=== PATIENT | female | born 1945 | race Two or more races ===

== ENCOUNTER 2025-01-15 19:00 | Inpatient (IN) | payer OTHER ==
[~2025-01-15] VITALS: Ht 170.2 cm; Wt 62.3 kg
--- NOTE | 2025-01-15 19:13 | ED.PDOC ---
HPI Comments 80-year-old female with a history of diabetes, CKD and cardiac valve replacement brought in by EMS from home for evaluation of chest pain that started about 45 minutes prior to arrival. Patient states she was celebrating her birthday with family when she suddenly developed severe sharp chest pain radiating to the left upper extremity, associated with shortness of breath and lightheadedness. Family called 911. Patient states she took her own aspirin 324 mg prior to coming to the ED. on arrival to the ED, the patient states her chest pain is 8/10, sharp, radiating to the left upper extremity and associated with shortness of breath. She denies any nausea, vomiting, diaphoresis or edema. Time Seen by MD: 19:10 Allergies: Coded Allergies: NO KNOWN ALLERGIES (Unverified , 01/15/25) Past Medical History PAST MEDICAL HISTORY: CKF, DM Past Medical History (Other): Cardiac valve disease Surgical History (Other): heart valve replacement in 2010 CONTINUITY CLERK History: No Pertinent CONTINUITY CLERK History Family History Family History: Reviewed,noncontributory to illness Social History Smoker: Non-Smoker Alcohol: Denies ETOH Use Drugs: Denies Drug Use Lives In: Home All Other Systems: Reviewed and Negative (Comprehensive systems review obtained and negative except for what is stated in the HPI.) Physical Exam General Appearance: Mild Distress, Obese HEENT: Other (Pupils and face symmetric. Moist mucous membranes.) Neck: Full Range of Motion, Normal Inspection Respiratory: Lungs Clear, No Accessory Muscle Use, No Respiratory Distress, Normal Breath Sounds Cardiovascular: No Edema, No JVD, Regular Rate/Rhythm Breast Exam: Deferred Gastrointestinal: Non Tender, Soft Genitalia: Deferred Pelvic: Deferred Rectal: Deferred Extremities: Normal inspection, Normal range of motion, Non-tender, No pedal edema Neurologic: Alert (Oriented x4), Normal Affect, Normal Mood, Other (No gross focal deficit) Cerebellar Function: NOT DONE Reflexes: NOT DONE Skin: Dry, Normal Color, Warm Lymphatic: NOT DONE EKG EKG : Comments Sinus rhythm, rate 73, normal intervals, normal axis, LVH, inferior and lateral ST depression Was a procedure done? Was a procedure done?: No CP Differential Dx Differential Diagnosis: Angina, Anxiety / Panic Attack, HI, Pulmonary Embolus Differential Diagnosis: CHF Differential Diagnosis: Chest Wall Pain, Esophageal reflux/spasm, Gastritis, Pericarditis, Pneumonia X-Ray, Labs, Meds, VS Vital Signs Date Time Temp Pulse Resp B/P (MAP) Pulse Ox O2 Delivery O2 Flow Rate FiO2 01/15/25 19:57 67 01/15/25 19:35 130/56 01/15/25 19:15 98.2 74 17 129/76 96 98.2 01/15/25 19:04 73 Lab Test 01/15/25 20:54 01/15/25 19:40 Range/Units Troponin I High Sensitivity 55 *H 31 </=34 ng/L White Blood Count 10.3 4.4-10.8 10^3/uL Red Blood Count 2.75 L 4.0-5.20 10^6/uL Hemoglobin 7.3 L 12.2-16.2 g/dL Hematocrit 21.8 L 36.0-46.0 % Mean Corpuscular Volume 79.1 L 80.0-100.0 fL Mean Corpuscular Hemoglobin 26.4 L 28.0-32.0 pg Mean Corpuscular Hemoglobin Concent 33.4 32.0-36.0 g/dL Red Cell Distribution Width 16.4 H 11.8-14.3 % Platelet Count 344 140-450 10^3/uL Mean Platelet Volume 7.8 6.9-10.8 fL Neutrophils (%) (Auto) 73.3 37.0-80.0 % Lymphocytes (%) (Auto) 9.6 L 10.0-50.0 % Monocytes (%) (Auto) 6.8 0.0-12.0 % Eosinophils (%) (Auto) 9.6 H 0.0-7.0 % Basophils (%) (Auto) 0.7 0.0-2.0 % Neutrophils # (Auto) 7.5 1.6-8.6 10 ^3/uL Lymphocytes # (Auto) 1.0 0.4-5.4 10 ^3/uL Monocytes # (Auto) 0.7 0-1.3 10 ^3/uL Eosinophils # (Auto) 1.0 H 0-0.8 10 ^3/uL Basophils # (Auto) 0.1 0-0.2 10 ^3/uL Nucleated Red Blood Cells 0.0 % Sodium Level 134 L 136-145 mmol/L Potassium Level 4.9 3.5-5.1 mmol/L Chloride Level 102 98-107 mmol/L Carbon Dioxide Level 23 20-31 mmol/L Anion Gap 9 5-15 Blood Urea Nitrogen 50 H 9-23 mg/dL Creatinine 3.75 H 0.550-1.02 mg/dL Glomerular Filtration Rate Calc 12 >90 mL/min BUN/Creatinine Ratio 13.3 10.0-20.0 Serum Glucose 103 74-106 mg/dL Calcium Level 8.7 8.7-10.4 mg/dL B-Type Natriuretic Peptide 1428.44 0-100 pg/mL Current Medications Medications (Trade) Dose Ordered Sig/Virgen Route Start Time Stop Time Status Last Admin Nitroglycerin (Nitro-Bid) 1 pkg ONCE ONCE TD 01/15/25 19:15 01/15/25 19:16 DC 01/15/25 19:35 X-Ray, Labs, Meds, VS Comment 80-year-old female with a history of diabetes, CKD and cardiac valve replacement brought in by EMS complaining of chest pain Vitals unremarkable Exam unremarkable Rhythm strip independently interpreted by me: Sinus rhythm, rate 73, no ectopy. Chest x-ray independently interpreted by me: Cardiomegaly with pulmonary vascular congestion CBC remarkable for hemoglobin 7.3, hematocrit 21.8, basic metabolic panel remarkable for sodium 134, BUN 50, creatinine 3.75, BNP 1428.44, serial troponins 31 and 55, UA pending Patient treated with the following in the ED: Nitro-Bid 1/2 inch to chest wall with minimal improvement of chest pain. Patient subsequently received Bumex 0.5 mg IV, morphine 2 mg IV and Zofran 4 mg IV On re-evaluation, pain has significantly improved. Vitals were stable. Plan is to admit the patient for diuresis and Cardiology evaluation. Time of 1ST Reevaluation: 19:40 Reevaluation 1ST: Unchanged Time of 2ND Reevaluation: 21:30 Reevaluation 2ND: Improved Patient Education/Counseling: Diagnosis, Treatment Family Education/Counseling: Diagnosis, Treatment SEPSIS Sepsis Screen Physician Orders Chest Portable (01/15/25 20:21) Urinalysis (01/15/25 19:06) Electrocardigram (01/15/25 19:06) Troponin-I Hs (01/15/25 22:06) Electrocardigram (01/15/25 20:06) Electrocardigram (01/15/25 22:06) Vital Signs Date Time Temp Pulse Resp B/P (MAP) Pulse Ox O2 Delivery O2 Flow Rate FiO2 01/15/25 19:57 67 01/15/25 19:35 130/56 01/15/25 19:15 98.2 74 17 129/76 96 98.2 01/15/25 19:04 73 Laboratory Tests Test 01/15/25 19:40 White Blood Count 10.3 10^3/uL (4.4-10.8) Medications Medications Dose Ordered Sig/Virgen Route Start Time Stop Time Status Last Admin Dose Admin Nitroglycerin 1 pkg ONCE ONCE TD 01/15/25 19:15 01/15/25 19:16 DC 01/15/25 19:35 Departure 1 Departure Time of Disposition: 21:14 Impression: Primary Impression: Chest pain with high risk for cardiac etiology Additional Impressions: Acute exacerbation of CHF (congestive heart failure) Anemia Elevated troponin Disposition: ADMITTED INPATIENT Admit to: Tele Condition: Guarded Critical Care Note Critical Care Time?: No Stability Stability form required: No Heart Score Heart Score: Heart Score Response (Comments) Value History Moderate Suspicious [address]-Deviation 2 Age >65 2 Risk Factors >3 or Hx ASHD 2 Troponin Normal limit 0 Total 7 I personally scribed for DELMY HERNANDEZ MD ([email or web address]) on 01/15/25 at 19:13. Electronically submitted by Moragn Shin ([email or web address]). DELMY HERNANDEZ MD Jan 15, 2025 19:13
[2025-01-15] MEDS: NITROGLYCERIN 2% OINT 1GM PKG TD ONE (19:35)
[2025-01-15 20:00] LABS: Hematocrit 21.8 % (36.0-46.0); Hemoglobin 7.3 g/dL (12.2-16.2); Mean Corpuscular Hemoglobin 26.4 pg (28.0-32.0); Mean Corpuscular Volume 79.1 fL (80.0-100.0); Nucleated Red Blood Cells % 0.0 %
[2025-01-15 20:16] LABS: Chloride 102 mmol/L (98-107); Potassium 4.9 mmol/L (3.5-5.1)
[2025-01-15 20:17] LABS: Anion Gap 9 (5-15); Carbon Dioxide 23 mmol/L (20-31)
[2025-01-15 20:22] LABS: BUN/Creatinine Ratio 13.3 (10.0-20.0); Glucose 103 mg/dL (74-106)
[2025-01-15 20:29] LABS: Blood Urea Nitrogen 50 mg/dL (9-23); Calcium 8.7 mg/dL (8.7-10.4); Sodium 134 mmol/L (136-145)
[2025-01-15] MEDS: ONDANSETRON HCL 4 MG/2 ML VIAL IV ONE (21:59)
[2025-01-15] MEDS: BUMETANIDE 1mg/4ml VIAL (0.25mg/ml) IV ONE (22:00)
[2025-01-15] MEDS: MORPHINE SULFATE INJ 2 MG/ml SYRG IV ONE (22:01)
[2025-01-15 23:51] LABS: Urine Protein, UAD TRACE (Negative); Urine WBC Clumps PRESENT /hpf (None Seen)
--- NOTE | 2025-01-16 00:20 | DVH ---
EXAM: XY CHEST PORTABLE CLINICAL HISTORY: cp TECHNIQUE: Single AP view of the chest WID: COMPARISON: None FINDINGS: Lines and tubes: Prior median sternotomy Chest: Cardiomegaly and mild prominence of the pulmonary vasculature. Calcified plaque projects over the ao rtic arch. Diffuse interstitial opacities in the lungs. amorphous high density/ calcification in the right uppe r lung. No pleural effusion or pneumothorax. The osseous structures are grossly intact. IMPRESSION: Diffuse interstitial prominence in the lungs which could reflect pulmonary edema, fibrotic change, or atypical infection. Mild cardiomegaly with mild prominence of the pulmonary vasculature. Amorphous high density / calcification in the right upper lung. Consider characterization with noneme rgent CT chest if clinically indicated.
--- NOTE | 2025-01-16 10:44 | ECG ---
[facility] Test Date: 2025-01-16 Test Time: 10:42:47 Pat Name: KEYLA ANDRADE Department: Room: 0294T Gender: F Licensed Professional Counselor: : 1945 Requested By: PRADIP RANKIN Order Number: [id number] Reading MD: Donnie Jordan Measurements Intervals [place] Rate: 73 P: -27 GA: 210 QRS: -28 QRSD: 116 T: 119 QT: 406 QTc: 448 Interpretive Statements Sinus rhythm LVH with secondary repolarization abnormality Electronically Signed On 01-17-2025 23:00:01 PDT by Donnie Jordan Please click the below link to view image of tracing.
[2025-01-16] MEDS ORDERED: NITROGLYCERIN 0.4 MG SL TAB SL PRN (11:00)
[2025-01-16] MEDS ORDERED: ONDANSETRON HCL 4 MG/2 ML VIAL IV PRN (11:00)
--- NOTE | 2025-01-16 11:11 | DVHHPRES ---
History of Present Illness Resident Creating Document: PRADIP RANKIN RESDIENT History of Present Illness This is an 80-year-old female with past medical history of diabetes (on insulin), CKD grade 5, heart valvular replacement, hypertension and dyslipidemia came to the hospital due to chest pain. Pain localized at substernal area, radiating to the left arm, 8/10, pressure-like, with no clear exacerbating or relieving factor. In route the patient taken aspirin and upon arrival to the hospital and giving morphine pain resolved. She also reports of palpitation, headache, and shortness of breaths. Denies fever, cough, nausea, vomiting or any recent sick contact. PMHx: diabetes (on insulin), CKD grade 5, heart valvular replacement, hypertension and dyslipidemia and hemorrhoids PSHx: Valve repair open heart surgery Family history: Nonsignificant Social history: Denies smoking or any other drug use Home medication: Amlodipine, Lantus, carvedilol, sucralfate, Lasix, benazepril, atorvastatin, metformin Allergic history: No known allergy Patient seen and examined at the bedside. Patient is still complaining of mild chest pain and shortness of breaths. Review of Systems Allergies: Coded Allergies: NO KNOWN ALLERGIES (Unverified , 01/15/25) Medications Current Medications Medications Dose Ordered Sig/Virgen Route Start Time Stop Time Status Last Admin Dose Admin Acetaminophen 650 mg Q6HR PO 01/16/25 12:00 Acetaminophen/ Hydrocodone Bitart 1 tab Q4HP PRN PO 01/16/25 11:00 Ondansetron HCl 4 mg Q4HP PRN IV 01/16/25 11:00 UNV Nitroglycerin 0.4 mg Q5MINP PRN SL 01/16/25 11:00 Insulin Glargine 8 units DAILY@1000 SC 01/17/25 10:00 UNV Atorvastatin Calcium 80 mg HS PO 01/16/25 22:00 UNV Carvedilol 12.5 mg Q12HR PO 01/16/25 22:00 UNV Furosemide 40 mg DAILY IV 01/17/25 10:00 UNV Exam Vital Signs Vital Signs Date Time Temp Pulse Resp B/P (MAP) Pulse Ox O2 Delivery O2 Flow Rate FiO2 01/16/25 10:42 73 01/16/25 08:00 97.5 22 145/61 (89) 99 97.5 01/16/25 07:46 Nasal Cannula* 2 28 Exam General Appearance: Alert, Oriented X3, Cooperative, No acute distress HEENT: Atraumatic, PERRLA, EOMI, Mucous membrane moist/pink Respiratory: Bilateral lower zone crackles Cardiovascular: Regular rate, Normal S1, Normal S2, No murmurs, no chest wall tenderness Abdominal: Normal bowel sounds, Soft, No tenderness, No hepatospenomegaly, No masses Extremities: Bilateral grade 1 pedal edema Skin: No rashes, No breakdown, No significant lesion Neuro: Normal gait, Normal speech, Strength at 5/5 X4 ext, Normal tone, Sensation intact, Cranial nerves 3-12 NL, Reflexes 2+ Psych/Mental Status: Mental status NL, Mood NL Labs/Xrays Labs Test 01/15/25 22:41 01/15/25 19:40 01/15/25 19:06 Range/Units Troponin I High Sensitivity 184 *H </=34 ng/L White Blood Count 10.3 4.4-10.8 10^3/uL Red Blood Count 2.75 L 4.0-5.20 10^6/uL Hemoglobin 7.3 L 12.2-16.2 g/dL Hematocrit 21.8 L 36.0-46.0 % Mean Corpuscular Volume 79.1 L 80.0-100.0 fL Mean Corpuscular Hemoglobin 26.4 L 28.0-32.0 pg Mean Corpuscular Hemoglobin Concent 33.4 32.0-36.0 g/dL Red Cell Distribution Width 16.4 H 11.8-14.3 % Platelet Count 344 140-450 10^3/uL Mean Platelet Volume 7.8 6.9-10.8 fL Neutrophils (%) (Auto) 73.3 37.0-80.0 % Lymphocytes (%) (Auto) 9.6 L 10.0-50.0 % Monocytes (%) (Auto) 6.8 0.0-12.0 % Eosinophils (%) (Auto) 9.6 H 0.0-7.0 % Basophils (%) (Auto) 0.7 0.0-2.0 % Neutrophils # (Auto) 7.5 1.6-8.6 10 ^3/uL Lymphocytes # (Auto) 1.0 0.4-5.4 10 ^3/uL Monocytes # (Auto) 0.7 0-1.3 10 ^3/uL Eosinophils # (Auto) 1.0 H 0-0.8 10 ^3/uL Basophils # (Auto) 0.1 0-0.2 10 ^3/uL Nucleated Red Blood Cells 0.0 % Sodium Level 134 L 136-145 mmol/L Potassium Level 4.9 3.5-5.1 mmol/L Chloride Level 102 98-107 mmol/L Carbon Dioxide Level 23 20-31 mmol/L Anion Gap 9 5-15 Blood Urea Nitrogen 50 H 9-23 mg/dL Creatinine 3.75 H 0.550-1.02 mg/dL Glomerular Filtration Rate Calc 12 >90 mL/min BUN/Creatinine Ratio 13.3 10.0-20.0 Serum Glucose 103 74-106 mg/dL Calcium Level 8.7 8.7-10.4 mg/dL B-Type Natriuretic Peptide 1428.44 0-100 pg/mL Urine Color Colorless Yellow Urine Clarity Turbid H Clear Urine pH 7.5 5.0-9.0 Urine Specific [place] 1.008 1.001-1.035 Urine Protein Trace H Negative Urine Ketones Negative Negative Urine Blood Trace H Negative /uL Urine Nitrite Negative Negative Urine Bilirubin Negative Negative Urine Urobilinogen Normal Negative mg/dL Urine Leukocyte Esterase 3+ Negative /uL Urine RBC 20 0 - 4 /hpf Urine WBC Clumps Present None Seen /hpf Urine Microscopic WBC 414 H 0-5 /HPF Urine Squamous Epithelial Cells Few <5 /hpf Urine Transitional Epithelial Cells Few <2 /hpf Urine Renal Epithelial Cells Few None Seen /hpf Urine Bacteria Few H None Seen /hpf Urine Glucose Normal Normal mg/dL SEPSIS Sepsis Screen Date sepsis recognized/suspect: Jan 16, 2025 Time Sepsis recognized/suspect: 07 Recent Procedure: No On Antibiotic Therapy: No Respiratory Rate >20: No Heart Rate >90: No Temp<36 C (96.8 F) or >38.3 C: No SBP <90 or MAP <65 mmHG: No New Acute Mental Status Change: No Is the patient on CPAP, BIPAP,: No Physician Orders Admit (01/16/25 10:56) Code Status (01/16/25 10:56) Vital Signs .PER UNIT PROTOCOL (01/16/25 10:56) Review Orders With Adm. (01/16/25 10:56) Consistent Carb(Ccho)Diabetes (01/16/25 Lunch) Acetaminophen Tablet (Tylenol Tablet) (01/16/25 12:00) Notify Md Of Changes From Base (01/16/25 10:56) Advance Directive (01/16/25 10:56) Echo 2d Mode Cardiac Dop (01/16/25 10:56) Lipid Panel (01/16/25 10:56) Patient Condition (01/16/25 10:56) Allergies (01/16/25 10:56) Hydrocodone-Acet 5/325mg Tab ([place] 5/32 (01/16/25 11:00) Ondansetron Hcl (Zofran) (01/16/25 11:00) Hemoglobin A1c (01/16/25 10:56) Oxygen By Nasal Cannula (01/16/25 10:56) Stat Ekg For Chest Pain (01/16/25 10:56) Notify Md Of Changes From Base (01/16/25 10:56) Bungy Jump Master For 24 Hours (01/16/25 10:56) Emergency Dysrhythmia Protocol (01/16/25 10:56) Nitroglycerin Sublingual (Ntrostat Subli (01/16/25 11:00) Complete Blood Count (01/16/25 10:56) Comprehensive Metabolic Panel (01/16/25 10:56) Prothrombin Time W/ Inr (01/16/25 10:56) Drug Screen (01/16/25 10:56) Stool Occult Blood (01/16/25 10:56) Covid19 Antigen Radha (01/16/25 ) Magnesium (01/16/25 10:56) Thyroid Stimulating Hormone (01/16/25 10:56) Ferritin (01/16/25 10:56) Iron Panel (01/16/25 10:56) Vitamin B12 (01/16/25 10:56) Vitamin D, 25-Hydroxy (01/16/25 10:56) Vitamin D 25-Hydroxy D2 + D3 (01/16/25 10:56) Insulin Lantus (Glargine) (Lantus) (01/17/25 10:00) Atorvastatin (Lipitor) (01/16/25 11:15) Atorvastatin (Lipitor) (01/16/25 22:00) Carvedilol Tablet (Coreg Tablet) (01/16/25 11:15) Carvedilol Tablet (Coreg Tablet) (01/16/25 22:00) Furosemide Injection (Lasix Injection) (01/17/25 10:00) * Cardiology Consult (01/16/25 11:10) Vital Signs Date Time Temp Pulse Resp B/P (MAP) Pulse Ox O2 Delivery O2 Flow Rate FiO2 01/16/25 10:42 73 01/16/25 08:00 97.5 62 22 145/61 (89) 99 97.5 01/16/25 08:00 59 01/16/25 07:46 Nasal Cannula* 2 28 01/16/25 06:25 59 15 142/64 (90) 98 01/16/25 04:45 61 13 149/61 (90) 100 Assessment/Plan Assessment/Plan NSTEMI, likely type 1 Acute systolic heart failure, likely due to above Diabetes type 2 Possible TARSHA on CKD, likely VMN, basilar record not available Severe anemia, likely due to GI bleeding, hypochromic microcytic History of hemorrhoids Status post open heart surgery due to valve replacement Asymptomatic bacteriuria * EKGs shows diffuse ST-depression * Trop I is up trending * BNP is raised at 1400s Plan/recommendation * Aspirin and atorvastatin * Cardiology consulted, recommended medical management at the moment * Blood transfusion * IV diuretic Lasix 40 mg daily * Consulted nephrology * Continue carvedilol DIET: Cardiac diet DVT PROPHYLAXIS: Not given due to severe anemia GI PROPHYLAXIS:: Protonix CODE STATUS: Goal of care discussed for more than 18 minutes, full code DISPOSITION: Telemetry Patient's status and plan discussed with the patient. Case discussed with Dr. Hernández. Plan discussed with: Patient, Other (RN) My Orders Orders - PRADIP RANKIN RESDILANI Procedure Category Date Status Time Admit ADMIT 01/16/25 Transmitted 10:56 Code Status CODE 01/16/25 Transmitted 10:56 Vital Signs BARBRA 01/16/25 In Process 10:56 Review Orders With BARBRA 01/16/25 In Process Adm. 10:56 Consistent DIET 01/16/25 Transmitted Carb(Ccho)Diabetes Lunch Acetaminophen Tablet PHA 01/16/25 In Process (Tylenol Tablet) 12:00 Notify Of Changes BARBRA 01/16/25 In Process From Base 10:56 Advance Directive BARBRA 01/16/25 In Process 10:56 Echo 2d Mode Cardiac US 01/16/25 Logged DOP 10:56 Lipid Panel LAB 01/16/25 Logged 10:56 Patient Condition ORDERS 01/16/25 Transmitted 10:56 Allergies BARBRA 01/16/25 In Process 10:56 Hydrocodone-Acet PHA 01/16/25 In Process 5/325mg Tab ([place] 11:00 Ondansetron Hcl PHA 01/16/25 Logged (Zofran) 11:00 Hemoglobin A1c LAB 01/16/25 Logged 10:56 Oxygen By Nasal RT 01/16/25 Transmitted Cannula 10:56 Stat Ekg For Chest BARBRA 01/16/25 In Process Pain 10:56 Notify Of Changes [facility] 01/16/25 In Process From Base 10:56 Bungy Jump Master For [facility] 01/16/25 In Process 24 Hours 10:56 Emergency Dysrhythmia [facility] 01/16/25 In Process Protocol 10:56 Nitroglycerin PHA 01/16/25 In Process Sublingual (Ntrostat 11:00 Complete Blood Count LAB 01/16/25 Logged 10:56 Comprehensive LAB 01/16/25 Logged Metabolic Panel 10:56 Prothrombin Time W/ LAB 01/16/25 Logged INR 10:56 Drug Screen LAB 01/16/25 Logged 10:56 Stool Occult Blood LAB 01/16/25 Logged 10:56 Covid19 Antigen Radha LAB 01/16/25 Logged Magnesium LAB 01/16/25 Logged 10:56 Thyroid Stimulating LAB 01/16/25 Logged Hormone 10:56 Ferritin LAB 01/16/25 Logged 10:56 Iron Panel LAB 01/16/25 Logged 10:56 Vitamin B12 LAB 01/16/25 Logged 10:56 Vitamin D, 25-Hydroxy LAB 01/16/25 Logged 10:56 Vitamin D 25-Hydroxy LAB 01/16/25 Logged D2 + D3 10:56 Insulin Lantus PHA 01/17/25 Logged (Glargine) (Lantus) 10:00 Atorvastatin (Lipitor) PHA 01/16/25 Logged 11:15 Atorvastatin (Lipitor) PHA 01/16/25 Logged 22:00 Carvedilol Tablet PHA 01/16/25 Logged (Coreg Tablet) 11:15 Carvedilol Tablet PHA 01/16/25 Logged (Coreg Tablet) 22:00 Furosemide Injection PHA 01/17/25 Logged (Lasix Injection) 10:00 * Cardiology Consult CONS 01/16/25 Verified 11:10 Date of Service: Jan 16, 2025 Billing Provider: AKANKSHA ANGULO MD Common Visit Codes: 25011-[id number] INP/OBS CARE (HIGH) Secondary Visit Codes: 28799-[id number] CARE PLAN 30 MINUTES PRADIP RANKIN RESDIENT Jan 16, 2025 11:11 AKANKSHA ANGULO MD Jan 17, 2025 00:54
[2025-01-16] MEDS ORDERED: ATORVASTATIN 20 MG TAB PO ONE (11:15)
[2025-01-16] MEDS: PANTOPRAZOLE 40 MG/10 ML VIAL INJ IV ONE (12:08)
[2025-01-16] MEDS: CARVEDILOL 12.5 MG TAB PO ONE (12:09)
[2025-01-16] MEDS: ACETAMINOPHEN 325 MG TAB PO SCH (12:13)
[2025-01-16 12:20] LABS: Hemoglobin 7.3 g/dL (12.2-16.2); Nucleated Red Blood Cells % 0.0 %
[2025-01-16 12:23] LABS: Hematocrit 21.9 % (36.0-46.0); Mean Corpuscular Hemoglobin 26.5 pg (28.0-32.0); Mean Corpuscular Volume 79.4 fL (80.0-100.0)
[2025-01-16 12:37] LABS: Iron 25.0 ug/dL (50-170)
[2025-01-16 12:38] LABS: INR 1.08 (0.9-1.15); Prothrombin Time 11.4 sec (9.3-11.8)
[2025-01-16 12:39] LABS: Albumin 3.8 g/dL (3.2-4.8); Anion Gap 9 (5-15); BUN/Creatinine Ratio 13.7 (10.0-20.0); Bilirubin, Total 0.5 mg/dL (0.2-1.0); Calcium 8.9 mg/dL (8.7-10.4); Carbon Dioxide 24 mmol/L (20-31); Chloride 103 mmol/L (98-107); Magnesium 1.7 mg/dL (1.6-2.6); Potassium 4.8 mmol/L (3.5-5.1); Total Protein 7.3 g/dL (5.7-8.2)
[2025-01-16 12:40] LABS: Sodium 136 mmol/L (136-145); Total Iron Binding Capacity 211.0 ug/dL (250-425)
[2025-01-16 12:41] LABS: Alanine Aminotransferase < 9 U/L (7-40); Alkaline Phosphatase 143 U/L (46-116); Blood Urea Nitrogen 50 mg/dL (9-23); Glucose 140 mg/dL (74-106)
[2025-01-16 12:56] LABS: Triglycerides 90 mg/dL (< 150)
[2025-01-16 12:59] LABS: Cholesterol 89 mg/dL (< 200); HDL Cholesterol 32 mg/dL (40-59)
--- NOTE | 2025-01-16 13:29 | DVHINCON2 ---
Date Seen: Jan 16, [address] Marmolejo Reason for Consultation NSTEMI History of Present Illness 80-year-old female with a history of hypertension, CHF, CKD (baseline unknown, currently Cr 3.65), dm two, bioprosthetic valve replacement (cow valve), obesity, and anemia, presents via EMS with intermittent chest pain ongoing for three weeks, worsened yesterday during emotional excitement at her birthday celebration. At that time, she developed sharp chest pain associated with shortness of breath, headache, left arm numbness, bilateral leg numbness, prompting her to call 911. She reports partial relief of chest pain after taking aspirin given by paramedics. Upon assessment, she denied current chest pain but continue to reports dyspnea on exertion and orthopnea. Cardiology was consulted due to rising troponin levels (), likely concerning for NSTEMI. EKG shows sinus rhythm with T-wave inversions, and chest x-ray reveals mild cardiomegaly and pulmonary congestion. BNP is elevated at 1420, consistent with decompensated heart failure. She follows with loop drier operator Dr. Sainz, last seen one month ago. She denies any recent left heart catheterization or stress testing. Past Medical History As stated in HPI Past Surgical History Valve replacement Family History Reviewed, non-contributory to the management of this case. Social History The patient lives at home, denies smoking, alcohol or illicit drugs abuse. Allergies: Coded Allergies: NO KNOWN ALLERGIES (Unverified , 01/15/25) Current Medications Current Medications Medications (Trade) Dose Ordered Sig/Virgen Route PRN Reason Start Time Stop Time Status Last Admin Acetaminophen (Tylenol Tablet) 650 mg Q6HR PO 01/16/25 12:00 01/16/25 12:13 Acetaminophen/ Hydrocodone Bitart (Sargent 5/325MG Tab) 1 tab Q4HP PRN PO MODERATE PAIN (4-6 PAIN SCALE) 01/16/25 11:00 Ondansetron HCl (Zofran) 4 mg Q4HP PRN IV NAUSEA / VOMITING 01/16/25 11:00 Nitroglycerin (Ntrostat Sublingual) 0.4 mg Q5MINP PRN SL FOR CHEST PAIN 01/16/25 11:00 Insulin Glargine (Lantus) 8 units DAILY@1000 SC 01/17/25 10:00 Atorvastatin Calcium (Lipitor) 80 mg HS PO 01/16/25 22:00 Carvedilol (Coreg Tablet) 12.5 mg Q12HR PO 01/16/25 22:00 Furosemide (Lasix Injection) 40 mg DAILY IV 01/17/25 10:00 Pantoprazole Sodium (Protonix) 40 mg DAILY IV 01/17/25 10:00 Review of Systems Constitutional: Fatigue. Ears, Nose, & Throat: No symptom reported Eyes: No symptom reported Neurological: Transient bilateral leg numbness. Pulmonary/Respiratory: Shortness of breath. Cardiovascular: Chest pain, orthopnea, dyspnea on exertion Gastrointestinal: No symptom reported Genitourinary: No symptom reported Musculoskeletal: No symptom reported Skin: No symptom reported Psychiatric: No symptom reported Endocrine: No symptom reported Hematologic/Lymphatic: No symptom reported Vital Signs Vital Signs Date Time Temp Pulse Resp B/P (MAP) Pulse Ox O2 Delivery O2 Flow Rate FiO2 01/16/25 12:13 97.5 01/16/25 12:09 68 138/51 01/16/25 12:00 18 96 01/16/25 07:46 Nasal Cannula* 2 28 Physical Exam INITIAL VITAL SIGNS: Reviewed by me GENERAL: Alert and interactive. No acute distress. HEAD: Head is normocephalic and atraumatic. EYES: EOMI, PERRL. No scleral icterus. No conjunctival injection. ENT: Moist mucous membranes. NECK: Supple, No masses, Full range of motion. RESPIRATORY: Mild bibasilar crackles CV: Regular rhythm and rate, orthopnea, dyspnea on exertion, no edema GI/: Active bowel sounds, soft, nondistended, nontender. No guarding. No rebound. No masses. No CVA tenderness. INTEGUMENTARY: Warm and dry. No obvious rashes. NEUROLOGIC: Alert and oriented. Face is symmetric. Speech is normal. Moves all extremities equally. Labs/Diagnostic Data Labs Test 01/16/25 11:56 01/16/25 10:56 01/15/25 22:41 01/15/25 19:40 Range/Units Prothrombin Time 11.4 9.3-11.8 sec Prothrombin Time INR 1.08 0.9-1.15 Sodium Level 136 136-145 mmol/L Potassium Level 4.8 3.5-5.1 mmol/L Chloride Level 103 98-107 mmol/L Carbon Dioxide Level 24 20-31 mmol/L Anion Gap 9 5-15 Blood Urea Nitrogen 50 H 9-23 mg/dL Creatinine 3.64 H 0.550-1.02 mg/dL Glomerular Filtration Rate Calc 12 >90 mL/min BUN/Creatinine Ratio 13.7 10.0-20.0 Serum Glucose 140 H 74-106 mg/dL Calcium Level 8.9 8.7-10.4 mg/dL Magnesium Level 1.7 1.6-2.6 mg/dL Iron Level 25 L 50-170 ug/dL Total Iron Binding Capacity 211 L 250-425 ug/dL Percent Iron Saturation 11.8 L 15-50 % Total Bilirubin 0.5 0.2-1.0 mg/dL Aspartate Amino Transferase (AST) 15 13-40 U/L Alanine Aminotransferase (ALT) < 9 7-40 U/L Alkaline Phosphatase 143 H 46-116 U/L Total Protein 7.3 5.7-8.2 g/dL Albumin 3.8 3.2-4.8 g/dL Triglycerides Level 90 < 150 mg/dL Cholesterol Level 89 < 200 mg/dL LDL Cholesterol 37 < 100 mg/dL HDL Cholesterol 32 L 40-59 mg/dL Thyroid Stimulating Hormone (TSH) 2.46 0.55-4.78 uIU/mL White Blood Count 8.4 4.4-10.8 10^3/uL Red Blood Count 2.76 L 4.0-5.20 10^6/uL Hemoglobin 7.3 L 12.2-16.2 g/dL Hematocrit 21.9 L 36.0-46.0 % Mean Corpuscular Volume 79.4 L 80.0-100.0 fL Mean Corpuscular Hemoglobin 26.5 L 28.0-32.0 pg Mean Corpuscular Hemoglobin Concent 33.3 32.0-36.0 g/dL Red Cell Distribution Width 16.4 H 11.8-14.3 % Platelet Count 315 140-450 10^3/uL Mean Platelet Volume 7.8 6.9-10.8 fL Neutrophils (%) (Auto) 76.1 37.0-80.0 % Lymphocytes (%) (Auto) 8.2 L 10.0-50.0 % Monocytes (%) (Auto) 5.5 0.0-12.0 % Eosinophils (%) (Auto) 9.2 H 0.0-7.0 % Basophils (%) (Auto) 1.0 0.0-2.0 % Neutrophils # (Auto) 6.4 1.6-8.6 10 ^3/uL Lymphocytes # (Auto) 0.7 0.4-5.4 10 ^3/uL Monocytes # (Auto) 0.5 0-1.3 10 ^3/uL Eosinophils # (Auto) 0.8 0-0.8 10 ^3/uL Basophils # (Auto) 0.1 0-0.2 10 ^3/uL Nucleated Red Blood Cells 0.0 % Hemoglobin A1c 6.0 H <5.7 % A1C Troponin I High Sensitivity 184 *H </=34 ng/L B-Type Natriuretic Peptide 1428.44 0-100 pg/mL Test 01/15/25 19:06 Range/Units Urine Color Colorless Yellow Urine Clarity Turbid H Clear Urine pH 7.5 5.0-9.0 Urine Specific [place] 1.008 1.001-1.035 Urine Protein Trace H Negative Urine Ketones Negative Negative Urine Blood Trace H Negative /uL Urine Nitrite Negative Negative Urine Bilirubin Negative Negative Urine Urobilinogen Normal Negative mg/dL Urine Leukocyte Esterase 3+ Negative /uL Urine RBC 20 0 - 4 /hpf Urine WBC Clumps Present None Seen /hpf Urine Microscopic WBC 414 H 0-5 /HPF Urine Squamous Epithelial Cells Few <5 /hpf Urine Transitional Epithelial Cells Few <2 /hpf Urine Renal Epithelial Cells Few None Seen /hpf Urine Bacteria Few H None Seen /hpf Urine Glucose Normal Normal mg/dL PROCEDURE(s): CXRP - CHEST PORTABLE REASON: ORDER NUMBER(s): [id number], ACCESSION NUMBER(s): [id number] EXAM: XY CHEST PORTABLE CLINICAL HISTORY: cp TECHNIQUE: Single AP view of the chest WID: COMPARISON: None FINDINGS: Lines and tubes: Prior median sternotomy Chest: Cardiomegaly and mild prominence of the pulmonary vasculature. Calcified plaque projects over the aortic arch. Diffuse interstitial opacities in the lungs. amorphous high density/ calcification in the right upper lung. No pleural effusion or pneumothorax. The osseous structures are grossly intact. IMPRESSION: Diffuse interstitial prominence in the lungs which could reflect pulmonary edema, fibrotic change, or atypical infection. Mild cardiomegaly with mild prominence of the pulmonary vasculature. Amorphous high density / calcification in the right upper lung. Consider characterization with nonemergent CT chest if clinically indicated. Assessment Acute chest pain to rule out ACS ( HEART score 7, TMI score 7) NSTEMI likely type 1, possible type 2 given heart failure and CKD Acute decompensated heart failure Symptomatic anemia Bioprosthetic aortic valve (Cow Valve) CKD stage 5/ TARSHA on CKD Right upper lobe pulmonary calcification on x-ray Pulmonary congestion Hypertension Diabetes type 2 Plan/Recommendation (Dr. Metzger ): High-risk NSTEMI (HEART 7/ LAYLA 7) * Troponin trending up (31-51-184) concerning for type 1 NSTEMI * ECG with T-waves inversions * High dose statins * Therapeutic anticoagulation held pending hemoglobin is stabilization and GI workup * Cardiology following; patient consented for left heart catheterization, to be deferred until patient is more stable and hemoglobin improves. Medical management for now. * Close cardiac monitoring Acute decompensated heart failure * Echocardiogram ordered to assess LV function and prosthetic valve status * Continue with beta mohamud * Daily weight * Strict intake and output * Low-sodium diet Bioprosthetic aortic valve * Echo pending Hypertension * Continue with antihypertensive medication TARSHA on CKD * Recommend consult Nephrology DM type 2/ Anemia/Right upper lobe pulmonary calcification * Per hospitalist management This medical document was created using an electronic medical record system with voice recognition software and computerized dictation system. Although this document has been carefully reviewed, there might still be some phonetic and typographical errors. Occasional wrong-word or ``sound-alike substitutions may have occurred due to the inherent limitations of voice recognition software. These areas are purely typographical due to imperfections of the software programs and do not reflect any compromise in the patient's medical care. Please read the chart carefully and recognize, using context, where these substitutions have occurred. Plan discussed with: Patient Plan discussed with: Patient NYHA Physical activity limitations: Class2(Slight)fatigue,sob Date of Service: Jan 16, 2025 Billing Provider: LYLE METZGER MD Cardiology Common Codes: CONSULT ONLY Cardiology Consultation Codes: [id number] CONSULT <60MIN EMBER BASSETT PARAPROFESSIONAL AIDE Jan 16, 2025 13:29
[2025-01-16 16:31] VITALS: BP 131/78; PULSE 65; RESP 18; TEMP 98.2; O2SAT 96
[2025-01-16 20:00] VITALS: PULSE 64
[2025-01-16 21:00] VITALS: BP 127/58; PULSE 50; RESP 20; TEMP 98.3; O2SAT 93
--- NOTE | 2025-01-16 21:39 | DVHSR ---
APPROVED REPORT EXAM: Two-dimensional and M-mode echocardiogram with Doppler and color Doppler. Blood Pressure: 145/61 mmHg INDICATION HF Surgery/Intervention Valve Replacement: Mechanical Type: Aortic RISK FACTORS Height: 67, Weight: 185 DIMENSIONS LVDd (3.8-5.7cm)LA (2D)4.3 (1.9-4.0cm)Aortic Root (2.0-3.7cm) EF (%) 59.0 (55-70%)Rt. Atrium5.3 (1.9-4.0cm)Asc. Aorta cm Mitral Valve MitralMitral Stenosis E wave1.77m/sMV Mean GR.5mmHg A wave1.05m/sMV Peak GR.128mmHg E/A ratio1.72D MVAcm2 DECEL [id number] 1/2 Cemd98ub IVRTmsDop MVA3.23cm2 Aortic Valve Aortic ValveAortic Stenosis V10.93m/Jama Mean GR.17mmHg V22.73m/Jama Peak GR.30mmHg Pulmonic Valve V21.40m/s Tricuspid Valve TR Velocity3.69m/s [id number] Other Information Technically limited study due to body habitus. Conclusion MILD LVH AND MILD LV DIASTOLIC DYSFUNCTION LV EF IS 60% AND IS NORMAL MODERATELY DILATED LA,RV,AND RA HEAVILY CALCIFIED POSTERIOR MITRAL LEAFLET , ANNULUS AND TIPS MODERATELY SEVERE MR SEVERE PULMONARY HYPERTENSION RVSP IS 65 MM OF HG AND IS VERY HIGH MODERATELY CALCIFIED AORTIC LEAFLETS PEAK GRADIENT ACROSS AORTIC VALVE IS 30 MM OF HG AND MEAN GRADIENT IS 19 MM OF HG
[2025-01-16] MEDS: CARVEDILOL 12.5 MG TAB PO SCH (22:09)
[2025-01-16] MEDS: ATORVASTATIN 20 MG TAB PO SCH (22:10)
--- NOTE | 2025-01-16 23:25 | DVHINCON2 ---
Date Seen: Jan 16, [address] Marmolejo Reason for Consultation NSTEMI History of Present Illness This is an 80-year-old female with a past medical history of hypertension, CHF, CKD (baseline unknown, currently Cr 3.65), dm two, bioprosthetic valve replacement (cow valve), obesity, and anemia brought in by EMS with complaints of intermittent chest pain ongoing for three weeks, worsened yesterday during emotional excitement at her birthday celebration. At that time, she developed sharp chest pain associated with shortness of breath, headache, left arm numbness, bilateral leg numbness, prompting her to call 911. Patient reports partial relief of chest pain after taking aspirin given by paramedics. Upon assessment, she denied current chest pain but continue to reports dyspnea on exertion and orthopnea. ardiology was consulted due to rising troponin levels (), likely concerning for NSTEMI. EKG shows sinus rhythm with T-wave inversions, and chest x-ray reveals mild cardiomegaly and pulmonary congestion. BNP is elevated at 1420, consistent with decompensated heart failure. She follows with drafting detailer Dr. Sainz, recent outpatient cardiac workup was one month ago. he denies any recent left heart catheterization or stress testing. Past Medical History As stated in HPI Past Surgical History Valve replacement Allergies: Coded Allergies: NO KNOWN ALLERGIES (Unverified , 01/15/25) Current Medications Current Medications Medications (Trade) Dose Ordered Sig/Virgen Route PRN Reason Start Time Stop Time Status Last Admin Acetaminophen (Tylenol Tablet) 650 mg Q6HR PO 01/16/25 12:00 01/16/25 12:13 Acetaminophen/ Hydrocodone Bitart (Friona 5/325MG Tab) 1 tab Q4HP PRN PO MODERATE PAIN (4-6 PAIN SCALE) 01/16/25 11:00 Ondansetron HCl (Zofran) 4 mg Q4HP PRN IV NAUSEA / VOMITING 01/16/25 11:00 Nitroglycerin (Ntrostat Sublingual) 0.4 mg Q5MINP PRN SL FOR CHEST PAIN 01/16/25 11:00 Insulin Glargine (Lantus) 8 units DAILY@1000 SC 01/17/25 10:00 Atorvastatin Calcium (Lipitor) 80 mg HS PO 01/16/25 22:00 Carvedilol (Coreg Tablet) 12.5 mg Q12HR PO 01/16/25 22:00 Furosemide (Lasix Injection) 40 mg DAILY IV 01/17/25 10:00 Pantoprazole Sodium (Protonix) 40 mg DAILY IV 01/17/25 10:00 Review of Systems Constitutional: Fatigue. Ears, Nose, & Throat: No symptom reported Eyes: No symptom reported Neurological: Transient bilateral leg numbness. Pulmonary/Respiratory: Shortness of breath. Cardiovascular: Chest pain, orthopnea, dyspnea on exertion Gastrointestinal: No symptom reported Genitourinary: No symptom reported Musculoskeletal: No symptom reported Skin: No symptom reported Psychiatric: No symptom reported Endocrine: No symptom reported Hematologic/Lymphatic: No symptom reported Vital Signs Vital Signs Date Time Temp Pulse Resp B/P (MAP) Pulse Ox O2 Delivery O2 Flow Rate FiO2 01/16/25 14:00 68 17 125/47 (73) 96 01/16/25 13:15 97.0 01/16/25 07:46 Nasal Cannula* 2 28 Physical Exam GENERAL: Alert and oriented x 3. No acute distress. EYES: PERRL, EOMI. Anicteric. HENT: Moist mucous membranes. LUNGS: Clear to auscultation bilaterally. CARDIOVASCULAR: Regular rate and rhythm. ABDOMEN: Soft, nontender and nondistended. EXTREMITIES: No edema. NEUROLOGIC: No focal neurological deficits. SKIN: Warm, dry. Labs/Diagnostic Data Labs Test 01/16/25 11:56 01/16/25 10:56 01/15/25 19:40 01/15/25 19:06 Range/Units Prothrombin Time 11.4 9.3-11.8 sec Prothrombin Time INR 1.08 0.9-1.15 Sodium Level 136 136-145 mmol/L Potassium Level 4.8 3.5-5.1 mmol/L Chloride Level 103 98-107 mmol/L Carbon Dioxide Level 24 20-31 mmol/L Anion Gap 9 5-15 Blood Urea Nitrogen 50 H 9-23 mg/dL Creatinine 3.64 H 0.550-1.02 mg/dL Glomerular Filtration Rate Calc 12 >90 mL/min BUN/Creatinine Ratio 13.7 10.0-20.0 Serum Glucose 140 H 74-106 mg/dL Calcium Level 8.9 8.7-10.4 mg/dL Magnesium Level 1.7 1.6-2.6 mg/dL Iron Level 25 L 50-170 ug/dL Total Iron Binding Capacity 211 L 250-425 ug/dL Percent Iron Saturation 11.8 L 15-50 % Total Bilirubin 0.5 0.2-1.0 mg/dL Aspartate Amino Transferase (AST) 15 13-40 U/L Alanine Aminotransferase (ALT) < 9 7-40 U/L Alkaline Phosphatase 143 H 46-116 U/L Total Protein 7.3 5.7-8.2 g/dL Albumin 3.8 3.2-4.8 g/dL Triglycerides Level 90 < 150 mg/dL Cholesterol Level 89 < 200 mg/dL LDL Cholesterol 37 < 100 mg/dL HDL Cholesterol 32 L 40-59 mg/dL Thyroid Stimulating Hormone (TSH) 2.46 0.55-4.78 uIU/mL White Blood Count 8.4 4.4-10.8 10^3/uL Red Blood Count 2.76 L 4.0-5.20 10^6/uL Hemoglobin 7.3 L 12.2-16.2 g/dL Hematocrit 21.9 L 36.0-46.0 % Mean Corpuscular Volume 79.4 L 80.0-100.0 fL Mean Corpuscular Hemoglobin 26.5 L 28.0-32.0 pg Mean Corpuscular Hemoglobin Concent 33.3 32.0-36.0 g/dL Red Cell Distribution Width 16.4 H 11.8-14.3 % Platelet Count 315 140-450 10^3/uL Mean Platelet Volume 7.8 6.9-10.8 fL Neutrophils (%) (Auto) 76.1 37.0-80.0 % Lymphocytes (%) (Auto) 8.2 L 10.0-50.0 % Monocytes (%) (Auto) 5.5 0.0-12.0 % Eosinophils (%) (Auto) 9.2 H 0.0-7.0 % Basophils (%) (Auto) 1.0 0.0-2.0 % Neutrophils # (Auto) 6.4 1.6-8.6 10 ^3/uL Lymphocytes # (Auto) 0.7 0.4-5.4 10 ^3/uL Monocytes # (Auto) 0.5 0-1.3 10 ^3/uL Eosinophils # (Auto) 0.8 0-0.8 10 ^3/uL Basophils # (Auto) 0.1 0-0.2 10 ^3/uL Nucleated Red Blood Cells 0.0 % Hemoglobin A1c 6.0 H <5.7 % A1C B-Type Natriuretic Peptide 1428.44 0-100 pg/mL Urine Color Colorless Yellow Urine Clarity Turbid H Clear Urine pH 7.5 5.0-9.0 Urine Specific [place] 1.008 1.001-1.035 Urine Protein Trace H Negative Urine Ketones Negative Negative Urine Blood Trace H Negative /uL Urine Nitrite Negative Negative Urine Bilirubin Negative Negative Urine Urobilinogen Normal Negative mg/dL Urine Leukocyte Esterase 3+ Negative /uL Urine RBC 20 0 - 4 /hpf Urine WBC Clumps Present None Seen /hpf Urine Microscopic WBC 414 H 0-5 /HPF Urine Squamous Epithelial Cells Few <5 /hpf Urine Transitional Epithelial Cells Few <2 /hpf Urine Renal Epithelial Cells Few None Seen /hpf Urine Bacteria Few H None Seen /hpf Urine Glucose Normal Normal mg/dL Assessment Acute chest pain to rule out ACS ( HEART score 7, TMI score 7). NSTEMI likely type 1, possible type 2 given heart failure and CKD. Acute decompensated heart failure. Symptomatic anemia. Bioprosthetic aortic valve (Cow Valve). CKD stage 5/ TARSHA on CKD. Right upper lobe pulmonary calcification on x-ray. Pulmonary congestion. Hypertension. Diabetes type 2. Plan/Recommendation I agree with your ongoing assessment and care of plan. Patient has been seen by Camila Gutierrez NP on my behalf, her and I discussed the plan with the patient. High-risk NSTEMI (HEART 7/ LAYLA 7). Troponin trending up (31-51-184) concerning for type 1 NSTEMI. ECG with T-waves inversions. High dose statins. Therapeutic anticoagulation held pending hemoglobin is stabilization and GI workup. Cardiology following; patient consented for left heart catheterization, to be deferred until patient is more stable and hemoglobin improves. Close cardiac monitoring. Acute decompensated heart failure. Echocardiogram ordered to assess LV function and prosthetic valve status. Continue with beta mohamud. Daily weight. Strict intake and output. Low-sodium diet. Bioprosthetic aortic valve. Echo pending. Hypertension. Continue with antihypertensive medication. TARSHA on CKD. Recommend consult Nephrology. DM type 2/ Anemia/Right upper lobe pulmonary calcification. Per hospitalist management. Additional plan as per the hospital course. Plan discussed with: Patient NYHA Physical activity limitations: Class2(Slight)fatigue,sob Date of Service: Jan 16, 2025 Billing Provider: LYLE ARROYO MD Cardiology Common Codes: 34610-[id number] INP/OBS CARE (High) Cardiology Consultation Codes: [id number] CONSULT <45MIN LYLE ARROYO MD Jan 16, 2025 14:56
[2025-01-17] VITALS (10 sets, daily range): BP systolic 102–140; BP diastolic 44–70; PULSE 56–80; RESP 17–20; TEMP 98–98.2; O2SAT 91–99
[2025-01-17] MEDS: FUROSEMIDE 40 MG/4 ML VIAL IV SCH (10:11)
[2025-01-17] MEDS: PANTOPRAZOLE 40 MG/10 ML VIAL INJ IV SCH (10:11)
--- NOTE | 2025-01-17 10:15 | ECG ---
[facility] Test Date: 2025-01-15 Test Time: 19:04:46 Pat Name: KEYLA ANDRADE Department: ED Room: [facility]4T B Gender: F Geology Faculty Member: EDMUNDO : 1945 Requested By: EMBER BASSETT Order Number: [id number] Reading MD: Donnie Jordan Measurements Intervals [place] Rate: 73 P: -5 NM: 137 QRS: -19 QRSD: 119 T: 197 QT: 423 QTc: 467 Interpretive Statements Sinus rhythm LVH with IVCD and secondary repol abnrm Electronically Signed On 01-17-2025 22:57:01 PDT by Donnie Jordan Please click the below link to view image of tracing.
[2025-01-17] MEDS: INSULIN LANTUS (GLARGINE) 1 /0.01ml (100units/ml) SC SCH (10:17)
[2025-01-17 10:27] LABS: Ferritin 341.3 ng/mL (10-291)
[2025-01-17 10:28] LABS: Hematocrit 23.0 % (36.0-46.0); Hemoglobin 7.6 g/dL (12.2-16.2); Mean Corpuscular Hemoglobin 26.6 pg (28.0-32.0); Mean Corpuscular Volume 80.8 fL (80.0-100.0); Nucleated Red Blood Cells % 0.0 %
[2025-01-17 10:45] LABS: Alanine Aminotransferase < 9 U/L (7-40); Albumin 3.4 g/dL (3.2-4.8); Alkaline Phosphatase 122 U/L (46-116); Anion Gap 9 (5-15); BUN/Creatinine Ratio 13.8 (10.0-20.0); Bilirubin, Total 0.5 mg/dL (0.2-1.0); Blood Urea Nitrogen 49 mg/dL (9-23); Calcium 8.4 mg/dL (8.7-10.4); Carbon Dioxide 23 mmol/L (20-31); Chloride 102 mmol/L (98-107); Glucose 161 mg/dL (74-106); Potassium 5.0 mmol/L (3.5-5.1); Sodium 134 mmol/L (136-145); Total Protein 6.4 g/dL (5.7-8.2)
--- NOTE | 2025-01-17 12:16 | DVHPN2 ---
Consult Progress Note Date Seen: Jan 17, 2025 Subjective Review of Systems: CVS:Normal, RESPIRATORY:Normal, NEURO:Normal Objective vital signs Vital Sign Date Time Temp Pulse Resp B/P (MAP) Pulse Ox O2 Delivery O2 Flow Rate FiO2 01/17/25 10:12 61 120/42 01/17/25 09:00 98.2 17 95 98.2 01/17/25 08:00 Nasal Cannula* 2 28 Total Intake and Output 01/16/25 01/16/25 01/17/25 15:00 23:00 07:00 Intake Total 500 ml Balance 500 ml medications Current Medications Medications Dose Ordered Sig/Virgen Route Start Time Stop Time Status Last Admin Dose Admin Acetaminophen 650 mg Q6HR PO 01/16/25 12:00 01/17/25 06:18 650 MG Acetaminophen/ Hydrocodone Bitart 1 tab Q4HP PRN PO 01/16/25 11:00 Ondansetron HCl 4 mg Q4HP PRN IV 01/16/25 11:00 Nitroglycerin 0.4 mg Q5MINP PRN SL 01/16/25 11:00 Insulin Glargine 8 units DAILY@1000 SC 01/17/25 10:00 01/17/25 10:17 8 UNITS Atorvastatin Calcium 80 mg HS PO 01/16/25 22:00 01/16/25 22:10 80 MG Carvedilol 12.5 mg Q12HR PO 01/16/25 22:00 01/17/25 10:12 12.5 MG Furosemide 40 mg DAILY IV 01/17/25 10:00 01/17/25 10:11 40 MG Pantoprazole Sodium 40 mg DAILY IV 01/17/25 10:00 01/17/25 10:11 40 MG Aspirin 81 mg DAILY PO 01/17/25 10:00 01/17/25 10:13 81 MG Heparin Sodium/ Dextrose 250 ml @ 8.724 mls/ hr Q24H IV 01/17/25 11:15 UNV Examination: GENERAL:Abnormal (Pale) laboratory and microbiology Laboratory Tests 01/17/25 09:45 Test 01/17/25 09:45 Range/Units Serum Glucose 161 H 74-106 mg/dL Problem List/Assessment/Plan Problem List/Assessment/Plan Acute chest pain to rule out ACS ( HEART score 7, TMI score 7) NSTEMI likely type 1, possible type 2 given heart failure and CKD Acute decompensated heart failure Symptomatic anemia Bioprosthetic aortic valve (Cow Valve) CKD stage 5/ TARSHA on CKD Right upper lobe pulmonary calcification on x-ray Pulmonary congestion Hypertension Diabetes type 2 Plan/Recommendation (Dr. Metzger) High-risk NSTEMI (HEART 7/ LAYLA 7) * Troponin trending up (31-51-184) concerning for type 1 NSTEMI * 12-lead ECG- with inferolateral T-waves depression * Agree with heparin drip, single-antiplatelet therapy and high dose statins * Obtain a FOBT given severe anemia * Close cardiac monitoring Acute decompensated HFpEF, NYHA Class III * Transthoracic echocardiogram revealed LVEF 60% * Moderately severe MR. Severe PAH * Preload and afterload reduction as tolerated * Daily weight. Strict intake and output. Fluid restrictions. Low-sodium diet Severe Mitral Valve Regurgitation * Refer for mitral valve replacement as outpatient Status post of bioprosthetic aortic valve replacement ([facility] 2010) * Continue follow-up with primary coroner forensic technician TARSHA on CKD * Recommendations per Nephrology team HTN/DM type 2/ Anemia/Right upper lobe pulmonary calcification * Per hospitalist management Highly suspected as a NSTEMI Type I. She is chest pain free at this time. Lengthy conversation held with patient and family at bedside. The patient has opted to hold off from a coronary angiogram and cardiac catheterization given high risk for worsening renal function secondary to contrast induced nephropathy. We will continue medical management at this time. Agree with heparin drip. Obtain FOBT. Continue medical management for now and notify cardiology of any chest pain, SOB, or decline on hemodynamic stability. We will continue to follow-up closely. Thank you for allowing us to participate in this patient's care. Please call if you have any questions or concerns. This medical document was created using an electronic medical record system with voice recognition software and computerized dictation system. Although this document has been carefully reviewed, there might still be some phonetic and typographical errors. Occasional wrong-word or ``sound-alike substitutions may have occurred due to the inherent limitations of voice recognition software. These areas are purely typographical due to imperfections of the software programs and do not reflect any compromise in the patient's medical care. Please read the chart carefully and recognize, using context, where these substitutions have occurred. Plan discussed with: Patient, Spouse, Daughter, Other Date of Service: Jan 17, 2025 Billing Provider: ALECIA NOVOA Cardiology Common Codes: [id number] HOSP CARE(High ALECIA NOVOA Jan 17, 2025 12:16
[2025-01-17 12:50] LABS: INR 1.12 (0.9-1.15); Partial Thromboplastin Time 36.8 SEC (24.5-34.5); Prothrombin Time 11.7 sec (9.3-11.8)
[2025-01-17] MEDS ORDERED: POLYETHYLENE GLYCOL 17 GM PWDR PO PRN (13:30)
[2025-01-17] MEDS: POLYETHYLENE GLYCOL 17 GM PWDR PO ONE (15:09)
[2025-01-17] MEDS: HEPARIN SODIUM (PORCINE) 5000 UNITS/ML 1ML VIAL IV ONE (15:49)
[2025-01-17] MEDS: HEPARIN DRIP/D5W 100UNITS/ML 250 ML IV SCH ×2 (15:51→23:33)
--- NOTE | 2025-01-17 16:30 | CONS ---
Pharmacy Clinical Information: HEPARIN DRIP PROTOCOL SPOKE TO [facility] REGARDING NEW HEPARIN DRIP ORDER CURRENT aPTT = 36.8 TODAY 01/17/2025 AT 0945 HEPARIN DRIP BOLUS: 4000 UNITS IVP X1 PER MD INITIAL HEPARIN DRIP RATE = 900 UNITS/HR ADMINISTERED ON 01/17/2025 AT 15:51 NEXT aPTT ON 01/17/2025 AT 2200 [facility] READ BACK INITIAL HEPARIN DRIP RATE: 900 UNITS / HR TIGRE Parker Jan 17, 2025 16:30
--- NOTE | 2025-01-17 16:50 | DVHPNRES ---
Progress Note Date Seen: Jan 17, 2025 Resident Creating Document: PRADIP RANKIN RESDIENT Medical Necessity Reason Pt with a Central, PICC or Fol: No Subjective Review of Systems Patient seen and examined at the bedside. Patient is feeling better since admission. But still complained of mild shortness of breaths. Patient reports: No new complaints Objective vital signs Vital Sign Date Time Temp Pulse Resp B/P (MAP) Pulse Ox O2 Delivery O2 Flow Rate FiO2 01/17/25 11:12 63 117/38 01/17/25 09:00 98.2 17 95 98.2 01/17/25 08:00 Nasal Cannula* 2 28 Total Intake and Output 01/16/25 01/16/25 01/17/25 15:00 23:00 07:00 Intake Total 500 ml Balance 500 ml medications Current Medications Medications Dose Ordered Sig/Virgen Route Start Time Stop Time Status Last Admin Dose Admin Acetaminophen 650 mg Q6HR PO 01/16/25 12:00 01/17/25 12:41 650 MG Acetaminophen/ Hydrocodone Bitart 1 tab Q4HP PRN PO 01/16/25 11:00 Ondansetron HCl 4 mg Q4HP PRN IV 01/16/25 11:00 Nitroglycerin 0.4 mg Q5MINP PRN SL 01/16/25 11:00 Insulin Glargine 8 units DAILY@1000 SC 01/17/25 10:00 01/17/25 10:17 8 UNITS Atorvastatin Calcium 80 mg HS PO 01/16/25 22:00 01/16/25 22:10 80 MG Carvedilol 12.5 mg Q12HR PO 01/16/25 22:00 01/17/25 10:12 12.5 MG Furosemide 40 mg DAILY IV 01/17/25 10:00 01/17/25 10:11 40 MG Pantoprazole Sodium 40 mg DAILY IV 01/17/25 10:00 01/17/25 10:11 40 MG Aspirin 81 mg DAILY PO 01/17/25 10:00 01/17/25 10:13 81 MG Heparin Sodium/ Dextrose 250 ml @ 9 mls/hr Q24H IV 01/17/25 11:15 01/17/25 15:51 9 MLS/HR Polyethylene Glycol 17 gm DAILYPRN PRN PO 01/17/25 13:30 Examination General Appearance: Alert, Oriented X3, Cooperative, No acute distress HEENT: Atraumatic, PERRLA, EOMI, Mucous membrane moist/pink Respiratory: Bilateral lower zone crackles Cardiovascular: Regular rate, Normal S1, Normal S2, No murmurs, no chest wall tenderness Abdominal: Normal bowel sounds, Soft, No tenderness, No hepatospenomegaly, No masses Extremities: Bilateral grade 1 pedal edema Skin: No rashes, No breakdown, No significant lesion Neuro: Normal gait, Normal speech, Strength at 5/5 X4 ext, Normal tone, Sensation intact, Cranial nerves 3-12 NL, Reflexes 2+ Psych/Mental Status: Mental status NL, Mood NL laboratory and microbiology Laboratory Tests 01/17/25 09:45 Test 01/17/25 09:45 Range/Units Serum Glucose 161 H 74-106 mg/dL Labs and/or images reviewed: Labs reviewed by me, Image(s) reviewed by me Problem List/Assessment/Plan Problem List/Assessment/Plan NSTEMI, likely type 1 Acute systolic heart failure, likely due to above Diabetes type 2 Possible TARSHA on CKD, likely VMN, basilar record not available Severe anemia, likely due to GI bleeding, hypochromic microcytic History of hemorrhoids Status post open heart surgery due to valve replacement Asymptomatic bacteriuria Status post blood transfusion, 1 units * EKGs shows diffuse ST-depression * Trop I is up trending * BNP is raised at 1400s Plan/recommendation * Aspirin and atorvastatin and Plavix and heparin drip * Cardiology consulted, recommended medical management at the moment * IV diuretic Lasix 40 mg daily * Consulted nephrology * Continue carvedilol DIET: Cardiac diet DVT PROPHYLAXIS: Not given due to severe anemia GI PROPHYLAXIS:: Protonix CODE STATUS: Goal of care discussed for more than 18 minutes, full code DISPOSITION: Telemetry Patient's status and plan discussed with the patient. Case discussed with Dr. Perez. Plan discussed with: Patient, Other (RN) My Orders My Orders Orders - PRADIP RANKIN Procedure Category Date Status Time Aspirin Tablet PHA 01/17/25 In Process 10:00 *Dr. [facility] -[facility] CONS 01/16/25 Transmitted Halie 17:55 Platelet Monitoring BARBRA 01/17/25 In Process 11:14 Heparin Per BARBRA 01/17/25 In Process Standardized Proce 11:14 Discontinue All Im BARBRA 01/17/25 In Process Injections 11:14 Heparin Drip/D5w PHA 01/17/25 In Process 100units/Ml 11:15 Polyethylene Glycol PHA 01/17/25 In Process 17g Powder (Miralax 13:30 PTPTT LAB 01/17/25 Logged 22:00 Heparin Protocol BARBRA 01/17/25 In Process 16:24 Date of Service: Jan 17, 2025 Billing Provider: STEF PEREZ MD Common Visit Codes: [id number] INP/OBS CARE(HIGH) PRADIP RANKIN RESDIENT Jan 17, 2025 16:50 STEF PEREZ MD Jan 19, 2025 22:56
--- NOTE | 2025-01-17 17:58 | DVHINCON2 ---
Date of service: Jan 17, [address] Della Perez Reason for Consultation advanced CKD, needs clearance for coronary angiogram History of Present Illness 80 Y/O F with history of advanced CKD, DM on insulin, HTN,HLD, heart valve replacement, and systolic CHF presentged with chief compliant of chest pain, substernal. Patient is admitted for NSTEMI. SBP is in 120s mmHg, labs show Na: 134, and K: 5.0 mmol/l, and Cr is 3.55 mg/dl, GFR 12 ml/min. Patient is started on IV loop diuretics and plan is for coronary angiogram. Past Medical History CKD DM HTN HLD Systolic CHF Past Surgical History heart valve replacement Allergies: Coded Allergies: NO KNOWN ALLERGIES (Unverified , 01/15/25) Current Medications Current Medications Medications (Trade) Dose Ordered Sig/Virgen Route PRN Reason Start Time Stop Time Status Last Admin Insulin Glargine (Lantus) 8 units DAILY@1000 SC 01/17/25 10:00 01/17/25 10:17 Atorvastatin Calcium (Lipitor) 80 mg HS PO 01/16/25 22:00 01/16/25 22:10 Carvedilol (Coreg Tablet) 12.5 mg Q12HR PO 01/16/25 22:00 01/17/25 10:12 Furosemide (Lasix Injection) 40 mg DAILY IV 01/17/25 10:00 01/17/25 10:11 Pantoprazole Sodium (Protonix) 40 mg DAILY IV 01/17/25 10:00 01/17/25 10:11 Aspirin 81 mg DAILY PO 01/17/25 10:00 01/17/25 10:13 Heparin Sodium/ Dextrose 250 ml @ 9 mls/hr Q24H IV 01/17/25 11:15 01/17/25 15:51 Polyethylene Glycol (Miralax 17GM Powder) 17 gm DAILYPRN PRN PO FOR CONSTIPATION 01/17/25 13:30 Clopidogrel Bisulfate (Plavix) 75 mg DAILY PO 01/18/25 10:00 Family History: Patient reports no known family medical history. Review of Systems As per HPI, all other systems were reviewed and are negative H&P Exam Vital Signs/I&O Vital Sign Date Time Temp Pulse Resp B/P (MAP) Pulse Ox O2 Delivery O2 Flow Rate FiO2 01/17/25 17:00 98.1 62 17 126/66 (86) 92 98.1 01/17/25 08:00 Nasal Cannula* 2 28 Intake and Output 01/16/25 01/17/25 19:00 07:00 Intake Total 500 ml Balance 500 ml Intake Oral 200 ml Blood Product 300 ml # Voids 1 Physical Exam Gen: NAD HEENT: NC, AT Lungs: Crackles lung bases Cardiac: RRR, no murmur Abd: soft, no tenderness Ext: no edema Labs/Diagnostic Data Labs/Diagnostic Data Laboratory Tests Test 01/17/25 10:15 01/17/25 09:45 01/16/25 11:56 01/16/25 10:56 Range/Units POC Glucose 173 H 70-106 mg/dl White Blood Count 7.8 8.4 4.4-10.8 10^3/uL Red Blood Count 2.85 L 2.76 L 4.0-5.20 10^6/uL Hemoglobin 7.6 L 7.3 L 12.2-16.2 g/dL Hematocrit 23.0 L 21.9 L 36.0-46.0 % Mean Corpuscular Volume 80.8 79.4 L 80.0-100.0 fL Mean Corpuscular Hemoglobin 26.6 L 26.5 L 28.0-32.0 pg Mean Corpuscular Hemoglobin Concent 32.9 33.3 32.0-36.0 g/dL Red Cell Distribution Width 16.2 H 16.4 H 11.8-14.3 % Platelet Count 273 315 140-450 10^3/uL Mean Platelet Volume 8.0 7.8 6.9-10.8 fL Neutrophils (%) (Auto) 75.0 76.1 37.0-80.0 % Lymphocytes (%) (Auto) 9.2 L 8.2 L 10.0-50.0 % Monocytes (%) (Auto) 6.9 5.5 0.0-12.0 % Eosinophils (%) (Auto) 8.0 H 9.2 H 0.0-7.0 % Basophils (%) (Auto) 0.9 1.0 0.0-2.0 % Neutrophils # (Auto) 5.9 6.4 1.6-8.6 10 ^3/uL Lymphocytes # (Auto) 0.7 0.7 0.4-5.4 10 ^3/uL Monocytes # (Auto) 0.5 0.5 0-1.3 10 ^3/uL Eosinophils # (Auto) 0.6 0.8 0-0.8 10 ^3/uL Basophils # (Auto) 0.1 0.1 0-0.2 10 ^3/uL Nucleated Red Blood Cells 0.0 0.0 % Prothrombin Time 11.7 11.4 9.3-11.8 sec Prothrombin Time INR 1.12 1.08 0.9-1.15 Activated Partial Thromboplast Time 36.8 H 24.5-34.5 SEC Sodium Level 134 L 136 136-145 mmol/L Potassium Level 5.0 4.8 3.5-5.1 mmol/L Chloride Level 102 103 98-107 mmol/L Carbon Dioxide Level 23 24 20-31 mmol/L Anion Gap 9 9 5-15 Blood Urea Nitrogen 49 H 50 H 9-23 mg/dL Creatinine 3.55 H 3.64 H 0.550-1.02 mg/dL Glomerular Filtration Rate Calc 12 12 >90 mL/min BUN/Creatinine Ratio 13.8 13.7 10.0-20.0 Serum Glucose 161 H 140 H 74-106 mg/dL Calcium Level 8.4 L 8.9 8.7-10.4 mg/dL Total Bilirubin 0.5 0.5 0.2-1.0 mg/dL Aspartate Amino Transferase (AST) 13 15 13-40 U/L Alanine Aminotransferase (ALT) < 9 < 9 7-40 U/L Alkaline Phosphatase 122 H 143 H 46-116 U/L B-Type Natriuretic Peptide 1722.64 0-100 pg/mL Total Protein 6.4 7.3 5.7-8.2 g/dL Albumin 3.4 3.8 3.2-4.8 g/dL Magnesium Level 1.7 1.6-2.6 mg/dL Iron Level 25 L 50-170 ug/dL Total Iron Binding Capacity 211 L 250-425 ug/dL Percent Iron Saturation 11.8 L 15-50 % Ferritin 341.3 H 10-291 ng/mL Troponin I High Sensitivity 1337 *H </=34 ng/L Triglycerides Level 90 < 150 mg/dL Cholesterol Level 89 < 200 mg/dL LDL Cholesterol 37 < 100 mg/dL HDL Cholesterol 32 L 40-59 mg/dL Vitamin B12 Level 844 211-911 pg/mL Vitamin D 25-Hydroxy 54.7 30.0-100 ng/mL Thyroid Stimulating Hormone (TSH) 2.46 0.55-4.78 uIU/mL Hemoglobin A1c 6.0 H <5.7 % A1C Test 01/15/25 22:41 01/15/25 20:54 01/15/25 19:40 01/15/25 19:06 Range/Units Troponin I High Sensitivity 184 *H 55 *H 31 </=34 ng/L White Blood Count 10.3 4.4-10.8 10^3/uL Red Blood Count 2.75 L 4.0-5.20 10^6/uL Hemoglobin 7.3 L 12.2-16.2 g/dL Hematocrit 21.8 L 36.0-46.0 % Mean Corpuscular Volume 79.1 L 80.0-100.0 fL Mean Corpuscular Hemoglobin 26.4 L 28.0-32.0 pg Mean Corpuscular Hemoglobin Concent 33.4 32.0-36.0 g/dL Red Cell Distribution Width 16.4 H 11.8-14.3 % Platelet Count 344 140-450 10^3/uL Mean Platelet Volume 7.8 6.9-10.8 fL Neutrophils (%) (Auto) 73.3 37.0-80.0 % Lymphocytes (%) (Auto) 9.6 L 10.0-50.0 % Monocytes (%) (Auto) 6.8 0.0-12.0 % Eosinophils (%) (Auto) 9.6 H 0.0-7.0 % Basophils (%) (Auto) 0.7 0.0-2.0 % Neutrophils # (Auto) 7.5 1.6-8.6 10 ^3/uL Lymphocytes # (Auto) 1.0 0.4-5.4 10 ^3/uL Monocytes # (Auto) 0.7 0-1.3 10 ^3/uL Eosinophils # (Auto) 1.0 H 0-0.8 10 ^3/uL Basophils # (Auto) 0.1 0-0.2 10 ^3/uL Nucleated Red Blood Cells 0.0 % Sodium Level 134 L 136-145 mmol/L Potassium Level 4.9 3.5-5.1 mmol/L Chloride Level 102 98-107 mmol/L Carbon Dioxide Level 23 20-31 mmol/L Anion Gap 9 5-15 Blood Urea Nitrogen 50 H 9-23 mg/dL Creatinine 3.75 H 0.550-1.02 mg/dL Glomerular Filtration Rate Calc 12 >90 mL/min BUN/Creatinine Ratio 13.3 10.0-20.0 Serum Glucose 103 74-106 mg/dL Calcium Level 8.7 8.7-10.4 mg/dL B-Type Natriuretic Peptide 1428.44 0-100 pg/mL Urine Color Colorless Yellow Urine Clarity Turbid H Clear Urine pH 7.5 5.0-9.0 Urine Specific [place] 1.008 1.001-1.035 Urine Protein Trace H Negative Urine Ketones Negative Negative Urine Blood Trace H Negative /uL Urine Nitrite Negative Negative Urine Bilirubin Negative Negative Urine Urobilinogen Normal Negative mg/dL Urine Leukocyte Esterase 3+ Negative /uL Urine RBC 20 0 - 4 /hpf Urine WBC Clumps Present None Seen /hpf Urine Microscopic WBC 414 H 0-5 /HPF Urine Squamous Epithelial Cells Few <5 /hpf Urine Transitional Epithelial Cells Few <2 /hpf Urine Renal Epithelial Cells Few None Seen /hpf Urine Bacteria Few H None Seen /hpf Urine Glucose Normal Normal mg/dL Assessment TARSHA , likley mild CKD stage V NSTEMI Acute systolic CHF h/o heart valve replacement DM on insulin HTN HLD Plan: I had an extensive conversation with patient and her family, including her , and daughters. They understand of the possibility that dialysis may need to be started if angiogram is done. Patient is cleared from nephrology perspective for coronary angiogram , but once planned, then lasix needs to be held and gentle hydration administered. Continue Lasix 40 mg IV daily Continue Coreg 12.5 mg BID Continue aspirin, plavix, and lipitor cardiology consult obtain 2D Echo Plan discussed with: Patient, Spouse, Daughter, Other MJ DAMIAN MD Jan 17, 2025 17:58
[2025-01-17] MEDS: CLOPIDOGREL BISULFATE 75 MG TAB PO ONE (18:28)
[2025-01-17] MEDS: HYDROcodone-ACET 5/325MG TAB PO PRN (22:30)
--- NOTE | 2025-01-17 22:47 | DVHPN2 ---
Consult Progress Note Date Seen: Jan 17, 2025 Subjective Other Systems: Patient was seen and evaluated in follow up. She is chest pain free at this time. Lengthy conversation held with patient and family at bedside. The patient has opted to hold off from a coronary angiogram and cardiac catheterization given high risk for worsening renal function secondary to contrast induced nephropathy. We will continue medical management at this time. Patient remains on heparin drip. Telemetry reviewed. Objective vital signs Vital Sign Date Time Temp Pulse Resp B/P (MAP) Pulse Ox O2 Delivery O2 Flow Rate FiO2 01/17/25 22:25 69 140/70 01/17/25 20:44 98.0 20 91 98.0 01/17/25 08:00 Nasal Cannula* 2 28 Total Intake and Output 01/16/25 01/16/25 01/17/25 15:00 23:00 07:00 Intake Total 500 ml Balance 500 ml medications Current Medications Medications Dose Ordered Sig/Virgen Route Start Time Stop Time Status Last Admin Dose Admin Acetaminophen 650 mg Q6HR PO 01/16/25 12:00 01/17/25 18:27 650 MG Acetaminophen/ Hydrocodone Bitart 1 tab Q4HP PRN PO 01/16/25 11:00 01/17/25 22:30 1 TAB Ondansetron HCl 4 mg Q4HP PRN IV 01/16/25 11:00 Nitroglycerin 0.4 mg Q5MINP PRN SL 01/16/25 11:00 Insulin Glargine 8 units DAILY@1000 SC 01/17/25 10:00 01/17/25 10:17 8 UNITS Atorvastatin Calcium 80 mg HS PO 01/16/25 22:00 01/17/25 22:25 80 MG Carvedilol 12.5 mg Q12HR PO 01/16/25 22:00 01/17/25 22:25 12.5 MG Furosemide 40 mg DAILY IV 01/17/25 10:00 01/17/25 10:11 40 MG Pantoprazole Sodium 40 mg DAILY IV 01/17/25 10:00 01/17/25 10:11 40 MG Aspirin 81 mg DAILY PO 01/17/25 10:00 01/17/25 10:13 81 MG Heparin Sodium/ Dextrose 250 ml @ 9 mls/hr Q24H IV 01/17/25 11:15 01/17/25 15:51 9 MLS/HR Polyethylene Glycol 17 gm DAILYPRN PRN PO 01/17/25 13:30 Clopidogrel Bisulfate 75 mg DAILY PO 01/18/25 10:00 Examination: GENERAL:Normal, HEENT:Normal, NECK:Normal, LUNGS:Normal, CVS:Normal, ABDOMEN:Normal, MSK:Normal, SKIN:Normal, NEURO:Normal laboratory and microbiology Laboratory Tests 01/17/25 09:45 Test 01/17/25 09:45 Range/Units Serum Glucose 161 H 74-106 mg/dL Problem List/Assessment/Plan Problem List/Assessment/Plan Acute chest pain to rule out ACS ( HEART score 7, TMI score 7). NSTEMI likely type 1, possible type 2 given heart failure and CKD. Acute decompensated heart failure. Symptomatic anemia. Bioprosthetic aortic valve (Cow Valve). CKD stage 5/ TARSHA on CKD. Right upper lobe pulmonary calcification on x-ray. Pulmonary congestion. Hypertension. Diabetes type 2. Plan/Recommendation Continued all current supportive medical care. Patient has been seen by Criselda Reyes NP on my behalf. We have discussed the plan with the patient. Troponin trending up (3151-184) concerning for type 1 NSTEMI 12-lead ECG- with inferolateral T-waves depression Agree with heparin drip, single-antiplatelet therapy and high dose statins Obtain a FOBT given severe anemia Close cardiac monitoring Transthoracic echocardiogram revealed LVEF 60% Moderately severe MR. Severe PAH Preload and afterload reduction as tolerated Daily weight. Strict intake and output. Fluid restrictions. Low-sodium diet Refer for mitral valve replacement as outpatient Continue follow-up with primary firer helper Recommendations per Nephrology team. Additional plan as per the hospital course. Plan discussed with: Patient Date of Service: Jan 17, 2025 Billing Provider: LYLE ARROYO MD Cardiology Common Codes: [id number] [facility] LYLE ARROYO MD Jan 17, 2025 22:47
[2025-01-17 23:08] LABS: INR 1.11 (0.9-1.15); Prothrombin Time 11.6 sec (9.3-11.8)
[2025-01-17 23:15] LABS: Partial Thromboplastin Time 79.0 SEC (24.5-34.5)
[2025-01-18] VITALS (8 sets, daily range): BP systolic 116–136; BP diastolic 45–64; PULSE 56–69; RESP 15–18; TEMP 97.8–98.3; O2SAT 90–97
[2025-01-18 07:07] LABS: Nucleated Red Blood Cells % 0.0 %
[2025-01-18 07:09] LABS: Hematocrit 21.7 % (36.0-46.0); Hemoglobin 7.4 g/dL (12.2-16.2); Mean Corpuscular Hemoglobin 27.3 pg (28.0-32.0); Mean Corpuscular Volume 79.6 fL (80.0-100.0)
[2025-01-18 07:25] LABS: Albumin 3.5 g/dL (3.2-4.8); Anion Gap 10 (5-15); BUN/Creatinine Ratio 13.7 (10.0-20.0); Carbon Dioxide 22 mmol/L (20-31); Chloride 101 mmol/L (98-107); Glucose 83 mg/dL (74-106); Total Protein 6.8 g/dL (5.7-8.2)
[2025-01-18 07:26] LABS: Bilirubin, Total 0.5 mg/dL (0.2-1.0)
[2025-01-18 07:28] LABS: Sodium 133 mmol/L (136-145)
[2025-01-18 07:29] LABS: Alanine Aminotransferase < 9 U/L (7-40); Alkaline Phosphatase 140 U/L (46-116); Blood Urea Nitrogen 51 mg/dL (9-23); Calcium 8.6 mg/dL (8.7-10.4); Potassium 5.1 mmol/L (3.5-5.1)
[2025-01-18 07:41] LABS: INR 1.12 (0.9-1.15); Partial Thromboplastin Time 48.0 SEC (24.5-34.5); Prothrombin Time 11.7 sec (9.3-11.8)
--- NOTE | 2025-01-18 09:18 | CONS ---
Pharmacy Clinical Information: HEPARIN DRIP, ACS PROTOCOL @0531 APTT 48.0 NO BOLUS, INCREASE HEPARIN DRIP RATE TO 900 UNITS/HR NEXT APTT DRAW SCHEDULED @1530 PER RX PROTOCOL CONFIRMED AND READ BACK WITH SAIRA HARDING PHARMACIST Jan 18, 2025 09:18
[2025-01-18] MEDS ORDERED: SPIR25TA8 PO (09:31)
[2025-01-18] MEDS ORDERED: FURO1TAB33 PO (09:31)
[2025-01-18] MEDS ORDERED: CLOP75TA28 PO (09:31)
[2025-01-18] MEDS ORDERED: ASPI81CH49 PO (09:31)
[2025-01-18] MEDS ORDERED: CARV12.544 PO ×2 (09:31→09:33)
[2025-01-18] MEDS ORDERED: ATOR40TA52 PO (09:31)
[2025-01-18] MEDS: CLOPIDOGREL BISULFATE 75 MG TAB PO SCH (10:24)
[2025-01-18] MEDS: HEPARIN DRIP/D5W 100UNITS/ML 250 ML IV SCH ×2 (10:40→17:14)
--- NOTE | 2025-01-18 14:50 | DVHPNRES ---
Progress Note Date Seen: Jan 18, 2025 Resident Creating Document: PRADIP RANKIN RESDIENT Medical Necessity Reason Pt with a Central, PICC or Fol: No Subjective Review of Systems Patient is seen and examined at the bedside. Patient is feeling better. But still complained of shortness of breaths and chest pain. Objective vital signs Vital Sign Date Time Temp Pulse Resp B/P (MAP) Pulse Ox O2 Delivery O2 Flow Rate FiO2 01/18/25 13:00 97.8 62 16 126/55 (78) 94 97.8 01/18/25 08:00 Nasal Cannula* 2 28 Total Intake and Output 01/17/25 01/17/25 01/18/25 15:00 23:00 07:00 Intake Total 360 ml 240 ml Output Total 4 ml Balance 356 ml 240 ml medications Current Medications Medications Dose Ordered Sig/Virgen Route Start Time Stop Time Status Last Admin Dose Admin Acetaminophen 650 mg Q6HR PO 01/16/25 12:00 01/17/25 18:27 650 MG Acetaminophen/ Hydrocodone Bitart 1 tab Q4HP PRN PO 01/16/25 11:00 01/17/25 22:30 1 TAB Ondansetron HCl 4 mg Q4HP PRN IV 01/16/25 11:00 Nitroglycerin 0.4 mg Q5MINP PRN SL 01/16/25 11:00 Insulin Glargine 8 units DAILY@1000 SC 01/17/25 10:00 01/18/25 10:44 8 UNITS Atorvastatin Calcium 80 mg HS PO 01/16/25 22:00 01/17/25 22:25 80 MG Carvedilol 12.5 mg Q12HR PO 01/16/25 22:00 01/18/25 10:27 12.5 MG Furosemide 40 mg DAILY IV 01/17/25 10:00 01/18/25 10:24 40 MG Pantoprazole Sodium 40 mg DAILY IV 01/17/25 10:00 01/18/25 10:24 40 MG Aspirin 81 mg DAILY PO 01/17/25 10:00 01/18/25 10:27 81 MG Polyethylene Glycol 17 gm DAILYPRN PRN PO 01/17/25 13:30 Clopidogrel Bisulfate 75 mg DAILY PO 01/18/25 10:00 01/18/25 10:24 75 MG Heparin Sodium/ Dextrose 250 ml @ 9 mls/hr Q24H IV 01/18/25 09:30 01/18/25 10:40 9 MLS/HR Examination General Appearance: Alert, Oriented X3, Cooperative, No acute distress HEENT: Atraumatic, PERRLA, EOMI, Mucous membrane moist/pink Respiratory: Clear to auscultation, Normal air movement Cardiovascular: Regular rate, Normal S1, Normal S2, No murmurs, no chest wall tenderness Abdominal: Normal bowel sounds, Soft, No tenderness, No hepatospenomegaly, No masses Extremities: No clubbing, No cyanosis, No edema, Normal pulses, No tenderness/swelling Skin: No rashes, No breakdown, No significant lesion Neuro: Normal gait, Normal speech, Strength at 5/5 X4 ext, Normal tone, Sensation intact, Cranial nerves 3-12 NL, Reflexes 2+ Psych/Mental Status: Mental status NL, Mood NL laboratory and microbiology Laboratory Tests 01/18/25 05:31 Test 01/18/25 05:31 Range/Units Serum Glucose 83 74-106 mg/dL Labs and/or images reviewed: Labs reviewed by me, Image(s) reviewed by me Problem List/Assessment/Plan Problem List/Assessment/Plan NSTEMI, likely type 1 Acute systolic heart failure, likely due to above Diabetes type 2 Possible TARSHA on CKD, likely VMN, basilar record not available Severe anemia, likely due to GI bleeding, hypochromic microcytic History of hemorrhoids Status post open heart surgery due to valve replacement Asymptomatic bacteriuria Status post blood transfusion, 1 units * EKGs shows diffuse ST-depression * Trop I is up trending * BNP is raised at 1400s Plan/recommendation * Aspirin and atorvastatin and Plavix and heparin drip * Cardiology consulted, recommended medical management at the moment * Continue IV diuretic Lasix 40 mg daily * Consulted nephrology, recommended medical management * Continue carvedilol DIET: Cardiac diet DVT PROPHYLAXIS: Not given due to severe anemia GI PROPHYLAXIS:: Protonix CODE STATUS: Goal of care discussed for more than 18 minutes, full code DISPOSITION: Telemetry Patient's status and plan discussed with the patient. Case discussed with Dr. Perez. Plan discussed with: Patient, Other (RN) My Orders My Orders Orders - PRADIP RANKIN RESDILANI Procedure Category Date Status Time Clopidogrel Bisulfate PHA 01/18/25 In Process (Plavix) 10:00 Heparin Protocol BARBRA 01/17/25 In Process 23:25 Heparin Drip/D5w PHA 01/18/25 In Process 100units/Ml 09:30 Heparin Per Pharmacy BARBRA 01/18/25 In Process Protocol 09:18 PTPTT LAB 01/18/25 Logged 15:30 Troponin-I Hs LAB 01/18/25 Logged 12:43 Troponin-I Hs LAB 01/18/25 Logged 09:55 Date of Service: Jan 18, 2025 Billing Provider: STEF PEREZ MD Common Visit Codes: [id number] INP/OBS CARE(HIGH) PRADIP RANKIN RESDIENT Jan 18, 2025 14:50 STEF PEREZ MD Jan 19, 2025 23:06
[2025-01-18 16:30] LABS: INR 1.07 (0.9-1.15); Partial Thromboplastin Time 44.2 SEC (24.5-34.5); Prothrombin Time 11.3 sec (9.3-11.8)
--- NOTE | 2025-01-18 16:53 | CONS ---
Pharmacy Clinical Information: HEPARIN DRIP, ACS PROTOCOL @1557 APTT 44.2 NO BOLUS, INCREASE HEPARIN DRIP RATE TO 1100 UNITS/HR NEXT APTT DRAW SCHEDULED @2200 PER RX PROTOCOL CONFIRMED AND READ BACK WITH RN KAMILA HINES [facility] RESIDENT Jan 18, 2025 16:53
--- NOTE | 2025-01-18 17:39 | DVHPN2 ---
Progress Note - Dictate Date Seen: Jan 18, 2025 Medical Necessity Reason Pt with a Central, PICC or Fol: No Subjective resting comfortably in bed. is at bedside. vital signs Vital Sign Date Time Temp Pulse Resp B/P (MAP) Pulse Ox O2 Delivery O2 Flow Rate FiO2 01/18/25 16:57 98.3 61 16 129/58 (81) 90 98.3 01/18/25 08:00 Nasal Cannula* 2 28 Total Intake and Output 01/17/25 01/17/25 01/18/25 15:00 23:00 07:00 Intake Total 360 ml 240 ml Output Total 4 ml Balance 356 ml 240 ml medications Current Medications Medications Dose Ordered Sig/Virgen Route Start Time Stop Time Status Last Admin Dose Admin Acetaminophen 650 mg Q6HR PO 01/16/25 12:00 01/17/25 18:27 650 MG Acetaminophen/ Hydrocodone Bitart 1 tab Q4HP PRN PO 01/16/25 11:00 01/17/25 22:30 1 TAB Ondansetron HCl 4 mg Q4HP PRN IV 01/16/25 11:00 Nitroglycerin 0.4 mg Q5MINP PRN SL 01/16/25 11:00 Insulin Glargine 8 units DAILY@1000 SC 01/17/25 10:00 01/18/25 10:44 8 UNITS Atorvastatin Calcium 80 mg HS PO 01/16/25 22:00 01/17/25 22:25 80 MG Carvedilol 12.5 mg Q12HR PO 01/16/25 22:00 01/18/25 10:27 12.5 MG Furosemide 40 mg DAILY IV 01/17/25 10:00 01/18/25 10:24 40 MG Pantoprazole Sodium 40 mg DAILY IV 01/17/25 10:00 01/18/25 10:24 40 MG Aspirin 81 mg DAILY PO 01/17/25 10:00 01/18/25 10:27 81 MG Polyethylene Glycol 17 gm DAILYPRN PRN PO 01/17/25 13:30 Clopidogrel Bisulfate 75 mg DAILY PO 01/18/25 10:00 01/18/25 10:24 75 MG Heparin Sodium/ Dextrose 250 ml @ 11 mls/hr [id number] IV 01/18/25 17:00 01/18/25 17:14 11 MLS/HR objective Gen: NAD, AAOx3 HEENT: NC,AT Lungs: CTA b/l Cardiac: RRR, no murmur Abd: soft , no tenderness Ext: no edema Neuro: no focal deficits laboratory and microbiology Laboratory Tests 01/18/25 05:31 Test 01/18/25 05:31 Range/Units Serum Glucose 83 74-106 mg/dL Assessment/Plan TARSHA , likley mild CKD stage V NSTEMI Acute systolic CHF h/o heart valve replacement DM on insulin HTN HLD Plan: GFR stable ~ 12 ml/min Cardiology consult appreciated, plan for medical management Continue Lasix 40 mg IV daily, change to Lasix 40 mg PO upon discharge Continue Coreg 12.5 mg BID Continue aspirin, plavix, and lipitor cardiology consult Follow up with Dr. Perales in 2 weeks after discharge Plan discussed with: Patient, Spouse MJ DAMIAN MD Jan 18, 2025 17:39
--- NOTE | 2025-01-18 23:20 | DVHPN2 ---
Progress Note - Dictate Date Seen: Jan 18, 2025 Medical Necessity Reason Pt with a Central, PICC or Fol: No Subjective Patient was seen and evaluated in follow up. Patient is on 1 LPM NC. Patient receiving hepar dip. Patient c/o chest pain with SOB. HGB 7.4, HCT 21.7, BUN 51, Rectification Printer 3.73. Troponin 230 > 155 > 173. Telemetry reviewed. vital signs Vital Sign Date Time Temp Pulse Resp B/P (MAP) Pulse Ox O2 Delivery O2 Flow Rate FiO2 01/18/25:25 65 135/56 01/18/25 21:00 98.0 15 93 98.0 01/18/25 20:00 Nasal Cannula* 1 24 Total Intake and Output 01/17/25 01/17/25 01/18/25 15:00 23:00 07:00 Intake Total 360 ml 240 ml Output Total 4 ml Balance 356 ml 240 ml medications Current Medications Medications Dose Ordered Sig/Virgen Route Start Time Stop Time Status Last Admin Dose Admin Acetaminophen 650 mg Q6HR PO 01/16/25 12:00 01/17/25 18:27 650 MG Acetaminophen/ Hydrocodone Bitart 1 tab Q4HP PRN PO 01/16/25 11:00 01/18/25 21:26 1 TAB Ondansetron HCl 4 mg Q4HP PRN IV 01/16/25 11:00 Nitroglycerin 0.4 mg Q5MINP PRN SL 01/16/25 11:00 Insulin Glargine 8 units DAILY@1000 SC 01/17/25 10:00 01/18/25 10:44 8 UNITS Atorvastatin Calcium 80 mg HS PO 01/16/25 22:00 01/18/25 21:24 80 MG Carvedilol 12.5 mg Q12HR PO 01/16/25 22:00 01/18/25 21:25 12.5 MG Furosemide 40 mg DAILY IV 01/17/25 10:00 01/18/25 10:24 40 MG Pantoprazole Sodium 40 mg DAILY IV 01/17/25 10:00 01/18/25 10:24 40 MG Aspirin 81 mg DAILY PO 01/17/25 10:00 01/18/25 10:27 81 MG Polyethylene Glycol 17 gm DAILYPRN PRN PO 01/17/25 13:30 Clopidogrel Bisulfate 75 mg DAILY PO 01/18/25 10:00 01/18/25 10:24 75 MG Heparin Sodium/ Dextrose 250 ml @ 11 mls/hr [id number] IV 01/18/25 17:00 01/18/25 17:14 11 MLS/HR objective GENERAL: Alert and oriented x 3. No acute distress. EYES: PERRL, EOMI. Anicteric. HENT: Moist mucous membranes. LUNGS: Clear to auscultation bilaterally. CARDIOVASCULAR: Regular rate and rhythm. ABDOMEN: Soft, nontender and nondistended. EXTREMITIES: No edema. NEUROLOGIC: No focal neurological deficits. SKIN: Warm, dry. laboratory and microbiology Laboratory Tests 01/18/25 05:31 Test 01/18/25 05:31 Range/Units Serum Glucose 83 74-106 mg/dL Problem List Acute chest pain.( HEART score 7, TMI score 7). NSTEMI likely type 1, possible type 2 given heart failure and CKD. Acute decompensated heart failure. Symptomatic anemia. Bioprosthetic aortic valve (Cow Valve). CKD stage 5/ TARSHA on CKD. Right upper lobe pulmonary calcification on x-ray. Pulmonary congestion. Hypertension. Diabetes type 2. Assessment/Plan Continued all current supportive medical care. [facility] for pain management. Aspirin, Lipitor, Plavix. Coreg. Diuretics with Lasix. Heparin drip per pharmacy. Nitro SL. GI prophylactics. Additional plan as per the hospital course. Plan discussed with: Patient LYLE ARROYO MD Jan 18, 2025 23:20
[2025-01-19 00:01] LABS: INR 1.07 (0.9-1.15); Prothrombin Time 11.3 sec (9.3-11.8)
[2025-01-19 00:12] LABS: Partial Thromboplastin Time 86.3 SEC (24.5-34.5)
[2025-01-19] MEDS: HEPARIN DRIP/D5W 100UNITS/ML 250 ML IV SCH (00:26)
[2025-01-19 01:00] VITALS: BP 112/36; PULSE 60; RESP 18; TEMP 99; O2SAT 94
[2025-01-19 05:00] VITALS: BP 122/68; PULSE 65; RESP 18; TEMP 97.5; O2SAT 95
[2025-01-19 08:00] VITALS: PULSE 61; PULSE 63; RESP 16; O2SAT 98
[2025-01-19 08:09] LABS: Hemoglobin 7.4 g/dL (12.2-16.2); Mean Corpuscular Hemoglobin 27.2 pg (28.0-32.0)
[2025-01-19 08:13] LABS: Calcium 9.0 mg/dL (8.7-10.4); Chloride 100 mmol/L (98-107); Hematocrit 21.5 % (36.0-46.0); Mean Corpuscular Volume 79.1 fL (80.0-100.0); Nucleated Red Blood Cells % 0.1 %; Potassium 4.9 mmol/L (3.5-5.1)
[2025-01-19 08:14] LABS: Anion Gap 11 (5-15); Carbon Dioxide 23 mmol/L (20-31)
[2025-01-19 08:19] LABS: BUN/Creatinine Ratio 14.4 (10.0-20.0); Glucose 83 mg/dL (74-106)
[2025-01-19 08:21] LABS: Blood Urea Nitrogen 55 mg/dL (9-23); Sodium 134 mmol/L (136-145)
[2025-01-19 09:00] VITALS: BP 135/59; PULSE 63; RESP 16; TEMP 98; O2SAT 98
[2025-01-19 10:47] VITALS: BP 127/54; PULSE 63; RESP 16; TEMP 97.9; O2SAT 93
[2025-01-19 10:48] LABS: INR 1.06 (0.9-1.15); Prothrombin Time 11.2 sec (9.3-11.8)
[2025-01-19 10:50] LABS: Partial Thromboplastin Time 83.7 SEC (24.5-34.5)
--- NOTE | 2025-01-19 16:29 | DVHDSRES ---
Discharge Summary Date of Admission Resident Creating Document: PRADIP RANKIN RESDIENT Jan 16, 2025 at 10:56 Date of Discharge: Jan 18, 2025 Labs/Diagnostic Data: Laboratory Results Test 01/19/25 10:06 01/19/25 09:44 01/19/25 07:24 01/18/25 15:57 Prothrombin Time 11.2 sec (9.3-11.8) Prothrombin Time INR 1.06 (0.9-1.15) Activated Partial Thromboplast Time 83.7 SEC (24.5-34.5) POC Glucose 156 mg/dl (70-106) White Blood Count 5.9 10^3/uL (4.4-10.8) Red Blood Count 2.71 10^6/uL (4.0-5.20) Hemoglobin 7.4 g/dL (12.2-16.2) Hematocrit 21.5 % (36.0-46.0) Mean Corpuscular Volume 79.1 fL (80.0-100.0) Mean Corpuscular Hemoglobin 27.2 pg (28.0-32.0) Mean Corpuscular Hemoglobin Concent 34.4 g/dL (32.0-36.0) Red Cell Distribution Width 16.9 % (11.8-14.3) Platelet Count 279 10^3/uL (140-450) Mean Platelet Volume 8.1 fL (6.9-10.8) Neutrophils (%) (Auto) 58.0 % (37.0-80.0) Lymphocytes (%) (Auto) 19.4 % (10.0-50.0) Monocytes (%) (Auto) 9.8 % (0.0-12.0) Eosinophils (%) (Auto) 11.5 % (0.0-7.0) Basophils (%) (Auto) 1.3 % (0.0-2.0) Neutrophils # (Auto) 3.4 10 ^3/uL (1.6-8.6) Lymphocytes # (Auto) 1.1 10 ^3/uL (0.4-5.4) Monocytes # (Auto) 0.6 10 ^3/uL (0-1.3) Eosinophils # (Auto) 0.7 10 ^3/uL (0-0.8) Basophils # (Auto) 0.1 10 ^3/uL (0-0.2) Nucleated Red Blood Cells 0.1 % Sodium Level 134 mmol/L (136-145) Potassium Level 4.9 mmol/L (3.5-5.1) Chloride Level 100 mmol/L (98-107) Carbon Dioxide Level 23 mmol/L (20-31) Anion Gap 11 (5-15) Blood Urea Nitrogen 55 mg/dL (9-23) Creatinine 3.83 mg/dL (0.550-1.02) Glomerular Filtration Rate Calc 11 mL/min (>90) BUN/Creatinine Ratio 14.4 (10.0-20.0) Serum Glucose 83 mg/dL (74-106) Calcium Level 9.0 mg/dL (8.7-10.4) Troponin I High Sensitivity 173 ng/L (</=34) Test 01/18/25 14:10 01/18/25 05:31 01/17/25 09:45 01/16/25 11:56 Stool Occult Blood Negative (Negative) Stool Occult Blood Sample #3 (Negative) Total Bilirubin 0.5 mg/dL (0.2-1.0) Aspartate Amino Transferase (AST) 11 U/L (13-40) Alanine Aminotransferase (ALT) < 9 U/L (7-40) Alkaline Phosphatase 140 U/L (46-116) Total Protein 6.8 g/dL (5.7-8.2) Albumin 3.5 g/dL (3.2-4.8) B-Type Natriuretic Peptide 1722.64 pg/mL (0-100) Magnesium Level 1.7 mg/dL (1.6-2.6) Iron Level 25 ug/dL (50-170) Total Iron Binding Capacity 211 ug/dL (250-425) Percent Iron Saturation 11.8 % (15-50) Ferritin 341.3 ng/mL (10-291) Triglycerides Level 90 mg/dL (< 150) Cholesterol Level 89 mg/dL (< 200) LDL Cholesterol 37 mg/dL (< 100) HDL Cholesterol 32 mg/dL (40-59) Vitamin B12 Level 844 pg/mL (211-911) Thyroid Stimulating Hormone (TSH) 2.46 uIU/mL (0.55-4.78) Test 01/16/25 10:56 01/15/25 19:06 Hemoglobin A1c 6.0 % A1C (<5.7) Urine Color Colorless (Yellow) Urine Clarity Turbid (Clear) Urine pH 7.5 (5.0-9.0) Urine Specific [place] 1.008 (1.001-1.035) Urine Protein Trace (Negative) Urine Ketones Negative (Negative) Urine Blood Trace /uL (Negative) Urine Nitrite Negative (Negative) Urine Bilirubin Negative (Negative) Urine Urobilinogen Normal mg/dL (Negative) Urine Leukocyte Esterase 3+ /uL (Negative) Urine RBC 20 /hpf (0 - 4) Urine WBC Clumps Present /hpf (None Seen) Urine Microscopic WBC 414 /HPF (0-5) Urine Squamous Epithelial Cells Few /hpf (<5) Urine Transitional Epithelial Cells Few /hpf (<2) Urine Renal Epithelial Cells Few /hpf (None Seen) Urine Bacteria Few /hpf (None Seen) Urine Glucose Normal mg/dL (Normal) Other Laboratory Tests 01/19/25 07:24 Brief Hx & Hospital Course: HISTORY OF PRESENT ILLNESS: This is an 80-year-old female with past medical history of diabetes (on insulin), CKD grade 5, heart valvular replacement, hypertension and dyslipidemia came to the hospital due to chest pain. Pain localized at substernal area, radiating to the left arm, 8/10, pressure-like, with no clear exacerbating or relieving factor. In route the patient taken aspirin and upon arrival to the hospital and giving morphine pain resolved. She also reports of palpitation, headache, and shortness of breaths. Denies fever, cough, nausea, vomiting or any recent sick contact. PMHx: diabetes (on insulin), CKD grade 5, heart valvular replacement, hypertension and dyslipidemia and hemorrhoids PSHx: Valve repair open heart surgery Family history: Nonsignificant Social history: Denies smoking or any other drug use Home medication: Amlodipine, Lantus, carvedilol, sucralfate, Lasix, benazepril, atorvastatin, metformin Allergic history: No known allergy HOSPITAL COURSE: Patient was admitted at the line of NSTEMI type 1 leading to acute systolic heart failure. The patient was started on IV diuretic, and aspirin. EKG performed, showed diffuse ST-depression changes. Cardiology consulted, due to CKD grade 5, recommended medical management. Nephrology was consulted, recommended medical management. Patient was also given Plavix, heparin drip, and due to severe anemia 1 pt of blood was transfused. Per patient, she has history of hemorrhoids and has fresh blood upon wiping at restroom. Rectal exam was performed, showed no significant mass or lesion and stool occult blood was negative. On 01/20/2024, the patient was feeling better since admission. Shortness of breath and chest pain and improved, discharge plan discussed with the patient the patient discharged home. Next DISCHARGE PLAN: Follow up with the PCP within 1 week of the discharge. Follow up with Cardiology on outpatient basis. Follow up with Nephrology on outpatient basis. Aspirin 81 mg daily Clopidogrel 75 mg daily Atorvastatin 80 mg daily Carvedilol 25 mg b.i.d. Lasix 20 mg daily Spironolactone 25 mg daily Continue home meds FINAL DIAGNOSIS: NSTEMI, likely type 1 Acute systolic heart failure, likely due to above Diabetes type 2 Possible TARSHA on CKD, likely VMN, basilar record not available Severe anemia, likely due to GI bleeding, hypochromic microcytic History of hemorrhoids Status post open heart surgery due to valve replacement Asymptomatic bacteriuria Status post blood transfusion, 1 units Bioprosthetic aortic valve (Cow Valve). Condition at Discharge: Good Final Diagnosis/Problems List NSTEMI Discharge Disposition: Home Discharge Instruct/Medications Diet: Cardiac 2g Na,low cholest Activity: No Restrictions, As Tolerated Follow Up/Referral: Follow up with the PCP within 1 week of the discharge. Follow up with Cardiology on outpatient basis. Follow up with Nephrology on outpatient basis. Medications: Aspirin 81 mg daily Clopidogrel 75 mg daily Atorvastatin 80 mg daily Carvedilol 25 mg b.i.d. Lasix 20 mg daily Spironolactone 25 mg daily Continue home meds Scheduled Aspirin (Aspirin), 81 MG PO DAILY Atorvastatin Calcium (Atorvastatin Calcium), 40 MG PO HS Carvedilol (Carvedilol), 6.25 MG PO BID Clopidogrel Bisulfate (Plavix), 75 MG PO DAILY Furosemide (Lasix), 1 TAB PO DAILY Spironolactone (Spironolactone), 25 MG PO DAILY Discharge Statement: "Patient was advised to return to the ER or call 911 if any headaches, dizziness, shortness of breath, chest pain, abdominal pain, bleeding, fevers, or worsening of medical condition. Patient was counseled about treatment plan, medications, possible side effects, patientverbalized understanding. All questions were answered to the best of my ability. This discharge took greater then 30 minutes in planning, reviewing documentation, counseling the patient, and discussing with other team members." ASSESSMENT ASSESSMENT Assessment NSTEMI Date of Service: Jan 18, 2025 Billing Provider: STEF PEREZ MD Common Visit Codes: 86091-QPE/OBS DISCH DAY >30min PRADIP RANKIN RESDIENT Jan 19, 2025 16:29 STEF PEREZ MD Jan 19, 2025 22:34
--- NOTE | 2025-01-19 23:08 | DVHPN2 ---
Progress Note - Dictate Date Seen: Jan 19, 2025 Medical Necessity Reason Pt with a Central, PICC or Fol: No Subjective Patient was seen and evaluated in follow up. Patient has no new complaints at this time. Patient denies any cardiac symptoms. Patient is cardiac stable for discharge. Telemetry reviewed. vital signs Vital Sign Date Time Temp Pulse Resp B/P (MAP) Pulse Ox O2 Delivery O2 Flow Rate FiO2 01/19/25 10:52 63 127/54 01/19/25 10:47 97.9 16 93 01/19/25 08:00 Nasal Cannula* 2 28 Total Intake and Output 01/18/25 01/18/25 01/19/25 15:00 23:00 07:00 Intake Total 830 ml 0 ml Balance 830 ml 0 ml objective GENERAL: Alert and oriented x 3. No acute distress. EYES: PERRL, EOMI. Anicteric. HENT: Moist mucous membranes. LUNGS: Clear to auscultation bilaterally. CARDIOVASCULAR: Regular rate and rhythm. ABDOMEN: Soft, nontender and nondistended. EXTREMITIES: No edema. NEUROLOGIC: No focal neurological deficits. SKIN: Warm, dry. laboratory and microbiology Laboratory Tests 01/19/25 07:24 Test 01/19/25 07:24 Range/Units Serum Glucose 83 74-106 mg/dL Problem List Acute chest pain.( HEART score 7, TMI score 7). NSTEMI likely type 1, possible type 2 given heart failure and CKD. Acute decompensated heart failure. Symptomatic anemia. Bioprosthetic aortic valve (Cow Valve). CKD stage 5/ TARSHA on CKD. Right upper lobe pulmonary calcification on x-ray. Pulmonary congestion. Hypertension. Diabetes type 2. Assessment/Plan Continued all current supportive medical care. [facility] for pain management. Aspirin, Lipitor, Plavix. Coreg. Diuretics with Lasix. Heparin drip per pharmacy. Nitro SL. GI prophylactics. Additional plan as per the hospital course. Plan discussed with: Patient LYLE ARROYO MD Jan 19, 2025 15:03
--- NOTE | 2025-01-20 14:04 | ECG ---
[facility] Test Date: 2025-01-15 Test Time: 19:57:28 Pat Name: KEYLA ANDRADE Department: Room: 0294T B Gender: F Thickener Operator: RAZIA : [id number] Requested By: DELMY CERVANTES Order Number: [id number] Reading MD: Measurements Intervals [place] Rate: 67 P: 23 SC: 192 QRS: -28 QRSD: 122 T: 103 QT: 426 QTc: 450 Interpretive Statements Sinus rhythm LVH with secondary repolarization abnormality Please click the below link to view image of tracing.
[2025-01-21 08:08] LABS: Vitamin D-2 25-Hydroxy <1.0 ng/mL (.); Vitamin D-3 25-Hydroxy 41 ng/mL (.)
== END 2025-01-19 11:25 | disposition home or self-care (01) | DRG 280 ==
LOC: ER 19:00 → EDBD 19:00 → OVERFLOW 01-16 10:56 → TELE-WESTW 01-16 16:21
PROVIDERS: ADMIT Student in an Organized Health Care Education/Training Program; ATTEND Student in an Organized Health Care Education/Training Program
PROC: 30233N1 Transfusion of Nonautologous Red Blood Cells into Peripheral Vein, Percutaneous Approach (ICD-10-PCS; principal; 2025-01-17)
DX: I21.4 Non-ST elevation (NSTEMI) myocardial infarction (principal); I50.21 Acute systolic (congestive) heart failure; N17.0 Acute kidney failure with tubular necrosis; K92.2 Gastrointestinal hemorrhage, unspecified; N18.5 Chronic kidney disease, stage 5; I13.2 Hypertensive heart and chronic kidney disease with heart failure and with stage 5 chronic kidney disease, or end stage renal disease; E11.22 Type 2 diabetes mellitus with diabetic chronic kidney disease; E78.5 Hyperlipidemia, unspecified; D50.0 Iron deficiency anemia secondary to blood loss (chronic); D50.9 Iron deficiency anemia, unspecified; E66.9 Obesity, unspecified; Z95.3 Presence of xenogenic heart valve; Z79.4 Long term (current) use of insulin; Z68.29 Body mass index [BMI] 29.0-29.9, adult; Z79.899 Other long term (current) drug therapy
CPT/HCPCS: 36415; 71045; 80048; 80053; 80061; 80307; 81001; 82270; 82306; 82607; 82728; 82962; 83036; 83540; 83550; 83735; 83880; 84443; 84484; 85025; 85610; 85730; 86850; 86870; 86900; 86901; 86902; 86922; 93005; 93306; 96374; 96375; G0378; J1815; J2405; J2470

== ENCOUNTER 2025-02-26 15:48 | Inpatient (IN) | payer OTHER ==
[~2025-02-26] VITALS: Ht 152.4 cm; Wt 66.5 kg
[~2025-02-26 15:48] MED LIST: ASPI81CH49 PO; ATOR40TA52 PO; CARV12.544 PO; CLOP75TA28 PO; FURO1TAB33 PO; SPIR25TA8 PO
[2025-02-26 16:29] VITALS: O2SAT 98
--- NOTE | 2025-02-26 17:18 | ED.PDOC ---
History of Present Illness HPI Comments This patient is a morbidly obese 80 year-old female, accompanied by , presents to the ED via EMS with a chief complaint of general weakness, headache, inability to move the L arm, L arm numbness, and uncontrollable diarrhea as of yesterday. Per , patient had a fall on 02/23/25 where she was taken to [facility] and diagnosed with a C2 fracture, no head abnormalities identified. Per , patient also had an angiogram done during visit at [facility] and reports 90% of her coronary hard arteries are clogged. Patient otherwise has no further complaints or modifying factors at this time. Patient denies chest pain, dizziness, slurred speech, fever, or chills. Patient was in a C-collar time of evaluation. Patient's medical history is significant for end-stage renal disease on dialysis. Chief Complaint: Diarrhea Time Seen by MD: 16:42 Reviewed Notes: Nurses Notes, Coach Notes, Medications, Allergies Allergies: Coded Allergies: NO KNOWN ALLERGIES (Unverified , 01/15/25) Home Meds Active Scripts Carvedilol (Carvedilol) 12.5 Mg Tab, 6.25 MG PO BID for 30 Days, #30 TAB 3 Refills Prov:PRADIP RANKIN RESDIENT 01/18/25 Furosemide (Lasix) 20 Mg Tb, 1 TAB PO DAILY for 30 Days, #30 TAB 3 Refills Prov:PRADIP RANKIN RESDIENT 01/18/25 Spironolactone (Spironolactone) 25 Mg Tab, 25 MG PO DAILY for 30 Days, #30 TAB 3 Refills Prov:PRADIP RANKIN RESDIENT 01/18/25 Atorvastatin Calcium (ATORVASTATIN CALCIUM) 40 Mg Tab, 40 MG PO HS for 30 Days, #30 TAB 3 Refills Prov:PRADIP RANKIN RESDIENT 01/18/25 Clopidogrel Bisulfate (Plavix) 75 Mg Tab, 75 MG PO DAILY for 30 Days, #30 TAB 3 Refills Prov:PRADIP RANKIN RESDIENT 01/18/25 Aspirin (Aspirin) 81 Mg Chw, 81 MG PO DAILY for 30 Days, #90 TAB.CHEW 3 Refills Prov:PRADIP RANKIN RESDIENT 01/18/25 Information Source: Patient, Emergency Med Personnel Mode of Arrival: EMS Severity: Moderate Timing: Days Duration: Since onset Prehospital treatment: None Associated signs and symptoms general weakness, headache, inability to move the L arm, L arm numbness, and uncontrollable diarrhea Past Medical History PAST MEDICAL HISTORY: CKF, DM, ESRD (On dialysis) Surgical History: Denies all surgeries BACK HAND History: No Pertinent BACK HAND History Family History Family History: Reviewed,noncontributory to illness Social History Smoker: Non-Smoker Alcohol: Denies ETOH Use Drugs: Denies Drug Use Lives In: Home Constitutional: reports: fatigue, malaise, weakness; denies: chills, diaphoresis, fever, sweats, others EENTM: denies: blurred vision, double vision, ear bleeding, ear discharge, ear drainage, ear pain, ear ringing, eye pain, eye redness, hearing loss, mouth pain, mouth swelling, nasal discharge, nose bleeding, nose congestion, nose pain, photophobia, tearing, throat pain, throat swelling, voice changes, others Respiratory: denies: cough, hemoptysis, orthopnea, SOB at rest, shortness of breath, SOB with excertion, stridor, wheezing, others Cardiovascular: denies: chest pain, dizzy spells, diaphoresis, Dyspnea on exertion, edema, irregular heart beat, left arm pain, lightheadedness, palpitations, PND, syncope, others Gastrointestinal: reports: diarrhea; denies: abdomen distended, abdominal pain, blood streaked bowels, constipated, dysphagia, difficulty swallowing, hematemesis, melena, nausea, poor appetite, poor fluid intake, rectal bleeding, rectal pain, vomiting, others Genitourinary: denies: abnormal vagina bleeding, burning, dyspareunia, dysuria, flank pain, frequency, hematuria, incontinence, pain, , vagina discharge, urgency, others Neurological: reports: headache, left sided numbness; denies: dizziness, fainting, left sided weakness, numbness, paresthesia, pre-existing deficit, right sided numbness, right sided weakness, seizure, speech problems, tingling, tremors, weakness, others Musculoskeletal: denies: back pain, gout, joint pain, joint swelling, muscle pain, muscle stiffness, neck pain, others Integumetry: denies: bruises, change in color, change in hair/nails, dryness, laceration, lesions, lumps, rash, wounds, others Allergic/Immunocompromised: denies: Difficulty Healing, Frequent Infections, Hives, Itching, others Hematologic/Lymphatic: denies: anemia, blood clots, easy bleeding, easy bruising, swollen glands, others Endocrine: denies: excessive hunger, excessive sweating, excessive thirst, excessive urination, flushing, intolerance to cold, intolerance to heat, unexplained weight gain, unexplained weight loss, others Psychiatric: denies: anxiety, bipolar disorder, depression, hopeless, panic disorder, schizophrenia, sleepless, suicidal, others All Other Systems: Reviewed and Negative Physical Exam General Appearance: Moderate Distress (Patient appears to be in moderate distress at time of evaluation. Patient is histrionic during evaluation.), Obese HEENT: Normal ENT Inspection, Pharynx Normal, TMs Normal Neck: Other (Patient was a C-collar time of evaluation.) Respiratory: Chest Non-Tender, Lungs Clear, No Accessory Muscle Use, No Respiratory Distress, Normal Breath Sounds Cardiovascular: No Edema, No JVD, No Murmur, No Gallop, Normal Peripheral Pulses, Regular Rate/Rhythm Breast Exam: Deferred Gastrointestinal: No Pulsatile Mass, Normal Bowel Sounds, Soft Genitalia: Deferred Pelvic: Deferred Rectal: Deferred Extremities: No calf tenderness Neurologic: Alert Cerebellar Function: NOT DONE Reflexes: NOT DONE Skin: Dry, Normal Color, Warm Lymphatic: No Adenopathy Was a procedure done? Was a procedure done?: No Differential Dx Considerations may include: Closed Head Injury, constipation, diarrhea , electrolyte abnormality, sepsis, urinary tract infection X-Ray, Labs, Meds, VS Vital Signs Date Time Temp Pulse Resp B/P (MAP) Pulse Ox O2 Delivery O2 Flow Rate FiO2 02/26/25 19:28 98.4 59 16 98/22 (47) 94 98.4 02/26/25 18:37 60 80 95/55 02/26/25 18:07 68 18 122/66 02/26/25 18:00 68 18 122/66 (84) 97 02/26/25 16:40 98.1 69 18 115/56 (75) 97 98.1 02/26/25 16:29 98 Room Air* 0 21 02/26/25 16:23 62 02/26/25 15:57 98.0 60 16 102/62 98 98.0 Lab Test 02/26/25 19:53 02/26/25 18:26 02/26/25 17:04 02/26/25 16:53 Range/Units Troponin I High Sensitivity Pending 213 *H 214 *H </=34 ng/L White Blood Count 11.6 H 4.4-10.8 10^3/uL Red Blood Count 2.77 L 4.0-5.20 10^6/uL Hemoglobin 7.9 L 12.2-16.2 g/dL Hematocrit 23.0 L 36.0-46.0 % Mean Corpuscular Volume 82.7 80.0-100.0 fL Mean Corpuscular Hemoglobin 28.5 28.0-32.0 pg Mean Corpuscular Hemoglobin Concent 34.5 32.0-36.0 g/dL Red Cell Distribution Width 16.0 H 11.8-14.3 % Platelet Count 346 140-450 10^3/uL Mean Platelet Volume 8.1 6.9-10.8 fL Neutrophils (%) (Auto) 85.3 H 37.0-80.0 % Lymphocytes (%) (Auto) 4.3 L 10.0-50.0 % Monocytes (%) (Auto) 7.8 0.0-12.0 % Eosinophils (%) (Auto) 2.2 0.0-7.0 % Basophils (%) (Auto) 0.4 0.0-2.0 % Neutrophils # (Auto) 9.9 H 1.6-8.6 10 ^3/uL Lymphocytes # (Auto) 0.5 0.4-5.4 10 ^3/uL Monocytes # (Auto) 0.9 0-1.3 10 ^3/uL Eosinophils # (Auto) 0.3 0-0.8 10 ^3/uL Basophils # (Auto) 0 0-0.2 10 ^3/uL Nucleated Red Blood Cells 0.0 % Sodium Level 131 L 136-145 mmol/L Potassium Level 3.0 L 3.5-5.1 mmol/L Chloride Level 90 L 98-107 mmol/L Carbon Dioxide Level 32 H 20-31 mmol/L Anion Gap 9 5-15 Blood Urea Nitrogen 29 H 9-23 mg/dL Creatinine 2.35 H 0.550-1.02 mg/dL Glomerular Filtration Rate Calc 20 >90 mL/min BUN/Creatinine Ratio 12.3 10.0-20.0 Serum Glucose 147 H 74-106 mg/dL Lactic Acid Level 1.1 0.4-2.0 mmol/L Calcium Level 8.5 L 8.7-10.4 mg/dL Total Bilirubin 0.7 0.2-1.0 mg/dL Aspartate Amino Transferase (AST) 32 13-40 U/L Alanine Aminotransferase (ALT) 36 7-40 U/L Alkaline Phosphatase 131 H 46-116 U/L B-Type Natriuretic Peptide Pending Total Protein 6.8 5.7-8.2 g/dL Albumin 3.5 3.2-4.8 g/dL Lipase 28 12-53 U/L Urine Color [place] H Yellow Urine Clarity Ex.turbid Clear Urine pH 6.0 5.0-9.0 Urine Specific [place] 1.015 1.001-1.035 Urine Protein 1+ H Negative Urine Ketones Negative Negative Urine Blood 2+ H Negative /uL Urine Nitrite Negative Negative Urine Bilirubin Negative Negative Urine Urobilinogen Normal Negative mg/dL Urine Leukocyte Esterase 3+ Negative /uL Urine RBC 15 0 - 4 /hpf Urine Microscopic WBC 803 H 0-5 /HPF Urine Squamous Epithelial Cells Few <5 /hpf Urine Amorphous Crystals Few None Seen /hpf Urine Bacteria Many H None Seen /hpf Urine Hyaline Casts Few 0 - 2 /lpf Urine Glucose Normal Normal mg/dL Current Medications Medications (Trade) Dose Ordered Sig/Virgen Route Start Time Stop Time Status Last Admin Hydromorphone HCl (Dilaudid Injection) 0.5 mg ONCE ONCE IV 02/26/25 17:15 02/26/25 17:16 DC 02/26/25 18:07 Ondansetron HCl (Zofran) 4 mg ONCE ONCE IV 02/26/25 17:15 02/26/25 17:16 DC 02/26/25 18:04 Potassium Chloride 100 ml @ 50 mls/hr Q2H ONCE IV 02/26/25 20:00 02/26/25 21:59 02/26/25 20:07 [facility] [id number] [place] [id number] Ph: [phone] DIAGNOSTIC IMAGING Diagnostic Imaging Report : [id number] Signed PATIENT: KEYLA ANDRADE ACCT: [id number] UNIT: [id number] : 1945 LOC: ER ROOM / BED: / AGE / SEX: 80 / F ADM STATUS: REG ER SERVICE 1702 ORDERING PHYSICIAN: CHAGO BUTTERFIELD PROCEDURE(s): HWOCT - HEAD WITHOUT CONTRAST REASON: Altered mental status ORDER NUMBER(s): [id number], ACCESSION NUMBER(s): [id number] CLINICAL HISTORY: Altered mental status TECHNIQUE: Helical imaging carried out from skull base to vertex without intravenous contrast. This exam was performed according to our departmental dose optimization program. Up-to-date CT equipment and radiation dose reduction techniques are utilized as appropriate. CTDIVol: 55.37 mGy DLP: 965.65 mGy-cm WID: COMPARISON: None FINDINGS: Mild cerebral volume loss with concordant prominence of the subarachnoid spaces and ventricles. Mild patchy low-attenuation consistent with nonspecific white matter disease. There is no midline shift or mass effect. The dolan white matter interfaces are maintained. The basal cisterns are patent. There is no evidence of acute intracranial hemorrhage or extra-axial fluid collection. Small left mastoid air cell effusion. The right mastoid air cells are well-aerated. There are frothy secretions and opacification within the left sphenoid sinus. There is paranasal sinus mucosal thickening. Prior ocular lens replacement. IMPRESSION: 1. No acute intracranial abnormality. 2. Mild cerebral volume loss and mild chronic microvascular ischemic change. 3. Left sphenoid frothy secretions and mucosal opacification. Correlate clinically for acute sinusitis. [place] [address] Ph: [phone] DIAGNOSTIC IMAGING Diagnostic Imaging Report : [id number] Signed PATIENT: KEYLA ANDRADE ACCT: [id number] UNIT: [id number] : 1945 LOC: ER ROOM / BED: / AGE / SEX: 80 / F ADM STATUS: REG ER SERVICE 1653 ORDERING PHYSICIAN: TREVON MORA DO PROCEDURE(s): ABPL - CT AB PEL WO CON-NO ORAL OR IV REASON: abd pain ORDER NUMBER(s): [id number], ACCESSION NUMBER(s): [id number] EXAM: CT CT AB PEL WO CON-NO ORAL OR IV INDICATION: abd pain TECHNIQUE: Volumetric multidetector CT images of the abdomen and pelvis were obtained without contrast. All CT scans at this facility use dose modulation, iterative reconstruction, and/or weight based dosing when appropriate to reduce radiation dose to as low as reasonably achievable. COMPARISON: None FINDINGS: [LOWER CHEST]: Trace bilateral pleural effusions. Inconspicuous peribronchial thickening. Moderate cardiomegaly with underlying anemia. coronary artery calcifications. [LIVER]: Normal hepatic size without suspicious focal lesion. [GALLBLADDER AND BILIARY TREE]: Layering cholelithiasis [SPLEEN]: Unremarkable. [PANCREAS]: Unremarkable. [ADRENAL GLANDS]: Unremarkable [KIDNEYS]: Gas along bilateral renal calices. No nephroureterolithiasis. [BLADDER]: Emphysematous cystitis with air-fluid level and nondependent gas extending along the wall. [REPRODUCTIVE ORGANS]: Pessary device in place. [BOWEL/MESENTERY]: Stomach is normal. No CT evidence of bowel obstruction. [ASCITES]: Absent [LYMPHADENOPATHY]: No pathologically enlarged lymph nodes by CT size criteria [VASCULATURE]: Vascular calcifications. [ABDOMINAL WALL]: Mild body wall edema. Small fat containing umbilical hernia [MUSCULOSKELETAL]: No acute fracture or aggressive focal osseous lesion. Multifocal degenerative change of the visualized spine. grade 1 anterolisthesis L4 over L5. IMPRESSION: 1. 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 No hydronephrosis. 2. Trace bilateral pleural effusions. 3. Cardiomegaly with underlying anemia. 4. Subsequent third-spacing correlate for congestive heart failure. X-Ray, Labs, Meds, VS Comment CT of the head was unremarkable for any acute intracranial concerns or neoplas ms. CT of the abdomen and pelvis was unremarkable for any acute concerns. Serum laboratories revealed a leukocytosis, anemia, end-stage renal disease on dialysis, elevated troponin, hyponatremia, hypokalemia and a significant urinary tract infection. Patient will be admitted for IV antibiotic management as well as management of her kidney concerns. All studies performed the ED were evaluated by me personally. Images Reviewed?: Images reviewed and evaluated by me Time of 1ST Reevaluation: 20:20 Reevaluation 1ST: Improved Consultation: PCP Patient Education/Counseling: Diagnosis, Treatment Family Education/Counseling: Diagnosis, Treatment SEPSIS Sepsis Screen Date sepsis recognized/suspect: Feb 26, 2025 Time Sepsis recognized/suspect: 1608 Recent Procedure: No On Antibiotic Therapy: No Respiratory Rate >20: No Heart Rate >90: No Temp<36 C (96.8 F) or >38.3 C: No SBP <90 or MAP <65 mmHG: No New Acute Mental Status Change: No Is the patient on CPAP, BIPAP,: No Physician Orders Business Transformation Manager (02/26/25 ) Electrocardigram (02/26/25 16:53) Ct Ab Pel Wo Con-No Oral Or Iv (02/26/25 16:53) Troponin-I Hs (02/26/25 19:53) Head Without Contrast (02/26/25 17:02) Heplock Iv (02/26/25 ) Cristobal Catheters (02/26/25 ) B-Type Natriuretic Peptide (02/26/25 19:41) Sodium Chloride 0.9% (02/26/25 19:45) Potassium Chl 20meq/100ml (02/26/25 20:00) Vital Signs Date Time Temp Pulse Resp B/P (MAP) Pulse Ox O2 Delivery O2 Flow Rate FiO2 02/26/25 19:28 98.4 59 16 98/22 (47) 94 98.4 02/26/25 18:37 60 80 95/55 02/26/25 18:07 68 18 122/66 02/26/25 18:00 68 18 122/66 (84) 97 02/26/25 16:40 98.1 69 18 115/56 (75) 97 98.1 02/26/25 16:29 98 Room Air* 0 21 02/26/25 16:23 62 02/26/25 15:57 98.0 60 16 102/62 98 98.0 Laboratory Tests Test 02/26/25 17:04 Lactic Acid Level 1.1 mmol/L (0.4-2.0) White Blood Count 11.6 10^3/uL (4.4-10.8) H Medications Medications Dose Ordered Sig/Virgen Route Start Time Stop Time Status Last Admin Dose Admin Hydromorphone HCl 0.5 mg ONCE ONCE IV 02/26/25 17:15 02/26/25 17:16 DC 02/26/25 18:07 Ondansetron HCl 4 mg ONCE ONCE IV 02/26/25 17:15 02/26/25 17:16 DC 02/26/25 18:04 Potassium Chloride 100 ml @ 50 mls/hr Q2H ONCE IV 02/26/25 20:00 02/26/25 21:59 02/26/25 20:07 Departure 1 Departure Time of Disposition: 20:20 Impression: Primary Impression: End stage renal disease on dialysis Additional Impressions: Urinary tract infection Hyponatremia Hypokalemia Anemia Elevated troponin Disposition: ADMITTED INPATIENT Condition: Fair Discharged With: Self, Spouse Critical Care Note Critical Care Time?: No Stability Stability form required: No Heart Score Heart Score: Heart Score Response (Comments) Value History N/A 0 EKG N/A 0 Age N/A 0 Risk Factors N/A 0 Troponin N/A 0 Total 0 I personally scribed for CHAGO BUTTERFIELD PAC ([email or web address]) on 02/26/25 at 17:18. Electronically submitted by Lou Aponte ([employer]). I personally scribed for CHAGO BUTTERFIELD PAC ([email or web address]) on 02/26/25 at 19:28. Electronically submitted by Lou Aponte ([place]). CHAGO BUTTERFIELD PAC Feb 26, 2025 17:18
[2025-02-26 17:25] LABS: Hemoglobin 7.9 g/dL (12.2-16.2); Nucleated Red Blood Cells % 0.0 %
[2025-02-26 17:27] LABS: Hematocrit 23.0 % (36.0-46.0); Mean Corpuscular Hemoglobin 28.5 pg (28.0-32.0); Mean Corpuscular Volume 82.7 fL (80.0-100.0)
[2025-02-26 17:43] LABS: Alanine Aminotransferase 36 U/L (7-40); Anion Gap 9 (5-15); BUN/Creatinine Ratio 12.3 (10.0-20.0); Lipase 28 U/L (12-53); Total Protein 6.8 g/dL (5.7-8.2)
[2025-02-26 17:44] LABS: Albumin 3.5 g/dL (3.2-4.8); Alkaline Phosphatase 131 U/L (46-116); Bilirubin, Total 0.7 mg/dL (0.2-1.0); Blood Urea Nitrogen 29 mg/dL (9-23); Calcium 8.5 mg/dL (8.7-10.4); Carbon Dioxide 32 mmol/L (20-31); Chloride 90 mmol/L (98-107); Glucose 147 mg/dL (74-106); Potassium 3.0 mmol/L (3.5-5.1); Sodium 131 mmol/L (136-145)
[2025-02-26] MEDS: ONDANSETRON HCL 4 MG/2 ML VIAL IV ONE (18:04)
[2025-02-26] MEDS: HYDROmorphone HCL 2 MG/ML VL/or syr IV ONE (18:07)
--- NOTE | 2025-02-26 18:45 | DVH ---
CLINICAL HISTORY: Altered mental status TECHNIQUE: Helical imaging carried out from skull base to vertex without intravenous contrast. This e xam was performed according to our departmental dose optimization program. Up-to-date CT equipment an d radiation dose reduction techniques are utilized as appropriate. CTDIVol: 55.37 mGy DLP: 965.65 mGy-cm WID: COMPARISON: None FINDINGS: Mild cerebral volume loss with concordant prominence of the subarachnoid spaces and ventricles. Mild patchy low-attenuation consistent with nonspecific white matter disease. There is no midline shift or mass effect. The dolan white matter interfaces are maintained. The basal cisterns are patent. There is no evidence of acute intracranial hemorrhage or extra-axial fluid kimberlee ection. Small left mastoid air cell effusion. The right mastoid air cells are well-aerated. There are frothy secretions and opacification within the left sphenoid sinus. There is paranasal sinus mucosa l thickening. Prior ocular lens replacement. IMPRESSION: 1. No acute intracranial abnormality. 2. Mild cerebral volume loss and mild chronic microvascular ischemic change. 3. Left sphenoid frothy secretions and mucosal opacification. Correlate clinically for acute sinusit is.
--- NOTE | 2025-02-26 18:48 | DVH ---
EXAM: CT CT AB PEL WO CON-NO ORAL OR IV INDICATION: abd pain TECHNIQUE: Volumetric multidetector CT images of the abdomen and pelvis were obtained without contras t. All CT scans at this facility use dose modulation, iterative reconstruction, and/or weight based d osing when appropriate to reduce radiation dose to as low as reasonably achievable. COMPARISON: None FINDINGS: [LOWER CHEST]: Trace bilateral pleural effusions. Inconspicuous peribronchial thickening. Moderate c ardiomegaly with underlying anemia. coronary artery calcifications. [LIVER]: Normal hepatic size without suspicious focal lesion. [GALLBLADDER AND BILIARY TREE]: Layering cholelithiasis [SPLEEN]: Unremarkable. [PANCREAS]: Unremarkable. [ADRENAL GLANDS]: Unremarkable [KIDNEYS]: Gas along bilateral renal calices. No nephroureterolithiasis. [BLADDER]: Emphysematous cystitis with air-fluid level and nondependent gas extending along the wall. [REPRODUCTIVE ORGANS]: Pessary device in place. [BOWEL/MESENTERY]: Stomach is normal. No CT evidence of bowel obstruction. [ASCITES]: Absent [LYMPHADENOPATHY]: No pathologically enlarged lymph nodes by CT size criteria [VASCULATURE]: Vascular calcifications. [ABDOMINAL WALL]: Mild body wall edema. Small fat containing umbilical hernia [MUSCULOSKELETAL]: No acute fracture or aggressive focal osseous lesion. Multifocal degenerative terry ge of the visualized spine. grade 1 anterolisthesis L4 over L5. IMPRESSION: 1. 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 No hydronephrosis. 2. Trace bilateral pleural effusions. 3. Cardiomegaly with underlying anemia. 4. Subsequent third-spacing correlate for congestive heart failure.
[2025-02-26 19:10] LABS: Urine Amorphous Crystal FEW /hpf (None Seen); Urine Protein, UAD 1+ (Negative)
[2025-02-26] MEDS: SODIUM CHLORIDE 0.9% 1,000 ML IV ONE (19:57)
[2025-02-26] MEDS: POTASSIUM CHL 20MEQ/100ML 100 ML IV ONE (20:07)
[2025-02-26] MEDS: POTASSIUM CHL 20MEQ/100ML 100 ML IV SCH (20:28)
[2025-02-26] MEDS: HYDROcodone-ACET 5/325MG TAB PO ONE (20:32)
--- NOTE | 2025-02-26 21:51 | ECG ---
[facility] Test Date: 2025-02-26 Test Time: 16:10:01 Pat Name: KEYLA ANDRADE Department: [facility] ED Patient ID: [facility]-[id number] Room: 0219T Gender: F Wet Pan Operator: : 1945 Requested By: TREVON MORA Order Number: [id number] Reading MD: Donnie Jordan Measurements Intervals Stacy Rate: 63 P: -10 NV: 196 QRS: -29 QRSD: 137 T: 127 QT: 467 QTc: 479 Interpretive Statements Sinus rhythm IVCD, consider atypical LBBB Electronically Signed On 03-03-2025 21:59:36 PDT by Donnie Jordan Please click the below link to view image of tracing.
[2025-02-26] MEDS ORDERED: MORPHINE SULFATE INJ 2 MG/ml SYRG IV PRN (22:00)
[2025-02-26] MEDS: PIPERACILLIN-TAZOB 3.375GM 100 ML IV SCH (23:27)
[2025-02-26] MEDS: ATORVASTATIN 20 MG TAB PO SCH (23:28)
[2025-02-26] MEDS: CARVEDILOL 12.5 MG TAB PO SCH (23:35)
[2025-02-26] MEDS: PANTOPRAZOLE 40 MG TAB PO ONE (23:36)
[2025-02-26] MEDS: ENOXAPARIN SOD 30 MG/0.3 ML SYRINGE SC ONE (23:38)
[2025-02-27] VITALS (11 sets, daily range): BP systolic 108–139; BP diastolic 47–90; PULSE 57–66; RESP 16–18; TEMP 97.4–97.8; O2SAT 93–99
[2025-02-27] MEDS: HYDROcodone-ACET 5/325MG TAB PO PRN ×2 (02:06→17:16)
--- NOTE | 2025-02-27 02:32 | DVHHP2 ---
DIVINE BAKER RESIDENT 02/27/25 0232: History of Present Illness History of Present Illness Patient is 80 y/o who brought to the hospital for c/o generalized weakness and left-sided numbness in arm and leg. And concern for heart attack. As per patient she started having left left arm and leg numbness after she had recent fall where she ended up C2 fracture. For that purpose she went to [facility] and was discharged with cervical collar. Patient continued to have generalized weakness and left-sided numbness. Over the past few days her mental status also continued to worsen that prompted visit to the hospital. During recent hospitalization at [place] patient also underwent coronary angiogram, was informed to patient that there are multiple coronary artery stenosis ranging around 75-80 person, advised on only medical therapy and not going through intervention given her underlying medical condition. Patient is in acute distress due to severe head and neck pain, mainly morning and able to open her eyes, all of the information obtained from her /daughter. PMHx: Coronary artery disease, diabetes (on insulin), CKD grade 5, heart valvular replacement, hypertension and dyslipidemia and hemorrhoids PSHx: Valve repair open heart surgery Family history: Nonsignificant Social history: Denies smoking or any other drug use Home medication: Aspirin, atorvastatin, carvedilol, clopidogrel, furosemide, spironolactone Allergic history: No known allergy Review of Systems Constitutional: No: Fever, Chills, Sweats, Weakness, Malaise, Other Eyes: No: Pain, Vision change, Conjunctivae inflammation, Eyelid inflammation, Other, Redness ENT: No: Ear pain, Ear discharge, Nose pain, Nose discharge, Nose congestion, Mouth pain, Mouth swelling, Throat pain, Throat swelling, Other Respiratory: No: Cough, Dry, Shortness of breath, SOB with excertion, Wheezing, Hemoptysis, Pleuritic Pain, Sputum, Wheezing, Other Cardiovascular: No: Chest Pain, Palpitations, Orthopnea, Paroxysmal Noc. Dyspnea, Edema, Lt Headedness, Other Gastrointestinal: No: Nausea, Vomiting, Abdominal Pain, Diarrhea, Constipation, Melena, Hematochezia, Other Genitourinary: No Dysuria, No Frequency, No Incontinence, No Hematuria, No Retention, No Other Musculoskeletal: neck pain Skin: No: Rash, Lesions, Jaundice, Bruising, Other Neurological: Confusion, Other Allergies: Coded Allergies: NO KNOWN ALLERGIES (Unverified , 8/16/25) Medications Current Medications Medications Dose Ordered Sig/Virgen Route Start Time Stop Time Status Last Admin Dose Admin Nitroglycerin 0.4 mg Q5MINP PRN SL 02/26/25 22:00 Morphine Sulfate 2 mg Q30M PRN IV 02/26/25 22:00 Carvedilol 6.25 mg BID PO 02/26/25 22:00 02/26/25 23:35 6.25 MG Aspirin 81 mg DAILY PO 02/27/25 10:00 Atorvastatin Calcium 40 mg HS PO 02/26/25 22:00 02/26/25 23:28 40 MG Piperacillin Sod/ Tazobactam Sod 100 ml @ 25 mls/hr Q8HR IV 02/26/25 22:00 02/26/25 23:27 25 MLS/HR Enoxaparin Sodium 30 mg HS SC 02/27/25 22:00 Pantoprazole Sodium 40 mg DAILY@0600 PO 02/27/25 06:00 Acetaminophen/ Hydrocodone Bitart 1 tab Q4HPRN PRN PO 02/27/25 01:45 02/27/25 02:06 1 TAB Exam Vital Signs Vital Signs Date Time Temp Pulse Resp B/P (MAP) Pulse Ox O2 Delivery O2 Flow Rate FiO2 02/27/25 01:53 61 122/53 02/27/25 01:00 97.5 17 94 97.5 02/26/25 19:30 Nasal Cannula* 3 32 Exam General Appearance: Patient is alert, oriented to place only. Able to open her eye, has grimaces on her face. Follows, and sluggishly Head Exam: Normal inspection, Neck Exam: Normal inspection. trach collar. Neck examination limited Pulmonary/Respiratory: Chest non-tender. Clear bilateral breath sounds Cardiovascular/Chest: Regular rate and rhythm. No murmurs. No JVD. Peripheral Pulses: 2+ Radial (R). 2+ Radial (L). 2+ Pedal (R). 2+ Pedal (L) Abdominal Exam: Normal bowel sounds. Soft. Nontender. No hepatospenomegaly. No masses Ankle Exam: Negative ankle edema Lower extremities: Negative lower extremity edema Neuro/Mental Status: A&O x1. Labs/Xrays Labs Test 02/26/25 19:53 02/26/25 17:04 02/26/25 16:53 Range/Units Troponin I High Sensitivity 199 *H </=34 ng/L White Blood Count 11.6 H 4.4-10.8 10^3/uL Red Blood Count 2.77 L 4.0-5.20 10^6/uL Hemoglobin 7.9 L 12.2-16.2 g/dL Hematocrit 23.0 L 36.0-46.0 % Mean Corpuscular Volume 82.7 80.0-100.0 fL Mean Corpuscular Hemoglobin 28.5 28.0-32.0 pg Mean Corpuscular Hemoglobin Concent 34.5 32.0-36.0 g/dL Red Cell Distribution Width 16.0 H 11.8-14.3 % Platelet Count 346 140-450 10^3/uL Mean Platelet Volume 8.1 6.9-10.8 fL Neutrophils (%) (Auto) 85.3 H 37.0-80.0 % Lymphocytes (%) (Auto) 4.3 L 10.0-50.0 % Monocytes (%) (Auto) 7.8 0.0-12.0 % Eosinophils (%) (Auto) 2.2 0.0-7.0 % Basophils (%) (Auto) 0.4 0.0-2.0 % Neutrophils # (Auto) 9.9 H 1.6-8.6 10 ^3/uL Lymphocytes # (Auto) 0.5 0.4-5.4 10 ^3/uL Monocytes # (Auto) 0.9 0-1.3 10 ^3/uL Eosinophils # (Auto) 0.3 0-0.8 10 ^3/uL Basophils # (Auto) 0 0-0.2 10 ^3/uL Nucleated Red Blood Cells 0.0 % Sodium Level 131 L 136-145 mmol/L Potassium Level 3.0 L 3.5-5.1 mmol/L Chloride Level 90 L 98-107 mmol/L Carbon Dioxide Level 32 H 20-31 mmol/L Anion Gap 9 5-15 Blood Urea Nitrogen 29 H 9-23 mg/dL Creatinine 2.35 H 0.550-1.02 mg/dL Glomerular Filtration Rate Calc 20 >90 mL/min BUN/Creatinine Ratio 12.3 10.0-20.0 Serum Glucose 147 H 74-106 mg/dL Lactic Acid Level 1.1 0.4-2.0 mmol/L Calcium Level 8.5 L 8.7-10.4 mg/dL Total Bilirubin 0.7 0.2-1.0 mg/dL Aspartate Amino Transferase (AST) 32 13-40 U/L Alanine Aminotransferase (ALT) 36 7-40 U/L Alkaline Phosphatase 131 H 46-116 U/L B-Type Natriuretic Peptide 4364.11 0-100 pg/mL Total Protein 6.8 5.7-8.2 g/dL Albumin 3.5 3.2-4.8 g/dL Lipase 28 12-53 U/L Urine Color [place] H Yellow Urine Clarity Ex.turbid Clear Urine pH 6.0 5.0-9.0 Urine Specific [place] 1.015 1.001-1.035 Urine Protein 1+ H Negative Urine Ketones Negative Negative Urine Blood 2+ H Negative /uL Urine Nitrite Negative Negative Urine Bilirubin Negative Negative Urine Urobilinogen Normal Negative mg/dL Urine Leukocyte Esterase 3+ Negative /uL Urine RBC 15 0 - 4 /hpf Urine Microscopic WBC 803 H 0-5 /HPF Urine Squamous Epithelial Cells Few <5 /hpf Urine Amorphous Crystals Few None Seen /hpf Urine Bacteria Many H None Seen /hpf Urine Hyaline Casts Few 0 - 2 /lpf Urine Glucose Normal Normal mg/dL SEPSIS Sepsis Screen Date sepsis recognized/suspect: Feb 26, 2025 Time Sepsis recognized/suspect: 1929 Recent Procedure: No On Antibiotic Therapy: Yes Respiratory Rate >20: No Heart Rate >90: No Temp<36 C (96.8 F) or >38.3 C: No SBP <90 or MAP <65 mmHG: No New Acute Mental Status Change: No Is the patient on CPAP, BIPAP,: No Physician Orders Cristobal Catheters (02/26/25 ) Admit (02/26/25 21:51) Nitroglycerin Sublingual (Ntrostat Subli (02/26/25 22:00) Morphine Sulfate Injection (02/26/25 22:00) Oxygen By Nasal Cannula (02/26/25 21:51) Stat Ekg For Chest Pain (02/26/25 21:51) Notify Of Changes From Base (02/26/25 21:51) Vat Skimmer For 24 Hours (02/26/25 21:51) Emergency Dysrhythmia Protocol (02/26/25 21:51) Rhythm Strips Once Every Shift (02/26/25 21:51) Electrocardigram (02/26/25 21:51) Electrocardigram (02/26/25 22:51) Urine Bacterial Culture (02/26/25 21:51) Blood Culture (02/26/25 21:51) Carvedilol Tablet (Coreg Tablet) (02/26/25 22:00) Aspirin Enteric Coated Tablet (Ecotrin E (02/27/25 10:00) Atorvastatin (Lipitor) (02/26/25 22:00) Piperacillin-Tazob 3.375gm (Zosyn 3.375g (02/26/25 22:00) Enoxaparin Sodium (Lovenox) (02/27/25 22:00) Pantoprazole Tablet (Protonix Tablet) (02/27/25 06:00) Stool Bacterial Culture (02/26/25 21:58) DNR (02/26/25 21:59) Code Status (02/26/25 22:01) Regular Diet (02/27/25 Breakfast) Hydrocodone-Acet 5/325mg Tab ([place] 5/32 (02/27/25 01:45) Chest Xray 1 View (02/27/25 02:03) Vital Signs Date Time Temp Pulse Resp B/P (MAP) Pulse Ox O2 Delivery O2 Flow Rate FiO2 02/27/25 01:53 61 122/53 02/27/25 01:00 97.5 61 17 122/53 (76) 94 97.5 02/27/25 00:59 97.5 61 17 122/53 (76) 93 97.5 02/27/25 00:20 97.5 61 18 122/53 (76) 93 97.5 02/26/25 23:35 61 118/54 02/26/25 22:00 61 18 108/49 (68) 96 02/26/25 19:30 Nasal Cannula* 3 32 02/26/25 19:28 98.4 59 16 98/22 (47) 94 98.4 02/26/25 18:37 60 80 95/55 Laboratory Tests Test 02/26/25 17:04 Lactic Acid Level 1.1 mmol/L (0.4-2.0) White Blood Count 11.6 10^3/uL (4.4-10.8) H Medications Medications Dose Ordered Sig/Virgen Route Start Time Stop Time Status Last Admin Dose Admin Acetaminophen/ Hydrocodone Bitart 1 tab ONCE ONCE PO 02/26/25 20:30 02/26/25 20:31 DC 02/26/25 20:32 1 TAB Acetaminophen/ Hydrocodone Bitart 1 tab Q4HPRN PRN PO 02/27/25 01:45 02/27/25 02:06 1 TAB Atorvastatin Calcium 40 mg HS PO 02/26/25 22:00 02/26/25 23:28 40 MG Carvedilol 6.25 mg BID PO 02/26/25 22:00 02/26/25 23:35 6.25 MG Ceftriaxone Sodium 50 ml @ 100 mls/hr ONCE ONCE IV 02/26/25 20:15 02/26/25 20:44 DC 02/26/25 22:12 100 MLS/HR Enoxaparin Sodium 30 mg ONCE ONCE SC 02/26/25 22:00 02/26/25 22:03 DC 02/26/25 23:38 30 MG Hydromorphone HCl 0.5 mg ONCE ONCE IV 02/26/25 17:15 02/26/25 17:16 DC 02/26/25 18:07 0.5 MG Ondansetron HCl 4 mg ONCE ONCE IV 02/26/25 17:15 02/26/25 17:16 DC 02/26/25 18:04 4 MG Pantoprazole Sodium 40 mg ONCE ONCE PO 02/26/25 22:00 02/26/25 22:03 DC 02/26/25 23:36 40 MG Piperacillin Sod/ Tazobactam Sod 100 ml @ 25 mls/hr Q8HR IV 02/26/25 22:00 02/26/25 23:27 25 MLS/HR Potassium Chloride 100 ml @ 50 mls/hr Q2H IV 02/26/25 20:20 02/27/25 00:19 DC 02/26/25 23:27 50 MLS/HR Potassium Chloride 100 ml @ 50 mls/hr Q2H ONCE IV 02/26/25 20:00 02/26/25 20:20 DC 02/26/25 20:07 50 MLS/HR Assessment/Plan Assessment/Plan 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 Urinalysis showed leukocyte esterase positive, microscopic WBC high, many bacteria. Stool culture pending -coronary artery disease: Medical management with aspirin 81 mg p.o. daily, atorvastatin 40 mg p.o. daily, Coreg 6.25 mg p.o. b.i.d. -ESRD: Nephrology consultation with Rita -given chest x-ray showed pulmonary vascular congestion, trace pleural effusion, cardiomegaly with pulmonary vascular prominence: Lasix 20 mg IV daily -diabetes mellitus type 2: Insulin sliding scale -hypertension: Continue with Coreg 6.25 mg p.o. b.i.d., dyslipidemia with the atorvastatin -hypokalemia: IV 40 mEq potassium given, repeat in a.m.. Plan discussed with , daughter. Extensive goals of care discussion was done, DNI/DNR. Discussed greater than 26 minutes. Plan discussed with Plan discussed with: Spouse, Daughter My Orders Orders - DIVINE BAKER RESIDENT Procedure Category Date Status Time Admit ADMIT 02/26/25 Transmitted 21:51 Nitroglycerin [facility] 02/26/25 In Process Sublingual (Ntrostat 22:00 Morphine Sulfate PHA 02/26/25 In Process Injection 22:00 Oxygen By Nasal RT 02/26/25 Transmitted Cannula 21:51 Stat Ekg For Chest [facility] 02/26/25 In Process Pain 21:51 Notify Md Of Changes [facility] 02/26/25 In Process From Base 21:51 Vat Skimmer For [facility] 02/26/25 In Process 24 Hours 21:51 Emergency Dysrhythmia [facility] 02/26/25 In Process Protocol 21:51 Rhythm Strips Once [facility] 02/26/25 In Process Every Shift 21:51 Electrocardigram EKG 02/26/25 Logged 21:51 Electrocardigram EKG 02/26/25 Logged 22:51 Urine Bacterial [facility] 02/26/25 Logged Culture 21:51 Blood Culture [facility] 02/26/25 In Process 21:51 Carvedilol Tablet PHA 02/26/25 In Process (Coreg Tablet) 22:00 Aspirin Enteric PHA 02/27/25 In Process Coated Tablet 10:00 Atorvastatin (Lipitor) PHA 02/26/25 In Process 22:00 Piperacillin-Tazob PHA 02/26/25 In Process 3.375gm (Zosyn 3.375g 22:00 Enoxaparin Sodium PHA 02/27/25 In Process (Lovenox) 22:00 Pantoprazole Tablet PHA 02/27/25 In Process (Protonix Tablet) 06:00 Stool Bacterial [facility] 02/26/25 Logged Culture 21:58 DNR [facility] 02/26/25 In Process 21:59 Code Status CODE 02/26/25 Transmitted 22:01 Regular Diet DIET 02/27/25 Transmitted Breakfast Hydrocodone-Acet PHA 02/27/25 In Process 5/325mg Tab ([place] 01:45 Chest Xray 1 View XY 02/27/25 Logged 02:03 Date of Service: Feb 26, 2025 Billing Provider: VICENTA MCCLELLAND MD Common Visit Codes: [id number] INP/OBS CARE (HIGH) Secondary Visit Codes: [id number] CARE PLAN 30 MINUTES VICENTA MCCLELLAND MD 02/27/25 1259: Review of Systems Allergies: Coded Allergies: NO KNOWN ALLERGIES (Unverified , 01/15/25) Date of Service: Feb 26, 2025 ([place] Patient) Billing Provider: VICENTA MCCLELLAND MD Common Visit Codes: [id number] INP/OBS CARE (HIGH) Secondary Visit Codes: [id number] CARE PLAN 30 MINUTES DIVINE BAKER Feb 27, 2025 02:32 VICENTA MCCLELLAND MD Feb 27, 2025 12:59
[2025-02-27] MEDS: AZITHROMYCIN 500MG/ 250ML 250 ML IV ONE (03:33)
[2025-02-27] MEDS: FUROSEMIDE 20 MG/2 ML VIAL IV ONE (03:40)
--- NOTE | 2025-02-27 05:45 | DVH ---
CHEST RADIOGRAPH Indication: pneumonia Technique: Single frontal view of the chest was obtained COMPARISON: XY CHEST PORTABLE on DOS: 01/15/25 FINDINGS: Lines and Tubes: New right PermCath tip projects over the expected location of the cavoatrial junctio n. Lungs: Grossly Stable appearing diffuse Increased prominence of the pulmonary vasculature and Chronic appearing pleural calcification within the lateral right upper lobe. No evidence of focal consolida tion. Pleura: No effusion. No pneumothorax. Cardiomediastinal contours: Cardiomegaly. Bones: Unremarkable IMPRESSION: 1. New right PermCath. 2. Cardiomegaly and diffuse increased prominence of the pulmonary vasculature.
[2025-02-27] MEDS: PANTOPRAZOLE 40 MG TAB PO SCH (06:34)
[2025-02-27] MEDS ORDERED: HYDROcodone-ACET 5/325MG TAB PO PRN (09:00)
[2025-02-27] MEDS: ASPirin-EC 81 mg tab PO SCH (09:20)
[2025-02-27] MEDS: MORPHINE SULFATE INJ 2 MG/ml SYRG IV PRN (09:22)
[2025-02-27] MEDS ORDERED: FUROSEMIDE 20 MG/2 ML VIAL IV SCH (10:00)
[2025-02-27 11:53] LABS: Mean Corpuscular Volume 84.4 fL (80.0-100.0)
[2025-02-27 11:55] LABS: Hematocrit 22.0 % (36.0-46.0); Hemoglobin 7.5 g/dL (12.2-16.2); Mean Corpuscular Hemoglobin 28.6 pg (28.0-32.0); Nucleated Red Blood Cells % 0.0 %
[2025-02-27 12:18] LABS: Alanine Aminotransferase 23 U/L (7-40); Albumin 3.4 g/dL (3.2-4.8); Alkaline Phosphatase 113 U/L (46-116); Anion Gap 9 (5-15); BUN/Creatinine Ratio 10.7 (10.0-20.0); Potassium 3.7 mmol/L (3.5-5.1); Total Protein 6.8 g/dL (5.7-8.2)
[2025-02-27 12:19] LABS: Bilirubin, Total 0.6 mg/dL (0.2-1.0)
[2025-02-27 12:20] LABS: Blood Urea Nitrogen 32 mg/dL (9-23); Calcium 8.7 mg/dL (8.7-10.4); Carbon Dioxide 31 mmol/L (20-31); Chloride 89 mmol/L (98-107); Glucose 128 mg/dL (74-106); Sodium 129 mmol/L (136-145)
[2025-02-27] MEDS ORDERED: DEXTROSE (50%) 50ML SYRG IV PRN (15:15)
--- NOTE | 2025-02-27 15:22 | DVH ---
EXAM: CT CHEST WITHOUT CONTRAST INDICATION: Right upper lobe scarring TECHNIQUE: Noncontrast axial images of the chest have been obtained along with coronal and sagittal r eformatted images. All CT scans at this facility use dose modulation, iterative reconstruction, and/o r weight based dosing when appropriate to reduce radiation dose to as low as reasonably achievable. COMPARISON: XY CHEST XRAY 1 VIEW on DOS: 02/27/25 FINDINGS: LOWER NECK: Unremarkable LYMPH NODES/MEDIASTINUM: Right lower paratracheal lymph node measuring 1.7 cm. CARDIOVASCULAR: Mild cardiomegaly. No pericardial effusion. No aneurysmal dilatation of the great ves sels. Coronary artery calcifications. anemia UPPER ABDOMEN: Cholelithiasis. Trace possible gas within the left renal collecting system. Consider further evaluation with dedicated CT abdomen pelvis with contrast. MUSCULOSKELETAL: No acute fracture or aggressive focal osseous lesion. Multilevel degenerative change of the visualized spine. CHEST WALL: Unremarkable. LUNG PARENCHYMA/PLEURAL SPACE: Small bilateral pleural effusions. Diffusely decreased lung volumes p ulmonary alveolar and interstitial edema compatible with volume overload calcified pleural plaque adonis ng the right anterior upper hemithorax. IMPRESSION: 1. No CT evidence of an acute intrathoracic process.
--- NOTE | 2025-02-27 15:24 | DVH ---
EXAM: CT CERVICAL WITHOUT CONTRAST INDICATION: R/O FX TECHNIQUE: Non contrast axial images of the cervical spine have been obtained with coronal and sagitt al reformatted images. CT scans at this facility use dose modulation, iterative reconstruction, and/o r weight based dosing when appropriate to reduce radiation dose to as low as reasonably achievable. COMPARISON: CT HEAD WITHOUT CONTRAST on DOS: 02/26/25 FINDINGS: ANATOMY: Cervical lordosis is maintained. VERTEBRAL BODIES: Evidence of a transversely oriented fracture through the C2 vertebral body below th e level of the odontoid process (coronal image 41). No significant displacement. Significant left lat eral fracture extension into the left C2 pedicle. Atlanto dens interval within normal limits. SPINAL CANAL: No significant spinal canal stenosis. INTERVERTEBRAL DISCS: No CT findings to suggest traumatic disc herniation or acute hematoma. SOFT TISSUES: There is no prevertebral soft tissue swelling. OTHER: The partially visualized lung apices are clear. IMPRESSION: 1. Transversely oriented fracture through the C2 vertebral body below the level of the odontoid proce ss with significant left lateral fracture extension into the left C2 pedicle.
[2025-02-27] MEDS: InsuLIN REG 1unit/0.01ml Soln (100units/ml) SC SCH (17:15)
[2025-02-27] MEDS: ACCU-CHEK COMFORT CURVE STRIP VI SCH (17:22)
--- NOTE | 2025-02-27 17:39 | DVHINCON2 ---
Consultation - Surgical Date Seen: Feb 27, 2025 Referring Physician Referring Physician Attending Doctor: Herminio Osullivan Resident Reason for Consultation c/o generalized weakness and left-sided numbness in arm and leg. And concern for heart attack. History of Present Illness History of Present Illness History of Present Illness Patient is 80 y/o who brought to the hospital for c/o generalized weakness and left-sided numbness in arm and leg. And concern for heart attack. As per patient she started having left left arm and leg numbness after she had recent fall where she ended up C2 fracture. For that purpose she went to [facility] and was discharged with cervical collar. Patient continued to have generalized weakness and left-sided numbness. Over the past few days her mental status also continued to worsen that prompted visit to the hospital. During recent hospitalization at [facility] patient also underwent coronary angiogram, was informed to patient that there are multiple coronary artery stenosis ranging around 75-80 person, advised on only medical therapy and not going through intervention given her underlying medical condition. Patient is in acute distress due to severe head and neck pain, mainly morning and able to open her eyes, all of the information obtained from her /daughter. Past Medical/Surgical History Past Medical/Surgical History PMHx: Coronary artery disease, diabetes (on insulin), CKD grade 5, heart valvular replacement, hypertension and dyslipidemia and hemorrhoids PSHx: Valve repair open heart surgery Family and Social History Family and Social History Family history: Nonsignificant Social history: Denies smoking or any other drug use Home medication: Aspirin, atorvastatin, carvedilol, clopidogrel, furosemide, spironolactone Allergic history: No known allergy Allergies and medications Allergies: Coded Allergies: NO KNOWN ALLERGIES (Unverified , 01/15/25) Home Meds Active Scripts Carvedilol (Carvedilol) 12.5 Mg Tab, 6.25 MG PO BID for 30 Days, #30 TAB 3 Refills Prov:HEWADMAL,HEWAD RESDIENT 01/18/25 Furosemide (Lasix) 20 Mg Tb, 1 TAB PO DAILY for 30 Days, #30 TAB 3 Refills Prov:HEWADMAL,HEWAD RESDIENT 01/18/25 Spironolactone (Spironolactone) 25 Mg Tab, 25 MG PO DAILY for 30 Days, #30 TAB 3 Refills Prov:HEWADMAL,HEWAD RESDIENT 01/18/25 Atorvastatin Calcium (ATORVASTATIN CALCIUM) 40 Mg Tab, 40 MG PO HS for 30 Days, #30 TAB 3 Refills Prov:PRADIP RANKIN RESDIENT 01/18/25 Clopidogrel Bisulfate (Plavix) 75 Mg Tab, 75 MG PO DAILY for 30 Days, #30 TAB 3 Refills Prov:PRADIP RANKIN RESDIENT 01/18/25 Aspirin (Aspirin) 81 Mg Chw, 81 MG PO DAILY for 30 Days, #90 TAB.CHEW 3 Refills Prov:PRADIP RANKIN RESDIENT 01/18/25 Review of systems Review of Systems: CVS:Abnormal (elevated TNi, anemia,enlarged heart), RESPIRATORY:Abnormal (slight plural effusion), :Abnormal (UTI, CKD on dialysis), MSK:Abnormal (neck pain), NEURO:Abnormal (left arm 3/5 strength, BLE 3/5 strength, neck pain) Examination Vital signs Imaging: ORDERING PHYSICIAN: VICENTA MCCLELLAND MD PROCEDURE(s): CS2 - CERVICAL WITHOUT CONTRAST REASON: R/O FX ORDER NUMBER(s): [id number], ACCESSION NUMBER(s): [id number] EXAM: CT CERVICAL WITHOUT CONTRAST INDICATION: R/O FX TECHNIQUE: Non contrast axial images of the cervical spine have been obtained with coronal and sagittal reformatted images. CT scans at this facility use dose modulation, iterative reconstruction, and/or weight based dosing when appropriate to reduce radiation dose to as low as reasonably achievable. COMPARISON: CT HEAD WITHOUT CONTRAST on DOS: 02/26/25 FINDINGS: ANATOMY: Cervical lordosis is maintained. VERTEBRAL BODIES: Evidence of a transversely oriented fracture through the C2 vertebral body below the level of the odontoid process (coronal image 41). No significant displacement. Significant left lateral fracture extension into the left C2 pedicle. [place] dens interval within normal limits. SPINAL CANAL: No significant spinal canal stenosis. INTERVERTEBRAL DISCS: No CT findings to suggest traumatic disc herniation or acute hematoma. SOFT TISSUES: There is no prevertebral soft tissue swelling. OTHER: The partially visualized lung apices are clear. IMPRESSION: 1. Transversely oriented fracture through the C2 vertebral body below the level of the odontoid process with significant left lateral fracture extension into the left C2 pedicle. Vital Signs Date Time Temp Pulse Resp B/P (MAP) Pulse Ox O2 Delivery O2 Flow Rate FiO2 02/27/25 17:00 97.8 64 18 132/59 (83) 96 97.8 02/27/25 08:00 Nasal Cannula* 3 32 Medications Current Medications Medications (Trade) Dose Ordered Sig/Virgen Route PRN Reason Start Time Stop Time Status Last Admin Potassium Chloride 100 ml @ 50 mls/hr Q2H IV 02/26/25 20:20 02/27/25 00:19 DC 02/26/25 23:27 Nitroglycerin (Ntrostat Sublingual) 0.4 mg Q5MINP PRN SL FOR CHEST PAIN 02/26/25 22:00 Morphine Sulfate 2 mg Q30M PRN IV FOR CHEST PAIN 02/26/25 22:00 Carvedilol (Coreg Tablet) 6.25 mg BID PO 02/26/25 22:00 02/27/25 09:29 Aspirin (Ecotrin Enteric Coated Tablet) 81 mg DAILY PO 02/27/25 10:00 02/27/25 09:20 Atorvastatin Calcium (Lipitor) 40 mg HS PO 02/26/25 22:00 02/26/25 23:28 Piperacillin Sod/ Tazobactam Sod 100 ml @ 25 mls/hr Q8HR IV 02/26/25 22:00 02/27/25 14:10 Enoxaparin Sodium (Lovenox) 30 mg HS SC 02/27/25 22:00 Pantoprazole Sodium (Protonix Tablet) 40 mg DAILY@0600 PO 02/27/25 06:00 02/27/25 06:34 Acetaminophen/ Hydrocodone Bitart ([place] 5/325MG Tab) 1 tab Q4HPRN PRN PO SEVERE PAIN (7-10 PAIN SCALE) 02/27/25 01:45 02/27/25 08:59 DC 02/27/25 06:35 Furosemide (Lasix Injection) 20 mg DAILY IV 02/27/25 10:00 02/27/25 06:32 DC Azithromycin 250 ml @ 125 mls/hr DAILY IV 02/28/25 10:00 Morphine Sulfate 1 mg Q4HP PRN IV SEVERE PAIN (7-10 PAIN SCALE) 02/27/25 09:00 02/27/25 14:00 Acetaminophen/ Hydrocodone Bitart ([place] 5/325MG Tab) 1 tab Q4HPRN PRN PO MODERATE PAIN (4-6 PAIN SCALE) 02/27/25 09:00 02/27/25 09:00 DC Acetaminophen/ Hydrocodone Bitart ([place] 5/325MG Tab) 1 tab Q4HPRN PRN PO MODERATE PAIN (4-6 PAIN SCALE) 02/27/25 09:15 02/27/25 17:16 Diagnostic Test (Pha) (Accu-Chek Comfort Curve T) 1 strip ACHS 02/27/25 17:00 Insulin Human Regular (InsuLIN R) ACHS SC 02/27/25 17:00 02/27/25 17:15 Dextrose 50 ml UD PRN IV Blood Sugar LESS THAN 60 02/27/25 15:15 Nystatin (Mycostatin (Mouth-Throat)) 5 ml QID MT 02/27/25 18:00 Laboratory Labs Test 02/27/25 17:01 02/27/25 11:11 02/26/25 19:53 02/26/25 17:04 Range/Units POC Glucose 137 H 70-106 mg/dl White Blood Count 9.3 4.4-10.8 10^3/uL Red Blood Count 2.61 L 4.0-5.20 10^6/uL Hemoglobin 7.5 L 12.2-16.2 g/dL Hematocrit 22.0 L 36.0-46.0 % Mean Corpuscular Volume 84.4 80.0-100.0 fL Mean Corpuscular Hemoglobin 28.6 28.0-32.0 pg Mean Corpuscular Hemoglobin Concent 33.9 32.0-36.0 g/dL Red Cell Distribution Width 16.0 H 11.8-14.3 % Platelet Count 305 140-450 10^3/uL Mean Platelet Volume 8.4 6.9-10.8 fL Neutrophils (%) (Auto) 77.0 37.0-80.0 % Lymphocytes (%) (Auto) 6.4 L 10.0-50.0 % Monocytes (%) (Auto) 9.5 0.0-12.0 % Eosinophils (%) (Auto) 6.4 0.0-7.0 % Basophils (%) (Auto) 0.7 0.0-2.0 % Neutrophils # (Auto) 7.2 1.6-8.6 10 ^3/uL Lymphocytes # (Auto) 0.6 0.4-5.4 10 ^3/uL Monocytes # (Auto) 0.9 0-1.3 10 ^3/uL Eosinophils # (Auto) 0.6 0-0.8 10 ^3/uL Basophils # (Auto) 0.1 0-0.2 10 ^3/uL Nucleated Red Blood Cells 0.0 % Sodium Level 129 L 136-145 mmol/L Potassium Level 3.7 3.5-5.1 mmol/L Chloride Level 89 L 98-107 mmol/L Carbon Dioxide Level 31 20-31 mmol/L Anion Gap 9 5-15 Blood Urea Nitrogen 32 H 9-23 mg/dL Creatinine 2.98 H 0.550-1.02 mg/dL Glomerular Filtration Rate Calc 15 >90 mL/min BUN/Creatinine Ratio 10.7 10.0-20.0 Serum Glucose 128 H 74-106 mg/dL Calcium Level 8.7 8.7-10.4 mg/dL Total Bilirubin 0.6 0.2-1.0 mg/dL Aspartate Amino Transferase (AST) 21 13-40 U/L Alanine Aminotransferase (ALT) 23 7-40 U/L Alkaline Phosphatase 113 46-116 U/L Total Protein 6.8 5.7-8.2 g/dL Albumin 3.4 3.2-4.8 g/dL Troponin I High Sensitivity 199 *H </=34 ng/L Lactic Acid Level 1.1 0.4-2.0 mmol/L B-Type Natriuretic Peptide 4364.11 0-100 pg/mL Lipase 28 12-53 U/L Test 02/26/25 16:53 Range/Units Urine Color [place] H Yellow Urine Clarity Ex.turbid Clear Urine pH 6.0 5.0-9.0 Urine Specific [place] 1.015 1.001-1.035 Urine Protein 1+ H Negative Urine Ketones Negative Negative Urine Blood 2+ H Negative /uL Urine Nitrite Negative Negative Urine Bilirubin Negative Negative Urine Urobilinogen Normal Negative mg/dL Urine Leukocyte Esterase 3+ Negative /uL Urine RBC 15 0 - 4 /hpf Urine Microscopic WBC 803 H 0-5 /HPF Urine Squamous Epithelial Cells Few <5 /hpf Urine Amorphous Crystals Few None Seen /hpf Urine Bacteria Many H None Seen /hpf Urine Hyaline Casts Few 0 - 2 /lpf Urine Glucose Normal Normal mg/dL Examination: GENERAL:Abnormal (patient appers ill), NECK:Abnormal (field collar in place, too big. [place]-j collar applied correctly. pt has neck pain) Problem List/Assessment/Plan Problems: (1) Type III fracture of odontoid process with delayed healing Assessment and Plan Transversely oriented fracture through the C2 vertebral body below the level of the odontoid process with significant left lateral fracture extension into the left C2 pedicle This patient was seen and consulted for spine surgery while she was at [facility], at that time it was determined that she should stay in her [place] J collar Continue care and support per admitting team's discretion Physical therapy evaluation, treatment recommendations and safe discharge planning recommendations Effective pain management including muscle relaxers if the patient is complaining of muscle spasms Discussed treatment options with the patient and family at this time the patient is far too ill to safely have surgery. Once the patient has been metabolically optimized and her UTI 100% resolved the patient should be evaluated by neurosurgery for possible surgical consideration. For the time being the patient needs to stay in her [place]-j collar 8-12 weeks. She will need a follow up CT scan to assess healing at the 12 week ben. If the patient is metabolically optimized sooner, she should be seen by a neurosurgical provider for consult and treatment recommendations. Or if able, sp ine surgery is agreeable that the patient would benefit from transfer to [facility] during this admission. Even if the patient was able to have surgery today we do not have the proper surgical immobilization equipment needed to preform a successful surgery. Call with questions Bull Lund [facility] Orthopaedic Spine Surgery nurse practitioner For Dr Ha Foster Patient was examined, chart reviewed, labs evaluated, and diagnostic studies and findings analyzed. Case was discussed with Dr. Anshul Foster who formulated the plan of care. This medical document was created using an electronic medical record system with [employer] system. Although this document has been carefully reviewed, there might still be some phonetic and typographical errors. These areas are purely typographical due to imperfections of the software programs, and do not reflect any compromise in the patient's medical care. Plan discussed with Plan discussed with: Patient, Spouse, Daughter, Other (nurse was at bedside during PE) Visit Coding Surgery Date of Service if different f: Feb 27, 2025 Billing Provider: HOUSTON LUND NP Surgery Visit Codes: 13488 - INP CONSULT <55 MIN HOUSTON LUND NP Feb 27, 2025 17:39
[2025-02-27] MEDS: NYSTATIN (MOUTH-THROAT) 500,000 UNITS/5 ML SUSP MT SCH (18:33)
[2025-02-27] MEDS: ENOXAPARIN SOD 30 MG/0.3 ML SYRINGE SC SCH (22:19)
[2025-02-28] VITALS (8 sets, daily range): BP systolic 119–133; BP diastolic 49–70; PULSE 60–71; RESP 16–18; TEMP 97.5–98.4; O2SAT 96–100
[2025-02-28] MEDS: AZITHROMYCIN 500MG/ 250ML 250 ML IV SCH (11:15)
--- NOTE | 2025-02-28 11:29 | DVHPN2 ---
Subjective The patient seen and examined at bedside. Complains of back pain Reviewed: Care Plan, H&P, Labs, Medications, Previous Orders, Radiology Changes from previous H/P or p: No Changes Eyes: No Pain, No Vision change, No Conjunctivae inflammation, No Eyelid inflammation, No Other, No Redness ENT: No Ear pain, No Ear discharge, No Nose pain, No Nose discharge, No Nose congestion, No Mouth pain, No Mouth swelling, No Throat pain, No Throat swelling, No Other Cardiovascular: No Chest Pain, No Palpitations, No Orthopnea, No Paroxysmal Noc. Dyspnea, No Edema, No Lt Headedness, No Other Respiratory: No Cough, No Dry, No Shortness of breath, No SOB with excertion, No Wheezing, No Hemoptysis, No Pleuritic Pain, No Sputum, No Other Gastrointestinal: No Nausea, No Vomiting, No Abdominal Pain, No Diarrhea, No Constipation, No Melena, No Hematochezia, No Other Genitourinary: No Dysuria, No Frequency, No Incontinence, No Hematuria, No Retention, No Other Musculoskeletal: neck pain Skin: No Rash, No Lesions, No Jaundice, No Bruising, No Other Objective Vitals Vital Signs Date Time Temp Pulse Resp B/P (MAP) Pulse Ox O2 Delivery O2 Flow Rate FiO2 02/28/25 11:19 63 18 133/55 02/28/25 09:00 97.5 100 97.5 02/27/25 20:00 Nasal Cannula* 3 32 Intake/Output Intake and Output 02/28/25 07:00 Intake Total 250 ml Output Total 100 ml Balance 150 ml Intake Oral 250 ml Output Urine Total 100 ml # Bowel Movements 2 General Appearance: Alert, Cooperative, No acute distress HEENT: Atraumatic, PERRLA, EOMI, Mucous membr. moist/pink Neck: Supple Lungs: Clear to auscultation, Normal air movement Cardiovascular: Regular rate, Normal S1, Normal S2, No murmurs, Gallops, Rubs Abdomen: Normal bowel sounds, Soft, No tenderness Neuro: Cranial nerves 3-12 NL Psych/Mental Status: Mental status NL Medications Current Medications Medications Dose Ordered Sig/Virgen Route Start Time Stop Time Status Last Admin Dose Admin Nitroglycerin 0.4 mg Q5MINP PRN SL 02/26/25 22:00 Morphine Sulfate 2 mg Q30M PRN IV 02/26/25 22:00 Carvedilol 6.25 mg BID PO 02/26/25 22:00 02/27/25 22:21 6.25 MG Aspirin 81 mg DAILY PO 02/27/25 10:00 02/27/25 09:20 81 MG Atorvastatin Calcium 40 mg HS PO 02/26/25 22:00 02/27/25 22:20 40 MG Enoxaparin Sodium 30 mg HS SC 02/27/25 22:00 02/27/25 22:19 30 MG Pantoprazole Sodium 40 mg DAILY@0600 PO 02/27/25 06:00 02/28/25 06:18 40 MG Azithromycin 250 ml @ 125 mls/hr DAILY IV 02/28/25 10:00 02/28/25 11:15 125 MLS/HR Morphine Sulfate 1 mg Q4HP PRN IV 02/27/25 09:00 02/28/25 11:19 1 MG Acetaminophen/ Hydrocodone Bitart 1 tab Q4HPRN PRN PO 02/27/25 09:15 02/27/25 17:16 1 TAB Diagnostic Test (Pha) 1 strip ACHS 02/27/25 17:00 02/28/25 11:15 1 STRIP Insulin Human Regular ACHS SC 02/27/25 17:00 02/27/25 22:29 3 UNITS Dextrose 50 ml UD PRN IV 02/27/25 15:15 Nystatin 5 ml QID MT 02/27/25 18:00 02/28/25 11:28 5 ML Piperacillin Sod/ Tazobactam Sod 100 ml @ 25 mls/hr Q12H IV 02/28/25 18:00 Laboratory Results Laboratory Tests 02/27/25 11:11 Urinalysis Test 02/26/25 16:53 Urine Color [place] (Yellow) H Urine Clarity Ex.turbid (Clear) Urine pH 6.0 (5.0-9.0) Urine Specific [place] 1.015 (1.001-1.035) Urine Protein 1+ (Negative) H Urine Ketones Negative (Negative) Urine Blood 2+ /uL (Negative) H Urine Nitrite Negative (Negative) Urine Bilirubin Negative (Negative) Urine Urobilinogen Normal mg/dL (Negative) Urine Leukocyte Esterase 3+ /uL (Negative) Urine RBC 15 /hpf (0 - 4) Urine Microscopic WBC 803 /HPF (0-5) H Urine Squamous Epithelial Cells Few /hpf (<5) Urine Amorphous Crystals Few /hpf (None Seen) Urine Bacteria Many /hpf (None Seen) H Urine Hyaline Casts Few /lpf (0 - 2) Urine Glucose Normal mg/dL (Normal) Microbiology Microbiology Date/Time Source Procedure Growth Status 02/26/25 22:29 Blood Blood Culture - Preliminary Resulted 02/26/25 18:40 Urine - [place] Urine Culture - Preliminary Resulted 02/26/25 05:20 Stool Stool Culture - Preliminary Resulted 02/26/25 05:20 Stool Shiga Toxin I & II Pending Resulted Labs and/or images reviewed: Labs reviewed by me Assessment/Plan Assessment/Plan 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 Urinalysis showed leukocyte esterase positive, microscopic WBC high, many bacteria. Stool culture pending -coronary artery disease: Medical management with aspirin 81 mg p.o. daily, atorvastatin 40 mg p.o. daily, Coreg 6.25 mg p.o. b.i.d. -ESRD: [facility] -given chest x-ray showed pulmonary vascular congestion, trace pleural effusion, cardiomegaly with pulmonary vascular prominence: Lasix 20 mg IV daily -diabetes mellitus type 2: Insulin sliding scale -hypertension: Continue with Coreg 6.25 mg p.o. b.i.d., dyslipidemia with the atorvastatin -hypokalemia: IV 40 mEq potassium given, repeat in a.m.. -The patient complains of mouth pain, will give nystatin swish and swallow. -Puree food. Patient cannot chew. -SSI, moderate scale with regular insulin -Accue check qac and qhs. This medical document was created using an electronic medical record system with [employer] computerized dictation system. Although this document has been carefully reviewed, there may still be some phonetic and typographical errors. These areas are purely typographical due to imperfections of the software programs, and do not reflect any compromise in the patient's medical care. Plan discussed with: Patient My Orders Orders - MAULIK PERALES MD Procedure Category Date Status Time Glucose Blood PHA 02/27/25 In Process (Accu-Chek Comfort 17:00 Insulin R (Human) PHA 02/27/25 In Process (Insulin R) 17:00 Dextrose 50% Syringe PHA 02/27/25 In Process 15:15 Nystatin PHA 02/27/25 In Process (Mouth-Throat) 18:[address] Anshul CONS 02/27/25 Transmitted [place](Spine) 15:50 Cleanse Wound With BARBRA 02/27/25 In Process Wound Clean 13:03 Pureed DIET 02/27/25 Transmitted Dinner Insert Midline ORDERS 02/28/25 Transmitted 11:11 Change Midline BARBRA 02/28/25 In Process Dressing Q7 Day 11:11 Date of Service: Feb 28, 2025 Billing Provider: MAULIK PERALES MD Common Visit Codes: [id number] INP/OBS CARE(HIGH) MAULIK PERALES MD Feb 28, 2025 11:29
[2025-02-28] MEDS: PIPERACILLIN-TAZOB 3.375GM 100 ML IV SCH (17:53)
--- NOTE | 2025-02-28 19:24 | DVHINCON2 ---
CONSULTING PHYSICIAN: Dr. Tam. REASON FOR CONSULTATION: Management of dialysis. HISTORY OF PRESENT ILLNESS: The patient is an 80-year-old lady who is one of her chronic dialysis patients who was recently discharged from another hospital where she presented after having a fall where she sustained a cervical fracture. She is in quite a great deal of pain, wearing a collar. She missed her dialysis treatment, was started having chest pain and also left arm pain, so came to this hospital for further care. She was admitted yesterday and today we arranged for her to have dialysis treatment. She tolerated the procedure well. At this point, she has no other complaints. She is being admitted to have Cardiology workup at [facility]. During her last hospitalization a couple of weeks ago, she also had coronary angiogram that showed no need for any specific interventions. She has diffuse coronary artery disease, but no target vessels. PAST MEDICAL HISTORY: Significant for coronary artery disease. She has diabetes, hypertension, end-stage renal disease, on dialysis. She had a valve replaced in the heart. She also has hyperlipidemia, obesity and anemia. SOCIAL HISTORY: The patient denied smoking cigarettes, drinking alcohol or using illicit drugs. MEDICATIONS AT HOME: Include aspirin, atorvastatin, carvedilol, Plavix, furosemide and spironolactone. PHYSICAL EXAMINATION: VITAL SIGNS: Blood pressure is 119/55, heart rate is 96, respirations 16, temperature 98.3. GENERAL: The patient is an elderly female who appears to be chronically ill in no acute distress. Alert and oriented x2. HEENT: Exam is unremarkable except for the cervical collar. Oral mucosa is pale and dry. LUNGS: Clear to auscultation. CARDIOVASCULAR: Shows regular rate. No gallops. No atrial fibrillation. ABDOMEN: Soft, nontender. No organomegaly. No ascites. EXTREMITIES: Showed no clubbing, cyanosis or edema. LABORATORY FINDINGS: Her white blood cell count is 9.3, hemoglobin 7.9, platelet count 346,000. Sodium 129, potassium 3.7 and creatinine 2.9. ASSESSMENT AND PLAN: * End-stage renal disease. The creatinine seems to be abnormally low, but this is due to malnutrition and low muscle mass. * Hyponatremia, which is chronic. The patient has been asked to restrict intake of hypotonic fluids and plain water. * Anemia of kidney disease superimposed with iron deficiency anemia and multiple blood draws from recent hospitalization. The patient will get intravenous Epogen and iron during hospitalization and also during dialysis at the clinic. * Cervical pain. Continue with collar and request advice from Orthopedics or Neurosurgery. * Controlled hypertension. The patient received dialysis today and eventually we were able to remove 2 liters of fluid. We will continue dialysis 3 times a week while she is in the hospital. Thank you for the consultation. MD STEPHEN Ott/CHERI TID: [id number] RECEIPT: [id number]
[2025-02-28] MEDS: EPOETIN ALFA-EPBX 4,000 UNIT/ML VIAL SC ONE (22:11)
[2025-03-01] VITALS (8 sets, daily range): BP systolic 118–136; BP diastolic 56–73; PULSE 61–77; RESP 16–19; TEMP 97.2–98.3; O2SAT 100
--- NOTE | 2025-03-01 10:51 | DVHPN2 ---
Subjective The patient seen and examined at bedside. Complains of back pain and hand numbness. Reviewed: Care Plan, H&P, Labs, Medications, Previous Orders, Radiology Changes from previous H/P or p: No Changes Eyes: No Pain, No Vision change, No Conjunctivae inflammation, No Eyelid inflammation, No Other, No Redness ENT: No Ear pain, No Ear discharge, No Nose pain, No Nose discharge, No Nose congestion, No Mouth pain, No Mouth swelling, No Throat pain, No Throat swelling, No Other Cardiovascular: No Chest Pain, No Palpitations, No Orthopnea, No Paroxysmal Noc. Dyspnea, No Edema, No Lt Headedness, No Other Respiratory: No Cough, No Dry, No Shortness of breath, No SOB with excertion, No Wheezing, No Hemoptysis, No Pleuritic Pain, No Sputum, No Other Gastrointestinal: No Nausea, No Vomiting, No Abdominal Pain, No Diarrhea, No Constipation, No Melena, No Hematochezia, No Other Genitourinary: No Dysuria, No Frequency, No Incontinence, No Hematuria, No Retention, No Other Musculoskeletal: neck pain Skin: No Rash, No Lesions, No Jaundice, No Bruising, No Other Objective Vitals Vital Signs Date Time Temp Pulse Resp B/P (MAP) Pulse Ox O2 Delivery O2 Flow Rate FiO2 03/01/25 10:30 66 136/62 03/01/25 08:36 97.9 18 100 97.9 03/01/25 08:00 Nasal Cannula* 3 32 Intake/Output Intake and Output 03/01/25 07:00 Intake Total 1180 ml Output Total 50 ml Balance 1130 ml Intake Oral 580 ml IV Total 600 ml Output Urine Total 50 ml # Bowel Movements 1 General Appearance: Alert, Cooperative, No acute distress HEENT: Atraumatic, PERRLA, EOMI, Mucous membr. moist/pink Neck: Supple Lungs: Clear to auscultation, Normal air movement Cardiovascular: Regular rate, Normal S1, Normal S2, No murmurs, Gallops, Rubs Abdomen: Normal bowel sounds, Soft, No tenderness Neuro: Cranial nerves 3-12 NL Psych/Mental Status: Mental status NL Medications Current Medications Medications Dose Ordered Sig/Virgen Route Start Time Stop Time Status Last Admin Dose Admin Nitroglycerin 0.4 mg Q5MINP PRN SL 02/26/25 22:00 Morphine Sulfate 2 mg Q30M PRN IV 02/26/25 22:00 Carvedilol 6.25 mg BID PO 02/26/25 22:00 03/01/25 10:30 6.25 MG Aspirin 81 mg DAILY PO 02/27/25 10:00 03/01/25 10:29 81 MG Atorvastatin Calcium 40 mg HS PO 02/26/25 22:00 02/28/25 22:10 40 MG Enoxaparin Sodium 30 mg HS SC 02/27/25 22:00 02/28/25 22:09 30 MG Pantoprazole Sodium 40 mg DAILY@0600 PO 02/27/25 06:00 03/01/25 05:15 40 MG Azithromycin 250 ml @ 125 mls/hr DAILY IV 02/28/25 10:00 03/01/25 10:32 125 MLS/HR Morphine Sulfate 1 mg Q4HP PRN IV 02/27/25 09:00 02/28/25 11:19 1 MG Acetaminophen/ Hydrocodone Bitart 1 tab Q4HPRN PRN PO 02/27/25 09:15 03/01/25 10:32 1 TAB Diagnostic Test (Pha) 1 strip ACHS 02/27/25 17:00 03/01/25 06:22 1 STRIP Insulin Human Regular ACHS SC 02/27/25 17:00 02/28/25 17:53 2 UNITS Dextrose 50 ml UD PRN IV 02/27/25 15:15 Nystatin 5 ml QID MT 02/27/25 18:00 03/01/25 05:06 5 ML Piperacillin Sod/ Tazobactam Sod 100 ml @ 25 mls/hr Q12H IV 02/28/25 18:00 03/01/25 10:46 25 MLS/HR Laboratory Results Laboratory Tests 02/27/25 11:11 Urinalysis Test 02/26/25 16:53 Urine Color [place] (Yellow) H Urine Clarity Ex.turbid (Clear) Urine pH 6.0 (5.0-9.0) Urine Specific [place] 1.015 (1.001-1.035) Urine Protein 1+ (Negative) H Urine Ketones Negative (Negative) Urine Blood 2+ /uL (Negative) H Urine Nitrite Negative (Negative) Urine Bilirubin Negative (Negative) Urine Urobilinogen Normal mg/dL (Negative) Urine Leukocyte Esterase 3+ /uL (Negative) Urine RBC 15 /hpf (0 - 4) Urine Microscopic WBC 803 /HPF (0-5) H Urine Squamous Epithelial Cells Few /hpf (<5) Urine Amorphous Crystals Few /hpf (None Seen) Urine Bacteria Many /hpf (None Seen) H Urine Hyaline Casts Few /lpf (0 - 2) Urine Glucose Normal mg/dL (Normal) Microbiology Microbiology Date/Time Source Procedure Growth Status 02/27/25 05:20 Stool Clostridium difficile Toxin Assay - Final Complete 02/26/25 22:29 Blood Blood Culture - Preliminary Resulted 02/26/25 18:40 Urine - [place] Urine Culture - Preliminary Resulted Labs and/or images reviewed: Labs reviewed by me Assessment/Plan Assessment/Plan 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 Plan -Continue IV antibiotic with Zosyn 3.375 mg IV Q eight and IV azithromycin 500 mg daily -Will follow up with blood culture, urine culture. Urinalysis showed leukocyte esterase positive, microscopic WBC high, many bacteria. Stool culture pending -coronary artery disease: Medical management with aspirin 81 mg p.o. daily, atorvastatin 40 mg p.o. daily, Coreg 6.25 mg p.o. b.i.d. -ESRD: Nephrology consultation with Rita -given chest x-ray showed pulmonary vascular congestion, trace pleural effusion, cardiomegaly with pulmonary vascular prominence: Lasix 20 mg IV daily -diabetes mellitus type 2: Insulin sliding scale -hypertension: Continue with Coreg 6.25 mg p.o. b.i.d., dyslipidemia with the atorvastatin -hypokalemia: IV 40 mEq potassium given, repeat in a.m.. -The patient complains of mouth pain, will give nystatin swish and swallow. -Puree food. Patient cannot chew. -SSI, moderate scale with regular insulin -Accue check qac and qhs. -Appreciate Spine surgeon input. Patient may need to be transfer to [facility] for Cervical surgeon with neurosurgeon. However, patient still need treatment for her infection first. -DW patient , daughter, son at bedside in length. This medical document was created using an electronic medical record system with [employer] direct computerized dictation system. Although this document has been carefully reviewed, there may still be some phonetic and typographical errors. These areas are purely typographical due to imperfections of the software programs, and do not reflect any compromise in the patient's medical care. Plan discussed with: Patient My Orders Orders - MAULIK PERALES MD Procedure Category Date Status Time Insert Midline ORDERS 02/28/25 Transmitted 11:11 Change Midline BARBRA 02/28/25 In Process Dressing Q7 Day 11:11 Complete Blood Count LAB 03/01/25 Logged 05:00 Complete Blood Count LAB 03/02/25 Verified 05:00 Complete Blood Count LAB 03/03/25 Verified 05:00 Complete Blood Count LAB 03/04/25 Verified 05:00 Complete Blood Count LAB 03/05/25 Verified 05:00 Basic Metabolic Panel LAB 03/01/25 Logged 05:00 Basic Metabolic Panel LAB 03/02/25 Verified 05:00 Basic Metabolic Panel LAB 03/03/25 Verified 05:00 Basic Metabolic Panel LAB 03/04/25 Verified 05:00 Basic Metabolic Panel LAB 03/05/25 Verified 05:00 Date of Service: Mar 01, 2025 Billing Provider: MAULIK PERALES MD Common Visit Codes: [id number] INP/OBS CARE(HIGH) MAULIK PERALES MD Mar 01, 2025 10:50
[2025-03-01 11:36] LABS: Nucleated Red Blood Cells % 0.1 %
[2025-03-01 11:39] LABS: Hematocrit 22.3 % (36.0-46.0); Hemoglobin 7.7 g/dL (12.2-16.2); Mean Corpuscular Hemoglobin 29.3 pg (28.0-32.0); Mean Corpuscular Volume 84.9 fL (80.0-100.0)
[2025-03-01 11:43] LABS: Potassium 4.2 mmol/L (3.5-5.1)
[2025-03-01 11:45] LABS: Anion Gap 9 (5-15); Calcium 8.6 mg/dL (8.7-10.4); Carbon Dioxide 32 mmol/L (20-31); Chloride 94 mmol/L (98-107); Sodium 135 mmol/L (136-145)
[2025-03-01 11:50] LABS: BUN/Creatinine Ratio 10.5 (10.0-20.0)
[2025-03-01 11:57] LABS: Blood Urea Nitrogen 30 mg/dL (9-23); Glucose 110 mg/dL (74-106)
--- NOTE | 2025-03-01 13:53 | DVHPN2 ---
Progress Note - Dictate Date Seen: Mar 01, 2025 Has the PT tested + for MRSA If YES, has PT been informed?: Yes Medical Necessity Reason Pt with a Central, PICC or Fol: Yes Subjective No new complaints vital signs Vital Sign Date Time Temp Pulse Resp B/P (MAP) Pulse Ox O2 Delivery O2 Flow Rate FiO2 03/01/25 12:39 97.9 61 19 124/69 (87) 100 97.9 03/01/25 08:00 Nasal Cannula* 3 32 Total Intake and Output 02/28/25 02/28/25 03/01/25 15:00 23:00 07:00 Intake Total 300 ml 630 ml 250 ml Output Total 50 ml Balance 300 ml 630 ml 200 ml medications Current Medications Medications Dose Ordered Sig/Virgen Route Start Time Stop Time Status Last Admin Dose Admin Nitroglycerin 0.4 mg Q5MINP PRN SL 02/26/25 22:00 Morphine Sulfate 2 mg Q30M PRN IV 02/26/25 22:00 Carvedilol 6.25 mg BID PO 02/26/25 22:00 03/01/25 10:30 6.25 MG Aspirin 81 mg DAILY PO 02/27/25 10:00 03/01/25 10:29 81 MG Atorvastatin Calcium 40 mg HS PO 02/26/25 22:00 02/28/25 22:10 40 MG Enoxaparin Sodium 30 mg HS SC 02/27/25 22:00 02/28/25 22:09 30 MG Pantoprazole Sodium 40 mg DAILY@0600 PO 02/27/25 06:00 03/01/25 05:15 40 MG Azithromycin 250 ml @ 125 mls/hr DAILY IV 02/28/25 10:00 03/01/25 10:32 125 MLS/HR Morphine Sulfate 1 mg Q4HP PRN IV 02/27/25 09:00 02/28/25 11:19 1 MG Acetaminophen/ Hydrocodone Bitart 1 tab Q4HPRN PRN PO 02/27/25 09:15 03/01/25 10:32 1 TAB Diagnostic Test (Pha) 1 strip ACHS 02/27/25 17:00 03/01/25 06:22 1 STRIP Insulin Human Regular ACHS SC 02/27/25 17:00 02/28/25 17:53 2 UNITS Dextrose 50 ml UD PRN IV 02/27/25 15:15 Nystatin 5 ml QID MT 02/27/25 18:00 03/01/25 05:06 5 ML Piperacillin Sod/ Tazobactam Sod 100 ml @ 25 mls/hr Q12H IV 02/28/25 18:00 03/01/25 10:46 25 MLS/HR objective GENERAL: The patient is an elderly female who appears to be chronically ill in no acute distress. Alert and oriented x2. HEENT: Exam is unremarkable except for the cervical collar. Oral mucosa is pale and dry. LUNGS: Clear to auscultation. CARDIOVASCULAR: Shows regular rate. No gallops. No atrial fibrillation. ABDOMEN: Soft, nontender. No organomegaly. No ascites. EXTREMITIES: Showed no clubbing, cyanosis or edema. laboratory and microbiology Laboratory Tests 03/01/25 10:42 Test 03/01/25 10:42 Range/Units Serum Glucose 110 H 74-106 mg/dL Assessment/Plan ASSESSMENT AND PLAN: * End-stage renal disease. The creatinine seems to be abnormally low, but this is due to malnutrition and low muscle mass. * Hyponatremia, which is chronic. The patient has been asked to restrict intake of hypotonic fluids and plain water. * Anemia of kidney disease superimposed with iron deficiency anemia and multiple blood draws from recent hospitalization. The patient will get intravenous Epogen and iron during hospitalization and also during dialysis at the clinic. * Cervical pain. Continue with collar and request advice from Orthopedics or Neurosurgery. * Controlled hypertension. * Pneumonia * CAD, medical management We will continue dialysis 3 times a week while she is in the hospital. HD tomorrow Dietary Evaluation Review Recommendations by RD: Dietary education by RD, Protein Supplementation Comments: 1) Initiate 60g CCHO renal cardiac diet 2) Initiate Nephro-Hilario @ 1 tb qd 3) Initiate Gage @ 1 pk qd 4) Initiate Nepro CarbStead qd 5) Refer to outpatient RD/CDCES for weight management 6) Follow-up with cardiology, pulmonology, and nephrology 7) Continue to monitor I&O, labs, and skin integrity Expected Outcomes/Goals: 1) appetite and labs to improve 2) wound to improve 3) gradual wt loss 4) f/u in 3-5 days Plan discussed with: TYRONE Mi MD Mar 01, 2025 13:53
[2025-03-02] VITALS (8 sets, daily range): BP systolic 117–147; BP diastolic 55–79; PULSE 61–76; RESP 16–19; TEMP 97–97.8; O2SAT 96–100
[2025-03-02 07:08] LABS: Hematocrit 22.7 % (36.0-46.0); Hemoglobin 7.8 g/dL (12.2-16.2); Mean Corpuscular Hemoglobin 29.2 pg (28.0-32.0); Mean Corpuscular Volume 84.8 fL (80.0-100.0); Nucleated Red Blood Cells % 0.0 %
[2025-03-02 07:19] LABS: Anion Gap 8 (5-15); Potassium 4.3 mmol/L (3.5-5.1)
[2025-03-02 07:20] LABS: Calcium 8.9 mg/dL (8.7-10.4); Carbon Dioxide 31 mmol/L (20-31); Chloride 95 mmol/L (98-107); Sodium 134 mmol/L (136-145)
[2025-03-02 07:25] LABS: BUN/Creatinine Ratio 12.2 (10.0-20.0)
[2025-03-02 07:29] LABS: Blood Urea Nitrogen 39 mg/dL (9-23); Glucose 72 mg/dL (74-106)
[2025-03-02] MEDS: MORPHINE SULFATE 4 MG/ML SYR/VIAL IV PRN (10:09)
--- NOTE | 2025-03-02 12:47 | DVHPN2 ---
Reviewed: Care Plan, H&P, Labs, Medications, Previous Orders, Radiology Changes from previous H/P or p: No Changes General: Per HPI Eyes: No Pain, No Vision change, No Conjunctivae inflammation, No Eyelid inflammation, No Other, No Redness ENT: No Ear pain, No Ear discharge, No Nose pain, No Nose discharge, No Nose congestion, No Mouth pain, No Mouth swelling, No Throat pain, No Throat swelling, No Other Cardiovascular: No Chest Pain, No Palpitations, No Orthopnea, No Paroxysmal Noc. Dyspnea, No Edema, No Lt Headedness, No Other Respiratory: No Cough, No Dry, No Shortness of breath, No SOB with excertion, No Wheezing, No Hemoptysis, No Pleuritic Pain, No Sputum, No Other Gastrointestinal: No Nausea, No Vomiting, No Abdominal Pain, No Diarrhea, No Constipation, No Melena, No Hematochezia, No Other Genitourinary: No Dysuria, No Frequency, No Incontinence, No Hematuria, No Retention, No Other Musculoskeletal: neck pain Skin: No Rash, No Lesions, No Jaundice, No Bruising, No Other Objective Vitals Vital Signs Date Time Temp Pulse Resp B/P (MAP) Pulse Ox O2 Delivery O2 Flow Rate FiO2 03/02/25 10:40 64 15 128/62 03/02/25 09:00 97.4 100 97.4 03/02/25 08:00 Nasal Cannula* 3 32 Intake/Output Intake and Output 03/02/25 07:00 Intake Total 1100 ml Output Total 300 ml Balance 800 ml Intake Oral 750 ml IV Total 350 ml Output Urine Total 300 ml General Appearance: Alert, Cooperative, No acute distress HEENT: Atraumatic, PERRLA, EOMI, Mucous membr. moist/pink Neck: Supple Lungs: Clear to auscultation, Normal air movement Cardiovascular: Regular rate, Normal S1, Normal S2, No murmurs, Gallops, Rubs Abdomen: Normal bowel sounds, Soft, No tenderness Neuro: Cranial nerves 3-12 NL Psych/Mental Status: Mental status NL Medications Current Medications Medications Dose Ordered Sig/Virgen Route Start Time Stop Time Status Last Admin Dose Admin Nitroglycerin 0.4 mg Q5MINP PRN SL 02/26/25 22:00 Carvedilol 6.25 mg BID PO 02/26/25 22:00 03/01/25 21:25 6.25 MG Aspirin 81 mg DAILY PO 02/27/25 10:00 03/01/25 10:29 81 MG Atorvastatin Calcium 40 mg HS PO 02/26/25 22:00 03/01/25 21:25 40 MG Enoxaparin Sodium 30 mg HS SC 02/27/25 22:00 03/01/25 21:26 30 MG Pantoprazole Sodium 40 mg DAILY@0600 PO 02/27/25 06:00 03/02/25 05:34 40 MG Azithromycin 250 ml @ 125 mls/hr DAILY IV 02/28/25 10:00 03/01/25 10:32 125 MLS/HR Acetaminophen/ Hydrocodone Bitart 1 tab Q4HPRN PRN PO 02/27/25 09:15 03/02/25 09:13 1 TAB Diagnostic Test (Pha) 1 strip ACHS 02/27/25 17:00 03/02/25 11:44 1 STRIP Insulin Human Regular ACHS SC 02/27/25 17:00 03/01/25 21:53 3 UNITS Dextrose 50 ml UD PRN IV 02/27/25 15:15 Nystatin 5 ml QID MT 02/27/25 18:00 03/02/25 05:34 5 ML Piperacillin Sod/ Tazobactam Sod 100 ml @ 25 mls/hr Q12H IV 02/28/25 18:00 03/02/25 05:34 25 MLS/HR Morphine Sulfate 2 mg Q30M PRN IV 03/02/25 10:15 Morphine Sulfate 1 mg Q4HP PRN IV 03/02/25 10:15 03/02/25 10:09 1 MG Laboratory Results Laboratory Tests 03/02/25 05:24 Chemistry Test 03/02/25 05:24 Calcium Level 8.9 mg/dL (8.7-10.4) Urinalysis Test 02/26/25 16:53 Urine Color [place] (Yellow) H Urine Clarity Ex.turbid (Clear) Urine pH 6.0 (5.0-9.0) Urine Specific [place] 1.015 (1.001-1.035) Urine Protein 1+ (Negative) H Urine Ketones Negative (Negative) Urine Blood 2+ /uL (Negative) H Urine Nitrite Negative (Negative) Urine Bilirubin Negative (Negative) Urine Urobilinogen Normal mg/dL (Negative) Urine Leukocyte Esterase 3+ /uL (Negative) Urine RBC 15 /hpf (0 - 4) Urine Microscopic WBC 803 /HPF (0-5) H Urine Squamous Epithelial Cells Few /hpf (<5) Urine Amorphous Crystals Few /hpf (None Seen) Urine Bacteria Many /hpf (None Seen) H Urine Hyaline Casts Few /lpf (0 - 2) Urine Glucose Normal mg/dL (Normal) Microbiology Microbiology Date/Time Source Procedure Growth Status 03/01/25 13:09 Blood Blood Culture - Preliminary Resulted 02/27/25 05:20 Stool Clostridium difficile Toxin Assay - Final Complete 02/26/25 18:40 Urine - [place] Urine Culture - Final Escherichia coli Complete Assessment/Plan Assessment/Plan 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 Plan -Continue IV antibiotic with Zosyn 3.375 mg IV Q eight and IV azithromycin 500 mg daily -Will follow up with blood culture, urine culture. Urinalysis showed leukocyte esterase positive, microscopic WBC high, many bacteria. Stool culture pending -coronary artery disease: Medical management with aspirin 81 mg p.o. daily, atorvastatin 40 mg p.o. daily, Coreg 6.25 mg p.o. b.i.d. -ESRD: Nephrology consultation with Rita -given chest x-ray showed pulmonary vascular congestion, trace pleural effusion, cardiomegaly with pulmonary vascular prominence: Lasix 20 mg IV daily -diabetes mellitus type 2: Insulin sliding scale -hypertension: Continue with Coreg 6.25 mg p.o. b.i.d., dyslipidemia with the atorvastatin -hypokalemia: IV 40 mEq potassium given, repeat in a.m.. -The patient complains of mouth pain, will give nystatin swish and swallow. -Puree food. Patient cannot chew. -SSI, moderate scale with regular insulin -Accue check qac and qhs. -Appreciate Spine surgeon input. Patient may need to be transfer to [facility] for Cervical surgeon with neurosurgeon. However, patient still need treatment for her infection first. -DW patient , daughter, son at bedside in length. 03/02/2025: continue with current care with iv abx. Plan discussed with: Patient Date of Service: Mar 02, 2025 Billing Provider: VALDEZ BATRES DO Common Visit Codes: [id number] INP/OBS CARE(HIGH) VALDEZ BATRES DO Mar 02, 2025 12:46
--- NOTE | 2025-03-02 14:28 | DVHPN2 ---
Progress Note - Dictate Date Seen: Mar 02, 2025 Has the PT tested + for MRSA If YES, has PT been informed?: Yes Medical Necessity Reason Pt with a Central, PICC or Fol: Yes Subjective No new complaints vital signs Vital Sign Date Time Temp Pulse Resp B/P (MAP) Pulse Ox O2 Delivery O2 Flow Rate FiO2 03/02/25 13:00 97.7 67 19 143/61 (88) 100 97.7 03/02/25 08:00 Nasal Cannula* 3 32 Total Intake and Output 03/01/25 03/01/25 03/02/25 15:00 23:00 07:00 Intake Total 350 ml 320 ml 430 ml Output Total 175 ml 125 ml Balance 350 ml 145 ml 305 ml medications Current Medications Medications Dose Ordered Sig/Virgen Route Start Time Stop Time Status Last Admin Dose Admin Nitroglycerin 0.4 mg Q5MINP PRN SL 02/26/25 22:00 Carvedilol 6.25 mg BID PO 02/26/25 22:00 03/01/25 21:25 6.25 MG Aspirin 81 mg DAILY PO 02/27/25 10:00 03/01/25 10:29 81 MG Atorvastatin Calcium 40 mg HS PO 02/26/25 22:00 03/01/25 21:25 40 MG Enoxaparin Sodium 30 mg HS SC 02/27/25 22:00 03/01/25 21:26 30 MG Pantoprazole Sodium 40 mg DAILY@0600 PO 02/27/25 06:00 03/02/25 05:34 40 MG Azithromycin 250 ml @ 125 mls/hr DAILY IV 02/28/25 10:00 03/01/25 10:32 125 MLS/HR Acetaminophen/ Hydrocodone Bitart 1 tab Q4HPRN PRN PO 02/27/25 09:15 03/02/25 09:13 1 TAB Diagnostic Test (Pha) 1 strip ACHS 02/27/25 17:00 03/02/25 11:44 1 STRIP Insulin Human Regular ACHS SC 02/27/25 17:00 03/01/25 21:53 3 UNITS Dextrose 50 ml UD PRN IV 02/27/25 15:15 Nystatin 5 ml QID MT 02/27/25 18:00 03/02/25 05:34 5 ML Piperacillin Sod/ Tazobactam Sod 100 ml @ 25 mls/hr Q12H IV 02/28/25 18:00 03/02/25 05:34 25 MLS/HR Morphine Sulfate 2 mg Q30M PRN IV 03/02/25 10:15 Morphine Sulfate 1 mg Q4HP PRN IV 03/02/25 10:15 03/02/25 10:09 1 MG objective GENERAL: The patient is an elderly female who appears to be chronically ill in no acute distress. Alert and oriented x2. HEENT: Exam is unremarkable except for the cervical collar. Oral mucosa is pale and dry. LUNGS: Clear to auscultation. CARDIOVASCULAR: Shows regular rate. No gallops. No atrial fibrillation. ABDOMEN: Soft, nontender. No organomegaly. No ascites. EXTREMITIES: Showed no clubbing, cyanosis or edema. laboratory and microbiology Laboratory Tests 03/02/25 05:24 Test 03/02/25 05:24 Range/Units Serum Glucose 72 L 74-106 mg/dL Assessment/Plan ASSESSMENT AND PLAN: * End-stage renal disease. The creatinine seems to be abnormally low, but this is due to malnutrition and low muscle mass. * Hyponatremia, which is chronic. The patient has been asked to restrict intake of hypotonic fluids and plain water. * Anemia of kidney disease superimposed with iron deficiency anemia and multiple blood draws from recent hospitalization. The patient will get intravenous Epogen and iron during hospitalization and also during dialysis at the clinic. * Cervical pain. Continue with collar and request advice from Orthopedics or Neurosurgery. * Controlled hypertension. * Pneumonia * CAD, medical management We will continue dialysis 3 times a week while she is in the hospital. HD was scheduled for today DC planning Dietary Evaluation Review Recommendations by RD: Dietary education by RD, Protein Supplementation Comments: 1) Initiate 60g CCHO renal cardiac diet 2) Initiate Nephro-Hilario @ 1 tb qd 3) Initiate Gage @ 1 pk qd 4) Initiate Nepro CarbStead qd 5) Refer to outpatient RD/[facility] for weight management 6) Follow-up with cardiology, pulmonology, and nephrology 7) Continue to monitor I&O, labs, and skin integrity Expected Outcomes/Goals: 1) appetite and labs to improve 2) wound to improve 3) gradual wt loss 4) f/u in 3-5 days Plan discussed with: TYRONE Mi MD Mar 02, 2025 14:28
[2025-03-02] MEDS: EPOETIN ALFA-EPBX 10,000 UNIT/1ML VIAL SC ONE (22:07)
[2025-03-03] VITALS (8 sets, daily range): BP systolic 128–141; BP diastolic 50–73; PULSE 65–76; RESP 13–20; TEMP 97.3–98.5; O2SAT 99–100
[2025-03-03 07:30] LABS: Anion Gap 11 (5-15); Carbon Dioxide 31 mmol/L (20-31); Hemoglobin 8.3 g/dL (12.2-16.2); Nucleated Red Blood Cells % 0.1 %; Sodium 137 mmol/L (136-145)
[2025-03-03 07:31] LABS: Calcium 8.8 mg/dL (8.7-10.4)
[2025-03-03 07:33] LABS: Hematocrit 24.0 % (36.0-46.0); Mean Corpuscular Hemoglobin 29.4 pg (28.0-32.0); Mean Corpuscular Volume 85.3 fL (80.0-100.0)
[2025-03-03 07:35] LABS: Chloride 95 mmol/L (98-107); Potassium 3.4 mmol/L (3.5-5.1)
[2025-03-03 07:36] LABS: BUN/Creatinine Ratio 9.0 (10.0-20.0); Blood Urea Nitrogen 19 mg/dL (9-23); Glucose 75 mg/dL (74-106)
--- NOTE | 2025-03-03 14:50 | DVHPN2 ---
Reviewed: Care Plan, H&P, Labs, Medications, Previous Orders, Radiology Changes from previous H/P or p: No Changes General: Per HPI Eyes: No Pain, No Vision change, No Conjunctivae inflammation, No Eyelid inflammation, No Other, No Redness ENT: No Ear pain, No Ear discharge, No Nose pain, No Nose discharge, No Nose congestion, No Mouth pain, No Mouth swelling, No Throat pain, No Throat swelling, No Other Cardiovascular: No Chest Pain, No Palpitations, No Orthopnea, No Paroxysmal Noc. Dyspnea, No Edema, No Lt Headedness, No Other Respiratory: No Cough, No Dry, No Shortness of breath, No SOB with excertion, No Wheezing, No Hemoptysis, No Pleuritic Pain, No Sputum, No Other Gastrointestinal: No Nausea, No Vomiting, No Abdominal Pain, No Diarrhea, No Constipation, No Melena, No Hematochezia, No Other Genitourinary: No Dysuria, No Frequency, No Incontinence, No Hematuria, No Retention, No Other Musculoskeletal: neck pain Skin: No Rash, No Lesions, No Jaundice, No Bruising, No Other Objective Vitals Vital Signs Date Time Temp Pulse Resp B/P (MAP) Pulse Ox O2 Delivery O2 Flow Rate FiO2 03/03/25 13:09 72 18 137/73 03/03/25 09:00 97.5 100 97.5 03/03/25 08:00 Nasal Cannula* 3 32 Intake/Output Intake and Output 03/03/25 07:00 Intake Total 950 ml Output Total 250 ml Balance 700 ml Intake Oral 750 ml IV Total 200 ml Output Urine Total 250 ml # Voids 1 General Appearance: Alert, Cooperative, No acute distress HEENT: Atraumatic, PERRLA, EOMI, Mucous membr. moist/pink Neck: Supple Lungs: Clear to auscultation, Normal air movement Cardiovascular: Regular rate, Normal S1, Normal S2, No murmurs, Gallops, Rubs Abdomen: Normal bowel sounds, Soft, No tenderness Neuro: Cranial nerves 3-12 NL Psych/Mental Status: Mental status NL Medications Current Medications Medications Dose Ordered Sig/Virgen Route Start Time Stop Time Status Last Admin Dose Admin Nitroglycerin 0.4 mg Q5MINP PRN SL 02/26/25 22:00 Carvedilol 6.25 mg BID PO 02/26/25 22:00 03/03/25 09:58 6.25 MG Aspirin 81 mg DAILY PO 02/27/25 10:00 03/03/25 09:59 81 MG Atorvastatin Calcium 40 mg HS PO 02/26/25 22:00 03/02/25 22:07 40 MG Enoxaparin Sodium 30 mg HS SC 02/27/25 22:00 03/02/25 22:07 30 MG Pantoprazole Sodium 40 mg DAILY@0600 PO 02/27/25 06:00 03/03/25 06:12 40 MG Azithromycin 250 ml @ 125 mls/hr DAILY IV 02/28/25 10:00 03/03/25 10:01 125 MLS/HR Acetaminophen/ Hydrocodone Bitart 1 tab Q4HPRN PRN PO 02/27/25 09:15 03/03/25 02:43 1 TAB Diagnostic Test (Pha) 1 strip ACHS 02/27/25 17:00 03/03/25 11:40 1 STRIP Insulin Human Regular ACHS SC 02/27/25 17:00 03/03/25 11:45 3 UNITS Dextrose 50 ml UD PRN IV 02/27/25 15:15 Nystatin 5 ml QID MT 02/27/25 18:00 03/03/25 11:37 5 ML Piperacillin Sod/ Tazobactam Sod 100 ml @ 25 mls/hr Q12H IV 02/28/25 18:00 03/03/25 06:12 25 MLS/HR Morphine Sulfate 2 mg Q30M PRN IV 03/02/25 10:15 Morphine Sulfate 1 mg Q4HP PRN IV 03/02/25 10:15 03/03/25 13:09 1 MG Laboratory Results Laboratory Tests 03/03/25 05:54 Chemistry Test 03/03/25 05:54 Calcium Level 8.8 mg/dL (8.7-10.4) Urinalysis Test 02/26/25 16:53 Urine Color [place] (Yellow) H Urine Clarity Ex.turbid (Clear) Urine pH 6.0 (5.0-9.0) Urine Specific [place] 1.015 (1.001-1.035) Urine Protein 1+ (Negative) H Urine Ketones Negative (Negative) Urine Blood 2+ /uL (Negative) H Urine Nitrite Negative (Negative) Urine Bilirubin Negative (Negative) Urine Urobilinogen Normal mg/dL (Negative) Urine Leukocyte Esterase 3+ /uL (Negative) Urine RBC 15 /hpf (0 - 4) Urine Microscopic WBC 803 /HPF (0-5) H Urine Squamous Epithelial Cells Few /hpf (<5) Urine Amorphous Crystals Few /hpf (None Seen) Urine Bacteria Many /hpf (None Seen) H Urine Hyaline Casts Few /lpf (0 - 2) Urine Glucose Normal mg/dL (Normal) Microbiology Microbiology Date/Time Source Procedure Growth Status 03/01/25 13:09 Blood Blood Culture - Preliminary Resulted 02/27/25 05:20 Stool Clostridium difficile Toxin Assay - Final Complete 02/26/25 18:40 Urine - [place] Urine Culture - Final Escherichia coli Complete Assessment/Plan Assessment/Plan 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 Plan -Continue IV antibiotic with Zosyn 3.375 mg IV Q eight and IV azithromycin 500 mg daily -Will follow up with blood culture, urine culture. Urinalysis showed leukocyte esterase positive, microscopic WBC high, many bacteria. Stool culture pending -coronary artery disease: Medical management with aspirin 81 mg p.o. daily, atorvastatin 40 mg p.o. daily, Coreg 6.25 mg p.o. b.i.d. -ESRD: Nephrology consultation with Rita -given chest x-ray showed pulmonary vascular congestion, trace pleural effusion, cardiomegaly with pulmonary vascular prominence: Lasix 20 mg IV daily -diabetes mellitus type 2: Insulin sliding scale -hypertension: Continue with Coreg 6.25 mg p.o. b.i.d., dyslipidemia with the atorvastatin -hypokalemia: IV 40 mEq potassium given, repeat in a.m.. -The patient complains of mouth pain, will give nystatin swish and swallow. -Puree food. Patient cannot chew. -SSI, moderate scale with regular insulin -Accue check qac and qhs. -Appreciate Spine surgeon input. Patient may need to be transfer to [facility] for Cervical surgeon with neurosurgeon. However, patient still need treatment for her infection first. -DW patient , daughter, son at bedside in length. 03/02/2025: continue with current care with iv abx. 03/03/2025: request for [facility] for "Transversely oriented fracture through the C2 vertebral body below the level of the odontoid process with significant left lateral fracture extension into the left C2 pedicle". Neurosurgeon is not equipped to do surgery. Plan discussed with: Patient My Orders Orders - VALDEZ BATRES DO Procedure Category Date Status Time * Claims Service Adjustor CONS 03/03/25 Transmitted Consult Date of Service: Mar 03, 2025 Billing Provider: VALDEZ BATRES DO Common Visit Codes: [id number] INP/OBS CARE(HIGH) VALDEZ BATRES DO Mar 03, 2025 14:50
--- NOTE | 2025-03-03 17:46 | DVHPN2 ---
Progress Note - Dictate Date Seen: Mar 03, 2025 Has the PT tested + for MRSA If YES, has PT been informed?: Yes Medical Necessity Reason Pt with a Central, PICC or Fol: Yes Subjective No new complaints vital signs Vital Sign Date Time Temp Pulse Resp B/P (MAP) Pulse Ox O2 Delivery O2 Flow Rate FiO2 03/03/25 17:00 97.8 74 16 134/50 (78) 100 97.8 03/03/25 08:00 Nasal Cannula* 3 32 Total Intake and Output 03/02/25 03/02/25 03/03/25 15:00 23:00 07:00 Intake Total 100 ml 750 ml 100 ml Output Total 150 ml 100 ml Balance 100 ml 600 ml 0 ml medications Current Medications Medications Dose Ordered Sig/Virgen Route Start Time Stop Time Status Last Admin Dose Admin Nitroglycerin 0.4 mg Q5MINP PRN SL 02/26/25 22:00 Carvedilol 6.25 mg BID PO 02/26/25 22:00 03/03/25 09:58 6.25 MG Aspirin 81 mg DAILY PO 02/27/25 10:00 03/03/25 09:59 81 MG Atorvastatin Calcium 40 mg HS PO 02/26/25 22:00 03/02/25 22:07 40 MG Enoxaparin Sodium 30 mg HS SC 02/27/25 22:00 03/02/25 22:07 30 MG Pantoprazole Sodium 40 mg DAILY@0600 PO 02/27/25 06:00 03/03/25 06:12 40 MG Azithromycin 250 ml @ 125 mls/hr DAILY IV 02/28/25 10:00 03/03/25 10:01 125 MLS/HR Acetaminophen/ Hydrocodone Bitart 1 tab Q4HPRN PRN PO 02/27/25 09:15 03/03/25 02:43 1 TAB Diagnostic Test (Pha) 1 strip ACHS 02/27/25 17:00 03/03/25 16:56 1 STRIP Insulin Human Regular ACHS SC 02/27/25 17:00 03/03/25 11:45 3 UNITS Dextrose 50 ml UD PRN IV 02/27/25 15:15 Nystatin 5 ml QID MT 02/27/25 18:00 03/03/25 11:37 5 ML Piperacillin Sod/ Tazobactam Sod 100 ml @ 25 mls/hr Q12H IV 02/28/25 18:00 03/03/25 06:12 25 MLS/HR Morphine Sulfate 2 mg Q30M PRN IV 03/02/25 10:15 Morphine Sulfate 1 mg Q4HP PRN IV 03/02/25 10:15 03/03/25 13:09 1 MG objective GENERAL: The patient is an elderly female who appears to be chronically ill in no acute distress. Alert and oriented x2. HEENT: Exam is unremarkable except for the cervical collar. Oral mucosa is pale and dry. LUNGS: Clear to auscultation. CARDIOVASCULAR: Shows regular rate. No gallops. No atrial fibrillation. ABDOMEN: Soft, nontender. No organomegaly. No ascites. EXTREMITIES: Showed no clubbing, cyanosis or edema. laboratory and microbiology Laboratory Tests 03/03/25 05:54 Test 03/03/25 05:54 Range/Units Serum Glucose 75 74-106 mg/dL Assessment/Plan ASSESSMENT AND PLAN: * End-stage renal disease. The creatinine seems to be abnormally low, but this is due to malnutrition and low muscle mass. * Hyponatremia, which is chronic. The patient has been asked to restrict intake of hypotonic fluids and plain water. * Anemia of kidney disease superimposed with iron deficiency anemia and multiple blood draws from recent hospitalization. The patient will get intravenous Epogen and iron during hospitalization and also during dialysis at the clinic. * Cervical pain. Continue with collar and request advice from Orthopedics or Neurosurgery. * Controlled hypertension. * Pneumonia * CAD, medical management * UTI, cultures showing E. coli We will continue dialysis 3 times a week while she is in the hospital. HD tomorrow Follow up cultures IV antibiotics Will need spine surgery DC planning Dietary Evaluation Review Recommendations by RD: Dietary education by RD, Protein Supplementation Comments: 1) Initiate 60g CCHO renal cardiac diet 2) Initiate Nephro-Hilario @ 1 tb qd 3) Initiate Gage @ 1 pk qd 4) Initiate Nepro CarbStead qd 5) Refer to outpatient RD/CDCES for weight management 6) Follow-up with cardiology, pulmonology, and nephrology 7) Continue to monitor I&O, labs, and skin integrity Expected Outcomes/Goals: 1) appetite and labs to improve 2) wound to improve 3) gradual wt loss 4) f/u in 3-5 days Plan discussed with: TYRONE Mi MD Mar 03, 2025 17:46
[2025-03-04] VITALS (8 sets, daily range): BP systolic 127–160; BP diastolic 61–87; PULSE 63–82; RESP 17–20; TEMP 97.2–97.8; O2SAT 98–100
[2025-03-04 06:58] LABS: Anion Gap 11 (5-15); Calcium 8.7 mg/dL (8.7-10.4); Carbon Dioxide 30 mmol/L (20-31)
[2025-03-04 06:59] LABS: Chloride 93 mmol/L (98-107); Potassium 3.4 mmol/L (3.5-5.1); Sodium 134 mmol/L (136-145)
[2025-03-04 07:01] LABS: Hemoglobin 8.3 g/dL (12.2-16.2)
[2025-03-04 07:04] LABS: BUN/Creatinine Ratio 10.1 (10.0-20.0); Blood Urea Nitrogen 26 mg/dL (9-23); Glucose 100 mg/dL (74-106)
[2025-03-04 07:08] LABS: Hematocrit 24.6 % (36.0-46.0); Mean Corpuscular Hemoglobin 28.9 pg (28.0-32.0); Mean Corpuscular Volume 85.5 fL (80.0-100.0); Nucleated Red Blood Cells % 0.0 %
--- NOTE | 2025-03-04 10:55 | DVHPN2 ---
Progress Note - Dictate Date Seen: Mar 04, 2025 Has the PT tested + for MRSA If YES, has PT been informed?: Yes Medical Necessity Reason Pt with a Central, PICC or Fol: Yes Subjective No new complaints vital signs Vital Sign Date Time Temp Pulse Resp B/P (MAP) Pulse Ox O2 Delivery O2 Flow Rate FiO2 03/04/25 09:13 67 131/69 03/04/25 09:00 97.8 17 100 97.8 03/04/25 08:00 Nasal Cannula* 3 32 Total Intake and Output 03/03/25 03/03/25 03/04/25 15:00 23:00 07:00 Intake Total 350 ml 220 ml 180 ml Output Total 210 ml 200 ml Balance 350 ml 10 ml -20 ml medications Current Medications Medications Dose Ordered Sig/Virgen Route Start Time Stop Time Status Last Admin Dose Admin Nitroglycerin 0.4 mg Q5MINP PRN SL 02/26/25 22:00 Carvedilol 6.25 mg BID PO 02/26/25 22:00 03/04/25 09:13 6.25 MG Aspirin 81 mg DAILY PO 02/27/25 10:00 03/04/25 09:12 81 MG Atorvastatin Calcium 40 mg HS PO 02/26/25 22:00 03/03/25 21:55 40 MG Enoxaparin Sodium 30 mg HS SC 02/27/25 22:00 03/03/25 21:56 30 MG Pantoprazole Sodium 40 mg DAILY@0600 PO 02/27/25 06:00 03/04/25 05:08 40 MG Azithromycin 250 ml @ 125 mls/hr DAILY IV 02/28/25 10:00 03/04/25 09:12 125 MLS/HR Acetaminophen/ Hydrocodone Bitart 1 tab Q4HPRN PRN PO 02/27/25 09:15 03/04/25 03:37 1 TAB Diagnostic Test (Pha) 1 strip ACHS 02/27/25 17:00 03/04/25 06:20 1 STRIP Insulin Human Regular ACHS SC 02/27/25 17:00 03/03/25 21:59 2 UNITS Dextrose 50 ml UD PRN IV 02/27/25 15:15 Nystatin 5 ml QID MT 02/27/25 18:00 03/04/25 05:08 5 ML Piperacillin Sod/ Tazobactam Sod 100 ml @ 25 mls/hr Q12H IV 02/28/25 18:00 03/04/25 05:08 25 MLS/HR Morphine Sulfate 2 mg Q30M PRN IV 03/02/25 10:15 Morphine Sulfate 1 mg Q4HP PRN IV 03/02/25 10:15 03/03/25 13:09 1 MG objective GENERAL: The patient is an elderly female who appears to be chronically ill in no acute distress. Alert and oriented x2. HEENT: Exam is unremarkable except for the cervical collar. Oral mucosa is pale and dry. LUNGS: Clear to auscultation. CARDIOVASCULAR: Shows regular rate. No gallops. No atrial fibrillation. ABDOMEN: Soft, nontender. No organomegaly. No ascites. EXTREMITIES: Showed no clubbing, cyanosis or edema. laboratory and microbiology Laboratory Tests 03/04/25 05:56 Test 03/04/25 05:56 Range/Units Serum Glucose 100 74-106 mg/dL Assessment/Plan ASSESSMENT AND PLAN: * End-stage renal disease. The creatinine seems to be abnormally low, but this is due to malnutrition and low muscle mass. * Hyponatremia, which is chronic. The patient has been asked to restrict intake of hypotonic fluids and plain water. * Anemia of kidney disease superimposed with iron deficiency anemia and multiple blood draws from recent hospitalization. The patient will get intravenous Epogen and iron during hospitalization and also during dialysis at the clinic. * Cervical pain. Continue with collar and request advice from Orthopedics or Neurosurgery. * Controlled hypertension. * Pneumonia * CAD, medical management * UTI, cultures showing E. coli We will continue dialysis 3 times a week while she is in the hospital. HD today IV antibiotics Will need spine surgery DC planning Dietary Evaluation Review Recommendations by RD: Dietary education by RD, Protein Supplementation Comments: 1) Initiate 60g CCHO renal cardiac diet 2) Initiate Nephro-Hilario @ 1 tb qd 3) Initiate Gage @ 1 pk qd 4) Initiate Nepro CarbStead qd 5) Refer to outpatient RD/[facility] for weight management 6) Follow-up with cardiology, pulmonology, and nephrology 7) Continue to monitor I&O, labs, and skin integrity Expected Outcomes/Goals: 1) appetite and labs to improve 2) wound to improve 3) gradual wt loss 4) f/u in 3-5 days Plan discussed with: Patient TYRONE HERNANDEZ MD Mar 04, 2025 10:55
--- NOTE | 2025-03-04 14:16 | DVHPN2 ---
Reviewed: Care Plan, H&P, Labs, Medications, Previous Orders, Radiology Changes from previous H/P or p: No Changes General: Per HPI Eyes: No Pain, No Vision change, No Conjunctivae inflammation, No Eyelid inflammation, No Other, No Redness ENT: No Ear pain, No Ear discharge, No Nose pain, No Nose discharge, No Nose congestion, No Mouth pain, No Mouth swelling, No Throat pain, No Throat swelling, No Other Cardiovascular: No Chest Pain, No Palpitations, No Orthopnea, No Paroxysmal Noc. Dyspnea, No Edema, No Lt Headedness, No Other Respiratory: No Cough, No Dry, No Shortness of breath, No SOB with excertion, No Wheezing, No Hemoptysis, No Pleuritic Pain, No Sputum, No Other Gastrointestinal: No Nausea, No Vomiting, No Abdominal Pain, No Diarrhea, No Constipation, No Melena, No Hematochezia, No Other Genitourinary: No Dysuria, No Frequency, No Incontinence, No Hematuria, No Retention, No Other Musculoskeletal: neck pain Skin: No Rash, No Lesions, No Jaundice, No Bruising, No Other Objective Vitals Vital Signs Date Time Temp Pulse Resp B/P (MAP) Pulse Ox O2 Delivery O2 Flow Rate FiO2 03/04/25 09:13 67 131/69 03/04/25 09:00 97.8 17 100 97.8 03/04/25 08:00 Nasal Cannula* 3 32 Intake/Output Intake and Output 03/04/25 07:00 Intake Total 750 ml Output Total 410 ml Balance 340 ml Intake Oral 300 ml IV Total 450 ml Output Urine Total 410 ml # Bowel Movements 1 General Appearance: Alert, Cooperative, No acute distress HEENT: Atraumatic, PERRLA, EOMI, Mucous membr. moist/pink Neck: Supple Lungs: Clear to auscultation, Normal air movement Cardiovascular: Regular rate, Normal S1, Normal S2, No murmurs, Gallops, Rubs Abdomen: Normal bowel sounds, Soft, No tenderness Neuro: Cranial nerves 3-12 NL Psych/Mental Status: Mental status NL Medications Current Medications Medications Dose Ordered Sig/Virgen Route Start Time Stop Time Status Last Admin Dose Admin Nitroglycerin 0.4 mg Q5MINP PRN SL 02/26/25 22:00 Carvedilol 6.25 mg BID PO 02/26/25 22:00 03/04/25 09:13 6.25 MG Aspirin 81 mg DAILY PO 02/27/25 10:00 03/04/25 09:12 81 MG Atorvastatin Calcium 40 mg HS PO 02/26/25 22:00 03/03/25 21:55 40 MG Enoxaparin Sodium 30 mg HS SC 02/27/25 22:00 03/03/25 21:56 30 MG Pantoprazole Sodium 40 mg DAILY@0600 PO 02/27/25 06:00 03/04/25 05:08 40 MG Azithromycin 250 ml @ 125 mls/hr DAILY IV 02/28/25 10:00 03/04/25 09:12 125 MLS/HR Acetaminophen/ Hydrocodone Bitart 1 tab Q4HPRN PRN PO 02/27/25 09:15 03/04/25 03:37 1 TAB Diagnostic Test (Pha) 1 strip ACHS 02/27/25 17:00 03/04/25 10:43 1 STRIP Insulin Human Regular ACHS SC 02/27/25 17:00 03/04/25 11:03 3 UNITS Dextrose 50 ml UD PRN IV 02/27/25 15:15 Nystatin 5 ml QID MT 02/27/25 18:00 03/04/25 13:42 5 ML Piperacillin Sod/ Tazobactam Sod 100 ml @ 25 mls/hr Q12H IV 02/28/25 18:00 03/04/25 05:08 25 MLS/HR Morphine Sulfate 2 mg Q30M PRN IV 03/02/25 10:15 Morphine Sulfate 1 mg Q4HP PRN IV 03/02/25 10:15 03/03/25 13:09 1 MG Laboratory Results Laboratory Tests 03/04/25 05:56 Chemistry Test 03/04/25 05:56 Calcium Level 8.7 mg/dL (8.7-10.4) Urinalysis Test 02/26/25 16:53 Urine Color [place] (Yellow) H Urine Clarity Ex.turbid (Clear) Urine pH 6.0 (5.0-9.0) Urine Specific [place] 1.015 (1.001-1.035) Urine Protein 1+ (Negative) H Urine Ketones Negative (Negative) Urine Blood 2+ /uL (Negative) H Urine Nitrite Negative (Negative) Urine Bilirubin Negative (Negative) Urine Urobilinogen Normal mg/dL (Negative) Urine Leukocyte Esterase 3+ /uL (Negative) Urine RBC 15 /hpf (0 - 4) Urine Microscopic WBC 803 /HPF (0-5) H Urine Squamous Epithelial Cells Few /hpf (<5) Urine Amorphous Crystals Few /hpf (None Seen) Urine Bacteria Many /hpf (None Seen) H Urine Hyaline Casts Few /lpf (0 - 2) Urine Glucose Normal mg/dL (Normal) Microbiology Microbiology Date/Time Source Procedure Growth Status 03/01/25 13:09 Blood Blood Culture - Final Staphylococcus epidermidis Complete 02/27/25 05:20 Stool Clostridium difficile Toxin Assay - Final Complete 02/26/25 18:40 Urine - [place] Urine Culture - Final Escherichia coli Complete Assessment/Plan Assessment/Plan 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 Plan -Continue IV antibiotic with Zosyn 3.375 mg IV Q eight and IV azithromycin 500 mg daily -Will follow up with blood culture, urine culture. Urinalysis showed leukocyte esterase positive, microscopic WBC high, many bacteria. Stool culture pending -coronary artery disease: Medical management with aspirin 81 mg p.o. daily, atorvastatin 40 mg p.o. daily, Coreg 6.25 mg p.o. b.i.d. -ESRD: Nephrology consultation with Rita -given chest x-ray showed pulmonary vascular congestion, trace pleural effusion, cardiomegaly with pulmonary vascular prominence: Lasix 20 mg IV daily -diabetes mellitus type 2: Insulin sliding scale -hypertension: Continue with Coreg 6.25 mg p.o. b.i.d., dyslipidemia with the atorvastatin -hypokalemia: IV 40 mEq potassium given, repeat in a.m.. -The patient complains of mouth pain, will give nystatin swish and swallow. -Puree food. Patient cannot chew. -SSI, moderate scale with regular insulin -Accue check qac and qhs. -Appreciate Spine surgeon input. Patient may need to be transfer to [facility] for Cervical surgeon with neurosurgeon. However, patient still need treatment for her infection first. -DW patient , daughter, son at bedside in length. 03/02/2025: continue with current care with iv abx. 03/03/2025: request for [facility] for "Transversely oriented fracture through the C2 vertebral body below the level of the odontoid process with significant left lateral fracture extension into the left C2 pedicle". Neurosurgeon is not equipped to do surgery. * 03/04/2025: when pt was prepped to be transferred to [facility] last night, I was informed that the DR Foster recommended pt to not have surgery and to be placed in SNF. agreed. consulted case mangement for SNF placement. Plan discussed with: Spouse My Orders Orders - VALDEZ BATRES DO Procedure Category Date Status Time * Control Director CONS 03/03/25 Transmitted Consult 14:48 Communication Order ORDERS 03/03/25 Transmitted 20:50 Imaging Transfer ORDERS 03/03/25 Transmitted Request 20:55 * Control Director CONS 03/04/25 Transmitted Consult Discharge DISCHARGE 03/04/25 Transmitted 13:56 Date of Service: Mar 04, 2025 Billing Provider: VALDEZ BATRES DO Common Visit Codes: [id number] INP/OBS CARE(HIGH) VALDEZ BATRES DO Mar 04, 2025 14:16
--- NOTE | 2025-03-04 14:18 | DVHDS2 ---
Discharge Summary Date of Admission Feb 26, 2025 at 21:51 Date of Discharge: Mar 04, 2025 Labs/Diagnostic Data: Laboratory Results Test 03/04/25 10:41 03/04/25 05:56 02/28/25 08:20 02/27/25 11:11 POC Glucose 174 mg/dl (70-106) White Blood Count 8.7 10^3/uL (4.4-10.8) Red Blood Count 2.88 10^6/uL (4.0-5.20) Hemoglobin 8.3 g/dL (12.2-16.2) Hematocrit 24.6 % (36.0-46.0) Mean Corpuscular Volume 85.5 fL (80.0-100.0) Mean Corpuscular Hemoglobin 28.9 pg (28.0-32.0) Mean Corpuscular Hemoglobin Concent 33.8 g/dL (32.0-36.0) Red Cell Distribution Width 17.0 % (11.8-14.3) Platelet Count 325 10^3/uL (140-450) Mean Platelet Volume 8.0 fL (6.9-10.8) Neutrophils (%) (Auto) 70.1 % (37.0-80.0) Lymphocytes (%) (Auto) 8.9 % (10.0-50.0) Monocytes (%) (Auto) 10.9 % (0.0-12.0) Eosinophils (%) (Auto) 9.0 % (0.0-7.0) Basophils (%) (Auto) 1.1 % (0.0-2.0) Neutrophils # (Auto) 6.1 10 ^3/uL (1.6-8.6) Lymphocytes # (Auto) 0.8 10 ^3/uL (0.4-5.4) Monocytes # (Auto) 0.9 10 ^3/uL (0-1.3) Eosinophils # (Auto) 0.8 10 ^3/uL (0-0.8) Basophils # (Auto) 0.1 10 ^3/uL (0-0.2) Nucleated Red Blood Cells 0.0 % Sodium Level 134 mmol/L (136-145) Potassium Level 3.4 mmol/L (3.5-5.1) Chloride Level 93 mmol/L (98-107) Carbon Dioxide Level 30 mmol/L (20-31) Anion Gap 11 (5-15) Blood Urea Nitrogen 26 mg/dL (9-23) Creatinine 2.58 mg/dL (0.550-1.02) Glomerular Filtration Rate Calc 18 mL/min (>90) BUN/Creatinine Ratio 10.1 (10.0-20.0) Serum Glucose 100 mg/dL (74-106) Calcium Level 8.7 mg/dL (8.7-10.4) Hepatitis B Surface Antigen Negative (Negative) Total Bilirubin 0.6 mg/dL (0.2-1.0) Aspartate Amino Transferase (AST) 21 U/L (13-40) Alanine Aminotransferase (ALT) 23 U/L (7-40) Alkaline Phosphatase 113 U/L (46-116) Total Protein 6.8 g/dL (5.7-8.2) Albumin 3.4 g/dL (3.2-4.8) Test 02/26/25 19:53 02/26/25 17:04 02/26/25 16:53 Troponin I High Sensitivity 199 ng/L (</=34) Lactic Acid Level 1.1 mmol/L (0.4-2.0) B-Type Natriuretic Peptide 4364.11 pg/mL (0-100) Lipase 28 U/L (12-53) Urine Color [place] (Yellow) Urine Clarity Ex.turbid (Clear) Urine pH 6.0 (5.0-9.0) Urine Specific [place] 1.015 (1.001-1.035) Urine Protein 1+ (Negative) Urine Ketones Negative (Negative) Urine Blood 2+ /uL (Negative) Urine Nitrite Negative (Negative) Urine Bilirubin Negative (Negative) Urine Urobilinogen Normal mg/dL (Negative) Urine Leukocyte Esterase 3+ /uL (Negative) Urine RBC 15 /hpf (0 - 4) Urine Microscopic WBC 803 /HPF (0-5) Urine Squamous Epithelial Cells Few /hpf (<5) Urine Amorphous Crystals Few /hpf (None Seen) Urine Bacteria Many /hpf (None Seen) Urine Hyaline Casts Few /lpf (0 - 2) Urine Glucose Normal mg/dL (Normal) Other Laboratory Tests 03/04/25 05:56 Brief Hx & Hospital Course: 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 Plan -Continue IV antibiotic with Zosyn 3.375 mg IV Q eight and IV azithromycin 500 mg daily -Will follow up with blood culture, urine culture. Urinalysis showed leukocyte esterase positive, microscopic WBC high, many bacteria. Stool culture pending -coronary artery disease: Medical management with aspirin 81 mg p.o. daily, atorvastatin 40 mg p.o. daily, Coreg 6.25 mg p.o. b.i.d. -ESRD: Nephrology consultation with Rita -given chest x-ray showed pulmonary vascular congestion, trace pleural effusion, cardiomegaly with pulmonary vascular prominence: Lasix 20 mg IV daily -diabetes mellitus type 2: Insulin sliding scale -hypertension: Continue with Coreg 6.25 mg p.o. b.i.d., dyslipidemia with the atorvastatin -hypokalemia: IV 40 mEq potassium given, repeat in a.m.. -The patient complains of mouth pain, will give nystatin swish and swallow. -Puree food. Patient cannot chew. -SSI, moderate scale with regular insulin -Accue check qac and qhs. -Appreciate Spine surgeon input. Patient may need to be transfer to [facility] for Cervical surgeon with neurosurgeon. However, patient still need treatment for her infection first. -DW patient , daughter, son at bedside in length. 03/02/2025: continue with current care with iv abx. 03/03/2025: request for [facility] for "Transversely oriented fracture through the C2 vertebral body below the level of the odontoid process with significant left lateral fracture extension into the left C2 pedicle". Neurosurgeon is not equipped to do surgery. discharged to SNF when bed is available Condition at Discharge: Fair Final Diagnosis/Problems List see above Discharge Disposition: [facility] Facility Discharge Instruct/Medications Diet: Cardiac 2g Na,low cholest Activity: See Comment Scheduled Aspirin (Aspirin), 81 MG PO DAILY Atorvastatin Calcium (Atorvastatin Calcium), 40 MG PO HS Carvedilol (Carvedilol), 6.25 MG PO BID Clopidogrel Bisulfate (Plavix), 75 MG PO DAILY Furosemide (Lasix), 1 TAB PO DAILY Spironolactone (Spironolactone), 25 MG PO DAILY Discharge Statement: "Patient was advised to return to the ER or call 911 if any headaches, dizziness, shortness of breath, chest pain, abdominal pain, bleeding, fevers, or worsening of medical condition. Patient was counseled about treatment plan, medications, possible side effects, patientverbalized understanding. All questions were answered to the best of my ability. This discharge took greater then 30 minutes in planning, reviewing documentation, counseling the patient, and discussing with other team members." ASSESSMENT ASSESSMENT Assessment Date of Service: Mar 04, 2025 Billing Provider: VALDEZ BATRES DO Common Visit Codes: [id number] DISCH DAY >30min VALDEZ BATRES DO Mar 04, 2025 14:18
[2025-03-04] MEDS: EPOETIN ALFA-EPBX 10,000 UNIT/1ML VIAL SC ONE (21:53)
[2025-03-05] VITALS (7 sets, daily range): BP systolic 129–153; BP diastolic 63–80; PULSE 70–75; RESP 16–20; TEMP 97.2–97.9; O2SAT 100
[2025-03-05 06:58] LABS: Hematocrit 25.1 % (36.0-46.0); Hemoglobin 8.6 g/dL (12.2-16.2); Mean Corpuscular Hemoglobin 29.8 pg (28.0-32.0); Mean Corpuscular Volume 87.0 fL (80.0-100.0); Nucleated Red Blood Cells % 0.1 %
[2025-03-05 07:06] LABS: Chloride 99 mmol/L (98-107); Sodium 139 mmol/L (136-145)
[2025-03-05 07:07] LABS: Anion Gap 11 (5-15); Calcium 8.7 mg/dL (8.7-10.4); Carbon Dioxide 29 mmol/L (20-31)
[2025-03-05 07:11] LABS: Potassium 3.4 mmol/L (3.5-5.1)
[2025-03-05 07:12] LABS: BUN/Creatinine Ratio 8.4 (10.0-20.0); Blood Urea Nitrogen 15 mg/dL (9-23)
[2025-03-05 07:13] LABS: Glucose 112 mg/dL (74-106)
--- NOTE | 2025-03-05 12:18 | DVHPN2 ---
Progress Note - Dictate Date Seen: Mar 05, 2025 Has the PT tested + for MRSA If YES, has PT been informed?: Yes Medical Necessity Reason Pt with a Central, PICC or Fol: Yes Subjective No new complaints vital signs Vital Sign Date Time Temp Pulse Resp B/P (MAP) Pulse Ox O2 Delivery O2 Flow Rate FiO2 03/05/25 09:38 72 150/63 03/05/25 09:00 97.9 18 100 97.9 03/05/25 07:33 Nasal Cannula* 3 32 Total Intake and Output 03/04/25 03/04/25 03/05/25 15:00 23:00 07:00 Intake Total 350 ml 215 ml 295 ml Output Total 150 ml 125 ml Balance 350 ml 65 ml 170 ml medications Current Medications Medications Dose Ordered Sig/Virgen Route Start Time Stop Time Status Last Admin Dose Admin Nitroglycerin 0.4 mg Q5MINP PRN SL 02/26/25 22:00 Carvedilol 6.25 mg BID PO 02/26/25 22:00 03/05/25 09:38 6.25 MG Aspirin 81 mg DAILY PO 02/27/25 10:00 03/05/25 09:37 81 MG Atorvastatin Calcium 40 mg HS PO 02/26/25 22:00 03/04/25 21:53 40 MG Enoxaparin Sodium 30 mg HS SC 02/27/25 22:00 03/04/25 22:02 30 MG Pantoprazole Sodium 40 mg DAILY@0600 PO 02/27/25 06:00 03/05/25 05:15 40 MG Azithromycin 250 ml @ 125 mls/hr DAILY IV 02/28/25 10:00 03/05/25 09:35 125 MLS/HR Acetaminophen/ Hydrocodone Bitart 1 tab Q4HPRN PRN PO 02/27/25 09:15 03/05/25 05:25 1 TAB Diagnostic Test (Pha) 1 strip ACHS 02/27/25 17:00 03/05/25 10:45 1 STRIP Insulin Human Regular ACHS SC 02/27/25 17:00 03/05/25 11:05 3 UNITS Dextrose 50 ml UD PRN IV 02/27/25 15:15 Nystatin 5 ml QID MT 02/27/25 18:00 03/05/25 10:44 5 ML Piperacillin Sod/ Tazobactam Sod 100 ml @ 25 mls/hr Q12H IV 02/28/25 18:00 03/05/25 05:15 25 MLS/HR Morphine Sulfate 2 mg Q30M PRN IV 03/02/25 10:15 Morphine Sulfate 1 mg Q4HP PRN IV 03/02/25 10:15 03/03/25 13:09 1 MG objective GENERAL: The patient is an elderly female who appears to be chronically ill in no acute distress. Alert and oriented x2. HEENT: Exam is unremarkable except for the cervical collar. Oral mucosa is pale and dry. LUNGS: Clear to auscultation. CARDIOVASCULAR: Shows regular rate. No gallops. No atrial fibrillation. ABDOMEN: Soft, nontender. No organomegaly. No ascites. EXTREMITIES: Showed no clubbing, cyanosis or edema. laboratory and microbiology Laboratory Tests 03/05/25 06:10 Test 03/05/25 06:10 Range/Units Serum Glucose 112 H 74-106 mg/dL Assessment/Plan ASSESSMENT AND PLAN: * End-stage renal disease. The creatinine seems to be abnormally low, but this is due to malnutrition and low muscle mass. Had HD [id number], 2 L removed. * Hyponatremia, which is chronic. The patient has been asked to restrict intake of hypotonic fluids and plain water. * Anemia of kidney disease superimposed with iron deficiency anemia and multiple blood draws from recent hospitalization. The patient will get intravenous Epogen and iron during hospitalization and also during dialysis at the clinic. * Cervical fracture. Continue with collar and request advice from Orthopedics or Neurosurgery. * Controlled hypertension. * Pneumonia * CAD, medical management * UTI, cultures showing E. coli We will continue dialysis 3 times a week while she is in the hospital. Next HD on Friday IV antibiotics Will need spine surgery Discussed plan with patient's family who were at bedside DC planning Dietary Evaluation Review Recommendations by RD: Dietary education by RD, Protein Supplementation Comments: 1) Initiate 60g CCHO renal cardiac diet 2) Initiate Nephro-Hilario @ 1 tb qd 3) Initiate Gage @ 1 pk qd 4) Initiate Nepro CarbStead qd 5) Refer to outpatient RD/CDCES for weight management 6) Follow-up with cardiology, pulmonology, and nephrology 7) Continue to monitor I&O, labs, and skin integrity Expected Outcomes/Goals: 1) appetite and labs to improve 2) wound to improve 3) gradual wt loss 4) f/u in 3-5 days Plan discussed with: Patient TYRONE HERNANDEZ MD Mar 05, 2025 12:18
--- NOTE | 2025-03-05 13:46 | DVHPN2 ---
Reviewed: Care Plan, H&P, Labs, Medications, Previous Orders, Radiology Changes from previous H/P or p: No Changes General: Per HPI Eyes: No Pain, No Vision change, No Conjunctivae inflammation, No Eyelid inflammation, No Other, No Redness ENT: No Ear pain, No Ear discharge, No Nose pain, No Nose discharge, No Nose congestion, No Mouth pain, No Mouth swelling, No Throat pain, No Throat swelling, No Other Cardiovascular: No Chest Pain, No Palpitations, No Orthopnea, No Paroxysmal Noc. Dyspnea, No Edema, No Lt Headedness, No Other Respiratory: No Cough, No Dry, No Shortness of breath, No SOB with excertion, No Wheezing, No Hemoptysis, No Pleuritic Pain, No Sputum, No Other Gastrointestinal: No Nausea, No Vomiting, No Abdominal Pain, No Diarrhea, No Constipation, No Melena, No Hematochezia, No Other Genitourinary: No Dysuria, No Frequency, No Incontinence, No Hematuria, No Retention, No Other Musculoskeletal: neck pain Skin: No Rash, No Lesions, No Jaundice, No Bruising, No Other Objective Vitals Vital Signs Date Time Temp Pulse Resp B/P (MAP) Pulse Ox O2 Delivery O2 Flow Rate FiO2 03/05/25 09:38 72 150/63 03/05/25 09:00 97.9 18 100 97.9 03/05/25 07:33 Nasal Cannula* 3 32 Intake/Output Intake and Output 03/05/25 07:00 Intake Total 860 ml Output Total 275 ml Balance 585 ml Intake Oral 510 ml IV Total 350 ml Output Urine Total 275 ml # Bowel Movements 5 General Appearance: Alert, Cooperative, No acute distress HEENT: Atraumatic, PERRLA, EOMI, Mucous membr. moist/pink Neck: Supple Lungs: Clear to auscultation, Normal air movement Cardiovascular: Regular rate, Normal S1, Normal S2, No murmurs, Gallops, Rubs Abdomen: Normal bowel sounds, Soft, No tenderness Neuro: Cranial nerves 3-12 NL Psych/Mental Status: Mental status NL Medications Current Medications Medications Dose Ordered Sig/Virgen Route Start Time Stop Time Status Last Admin Dose Admin Nitroglycerin 0.4 mg Q5MINP PRN SL 02/26/25 22:00 Carvedilol 6.25 mg BID PO 02/26/25 22:00 03/05/25 09:38 6.25 MG Aspirin 81 mg DAILY PO 02/27/25 10:00 03/05/25 09:37 81 MG Atorvastatin Calcium 40 mg HS PO 02/26/25 22:00 03/04/25 21:53 40 MG Enoxaparin Sodium 30 mg HS SC 02/27/25 22:00 03/04/25 22:02 30 MG Pantoprazole Sodium 40 mg DAILY@0600 PO 02/27/25 06:00 03/05/25 05:15 40 MG Azithromycin 250 ml @ 125 mls/hr DAILY IV 02/28/25 10:00 03/05/25 09:35 125 MLS/HR Acetaminophen/ Hydrocodone Bitart 1 tab Q4HPRN PRN PO 02/27/25 09:15 03/05/25 12:33 1 TAB Diagnostic Test (Pha) 1 strip ACHS 02/27/25 17:00 03/05/25 10:45 1 STRIP Insulin Human Regular ACHS SC 02/27/25 17:00 03/05/25 11:05 3 UNITS Dextrose 50 ml UD PRN IV 02/27/25 15:15 Nystatin 5 ml QID MT 02/27/25 18:00 03/05/25 10:44 5 ML Piperacillin Sod/ Tazobactam Sod 100 ml @ 25 mls/hr Q12H IV 02/28/25 18:00 03/05/25 05:15 25 MLS/HR Morphine Sulfate 2 mg Q30M PRN IV 03/02/25 10:15 Morphine Sulfate 1 mg Q4HP PRN IV 03/02/25 10:15 03/03/25 13:09 1 MG Laboratory Results Laboratory Tests 03/05/25 06:10 Chemistry Test 03/05/25 06:10 Calcium Level 8.7 mg/dL (8.7-10.4) Urinalysis Test 02/26/25 16:53 Urine Color [place] (Yellow) H Urine Clarity Ex.turbid (Clear) Urine pH 6.0 (5.0-9.0) Urine Specific [place] 1.015 (1.001-1.035) Urine Protein 1+ (Negative) H Urine Ketones Negative (Negative) Urine Blood 2+ /uL (Negative) H Urine Nitrite Negative (Negative) Urine Bilirubin Negative (Negative) Urine Urobilinogen Normal mg/dL (Negative) Urine Leukocyte Esterase 3+ /uL (Negative) Urine RBC 15 /hpf (0 - 4) Urine Microscopic WBC 803 /HPF (0-5) H Urine Squamous Epithelial Cells Few /hpf (<5) Urine Amorphous Crystals Few /hpf (None Seen) Urine Bacteria Many /hpf (None Seen) H Urine Hyaline Casts Few /lpf (0 - 2) Urine Glucose Normal mg/dL (Normal) Microbiology Microbiology Date/Time Source Procedure Growth Status 03/01/25 13:09 Blood Blood Culture - Final Staphylococcus epidermidis Complete 02/27/25 05:20 Stool Clostridium difficile Toxin Assay - Final Complete 02/26/25 18:40 Urine - [place] Urine Culture - Final Escherichia coli Complete Assessment/Plan Assessment/Plan 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 Plan -Continue IV antibiotic with Zosyn 3.375 mg IV Q eight and IV azithromycin 500 mg daily -Will follow up with blood culture, urine culture. Urinalysis showed leukocyte esterase positive, microscopic WBC high, many bacteria. Stool culture pending -coronary artery disease: Medical management with aspirin 81 mg p.o. daily, atorvastatin 40 mg p.o. daily, Coreg 6.25 mg p.o. b.i.d. -ESRD: Nephrology consultation with Rita -given chest x-ray showed pulmonary vascular congestion, trace pleural effusion, cardiomegaly with pulmonary vascular prominence: Lasix 20 mg IV daily -diabetes mellitus type 2: Insulin sliding scale -hypertension: Continue with Coreg 6.25 mg p.o. b.i.d., dyslipidemia with the atorvastatin -hypokalemia: IV 40 mEq potassium given, repeat in a.m.. -The patient complains of mouth pain, will give nystatin swish and swallow. -Puree food. Patient cannot chew. -SSI, moderate scale with regular insulin -Accue check qac and qhs. -Appreciate Spine surgeon input. Patient may need to be transfer to [facility] for Cervical surgeon with neurosurgeon. However, patient still need treatment for her infection first. -DW patient , daughter, son at bedside in length. 03/02/2025: continue with current care with iv abx. 03/03/2025: request for [facility] for "Transversely oriented fracture through the C2 vertebral body below the level of the odontoid process with significant left lateral fracture extension into the left C2 pedicle". Neurosurgeon is not equipped to do surgery. 03/05/2025: pending SNF placement * 03/04/2025: when pt was prepped to be transferred to [facility] last night, I was informed that the DR Foster recommended pt to not have surgery and to be placed in SNF. agreed. consulted case mangement for SNF placement. Plan discussed with: Patient My Orders Orders - VALDEZ BATRES DO Procedure Category Date Status Time * Etcher Hand CONS 03/04/25 Transmitted Consult Discharge DISCHARGE 03/04/25 Transmitted 13:56 Pt Request For Service PT 03/04/25 Logged 15:47 Date of Service: Mar 05, 2025 Billing Provider: VALDEZ BATRES DO Common Visit Codes: [id number] INP/OBS CARE(HIGH) VALDEZ BATRES DO Mar 05, 2025 13:46
[2025-03-05] MEDS: LOPERAMIDE HCL 2 MG CAP/TAB PO ONE (14:17)
[2025-03-06] VITALS (9 sets, daily range): BP systolic 127–144; BP diastolic 60–75; PULSE 71–82; RESP 16–18; TEMP 97.4–97.9; O2SAT 96–100
--- NOTE | 2025-03-06 11:11 | DVHPN2 ---
Progress Note - Dictate Date Seen: Mar 06, 2025 Has the PT tested + for MRSA If YES, has PT been informed?: Yes Medical Necessity Reason Pt with a Central, PICC or Fol: Yes Subjective No new complaints vital signs Vital Sign Date Time Temp Pulse Resp B/P (MAP) Pulse Ox O2 Delivery O2 Flow Rate FiO2 03/06/25 09:00 97.7 74 16 133/60 (84) 100 97.7 03/05/25 20:00 Nasal Cannula* 3 32 Total Intake and Output 03/05/25 03/05/25 03/06/25 15:00 23:00 07:00 Intake Total 350 ml 665 ml 60 ml Output Total 350 ml 110 ml Balance 350 ml 315 ml -50 ml medications Current Medications Medications Dose Ordered Sig/Virgen Route Start Time Stop Time Status Last Admin Dose Admin Nitroglycerin 0.4 mg Q5MINP PRN SL 02/26/25 22:00 Carvedilol 6.25 mg BID PO 02/26/25 22:00 03/05/25 21:37 6.25 MG Aspirin 81 mg DAILY PO 02/27/25 10:00 03/05/25 09:37 81 MG Atorvastatin Calcium 40 mg HS PO 02/26/25 22:00 03/05/25 21:36 40 MG Enoxaparin Sodium 30 mg HS SC 02/27/25 22:00 03/05/25 21:36 30 MG Pantoprazole Sodium 40 mg DAILY@0600 PO 02/27/25 06:00 03/06/25 05:28 40 MG Azithromycin 250 ml @ 125 mls/hr DAILY IV 02/28/25 10:00 03/05/25 09:35 125 MLS/HR Acetaminophen/ Hydrocodone Bitart 1 tab Q4HPRN PRN PO 02/27/25 09:15 03/06/25 05:28 1 TAB Diagnostic Test (Pha) 1 strip ACHS 02/27/25 17:00 03/06/25 06:07 1 STRIP Insulin Human Regular ACHS SC 02/27/25 17:00 03/05/25 21:36 2 UNITS Dextrose 50 ml UD PRN IV 02/27/25 15:15 Nystatin 5 ml QID MT 02/27/25 18:00 03/06/25 05:28 5 ML Piperacillin Sod/ Tazobactam Sod 100 ml @ 25 mls/hr Q12H IV 02/28/25 18:00 03/06/25 05:29 25 MLS/HR Morphine Sulfate 2 mg Q30M PRN IV 03/02/25 10:15 Morphine Sulfate 1 mg Q4HP PRN IV 03/02/25 10:15 03/03/25 13:09 1 MG Loperamide HCl 4 mg Q4HPRN PRN PO 03/05/25 14:00 objective GENERAL: The patient is an elderly female who appears to be chronically ill in no acute distress. Alert and oriented x2. HEENT: Exam is unremarkable except for the cervical collar. Oral mucosa is pale and dry. LUNGS: Clear to auscultation. CARDIOVASCULAR: Shows regular rate. No gallops. No atrial fibrillation. ABDOMEN: Soft, nontender. No organomegaly. No ascites. EXTREMITIES: Showed no clubbing, cyanosis or edema. laboratory and microbiology Laboratory Tests 03/05/25 06:10 Test 03/05/25 06:10 Range/Units Serum Glucose 112 H 74-106 mg/dL Assessment/Plan ASSESSMENT AND PLAN: * End-stage renal disease. The creatinine seems to be abnormally low, but this is due to malnutrition and low muscle mass. Had HD [id number], 2 L removed. * Hyponatremia, which is chronic. The patient has been asked to restrict intake of hypotonic fluids and plain water. * Anemia of kidney disease superimposed with iron deficiency anemia and multiple blood draws from recent hospitalization. The patient will get intravenous Epogen and iron during hospitalization and also during dialysis at the clinic. * Cervical fracture. Continue with collar and request advice from Orthopedics or Neurosurgery. She is very high risk surgical patient, they are recommending conservative management, she will need to weak the cervical collar for 10 weeks * Controlled hypertension. * Pneumonia * CAD, medical management * UTI, cultures showing E. coli We will continue dialysis 3 times a week while she is in the hospital. Next HD on Friday IV antibiotics Needs dc planning to SNF Discussed plan with patient's family who were at bedside Dietary Evaluation Review Recommendations by RD: Dietary education by RD, Protein Supplementation Comments: 1) Initiate 60g CCHO renal cardiac diet 2) Initiate Nephro-Hilario @ 1 tb qd 3) Initiate Gage @ 1 pk qd 4) Initiate Nepro CarbStead qd 5) Refer to outpatient RD/CD[facility] for weight management 6) Follow-up with cardiology, pulmonology, and nephrology 7) Continue to monitor I&O, labs, and skin integrity Expected Outcomes/Goals: 1) appetite and labs to improve 2) wound to improve 3) gradual wt loss 4) f/u in 3-5 days Plan discussed with: Patient TYRONE HERNANDEZ MD Mar 06, 2025 11:11
[2025-03-06] MEDS: LOPERAMIDE HCL 2 MG CAP/TAB PO PRN (12:12)
[2025-03-06] MEDS: SODIUM CHL 0.9% 1000 ML BAG XX ONE ×2 (13:33→13:34)
[2025-03-07] VITALS (8 sets, daily range): BP systolic 117–149; BP diastolic 56–86; PULSE 73–89; RESP 16–18; TEMP 97.3–98.3; O2SAT 95–100
--- NOTE | 2025-03-07 11:20 | DVHPN2 ---
Reviewed: Care Plan, H&P, Labs, Medications, Previous Orders, Radiology Changes from previous H/P or p: No Changes General: Per HPI Eyes: No Pain, No Vision change, No Conjunctivae inflammation, No Eyelid inflammation, No Other, No Redness ENT: No Ear pain, No Ear discharge, No Nose pain, No Nose discharge, No Nose congestion, No Mouth pain, No Mouth swelling, No Throat pain, No Throat swelling, No Other Cardiovascular: No Chest Pain, No Palpitations, No Orthopnea, No Paroxysmal Noc. Dyspnea, No Edema, No Lt Headedness, No Other Respiratory: No Cough, No Dry, No Shortness of breath, No SOB with excertion, No Wheezing, No Hemoptysis, No Pleuritic Pain, No Sputum, No Other Gastrointestinal: No Nausea, No Vomiting, No Abdominal Pain, No Diarrhea, No Constipation, No Melena, No Hematochezia, No Other Genitourinary: No Dysuria, No Frequency, No Incontinence, No Hematuria, No Retention, No Other Musculoskeletal: neck pain Skin: No Rash, No Lesions, No Jaundice, No Bruising, No Other Objective Vitals Vital Signs Date Time Temp Pulse Resp B/P (MAP) Pulse Ox O2 Delivery O2 Flow Rate FiO2 03/07/25 05:00 98.1 78 18 149/63 (91) 100 98.1 03/06/25 20:05 Nasal Cannula* 3 32 Intake/Output Intake and Output 03/07/25 07:00 Intake Total 1068 ml Output Total 650 ml Balance 418 ml Intake Oral 968 ml IV Total 100 ml Output Urine Total 650 ml # Bowel Movements 6 General Appearance: Alert, Cooperative, No acute distress HEENT: Atraumatic, PERRLA, EOMI, Mucous membr. moist/pink Neck: Supple Lungs: Clear to auscultation, Normal air movement Cardiovascular: Regular rate, Normal S1, Normal S2, No murmurs, Gallops, Rubs Abdomen: Normal bowel sounds, Soft, No tenderness Neuro: Cranial nerves 3-12 NL Psych/Mental Status: Mental status NL Medications Current Medications Medications Dose Ordered Sig/Virgen Route Start Time Stop Time Status Last Admin Dose Admin Nitroglycerin 0.4 mg Q5MINP PRN SL 02/26/25 22:00 Carvedilol 6.25 mg BID PO 02/26/25 22:00 03/06/25 22:13 6.25 MG Aspirin 81 mg DAILY PO 02/27/25 10:00 03/06/25 10:00 81 MG Atorvastatin Calcium 40 mg HS PO 02/26/25 22:00 03/06/25 22:11 40 MG Enoxaparin Sodium 30 mg HS SC 02/27/25 22:00 03/06/25 22:11 30 MG Pantoprazole Sodium 40 mg DAILY@0600 PO 02/27/25 06:00 03/06/25 05:28 40 MG Azithromycin 250 ml @ 125 mls/hr DAILY IV 02/28/25 10:00 03/07/25 09:20 125 MLS/HR Acetaminophen/ Hydrocodone Bitart 1 tab Q4HPRN PRN PO 02/27/25 09:15 03/06/25 18:18 1 TAB Diagnostic Test (Pha) 1 strip ACHS 02/27/25 17:00 03/07/25 06:04 1 STRIP Insulin Human Regular ACHS SC 02/27/25 17:00 03/06/25 13:42 3 UNITS Dextrose 50 ml UD PRN IV 02/27/25 15:15 Nystatin 5 ml QID MT 02/27/25 18:00 03/07/25 05:28 5 ML Piperacillin Sod/ Tazobactam Sod 100 ml @ 25 mls/hr Q12H IV 02/28/25 18:00 03/07/25 05:28 25 MLS/HR Morphine Sulfate 2 mg Q30M PRN IV 03/02/25 10:15 Morphine Sulfate 1 mg Q4HP PRN IV 03/02/25 10:15 03/07/25 04:18 1 MG Loperamide HCl 4 mg Q4HPRN PRN PO 03/05/25 14:00 03/06/25 18:35 4 MG Laboratory Results Laboratory Tests 03/05/25 06:10 Urinalysis Test 02/26/25 16:53 Urine Color [place] (Yellow) H Urine Clarity Ex.turbid (Clear) Urine pH 6.0 (5.0-9.0) Urine Specific [place] 1.015 (1.001-1.035) Urine Protein 1+ (Negative) H Urine Ketones Negative (Negative) Urine Blood 2+ /uL (Negative) H Urine Nitrite Negative (Negative) Urine Bilirubin Negative (Negative) Urine Urobilinogen Normal mg/dL (Negative) Urine Leukocyte Esterase 3+ /uL (Negative) Urine RBC 15 /hpf (0 - 4) Urine Microscopic WBC 803 /HPF (0-5) H Urine Squamous Epithelial Cells Few /hpf (<5) Urine Amorphous Crystals Few /hpf (None Seen) Urine Bacteria Many /hpf (None Seen) H Urine Hyaline Casts Few /lpf (0 - 2) Urine Glucose Normal mg/dL (Normal) Microbiology Microbiology Date/Time Source Procedure Growth Status 03/01/25 13:09 Blood Blood Culture - Final Staphylococcus epidermidis Complete 02/27/25 05:20 Stool Clostridium difficile Toxin Assay - Final Complete 02/26/25 18:40 Urine - [place] Urine Culture - Final Escherichia coli Complete Assessment/Plan Assessment/Plan 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 Plan -Continue IV antibiotic with Zosyn 3.375 mg IV Q eight and IV azithromycin 500 mg daily -Will follow up with blood culture, urine culture. Urinalysis showed leukocyte esterase positive, microscopic WBC high, many bacteria. Stool culture pending -coronary artery disease: Medical management with aspirin 81 mg p.o. daily, atorvastatin 40 mg p.o. daily, Coreg 6.25 mg p.o. b.i.d. -ESRD: Nephrology consultation with Rita -given chest x-ray showed pulmonary vascular congestion, trace pleural effusion, cardiomegaly with pulmonary vascular prominence: Lasix 20 mg IV daily -diabetes mellitus type 2: Insulin sliding scale -hypertension: Continue with Coreg 6.25 mg p.o. b.i.d., dyslipidemia with the atorvastatin -hypokalemia: IV 40 mEq potassium given, repeat in a.m.. -The patient complains of mouth pain, will give nystatin swish and swallow. -Puree food. Patient cannot chew. -SSI, moderate scale with regular insulin -Accue check qac and qhs. -Appreciate Spine surgeon input. Patient may need to be transfer to [facility] for Cervical surgeon with neurosurgeon. However, patient still need treatment for her infection first. -DW patient , daughter, son at bedside in length. 03/02/2025: continue with current care with iv abx. 03/03/2025: request for [facility] for "Transversely oriented fracture through the C2 vertebral body below the level of the odontoid process with significant left lateral fracture extension into the left C2 pedicle". Neurosurgeon is not equipped to do surgery. 03/05/2025: pending SNF placement 03/06/25: discussed with pt and pt's spouse at bedside. Pt's spouse is awaiting for HD and transportation to [facility]. Pt's spouse request to continue care at [facility] * 03/04/2025: when pt was prepped to be transferred to [facility] last night, I was informed that the DR Foster recommended pt to not have surgery and to be placed in SNF. agreed. consulted case mangement for SNF placement. Plan discussed with: Patient, Spouse Date of Service: Mar 06, 2025 Billing Provider: VALDEZ BATRES DO Common Visit Codes: [id number] INP/OBS CARE(HIGH) VALDEZ BATRES DO Mar 07, 2025 11:20
--- NOTE | 2025-03-07 11:22 | DVHPN2 ---
Reviewed: Care Plan, H&P, Labs, Medications, Previous Orders, Radiology Changes from previous H/P or p: No Changes General: Per HPI Eyes: No Pain, No Vision change, No Conjunctivae inflammation, No Eyelid inflammation, No Other, No Redness ENT: No Ear pain, No Ear discharge, No Nose pain, No Nose discharge, No Nose congestion, No Mouth pain, No Mouth swelling, No Throat pain, No Throat swelling, No Other Cardiovascular: No Chest Pain, No Palpitations, No Orthopnea, No Paroxysmal Noc. Dyspnea, No Edema, No Lt Headedness, No Other Respiratory: No Cough, No Dry, No Shortness of breath, No SOB with excertion, No Wheezing, No Hemoptysis, No Pleuritic Pain, No Sputum, No Other Gastrointestinal: No Nausea, No Vomiting, No Abdominal Pain, No Diarrhea, No Constipation, No Melena, No Hematochezia, No Other Genitourinary: No Dysuria, No Frequency, No Incontinence, No Hematuria, No Retention, No Other Musculoskeletal: neck pain Skin: No Rash, No Lesions, No Jaundice, No Bruising, No Other Objective Vitals Vital Signs Date Time Temp Pulse Resp B/P (MAP) Pulse Ox O2 Delivery O2 Flow Rate FiO2 03/07/25 05:00 98.1 78 18 149/63 (91) 100 98.1 03/06/25 20:05 Nasal Cannula* 3 32 Intake/Output Intake and Output 03/07/25 07:00 Intake Total 1068 ml Output Total 650 ml Balance 418 ml Intake Oral 968 ml IV Total 100 ml Output Urine Total 650 ml # Bowel Movements 6 General Appearance: Alert, Cooperative, No acute distress HEENT: Atraumatic, PERRLA, EOMI, Mucous membr. moist/pink Neck: Supple Lungs: Clear to auscultation, Normal air movement Cardiovascular: Regular rate, Normal S1, Normal S2, No murmurs, Gallops, Rubs Abdomen: Normal bowel sounds, Soft, No tenderness Neuro: Cranial nerves 3-12 NL Psych/Mental Status: Mental status NL Medications Current Medications Medications Dose Ordered Sig/Virgen Route Start Time Stop Time Status Last Admin Dose Admin Nitroglycerin 0.4 mg Q5MINP PRN SL 02/26/25 22:00 Carvedilol 6.25 mg BID PO 02/26/25 22:00 03/06/25 22:13 6.25 MG Aspirin 81 mg DAILY PO 02/27/25 10:00 03/06/25 10:00 81 MG Atorvastatin Calcium 40 mg HS PO 02/26/25 22:00 03/06/25 22:11 40 MG Enoxaparin Sodium 30 mg HS SC 02/27/25 22:00 03/06/25 22:11 30 MG Pantoprazole Sodium 40 mg DAILY@0600 PO 02/27/25 06:00 03/06/25 05:28 40 MG Azithromycin 250 ml @ 125 mls/hr DAILY IV 02/28/25 10:00 03/07/25 09:20 125 MLS/HR Acetaminophen/ Hydrocodone Bitart 1 tab Q4HPRN PRN PO 02/27/25 09:15 03/06/25 18:18 1 TAB Diagnostic Test (Pha) 1 strip ACHS 02/27/25 17:00 03/07/25 06:04 1 STRIP Insulin Human Regular ACHS SC 02/27/25 17:00 03/06/25 13:42 3 UNITS Dextrose 50 ml UD PRN IV 02/27/25 15:15 Nystatin 5 ml QID MT 02/27/25 18:00 03/07/25 05:28 5 ML Piperacillin Sod/ Tazobactam Sod 100 ml @ 25 mls/hr Q12H IV 02/28/25 18:00 03/07/25 05:28 25 MLS/HR Morphine Sulfate 2 mg Q30M PRN IV 03/02/25 10:15 Morphine Sulfate 1 mg Q4HP PRN IV 03/02/25 10:15 03/07/25 04:18 1 MG Loperamide HCl 4 mg Q4HPRN PRN PO 03/05/25 14:00 03/06/25 18:35 4 MG Laboratory Results Laboratory Tests 03/05/25 06:10 Urinalysis Test 02/26/25 16:53 Urine Color [place] (Yellow) H Urine Clarity Ex.turbid (Clear) Urine pH 6.0 (5.0-9.0) Urine Specific [place] 1.015 (1.001-1.035) Urine Protein 1+ (Negative) H Urine Ketones Negative (Negative) Urine Blood 2+ /uL (Negative) H Urine Nitrite Negative (Negative) Urine Bilirubin Negative (Negative) Urine Urobilinogen Normal mg/dL (Negative) Urine Leukocyte Esterase 3+ /uL (Negative) Urine RBC 15 /hpf (0 - 4) Urine Microscopic WBC 803 /HPF (0-5) H Urine Squamous Epithelial Cells Few /hpf (<5) Urine Amorphous Crystals Few /hpf (None Seen) Urine Bacteria Many /hpf (None Seen) H Urine Hyaline Casts Few /lpf (0 - 2) Urine Glucose Normal mg/dL (Normal) Microbiology Microbiology Date/Time Source Procedure Growth Status 03/01/25 13:09 Blood Blood Culture - Final Staphylococcus epidermidis Complete 02/27/25 05:20 Stool Clostridium difficile Toxin Assay - Final Complete 02/26/25 18:40 Urine - [place] Urine Culture - Final Escherichia coli Complete Labs and/or images reviewed: Labs reviewed by me, Image(s) reviewed by me Assessment/Plan Assessment/Plan 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 Plan -Continue IV antibiotic with Zosyn 3.375 mg IV Q eight and IV azithromycin 500 mg daily -Will follow up with blood culture, urine culture. Urinalysis showed leukocyte esterase positive, microscopic WBC high, many bacteria. Stool culture pending -coronary artery disease: Medical management with aspirin 81 mg p.o. daily, atorvastatin 40 mg p.o. daily, Coreg 6.25 mg p.o. b.i.d. -ESRD: [facility] -given chest x-ray showed pulmonary vascular congestion, trace pleural effusion, cardiomegaly with pulmonary vascular prominence: Lasix 20 mg IV daily -diabetes mellitus type 2: Insulin sliding scale -hypertension: Continue with Coreg 6.25 mg p.o. b.i.d., dyslipidemia with the atorvastatin -hypokalemia: IV 40 mEq potassium given, repeat in a.m.. -The patient complains of mouth pain, will give nystatin swish and swallow. -Puree food. Patient cannot chew. -SSI, moderate scale with regular insulin -Accue check qac and qhs. -Appreciate Spine surgeon input. Patient may need to be transfer to [facility] for Cervical surgeon with neurosurgeon. However, patient still need treatment for her infection first. -DW patient , daughter, son at bedside in length. 03/02/2025: continue with current care with iv abx. 03/03/2025: request for [facility] for "Transversely oriented fracture through the C2 vertebral body below the level of the odontoid process with significant left lateral fracture extension into the left C2 pedicle". Neurosurgeon is not equipped to do surgery. 03/05/2025: pending SNF placement 03/06/25: discussed with pt and pt's spouse at bedside. Pt's spouse is awaiting for HD and transportation to [facility]. Pt's spouse request to continue care at [facility] 03/07/2025: ok to discharge to SNF * 03/04/2025: when pt was prepped to be transferred to [facility] last night, I was informed that the DR Foster recommended pt to not have surgery and to be placed in SNF. agreed. consulted case mangement for SNF placement. Plan discussed with: Patient Date of Service: Mar 07, 2025 Billing Provider: VALDEZ BATRES DO Common Visit Codes: [id number] INP/OBS CARE(HIGH) VALDEZ BATRES DO Mar 07, 2025 11:22
--- NOTE | 2025-03-07 17:50 | DVHPN2 ---
Progress Note - Dictate Date Seen: Mar 07, 2025 Has the PT tested + for MRSA If YES, has PT been informed?: Yes Medical Necessity Reason Pt with a Central, PICC or Fol: Yes Subjective GENERAL: The patient is an elderly female who appears to be chronically ill in no acute distress. Alert and oriented x2. HEENT: Exam is unremarkable except for the cervical collar. Oral mucosa is pale and dry. LUNGS: Clear to auscultation. CARDIOVASCULAR: Shows regular rate. No gallops. No atrial fibrillation. ABDOMEN: Soft, nontender. No organomegaly. No ascites. EXTREMITIES: Showed no clubbing, cyanosis or edema. vital signs Vital Sign Date Time Temp Pulse Resp B/P (MAP) Pulse Ox O2 Delivery O2 Flow Rate FiO2 03/07/25 14:00 81 20 131/86 03/07/25 09:00 98.0 95 98.0 03/07/25 08:00 Nasal Cannula* 3 32 Total Intake and Output 03/06/25 03/06/25 03/07/25 15:00 23:00 07:00 Intake Total 950 ml 118 ml Output Total 450 ml 200 ml Balance 500 ml -82 ml medications Current Medications Medications Dose Ordered Sig/Virgen Route Start Time Stop Time Status Last Admin Dose Admin Nitroglycerin 0.4 mg Q5MINP PRN SL 02/26/25 22:00 Carvedilol 6.25 mg BID PO 02/26/25 22:00 03/06/25 22:13 6.25 MG Aspirin 81 mg DAILY PO 02/27/25 10:00 03/06/25 10:00 81 MG Atorvastatin Calcium 40 mg HS PO 02/26/25 22:00 03/06/25 22:11 40 MG Enoxaparin Sodium 30 mg HS SC 02/27/25 22:00 03/06/25 22:11 30 MG Pantoprazole Sodium 40 mg DAILY@0600 PO 02/27/25 06:00 03/06/25 05:28 40 MG Azithromycin 250 ml @ 125 mls/hr DAILY IV 02/28/25 10:00 03/07/25 10:00 125 MLS/HR Acetaminophen/ Hydrocodone Bitart 1 tab Q4HPRN PRN PO 02/27/25 09:15 03/06/25 18:18 1 TAB Diagnostic Test (Pha) 1 strip ACHS 02/27/25 17:00 03/07/25 17:23 1 STRIP Insulin Human Regular ACHS SC 02/27/25 17:00 03/06/25 13:42 3 UNITS Dextrose 50 ml UD PRN IV 02/27/25 15:15 Nystatin 5 ml QID MT 02/27/25 18:00 03/07/25 05:28 5 ML Piperacillin Sod/ Tazobactam Sod 100 ml @ 25 mls/hr Q12H IV 02/28/25 18:00 03/07/25 05:28 25 MLS/HR Morphine Sulfate 2 mg Q30M PRN IV 03/02/25 10:15 Morphine Sulfate 1 mg Q4HP PRN IV 03/02/25 10:15 03/07/25 14:00 1 MG Loperamide HCl 4 mg Q4HPRN PRN PO 03/05/25 14:00 03/06/25 18:35 4 MG laboratory and microbiology Laboratory Tests 03/05/25 06:10 Test 03/05/25 06:10 Range/Units Serum Glucose 112 H 74-106 mg/dL Assessment/Plan Assessment/Plan End-stage renal disease on HD Hyponatremia, which is chronic. The patient has been asked to restrict intake of hypotonic fluids and plain water. Anemia of CKD Cervical fracture. Continue with collar and request advice from Orthopedics or Neurosurgery. She is very high risk surgical patient, they are recommending conservative management, she will need to weak the cervical collar for 10 weeks Controlled hypertension. Pneumonia CAD, medical management UTI, cultures showing E. coli Severe Mitral regurgitation DM HTN Pulmonary hypertension Plan: S/p HD today (Friday) Next HD on Friday Will continue HD on MWF schedule IV antibiotics KIRIT post HD prn . goal Hb: 10-11 g/dl Discussed plan with patient's family who were at bedside Dietary Evaluation Review Recommendations by RD: Dietary education by RD, Protein Supplementation Comments: 1) Initiate 60g CCHO renal cardiac diet 2) Initiate Nephro-Hilario @ 1 tb qd 3) Initiate Gage @ 1 pk qd 4) Initiate Nepro CarbStead qd 5) Refer to outpatient RD/CDCES for weight management 6) Follow-up with cardiology, pulmonology, and nephrology 7) Continue to monitor I&O, labs, and skin integrity Expected Outcomes/Goals: 1) appetite and labs to improve 2) wound to improve 3) gradual wt loss 4) f/u in 3-5 days Plan discussed with: Patient, Spouse, Daughter MJ DAMIAN MD Mar 07, 2025 17:50
[2025-03-07] MEDS: EPOETIN ALFA-EPBX 10,000 UNIT/1ML VIAL SC ONE (21:18)
[2025-03-08] VITALS (12 sets, daily range): BP systolic 121–153; BP diastolic 65–82; PULSE 85–100; RESP 16–19; TEMP 97.2–98.6; O2SAT 91–100
[2025-03-08] MEDS ORDERED: CLINIMIX PER PHARMACY 0 ML IV SCH (13:45)
[2025-03-08] MEDS: ALBUTEROL SULF 2.5 MG/0.5ML(0.5%) NEB SOLN NEB PRN (14:43)
[2025-03-08 15:29] LABS: Alanine Aminotransferase 13 U/L (7-40); Albumin 3.6 g/dL (3.2-4.8); Alkaline Phosphatase 106 U/L (46-116); Anion Gap 15 (5-15); BUN/Creatinine Ratio 8.4 (10.0-20.0); Bilirubin, Total 1.2 mg/dL (0.2-1.0); Blood Urea Nitrogen 17 mg/dL (9-23); Calcium 9.0 mg/dL (8.7-10.4); Carbon Dioxide 28 mmol/L (20-31); Chloride 99 mmol/L (98-107); Magnesium 2.0 mg/dL (1.6-2.6); Potassium 4.0 mmol/L (3.5-5.1); Sodium 142 mmol/L (136-145); Total Protein 7.3 g/dL (5.7-8.2)
[2025-03-08 15:32] LABS: Glucose 108 mg/dL (74-106)
--- NOTE | 2025-03-08 18:36 | DVHPN2 ---
Progress Note - Dictate Date Seen: Mar 08, 2025 Has the PT tested + for MRSA If YES, has PT been informed?: Yes Medical Necessity Reason Pt with a Central, PICC or Fol: Yes Subjective not able to swallow vital signs Vital Sign Date Time Temp Pulse Resp B/P (MAP) Pulse Ox O2 Delivery O2 Flow Rate FiO2 03/08/25 17:00 98.0 100 17 153/80 (104) 91 98.0 03/08/25 14:43 Nasal Cannula 3.0 03/08/25 14:43 32 Total Intake and Output 03/07/25 03/07/25 03/08/25 15:00 23:00 07:00 Intake Total 250 ml 422 ml 350 ml Output Total 300 ml 300 ml Balance 250 ml 122 ml 50 ml medications Current Medications Medications Dose Ordered Sig/Virgen Route Start Time Stop Time Status Last Admin Dose Admin Nitroglycerin 0.4 mg Q5MINP PRN SL 02/26/25 22:00 Carvedilol 6.25 mg BID PO 02/26/25 22:00 03/06/25 22:13 6.25 MG Aspirin 81 mg DAILY PO 02/27/25 10:00 03/06/25 10:00 81 MG Atorvastatin Calcium 40 mg HS PO 02/26/25 22:00 03/06/25 22:11 40 MG Enoxaparin Sodium 30 mg HS SC 02/27/25 22:00 03/07/25 21:17 30 MG Pantoprazole Sodium 40 mg DAILY@0600 PO 02/27/25 06:00 03/06/25 05:28 40 MG Azithromycin 250 ml @ 125 mls/hr DAILY IV 02/28/25 10:00 03/08/25 11:02 125 MLS/HR Diagnostic Test (Pha) 1 strip ACHS 02/27/25 17:00 03/08/25 16:53 1 STRIP Insulin Human Regular ACHS SC 02/27/25 17:00 03/06/25 13:42 3 UNITS Dextrose 50 ml UD PRN IV 02/27/25 15:15 Nystatin 5 ml QID MT 02/27/25 18:00 03/07/25 05:28 5 ML Piperacillin Sod/ Tazobactam Sod 100 ml @ 25 mls/hr Q12H IV 02/28/25 18:00 03/08/25 18:20 25 MLS/HR Morphine Sulfate 2 mg Q30M PRN IV 03/02/25 10:15 Morphine Sulfate 1 mg Q4HP PRN IV 03/02/25 10:15 03/08/25 16:07 1 MG Loperamide HCl 4 mg Q4HPRN PRN PO 03/05/25 14:00 03/06/25 18:35 4 MG Amino Acids 0 ml @ 0 mls/hr PER PHARMACY IV 03/08/25 13:45 Albuterol 2.5 mg Q4HPRN PRN NEB 03/08/25 14:15 03/08/25 14:43 2.5 MG Amino Acids/ Electrolytes/ Dextrose 1,000 ml @ 41 mls/hr DAILY@2200 IV 03/08/25 22:00 objective GENERAL: The patient is an elderly female who appears to be chronically ill in no acute distress. Alert and oriented x2. HEENT: Exam is unremarkable except for the cervical collar. Oral mucosa is pale and dry. LUNGS: Clear to auscultation. CARDIOVASCULAR: Shows regular rate. No gallops. No atrial fibrillation. ABDOMEN: Soft, nontender. No organomegaly. No ascites. EXTREMITIES: Showed no clubbing, cyanosis or edema. laboratory and microbiology Laboratory Tests 03/08/25 14:47 03/05/25 06:10 Test 03/08/25 14:47 Range/Units Serum Glucose 108 H 74-106 mg/dL Assessment/Plan Assessment/Plan End-stage renal disease on HD Hyponatremia, which is chronic. The patient has been asked to restrict intake of hypotonic fluids and plain water. Anemia of CKD Cervical fracture. Continue with collar and request advice from Orthopedics or Neurosurgery. She is very high risk surgical patient, they are recommending conservative management, she will need to weak the cervical collar for 10 weeks Controlled hypertension. Pneumonia CAD, medical management UTI, cultures showing E. coli Severe Mitral regurgitation DM HTN Pulmonary hypertension Plan: S/p HD Friday Next HD on Friday Will continue HD on MWF schedule Clinimix has been started IV antibiotics KIRIT post HD prn . goal Hb: 10-11 g/dl Discussed plan with patient's family who were at bedside Dietary Evaluation Review Recommendations by RD: Dietary education by RD, Protein Supplementation Comments: 1) Initiate 60g CCHO renal cardiac diet 2) Initiate Nephro-Hilario @ 1 tb qd 3) Initiate Gage @ 1 pk qd 4) Initiate Nepro CarbStead qd 5) Refer to outpatient RD/CD[facility] for weight management 6) Follow-up with cardiology, pulmonology, and nephrology 7) Continue to monitor I&O, labs, and skin integrity Expected Outcomes/Goals: 1) appetite and labs to improve 2) wound to improve 3) gradual wt loss 4) f/u in 3-5 days Plan discussed with: Patient, Spouse MJ DAMIAN MD Mar 08, 2025 18:36
[2025-03-08] MEDS: NITROGLYCERIN 0.4 MG SL TAB SL PRN (20:22)
[2025-03-08] MEDS: AMINO ACID INFUSION IN D10W 1,000 ML IV SCH (22:43)
[2025-03-09] VITALS (10 sets, daily range): BP systolic 130–156; BP diastolic 56–74; PULSE 79–97; RESP 17–20; TEMP 97.5–98.8; O2SAT 92–100
[2025-03-09] MEDS: ENOXAPARIN SOD 100 MG/1 ML SYRINGE SC ONE (00:24)
[2025-03-09] MEDS: MORPHINE SULFATE 4 MG/ML SYR/VIAL IV PRN (00:29)
[2025-03-09 02:49] LABS: Hematocrit 23.4 % (36.0-46.0); Hemoglobin 7.5 g/dL (12.2-16.2)
[2025-03-09 02:59] LABS: Chloride 98.0 mmol/L (98-107); Potassium 3.8 mmol/L (3.5-5.1); Sodium 141.0 mmol/L (136-145)
[2025-03-09 03:00] LABS: Anion Gap 15.0 (5-15); Calcium 9.0 mg/dL (8.7-10.4); Carbon Dioxide 28.0 mmol/L (20-31)
[2025-03-09 03:05] LABS: BUN/Creatinine Ratio 10.9 (10.0-20.0)
[2025-03-09 03:06] LABS: Magnesium 2.0 mg/dL (1.6-2.6)
[2025-03-09 03:07] LABS: Albumin 3.6 g/dL (3.2-4.8)
[2025-03-09 03:08] LABS: Blood Urea Nitrogen 27.0 mg/dL (9-23); Glucose 169.0 mg/dL (74-106)
[2025-03-09 06:25] LABS: Hematocrit 23.5 % (36.0-46.0)
[2025-03-09 06:27] LABS: Hemoglobin 7.8 g/dL (12.2-16.2); Mean Corpuscular Hemoglobin 29.6 pg (28.0-32.0); Mean Corpuscular Volume 89.1 fL (80.0-100.0); Nucleated Red Blood Cells % 0.1 %
[2025-03-09 06:37] LABS: Alanine Aminotransferase 13 U/L (7-40); Alkaline Phosphatase 101 U/L (46-116); Anion Gap 16 (5-15); BUN/Creatinine Ratio 12.3 (10.0-20.0); Calcium 9.0 mg/dL (8.7-10.4); Carbon Dioxide 28 mmol/L (20-31); Potassium 3.8 mmol/L (3.5-5.1); Sodium 141 mmol/L (136-145); Total Protein 7.2 g/dL (5.7-8.2)
[2025-03-09 06:38] LABS: Albumin 3.6 g/dL (3.2-4.8)
[2025-03-09 06:39] LABS: Bilirubin, Total 1.0 mg/dL (0.2-1.0)
[2025-03-09 06:40] LABS: Blood Urea Nitrogen 30 mg/dL (9-23); Chloride 97 mmol/L (98-107); Glucose 184 mg/dL (74-106)
[2025-03-09 06:51] LABS: INR 1.14 (0.9-1.15); Partial Thromboplastin Time 40.5 SEC (24.5-34.5); Prothrombin Time 11.9 sec (9.3-11.8)
[2025-03-09] MEDS: SODIUM CHL 0.9% 1000 ML BAG XX ONE (07:00)
[2025-03-09 10:27] LABS: Base Excess 4.1 mmol/L (-2.0-3.0)
--- NOTE | 2025-03-09 10:55 | DVH ---
EXAM: XY CHEST PORTABLE Indication: SOB Technique: Single frontal view of the chest was obtained Comparison: CT CHEST WITHOUT CONTRAST on DOS: 02/27/25, XY CHEST XRAY 1 VIEW on DOS: 02/27/25, XY CHEST PORTABLE on DOS: 01/15/25 FINDINGS: Lines and Tubes: Stable right central venous catheter. Lungs: Stable multifocal consolidative opacities. Pleura: Small bilateral pleural effusions. No pneumothorax. Cardiomediastinal contours: Cardiomegaly. Bones: No acute osseous abnormality. IMPRESSION: No significant change compared to prior exam.
--- NOTE | 2025-03-09 11:03 | ECG ---
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
--- NOTE | 2025-03-09 11:03 | ECG ---
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
--- NOTE | 2025-03-09 13:58 | DVHPN2 ---
Reviewed: Care Plan, H&P, Labs, Medications, Previous Orders, Radiology Changes from previous H/P or p: No Changes General: Per HPI Eyes: No Pain, No Vision change, No Conjunctivae inflammation, No Eyelid inflammation, No Other, No Redness ENT: No Ear pain, No Ear discharge, No Nose pain, No Nose discharge, No Nose congestion, No Mouth pain, No Mouth swelling, No Throat pain, No Throat swelling, No Other Cardiovascular: No Chest Pain, No Palpitations, No Orthopnea, No Paroxysmal Noc. Dyspnea, No Edema, No Lt Headedness, No Other Respiratory: No Cough, No Dry, No Shortness of breath, No SOB with excertion, No Wheezing, No Hemoptysis, No Pleuritic Pain, No Sputum, No Other Gastrointestinal: No Nausea, No Vomiting, No Abdominal Pain, No Diarrhea, No Constipation, No Melena, No Hematochezia, No Other Genitourinary: No Dysuria, No Frequency, No Incontinence, No Hematuria, No Retention, No Other Musculoskeletal: neck pain Skin: No Rash, No Lesions, No Jaundice, No Bruising, No Other Objective Vitals Vital Signs Date Time Temp Pulse Resp B/P (MAP) Pulse Ox O2 Delivery O2 Flow Rate FiO2 03/09/25 09:00 98.0 96 19 144/74 (97) 99 98.0 03/09/25 08:00 Nasal Cannula* 3 32 Intake/Output Intake and Output 03/09/25 07:00 Intake Total 120 ml Output Total 520 ml Balance -400 ml Intake Oral 120 ml Output Urine Total 520 ml # Bowel Movements 4 General Appearance: Alert, Cooperative, No acute distress HEENT: Atraumatic, PERRLA, EOMI, Mucous membr. moist/pink Neck: Supple Lungs: Clear to auscultation, Normal air movement Cardiovascular: Regular rate, Normal S1, Normal S2, No murmurs, Gallops, Rubs Abdomen: Normal bowel sounds, Soft, No tenderness Neuro: Cranial nerves 3-12 NL Psych/Mental Status: Mental status NL Medications Current Medications Medications Dose Ordered Sig/Virgen Route Start Time Stop Time Status Last Admin Dose Admin Nitroglycerin 0.4 mg Q5MINP PRN SL 02/26/25 22:00 03/08/25 20:22 0.4 MG Carvedilol 6.25 mg BID PO 02/26/25 22:00 03/06/25 22:13 6.25 MG Aspirin 81 mg DAILY PO 02/27/25 10:00 03/06/25 10:00 81 MG Atorvastatin Calcium 40 mg HS PO 02/26/25 22:00 03/06/25 22:11 40 MG Enoxaparin Sodium 30 mg HS SC 02/27/25 22:00 03/08/25 21:19 30 MG Pantoprazole Sodium 40 mg DAILY@0600 PO 02/27/25 06:00 03/06/25 05:28 40 MG Azithromycin 250 ml @ 125 mls/hr DAILY IV 02/28/25 10:00 03/09/25 09:41 125 MLS/HR Diagnostic Test (Pha) 1 strip ACHS 02/27/25 17:00 03/09/25 11:30 1 STRIP Insulin Human Regular ACHS SC 02/27/25 17:00 03/09/25 11:30 3 UNITS Dextrose 50 ml UD PRN IV 02/27/25 15:15 Nystatin 5 ml QID MT 02/27/25 18:00 03/07/25 05:28 5 ML Piperacillin Sod/ Tazobactam Sod 100 ml @ 25 mls/hr Q12H IV 02/28/25 18:00 03/09/25 06:16 25 MLS/HR Morphine Sulfate 2 mg Q30M PRN IV 03/02/25 10:15 03/09/25 00:29 2 MG Morphine Sulfate 1 mg Q4HP PRN IV 03/02/25 10:15 03/09/25 04:57 1 MG Loperamide HCl 4 mg Q4HPRN PRN PO 03/05/25 14:00 03/06/25 18:35 4 MG Amino Acids 0 ml @ 0 mls/hr PER PHARMACY IV 03/08/25 13:45 Albuterol 2.5 mg Q4HPRN PRN NEB 03/08/25 14:15 03/08/25 14:43 2.5 MG Amino Acids/ Electrolytes/ Dextrose 1,000 ml @ 41 mls/hr DAILY@2200 IV 03/08/25 22:00 03/08/25 22:43 41 MLS/HR Laboratory Results Laboratory Tests 03/09/25 05:34 Chemistry Test 03/08/25 14:47 03/09/25 02:30 03/09/25 05:34 Albumin 3.6 g/dL (3.2-4.8) 3.6 g/dL (3.2-4.8) 3.6 g/dL (3.2-4.8) Calcium Level 9.0 mg/dL (8.7-10.4) 9.0 mg/dL (8.7-10.4) 9.0 mg/dL (8.7-10.4) Magnesium Level 2.0 mg/dL (1.6-2.6) 2.0 mg/dL (1.6-2.6) Phosphorus Level 4.7 mg/dL (2.4-5.1) 5.4 mg/dL (2.4-5.1) H Total Protein 7.3 g/dL (5.7-8.2) 7.2 g/dL (5.7-8.2) Coagulation Test 03/09/25 05:34 Prothrombin Time 11.9 sec (9.3-11.8) H Prothrombin Time INR 1.14 (0.9-1.15) Activated Partial Thromboplast Time 40.5 SEC (24.5-34.5) H LFT Test 03/08/25 14:47 03/09/25 05:34 Alanine Aminotransferase (ALT) 13 U/L (7-40) 13 U/L (7-40) Alkaline Phosphatase 106 U/L (46-116) 101 U/L (46-116) Aspartate Amino Transferase (AST) 24 U/L (13-40) 37 U/L (13-40) Total Bilirubin 1.2 mg/dL (0.2-1.0) H 1.0 mg/dL (0.2-1.0) Urinalysis Test 02/26/25 16:53 Urine Color [place] (Yellow) H Urine Clarity Ex.turbid (Clear) Urine pH 6.0 (5.0-9.0) Urine Specific [place] 1.015 (1.001-1.035) Urine Protein 1+ (Negative) H Urine Ketones Negative (Negative) Urine Blood 2+ /uL (Negative) H Urine Nitrite Negative (Negative) Urine Bilirubin Negative (Negative) Urine Urobilinogen Normal mg/dL (Negative) Urine Leukocyte Esterase 3+ /uL (Negative) Urine RBC 15 /hpf (0 - 4) Urine Microscopic WBC 803 /HPF (0-5) H Urine Squamous Epithelial Cells Few /hpf (<5) Urine Amorphous Crystals Few /hpf (None Seen) Urine Bacteria Many /hpf (None Seen) H Urine Hyaline Casts Few /lpf (0 - 2) Urine Glucose Normal mg/dL (Normal) Blood Gas Results Test 03/09/25 10:20 Arterial Blood pH 7.434 (7.350-7.450) FiO2 % 32.0 Microbiology Microbiology Date/Time Source Procedure Growth Status 03/01/25 13:09 Blood Blood Culture - Final Staphylococcus epidermidis Complete 02/27/25 05:20 Stool Clostridium difficile Toxin Assay - Final Complete 02/26/25 18:40 Urine - [place] Urine Culture - Final Escherichia coli Complete Assessment/Plan Assessment/Plan 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 protein-calorie malnutrition dysphagia Plan -Continue IV antibiotic with Zosyn 3.375 mg IV Q eight and IV azithromycin 500 mg daily -Will follow up with blood culture, urine culture. Urinalysis showed leukocyte esterase positive, microscopic WBC high, many bacteria. Stool culture pending -coronary artery disease: Medical management with aspirin 81 mg p.o. daily, atorvastatin 40 mg p.o. daily, Coreg 6.25 mg p.o. b.i.d. -ESRD: Nephrology consultation with Rita -given chest x-ray showed pulmonary vascular congestion, trace pleural effusion, cardiomegaly with pulmonary vascular prominence: Lasix 20 mg IV daily -diabetes mellitus type 2: Insulin sliding scale -hypertension: Continue with Coreg 6.25 mg p.o. b.i.d., dyslipidemia with the atorvastatin -hypokalemia: IV 40 mEq potassium given, repeat in a.m.. -The patient complains of mouth pain, will give nystatin swish and swallow. -Puree food. Patient cannot chew. -SSI, moderate scale with regular insulin -Accue check qac and qhs. -Appreciate Spine surgeon input. Patient may need to be transfer to [facility] for Cervical surgeon with neurosurgeon. However, patient still need treatment for her infection first. -DW patient , daughter, son at bedside in length. 03/02/2025: continue with current care with iv abx. 03/03/2025: request for [facility] for "Transversely oriented fracture through the C2 vertebral body below the level of the odontoid process with significant left lateral fracture extension into the left C2 pedicle". Neurosurgeon is not equipped to do surgery. 03/04/2025: when pt was prepped to be transferred to [facility] last night, I was informed that the DR Foster recommended pt to not have surgery and to be placed in SNF. agreed. consulted case mangement for SNF placement. 03/05/2025: pending SNF placement 03/06/25: discussed with pt and pt's spouse at bedside. Pt's spouse is awaiting for HD and transportation to [facility]. Pt's spouse request to continue care at [facility] 03/07/2025: ok to discharge to SNF 03/09/2025: pt is not eating and awaiting swallow evaluation. Pt's WBC is increasing, consult to ID if needed. pt may need PICC line and TNP while in- patient Plan discussed with: Spouse, Daughter My Orders Orders - VALDEZ BATRES DO Procedure Category Date Status Time Albuterol Medneb PHA 03/08/25 In Process (Ventolin Medneb) 14:15 Amino Acid Infusion PHA 03/08/25 In Process In D10w (Clinimix 4. 22:00 Clinimix Per Pharmacy [facility] 03/08/25 In Process 22:00 Abg W/ Co-Ox RT 03/09/25 Logged 10:05 Chest Portable XY 03/09/25 Resulted 10:05 Comprehensive LAB 03/10/25 Verified Metabolic Panel 04:00 Magnesium LAB 03/10/25 Verified 04:00 Phosphorus LAB 03/10/25 Verified 04:00 Clinimix Per Pharmacy [facility] 03/09/25 In Process 22:00 Date of Service: Mar 08, 2025 Billing Provider: VALDEZ BATRES DO Common Visit Codes: [id number] INP/OBS CARE(HIGH) VALDEZ BATRES DO Mar 09, 2025 13:58
--- NOTE | 2025-03-09 15:26 | DVHPN2 ---
Progress Note - Dictate Date Seen: Mar 09, 2025 Has the PT tested + for MRSA If YES, has PT been informed?: Yes Medical Necessity Reason Pt with a Central, PICC or Fol: Yes Subjective not able to swallow vital signs Vital Sign Date Time Temp Pulse Resp B/P (MAP) Pulse Ox O2 Delivery O2 Flow Rate FiO2 03/09/25 13:00 98.8 95 19 130/74 (92) 92 98.8 03/09/25 08:00 Nasal Cannula* 3 32 Total Intake and Output 03/08/25 03/08/25 03/09/25 15:00 23:00 07:00 Intake Total 100 ml 20 ml Output Total 400 ml 120 ml Balance -300 ml -100 ml medications Current Medications Medications Dose Ordered Sig/Virgen Route Start Time Stop Time Status Last Admin Dose Admin Nitroglycerin 0.4 mg Q5MINP PRN SL 02/26/25 22:00 03/08/25 20:22 0.4 MG Carvedilol 6.25 mg BID PO 02/26/25 22:00 03/06/25 22:13 6.25 MG Aspirin 81 mg DAILY PO 02/27/25 10:00 03/06/25 10:00 81 MG Atorvastatin Calcium 40 mg HS PO 02/26/25 22:00 03/06/25 22:11 40 MG Enoxaparin Sodium 30 mg HS SC 02/27/25 22:00 03/08/25 21:19 30 MG Pantoprazole Sodium 40 mg DAILY@0600 PO 02/27/25 06:00 03/06/25 05:28 40 MG Diagnostic Test (Pha) 1 strip ACHS 02/27/25 17:00 03/09/25 11:30 1 STRIP Insulin Human Regular ACHS SC 02/27/25 17:00 03/09/25 11:30 3 UNITS Dextrose 50 ml UD PRN IV 02/27/25 15:15 Nystatin 5 ml QID MT 02/27/25 18:00 03/07/25 05:28 5 ML Piperacillin Sod/ Tazobactam Sod 100 ml @ 25 mls/hr Q12H IV 02/28/25 18:00 03/09/25 06:16 25 MLS/HR Morphine Sulfate 2 mg Q30M PRN IV 03/02/25 10:15 03/09/25 00:29 2 MG Morphine Sulfate 1 mg Q4HP PRN IV 03/02/25 10:15 03/09/25 04:57 1 MG Loperamide HCl 4 mg Q4HPRN PRN PO 03/05/25 14:00 03/06/25 18:35 4 MG Amino Acids 0 ml @ 0 mls/hr PER PHARMACY IV 03/08/25 13:45 Albuterol 2.5 mg Q4HPRN PRN NEB 03/08/25 14:15 03/08/25 14:43 2.5 MG Amino Acids/ Electrolytes/ Dextrose 1,000 ml @ 41 mls/hr DAILY@2200 IV 03/08/25 22:00 03/08/25 22:43 41 MLS/HR Vancomycin HCl 250 ml @ 250 mls/hr DAILY IV 03/10/25 10:00 UNV objective GENERAL: The patient is an elderly female who appears to be chronically ill in no acute distress. Alert and oriented x2. HEENT: Exam is unremarkable except for the cervical collar. Oral mucosa is pale and dry. LUNGS: Clear to auscultation. CARDIOVASCULAR: Shows regular rate. No gallops. No atrial fibrillation. ABDOMEN: Soft, nontender. No organomegaly. No ascites. EXTREMITIES: Showed no clubbing, cyanosis or edema. laboratory and microbiology Laboratory Tests 03/09/25 05:34 Test 03/09/25 05:34 Range/Units Serum Glucose 184 H 74-106 mg/dL Assessment/Plan Assessment/Plan End-stage renal disease on HD Hyponatremia, which is chronic. The patient has been asked to restrict intake of hypotonic fluids and plain water. Anemia of CKD Cervical fracture. Continue with collar and request advice from Orthopedics or Neurosurgery. She is very high risk surgical patient, they are recommending conservative management, she will need to weak the cervical collar for 10 weeks Controlled hypertension. Pneumonia CAD, medical management UTI, cultures showing E. coli Severe Mitral regurgitation DM HTN Pulmonary hypertension Plan: Scheduled for HD for today (Friday) S/p HD Friday Will continue HD on MWF schedule Pending GI eval Clinimix has been started IV antibiotics KIRIT post HD prn . goal Hb: 10-11 g/dl Discussed plan with patient's family who were at bedside Dietary Evaluation Review Recommendations by RD: Dietary education by RD, Protein Supplementation Comments: 1) Initiate 60g CCHO renal cardiac diet 2) Initiate Nephro-Hilario @ 1 tb qd 3) Initiate Gage @ 1 pk qd 4) Initiate Nepro CarbStead qd 5) Refer to outpatient RD/CDCES for weight management 6) Follow-up with cardiology, pulmonology, and nephrology 7) Continue to monitor I&O, labs, and skin integrity Expected Outcomes/Goals: 1) appetite and labs to improve 2) wound to improve 3) gradual wt loss 4) f/u in 3-5 days Plan discussed with: Patient, Spouse, Daughter MJ DAMIAN MD Mar 09, 2025 15:26
[2025-03-09] MEDS ORDERED: VANCOMYCIN PER PHARMACY 0 MG IV SCH (15:30)
[2025-03-09 17:21] LABS: Urine Budding Yeast LOADED /hpf (None Seen); Urine Protein, UAD 2+ (Negative); Urine WBC Clumps PRESENT /hpf (None Seen)
[2025-03-10] VITALS (12 sets, daily range): BP systolic 97–143; BP diastolic 48–74; PULSE 76–92; RESP 16–24; TEMP 97–97.9; O2SAT 98–100
[2025-03-10] MEDS: SODIUM CHL 0.9% 1000 ML BAG XX ONE (00:02)
[2025-03-10] MEDS: VANCOMYCIN 1GM/250ML KIT 250 ML IV ONE (01:20)
[2025-03-10] MEDS: EPOETIN ALFA-EPBX 4,000 UNIT/ML VIAL SC ONE (01:45)
[2025-03-10] MEDS: PIPERACILLIN-TAZOB 3.375GM 100 ML IV SCH (03:08)
--- NOTE | 2025-03-10 06:52 | DVHPN2 ---
Progress Note - Dictate Date Seen: Mar 10, 2025 Has the PT tested + for MRSA If YES, has PT been informed?: Yes Medical Necessity Reason Pt with a Central, PICC or Fol: Yes Subjective not able to swallow vital signs Vital Sign Date Time Temp Pulse Resp B/P (MAP) Pulse Ox O2 Delivery O2 Flow Rate FiO2 03/10/25 05:17 80 28 134/65 03/10/25 05:00 97.0 98 97.0 03/09/25 20:17 Nasal Cannula* 3 32 Total Intake and Output 03/09/25 03/09/25 03/10/25 15:00 23:00 07:00 Intake Total 0 ml 0 ml Output Total 10 ml Balance 0 ml -10 ml medications Current Medications Medications Dose Ordered Sig/Virgen Route Start Time Stop Time Status Last Admin Dose Admin Nitroglycerin 0.4 mg Q5MINP PRN SL 02/26/25 22:00 03/08/25 20:22 0.4 MG Carvedilol 6.25 mg BID PO 02/26/25 22:00 03/06/25 22:13 6.25 MG Aspirin 81 mg DAILY PO 02/27/25 10:00 03/06/25 10:00 81 MG Atorvastatin Calcium 40 mg HS PO 02/26/25 22:00 03/06/25 22:11 40 MG Enoxaparin Sodium 30 mg HS SC 02/27/25 22:00 03/09/25 22:52 30 MG Pantoprazole Sodium 40 mg DAILY@0600 PO 02/27/25 06:00 03/06/25 05:28 40 MG Diagnostic Test (Pha) 1 strip ACHS 02/27/25 17:00 03/10/25 06:42 1 STRIP Insulin Human Regular ACHS SC 02/27/25 17:00 03/10/25 06:36 4 UNITS Dextrose 50 ml UD PRN IV 02/27/25 15:15 Nystatin 5 ml QID MT 02/27/25 18:00 03/07/25 05:28 5 ML Morphine Sulfate 2 mg Q30M PRN IV 03/02/25 10:15 03/09/25 00:29 2 MG Morphine Sulfate 1 mg Q4HP PRN IV 03/02/25 10:15 03/10/25 04:47 1 MG Loperamide HCl 4 mg Q4HPRN PRN PO 03/05/25 14:00 03/06/25 18:35 4 MG Amino Acids 0 ml @ 0 mls/hr PER PHARMACY IV 03/08/25 13:45 Albuterol 2.5 mg Q4HPRN PRN NEB 03/08/25 14:15 03/08/25 14:43 2.5 MG Amino Acids/ Electrolytes/ Dextrose 1,000 ml @ 41 mls/hr DAILY@2200 IV 03/08/25 22:00 03/09/25 22:53 41 MLS/HR Vancomycin HCl 0 ml @ 0 mls/hr UD IV 03/09/25 15:30 Piperacillin Sod/ Tazobactam Sod 100 ml @ 25 mls/hr Q12H IV 03/10/25 00:00 03/10/25 03:08 25 MLS/HR objective GENERAL: The patient is an elderly female who appears to be chronically ill in no acute distress. Alert and oriented x2. HEENT: Exam is unremarkable except for the cervical collar. Oral mucosa is pale and dry. LUNGS: Clear to auscultation. CARDIOVASCULAR: Shows regular rate. No gallops. No atrial fibrillation. ABDOMEN: Soft, nontender. No organomegaly. No ascites. EXTREMITIES: Showed no clubbing, cyanosis or edema. laboratory and microbiology Laboratory Tests 03/09/25 05:34 Test 03/10/25 05:25 Range/Units Serum Glucose Pending Assessment/Plan Assessment/Plan End-stage renal disease on HD Hyponatremia, which is chronic. The patient has been asked to restrict intake of hypotonic fluids and plain water. Anemia of CKD Cervical fracture. Continue with collar and request advice from Orthopedics or Neurosurgery. She is very high risk surgical patient, they are recommending conservative management, she will need to weak the cervical collar for 10 weeks Controlled hypertension. Pneumonia CAD, medical management UTI, cultures showing E. coli Severe Mitral regurgitation DM HTN Pulmonary hypertension Plan: Scheduled for HD for today (Friday) S/p HD Friday Will continue HD on MWF schedule Pending GI eval Clinimix has been started IV antibiotics KIRIT post HD prn . goal Hb: 10-11 g/dl Discussed plan with patient's family who were at bedside Dietary Evaluation Review Recommendations by RD: Dietary education by RD, Protein Supplementation Comments: 1) Initiate 60g CCHO renal cardiac diet 2) Initiate Nephro-Hilario @ 1 tb qd 3) Initiate Gage @ 1 pk qd 4) Initiate Nepro CarbStead qd 5) Refer to outpatient RD/CDCES for weight management 6) Follow-up with cardiology, pulmonology, and nephrology 7) Continue to monitor I&O, labs, and skin integrity Expected Outcomes/Goals: 1) appetite and labs to improve 2) wound to improve 3) gradual wt loss 4) f/u in 3-5 days Plan discussed with: Patient, Spouse MJ DAMIAN MD Mar 10, 2025 06:52
[2025-03-10 07:00] LABS: Alanine Aminotransferase 10 U/L (7-40); Albumin 3.5 g/dL (3.2-4.8); Alkaline Phosphatase 92 U/L (46-116); Anion Gap 11 (5-15); BUN/Creatinine Ratio 9.4 (10.0-20.0); Blood Urea Nitrogen 16 mg/dL (9-23); Calcium 8.8 mg/dL (8.7-10.4); Carbon Dioxide 30 mmol/L (20-31); Chloride 99 mmol/L (98-107); Sodium 140 mmol/L (136-145); Total Protein 7.0 g/dL (5.7-8.2)
[2025-03-10 07:01] LABS: Bilirubin, Total 1.0 mg/dL (0.2-1.0); Glucose 196 mg/dL (74-106); Potassium 3.4 mmol/L (3.5-5.1)
[2025-03-10 07:23] LABS: Magnesium 2.0 mg/dL (1.6-2.6)
[2025-03-10] MEDS ORDERED: VANCOMYCIN 1GM/250ML KIT 250 ML IV SCH (10:00)
--- NOTE | 2025-03-10 14:17 | DVHPN2 ---
Reviewed: Care Plan, H&P, Labs, Medications, Previous Orders, Radiology Changes from previous H/P or p: No Changes General: Per HPI Eyes: No Pain, No Vision change, No Conjunctivae inflammation, No Eyelid inflammation, No Other, No Redness ENT: No Ear pain, No Ear discharge, No Nose pain, No Nose discharge, No Nose congestion, No Mouth pain, No Mouth swelling, No Throat pain, No Throat swelling, No Other Cardiovascular: No Chest Pain, No Palpitations, No Orthopnea, No Paroxysmal Noc. Dyspnea, No Edema, No Lt Headedness, No Other Respiratory: No Cough, No Dry, No Shortness of breath, No SOB with excertion, No Wheezing, No Hemoptysis, No Pleuritic Pain, No Sputum, No Other Gastrointestinal: No Nausea, No Vomiting, No Abdominal Pain, No Diarrhea, No Constipation, No Melena, No Hematochezia, No Other Genitourinary: No Dysuria, No Frequency, No Incontinence, No Hematuria, No Retention, No Other Musculoskeletal: neck pain Skin: No Rash, No Lesions, No Jaundice, No Bruising, No Other Objective Vitals Vital Signs Date Time Temp Pulse Resp B/P (MAP) Pulse Ox O2 Delivery O2 Flow Rate FiO2 03/10/25 13:28 68 18 130/74 03/10/25 09:15 100 Nasal Cannula* 3 32 03/10/25 09:00 97.9 97.9 Intake/Output Intake and Output 03/10/25 07:00 Intake Total 1000 ml Output Total 10 ml Balance 990 ml Intake Oral 0 ml IV Total 1000 ml Output Urine Total 10 ml # Voids 100 # Bowel Movements 3 General Appearance: Alert, Cooperative, No acute distress HEENT: Atraumatic, PERRLA, EOMI, Mucous membr. moist/pink Neck: Supple Lungs: Clear to auscultation, Normal air movement Cardiovascular: Regular rate, Normal S1, Normal S2, No murmurs, Gallops, Rubs Abdomen: Normal bowel sounds, Soft, No tenderness Neuro: Cranial nerves 3-12 NL Psych/Mental Status: Mental status NL Medications Current Medications Medications Dose Ordered Sig/Virgen Route Start Time Stop Time Status Last Admin Dose Admin Nitroglycerin 0.4 mg Q5MINP PRN SL 02/26/25 22:00 03/08/25 20:22 0.4 MG Carvedilol 6.25 mg BID PO 02/26/25 22:00 03/06/25 22:13 6.25 MG Aspirin 81 mg DAILY PO 02/27/25 10:00 03/06/25 10:00 81 MG Atorvastatin Calcium 40 mg HS PO 02/26/25 22:00 03/06/25 22:11 40 MG Enoxaparin Sodium 30 mg HS SC 02/27/25 22:00 03/09/25 22:52 30 MG Pantoprazole Sodium 40 mg DAILY@0600 PO 02/27/25 06:00 03/06/25 05:28 40 MG Diagnostic Test (Pha) 1 strip ACHS 02/27/25 17:00 03/10/25 11:25 1 STRIP Insulin Human Regular ACHS SC 02/27/25 17:00 03/10/25 11:35 3 UNITS Dextrose 50 ml UD PRN IV 02/27/25 15:15 Nystatin 5 ml QID MT 02/27/25 18:00 03/07/25 05:28 5 ML Morphine Sulfate 2 mg Q30M PRN IV 03/02/25 10:15 03/09/25 00:29 2 MG Morphine Sulfate 1 mg Q4HP PRN IV 03/02/25 10:15 03/10/25 13:28 1 MG Loperamide HCl 4 mg Q4HPRN PRN PO 03/05/25 14:00 03/06/25 18:35 4 MG Amino Acids 0 ml @ 0 mls/hr PER PHARMACY IV 03/08/25 13:45 Albuterol 2.5 mg Q4HPRN PRN NEB 03/08/25 14:15 03/08/25 14:43 2.5 MG Amino Acids/ Electrolytes/ Dextrose 1,000 ml @ 41 mls/hr DAILY@2200 IV 03/08/25 22:00 03/09/25 22:53 41 MLS/HR Vancomycin HCl 0 ml @ 0 mls/hr UD IV 03/09/25 15:30 Piperacillin Sod/ Tazobactam Sod 100 ml @ 25 mls/hr Q12H IV 03/10/25 00:00 03/10/25 11:32 25 MLS/HR Laboratory Results Laboratory Tests 03/09/25 05:34 03/10/25 05:25 Chemistry Test 03/10/25 05:25 Albumin 3.5 g/dL (3.2-4.8) Calcium Level 8.8 mg/dL (8.7-10.4) Magnesium Level 2.0 mg/dL (1.6-2.6) Phosphorus Level 2.2 mg/dL (2.4-5.1) L Total Protein 7.0 g/dL (5.7-8.2) LFT Test 03/10/25 05:25 Alanine Aminotransferase (ALT) 10 U/L (7-40) Alkaline Phosphatase 92 U/L (46-116) Aspartate Amino Transferase (AST) 24 U/L (13-40) Total Bilirubin 1.0 mg/dL (0.2-1.0) Urinalysis Test 02/26/25 16:53 03/09/25 16:55 Urine Amorphous Crystals Few /hpf (None Seen) Urine Hyaline Casts Few /lpf (0 - 2) Urine Color Light-orange (Yellow) Urine Clarity Ex.turbid (Clear) Urine pH 5.5 (5.0-9.0) Urine Specific [place] 1.019 (1.001-1.035) Urine Protein 2+ (Negative) H Urine Ketones Trace (Negative) Urine Blood 2+ /uL (Negative) H Urine Nitrite Negative (Negative) Urine Bilirubin 1+ (Negative) H Urine Urobilinogen 2 mg/dL (Negative) H Urine Leukocyte Esterase 3+ /uL (Negative) Urine RBC 150 /hpf (0 - 4) Urine WBC Clumps Present /hpf (None Seen) Urine Microscopic WBC 2903 /HPF (0-5) H Urine Squamous Epithelial Cells Mod /hpf (<5) Urine Bacteria None seen /hpf (None Seen) Urine Yeast (Budding) Loaded /hpf (None Seen) Urine Glucose Normal mg/dL (Normal) Microbiology Microbiology Date/Time Source Procedure Growth Status 03/09/25 16:55 Urine - [place] Urine Culture - Preliminary Resulted 03/01/25 13:09 Blood Blood Culture - Final Staphylococcus epidermidis Complete 02/27/25 05:20 Stool Clostridium difficile Toxin Assay - Final Complete Labs and/or images reviewed: Labs reviewed by me, Image(s) reviewed by me Assessment/Plan Assessment/Plan 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 protein-calorie malnutrition dysphagia Plan -Continue IV antibiotic with Zosyn 3.375 mg IV Q eight and IV azithromycin 500 mg daily -Will follow up with blood culture, urine culture. Urinalysis showed leukocyte esterase positive, microscopic WBC high, many bacteria. Stool culture pending -coronary artery disease: Medical management with aspirin 81 mg p.o. daily, atorvastatin 40 mg p.o. daily, Coreg 6.25 mg p.o. b.i.d. -ESRD: Nephrology consultation with Rita -given chest x-ray showed pulmonary vascular congestion, trace pleural effusion, cardiomegaly with pulmonary vascular prominence: Lasix 20 mg IV daily -diabetes mellitus type 2: Insulin sliding scale -hypertension: Continue with Coreg 6.25 mg p.o. b.i.d., dyslipidemia with the atorvastatin -hypokalemia: IV 40 mEq potassium given, repeat in a.m.. -The patient complains of mouth pain, will give nystatin swish and swallow. -Puree food. Patient cannot chew. -SSI, moderate scale with regular insulin -Accue check qac and qhs. -Appreciate Spine surgeon input. [facility] need [facility] for Cervical surgeon with neurosurgeon. However, patient still need treatment for her infection first. -DW patient , daughter, son at bedside in length. 03/02/2025: continue with current care with iv abx. 03/03/2025: request for [facility] for "Transversely oriented fracture through the C2 vertebral body below the level of the odontoid process with significant left lateral fracture extension into the left C2 pedicle". Neurosurgeon is not equipped to do surgery. 03/04/2025: when pt was prepped to be transferred to [facility] last night, I was informed that the DR Foster recommended pt to not have surgery and to be placed in SNF. agreed. consulted case mangement for SNF placement. 03/05/2025: pending SNF placement 03/06/25: discussed with pt and pt's spouse at bedside. Pt's spouse is awaiting for HD and transportation to [facility]. Pt's spouse request to continue care at [facility] 03/07/2025: ok to discharge to SNF 03/09/2025: pt is not eating and awaiting swallow evaluation. Pt's WBC is increasing, consult to ID if needed. pt may need PICC line and TNP while in- patient 03/10/2025: continue with current care in [place]. pt needs a swallow evaluation Plan discussed with: Patient My Orders Orders - VALDEZ BATRES DO Procedure Category Date Status Time Vancomycin Per BARBRA 03/09/25 In Process Pharmacy Protoc 14:53 Transfer Orders XFER 03/09/25 Transmitted 14:55 Vancomycin Per PHA 03/09/25 In Process Pharmacy 15:30 Vancomycin Per BARBRA 03/09/25 In Process Pharmacy Protoc 15:26 Urine Bacterial GOMEZ 03/09/25 In Process Culture 17:27 Npo (Nothing By DIET 03/10/25 Transmitted Mouth) Diet Breakfast * Picc Line Consult CONS 03/10/25 Transmitted 14:02 Picc Line Assessment BARBRA 03/10/25 Transmitted 14:02 Picc Order RENEW 03/10/25 Transmitted 14:02 Consult For Nutrition NOURISH 03/10/25 Transmitted 14:02 Date of Service: Mar 10, 2025 Billing Provider: VALDEZ BATRES DO Common Visit Codes: [id number] CARE 30-74 MIN VALDEZ BATRES DO Mar 10, 2025 14:17
--- NOTE | 2025-03-10 16:29 | DVH ---
Date: 03/10/2025 03:57 PM Examination: XY KUB ABDOMEN SINGLE VIEW History: ACUTE URINARY RETENTION Comparison: None TECHNIQUE: Frontal views of the abdomen was obtained. FINDINGS: Mildly gaseous distention of jejunum. Findings May represents developing small-bowel obstruction. The lung bases are unremarkable. No acute osseous abnormality identified. IMPRESSION: 1. Findings may represent developing small bowel obstruction. Recommend follow-up study. 2. Urinary retention is of clinical concern recommend bladder ultrasound.
[2025-03-10] MEDS: LIDOCAINE 1% (LOCAL ANESTH.) PF 5ml SDV ID ONE (17:15)
[2025-03-10] MEDS: POTASSIUM PHOSPHATE 22 MEQ in SODIUM CHL 0.9% 100 ML IV ONE (21:28)
[2025-03-10] MEDS: SODIUM CHLOR 0.9% PF (SALINE LOCK) 10ML VIAL/SYR IV SCH (22:15)
[2025-03-11] VITALS (31 sets, daily range): BP systolic 91–146; BP diastolic 38–63; PULSE 71–92; RESP 10–23; TEMP 97.2–98.9; O2SAT 95–100
[2025-03-11] MEDS ORDERED: HYDROmorphone HCL 2 MG/ML VL/or syr IM ONE (02:30)
[2025-03-11] MEDS: HYDROmorphone HCL 2 MG/ML VL/or syr IV ONE (02:49)
[2025-03-11 05:13] LABS: Triglycerides 78 mg/dL (< 150)
[2025-03-11 05:14] LABS: Alanine Aminotransferase < 9 U/L (7-40); Albumin 3.4 g/dL (3.2-4.8); Alkaline Phosphatase 91 U/L (46-116); Anion Gap 12 (5-15); BUN/Creatinine Ratio 12.5 (10.0-20.0); Bilirubin, Total 0.8 mg/dL (0.2-1.0); Blood Urea Nitrogen 34 mg/dL (9-23); Calcium 8.4 mg/dL (8.7-10.4); Carbon Dioxide 27 mmol/L (20-31); Chloride 99 mmol/L (98-107); Glucose 162 mg/dL (74-106); Magnesium 1.9 mg/dL (1.6-2.6); Potassium 3.9 mmol/L (3.5-5.1); Sodium 138 mmol/L (136-145); Total Protein 6.8 g/dL (5.7-8.2)
[2025-03-11 05:38] LABS: Nucleated Red Blood Cells % 0.0 %
[2025-03-11 05:41] LABS: Hematocrit 19.3 % (36.0-46.0); Mean Corpuscular Hemoglobin 30.2 pg (28.0-32.0); Mean Corpuscular Volume 90.9 fL (80.0-100.0)
[2025-03-11 05:51] LABS: Hemoglobin 6.4 g/dL (12.2-16.2)
--- NOTE | 2025-03-11 09:11 | DVH ---
Exam: US BLADDER History: concern of urinary retention on KUB Comparison: None Date: 03/11/2025 08:47 AM Technique: Grayscale and color Doppler ultrasound of the pelvis was obtained. Pre-and postvoid images of the bladder were obtained. Findings/Impression: The urinary bladder is decompressed with Cristobal catheter which limits evaluation.
[2025-03-11] MEDS: HYDROmorphone HCL 2 MG/ML VL/or syr IV PRN (09:56)
[2025-03-11] MEDS ORDERED: VANCOMYCIN 500mg/100mL 100 ML IV ONE (14:00)
[2025-03-11 15:41] LABS: Hematocrit 21.2 % (36.0-46.0)
[2025-03-11 15:42] LABS: Hemoglobin 6.7 g/dL (12.2-16.2)
[2025-03-11] MEDS: IRON SUCROSE COMPLEX 110 ML IV SCH (16:47)
--- NOTE | 2025-03-11 19:15 | DVHPN2 ---
Progress Note - Dictate Date Seen: Mar 11, 2025 Has the PT tested + for MRSA If YES, has PT been informed?: Yes Medical Necessity Reason Pt with a Central, PICC or Fol: Yes Subjective no new symptoms vital signs Vital Sign Date Time Temp Pulse Resp B/P (MAP) Pulse Ox O2 Delivery O2 Flow Rate FiO2 03/11/25 18:00 80 14 105/43 (63) 100 03/11/25 17:30 Nasal Cannula* 2 28 03/11/25 16:00 98.9 98.9 Total Intake and Output 03/10/25 03/10/25 03/11/25 15:00 23:00 07:00 Intake Total 678 ml 205 ml 428 ml Output Total 25 ml 50 ml Balance 678 ml 180 ml 378 ml medications Current Medications Medications Dose Ordered Sig/Virgen Route Start Time Stop Time Status Last Admin Dose Admin Nitroglycerin 0.4 mg Q5MINP PRN SL 02/26/25 22:00 03/08/25 20:22 0.4 MG Carvedilol 6.25 mg BID PO 02/26/25 22:00 03/06/25 22:13 6.25 MG Aspirin 81 mg DAILY PO 02/27/25 10:00 03/06/25 10:00 81 MG Atorvastatin Calcium 40 mg HS PO 02/26/25 22:00 03/06/25 22:11 40 MG Pantoprazole Sodium 40 mg DAILY@0600 PO 02/27/25 06:00 03/06/25 05:28 40 MG Diagnostic Test (Pha) 1 strip ACHS 02/27/25 17:00 03/11/25 16:52 1 STRIP Insulin Human Regular ACHS SC 02/27/25 17:00 03/11/25 17:00 3 UNITS Dextrose 50 ml UD PRN IV 02/27/25 15:15 Nystatin 5 ml QID MT 02/27/25 18:00 03/07/25 05:28 5 ML Loperamide HCl 4 mg Q4HPRN PRN PO 03/05/25 14:00 03/06/25 18:35 4 MG Amino Acids 0 ml @ 0 mls/hr PER PHARMACY IV 03/08/25 13:45 Albuterol 2.5 mg Q4HPRN PRN NEB 03/08/25 14:15 03/08/25 14:43 2.5 MG Amino Acids/ Electrolytes/ Dextrose 1,000 ml @ 41 mls/hr DAILY@2200 IV 03/08/25 22:00 03/10/25 22:09 41 MLS/HR Vancomycin HCl 0 ml @ 0 mls/hr UD IV 03/09/25 15:30 Piperacillin Sod/ Tazobactam Sod 100 ml @ 25 mls/hr Q12H IV 03/10/25 00:00 03/11/25 11:44 25 MLS/HR Sodium Chloride 10 ml QSHIFT@10,22 IV 03/10/25 22:00 03/11/25 07:21 10 ML Hydromorphone HCl 0.5 mg Q4HPRN PRN IV 03/11/25 08:30 03/11/25 16:53 0.5 MG Iron Sucrose 110 ml @ 110 mls/hr DAILY@1200 IV 03/11/25 17:00 03/15/25 12:59 03/11/25 16:47 110 MLS/HR objective GENERAL: The patient is an elderly female who appears to be chronically ill in no acute distress. Alert and oriented x2. HEENT: Exam is unremarkable except for the cervical collar. Oral mucosa is pale and dry. LUNGS: Clear to auscultation. CARDIOVASCULAR: Shows regular rate. No gallops. No atrial fibrillation. ABDOMEN: Soft, nontender. No organomegaly. No ascites. EXTREMITIES: Showed no clubbing, cyanosis or edema. laboratory and microbiology Laboratory Tests 03/11/25 15:26 03/11/25 05:30 03/11/25 03:26 Test 03/11/25 03:26 Range/Units Serum Glucose 162 H 74-106 mg/dL Assessment/Plan Assessment/Plan End-stage renal disease on HD Hyponatremia, which is chronic. The patient has been asked to restrict intake of hypotonic fluids and plain water. Anemia of CKD Cervical fracture. Continue with collar and request advice from Orthopedics or Neurosurgery. She is very high risk surgical patient, they are recommending conservative management, she will need to weak the cervical collar for 10 weeks Controlled hypertension. Pneumonia CAD, medical management UTI, cultures showing E. coli Severe Mitral regurgitation DM HTN Pulmonary hypertension Plan: Scheduled for HD for - Friday Last HD was onfriday Will continue HD on MWF schedule Pending GI eval Clinimix has been started IV antibiotics PRBC has been ordered , but unable to transfuse due to needing to test for specific antibody Will give Venofer 300 mg IV x1, and Epogen 10,000 U post HD for now Discussed plan with patient's family who were at bedside Dietary Evaluation Review Recommendations by RD: Dietary education by RD, Protein Supplementation Comments: 1) Initiate 60g CCHO renal cardiac diet 2) Initiate Nephro-Hilario @ 1 tb qd 3) Initiate Gage @ 1 pk qd 4) Initiate Nepro CarbStead qd 5) Refer to outpatient RD/CDCES for weight management 6) Follow-up with cardiology, pulmonology, and nephrology 7) Continue to monitor I&O, labs, and skin integrity Expected Outcomes/Goals: 1) appetite and labs to improve 2) wound to improve 3) gradual wt loss 4) f/u in 3-5 days Plan discussed with: Patient, Spouse, Other MJ DAMIAN MD Mar 11, 2025 19:15
[2025-03-11] MEDS: SODIUM CHL 0.9% 1000 ML BAG XX ONE (20:00)
[2025-03-12] VITALS (34 sets, daily range): BP systolic 84–135; BP diastolic 37–69; PULSE 74–86; RESP 10–22; TEMP 97.7–99; O2SAT 96–100
[2025-03-12] MEDS: EPOETIN ALFA-EPBX 10,000 UNIT/1ML VIAL SC ONE (01:01)
[2025-03-12] MEDS: VANCOMYCIN 500mg/100mL 100 ML IV ONE (01:01)
--- NOTE | 2025-03-12 03:28 | DVHINCON2 ---
Date of service: Mar 09, 2025 Referring Physician Roshan Reason for Consultation Elevated troponin History of Present Illness This is an 80 year-old female with a PMH of CKF, DM, ESRD on dialysis who presented to the ED on 02/26, accompanied by with a complaint of general weakness, headache, inability to move the left arm, let arm numbness, and uncontrollable diarrhea onset 02/25. Per , the patient had a fall on 02/23/25 where she was taken to [facility], [place] and diagnosed with a C2 fracture, no head abnormalities identified. Patient's notes patient also had an angiogram done during visit at [facility], [place] and reports 90% of her coronary hard arteries are clogged. WBC 12.6, HGB 7.8, HCT 23.5, BUN 30, [employer] 2.43, TROP 2359. Chest x-ray showed cardiomegaly and diffuse increased prominence of the pulmonary vasculature. Patient was admitted to the hospital. I am asked to consult on this patient. Family History: Patient reports no known family medical history. Allergies: Coded Allergies: NO KNOWN ALLERGIES (Unverified , 01/15/25) Home Meds Active Scripts Carvedilol (Carvedilol) 12.5 Mg Tab, 6.25 MG PO BID for 30 Days, #30 TAB 3 Refills Prov:PRADIP RANKIN RESDIENT 01/18/25 Furosemide (Lasix) 20 Mg Tb, 1 TAB PO DAILY for 30 Days, #30 TAB 3 Refills Prov:PRADIP RANKIN RESDIENT 01/18/25 Spironolactone (Spironolactone) 25 Mg Tab, 25 MG PO DAILY for 30 Days, #30 TAB 3 Refills Prov:PRADIP RANKIN RESDIENT 01/18/25 Atorvastatin Calcium (ATORVASTATIN CALCIUM) 40 Mg Tab, 40 MG PO HS for 30 Days, #30 TAB 3 Refills Prov:PRADIP RANKIN RESDIENT 01/18/25 Clopidogrel Bisulfate (Plavix) 75 Mg Tab, 75 MG PO DAILY for 30 Days, #30 TAB 3 Refills Prov:PRADIP RANKIN RESDIENT 01/18/25 Aspirin (Aspirin) 81 Mg Chw, 81 MG PO DAILY for 30 Days, #90 TAB.CHEW 3 Refills Prov:PRADIP RANKIN RESDIENT 01/18/25 Current Medications Current Medications Medications (Trade) Dose Ordered Sig/Virgen Route PRN Reason Start Time Stop Time Status Last Admin Amino Acids/ Electrolytes/ Dextrose 1,000 ml @ 41 mls/hr DAILY@2200 IV 03/08/25 22:00 03/08/25 22:43 Review of Systems Constitutional: reports: fatigue, malaise, weakness; denies: chills, diaphoresis, fever, sweats, others EENTM: denies: blurred vision, double vision, ear bleeding, ear discharge, ear drainage, ear pain, ear ringing, eye pain, eye redness, hearing loss, mouth pain, mouth swelling, nasal discharge, nose bleeding, nose congestion, nose pain, photophobia, tearing, throat pain, throat swelling, voice changes, others Respiratory: denies: cough, hemoptysis, orthopnea, SOB at rest, shortness of breath, SOB with excertion, stridor, wheezing, others Cardiovascular: denies: chest pain, dizzy spells, diaphoresis, Dyspnea on exertion, edema, irregular heart beat, left arm pain, lightheadedness, palpitations, PND, syncope, others Gastrointestinal: reports: diarrhea; denies: abdomen distended, abdominal pain, blood streaked bowels, constipated, dysphagia, difficulty swallowing, hematemesis, melena, nausea, poor appetite, poor fluid intake, rectal bleeding, rectal pain, vomiting, others Genitourinary: denies: abnormal vagina bleeding, burning, dyspareunia, dysuria, flank pain, frequency, hematuria, incontinence, pain, , vagina discharge, urgency, others Neurological: reports: headache, left sided numbness; denies: dizziness, fainting, left sided weakness, numbness, paresthesia, pre-existing deficit, right sided numbness, right sided weakness, seizure, speech problems, tingling, tremors, weakness, others Musculoskeletal: denies: back pain, gout, joint pain, joint swelling, muscle pain, muscle stiffness, neck pain, others Integumetry: denies: bruises, change in color, change in hair/nails, dryness, laceration, lesions, lumps, rash, wounds, others Allergic/Immunocompromised: denies: Difficulty Healing, Frequent Infections, Hives, Itching, others Hematologic/Lymphatic: denies: anemia, blood clots, easy bleeding, easy bruising, swollen glands, others Endocrine: denies: excessive hunger, excessive sweating, excessive thirst, excessive urination, flushing, intolerance to cold, intolerance to heat, unexplained weight gain, unexplained weight loss, others Psychiatric: denies: anxiety, bipolar disorder, depression, hopeless, panic disorder, schizophrenia, sleepless, suicidal, others All Other Systems: Reviewed and Negative Vital Signs Vital Signs Date Time Temp Pulse Resp B/P (MAP) Pulse Ox O2 Delivery O2 Flow Rate FiO2 03/09/25 13:00 98.8 95 19 130/74 (92) 92 98.8 03/09/25 08:00 Nasal Cannula* 3 32 Physical Exam GENERAL: Alert and oriented x 3. No acute distress. EYES: PERRL, EOMI. Anicteric. HENT: Moist mucous membranes. LUNGS: Clear to auscultation bilaterally. CARDIOVASCULAR: Regular rate and rhythm. ABDOMEN: Soft, nontender and nondistended. EXTREMITIES: No edema. NEUROLOGIC: No focal neurological deficits. SKIN: Warm, dry. Labs/Diagnostic Data Labs Test 03/09/25 11:58 03/09/25 10:20 03/09/25 05:34 03/09/25 02:30 Range/Units POC Glucose 196 H 70-106 mg/dl Blood Gas Specimen Type Arterial Blood Gas Sample Site Right radial Blood Gas Patient Temperature 37.0 Arterial Blood Date Drawn [id number] Arterial Blood pH 7.434 7.350-7.450 Arterial Blood Partial Pressure CO2 43.9 32.0-45.0 mmHg Arterial Blood Partial Pressure O2 79.9 L 83.0-108.0 mmHg Arterial Blood HCO3 28.7 H 21.0-28.0 mmol/L Arterial Blood Oxygen Saturation 95.1 94.0-98.0 % Arterial Blood Base Excess 4.1 H -2.0-3.0 mmol/L Arterial Blood Oxyhemoglobin 93.6 L 94.0-98.0 % Arterial Blood Carboxyhemoglobin 1.4 0.5-1.5 % Arterial Blood Methemoglobin 0.2 0.0-1.5 % Davey Test Yes Blood Gas Total Hemoglobin 7.80 L 12.0-16.0 g/dL Blood Gas Liter Flow 3.00 Blood Gas Modality Nasal cannula FiO2 % 32.0 White Blood Count 12.6 #H 4.4-10.8 10^3/uL Red Blood Count 2.63 L 4.0-5.20 10^6/uL Hemoglobin 7.8 L 12.2-16.2 g/dL Hematocrit 23.5 L 36.0-46.0 % Mean Corpuscular Volume 89.1 80.0-100.0 fL Mean Corpuscular Hemoglobin 29.6 28.0-32.0 pg Mean Corpuscular Hemoglobin Concent 33.2 32.0-36.0 g/dL Red Cell Distribution Width 20.4 H 11.8-14.3 % Platelet Count 281 140-450 10^3/uL Mean Platelet Volume 8.0 6.9-10.8 fL Neutrophils (%) (Auto) 87.0 H 37.0-80.0 % Lymphocytes (%) (Auto) 4.1 L 10.0-50.0 % Monocytes (%) (Auto) 7.3 0.0-12.0 % Eosinophils (%) (Auto) 0.6 0.0-7.0 % Basophils (%) (Auto) 1.0 0.0-2.0 % Neutrophils # (Auto) 10.9 H 1.6-8.6 10 ^3/uL Lymphocytes # (Auto) 0.5 0.4-5.4 10 ^3/uL Monocytes # (Auto) 0.9 0-1.3 10 ^3/uL Eosinophils # (Auto) 0.1 0-0.8 10 ^3/uL Basophils # (Auto) 0.1 0-0.2 10 ^3/uL Nucleated Red Blood Cells 0.1 % Prothrombin Time 11.9 H 9.3-11.8 sec Prothrombin Time INR 1.14 0.9-1.15 Activated Partial Thromboplast Time 40.5 H 24.5-34.5 SEC Sodium Level 141 136-145 mmol/L Potassium Level 3.8 3.5-5.1 mmol/L Chloride Level 97 L 98-107 mmol/L Carbon Dioxide Level 28 20-31 mmol/L Anion Gap 16 H 5-15 Blood Urea Nitrogen 30 H 9-23 mg/dL Creatinine 2.43 H 0.550-1.02 mg/dL Glomerular Filtration Rate Calc 20 >90 mL/min BUN/Creatinine Ratio 12.3 10.0-20.0 Serum Glucose 184 H 74-106 mg/dL Calcium Level 9.0 8.7-10.4 mg/dL Total Bilirubin 1.0 0.2-1.0 mg/dL Aspartate Amino Transferase (AST) 37 13-40 U/L Alanine Aminotransferase (ALT) 13 7-40 U/L Alkaline Phosphatase 101 46-116 U/L Total Protein 7.2 5.7-8.2 g/dL Albumin 3.6 3.2-4.8 g/dL Estimated GFR () 24 mL/min Estimated GFR (Non- 20 mL/min Phosphorus Level 5.4 H 2.4-5.1 mg/dL Magnesium Level 2.0 1.6-2.6 mg/dL Troponin I High Sensitivity 2359 *H </=34 ng/L Test 02/28/25 08:20 02/26/25 17:04 02/26/25 16:53 Range/Units Hepatitis B Surface Antigen Negative Negative Lactic Acid Level 1.1 0.4-2.0 mmol/L B-Type Natriuretic Peptide 4364.11 0-100 pg/mL Lipase 28 12-53 U/L Urine Color Cobb H Yellow Urine Clarity Ex.turbid Clear Urine pH 6.0 5.0-9.0 Urine Specific [place] 1.015 1.001-1.035 Urine Protein 1+ H Negative Urine Ketones Negative Negative Urine Blood 2+ H Negative /uL Urine Nitrite Negative Negative Urine Bilirubin Negative Negative Urine Urobilinogen Normal Negative mg/dL Urine Leukocyte Esterase 3+ Negative /uL Urine RBC 15 0 - 4 /hpf Urine Microscopic WBC 803 H 0-5 /HPF Urine Squamous Epithelial Cells Few <5 /hpf Urine Amorphous Crystals Few None Seen /hpf Urine Bacteria Many H None Seen /hpf Urine Hyaline Casts Few 0 - 2 /lpf Urine Glucose Normal Normal mg/dL Microbiology Date/Time Source Procedure Growth Status 03/01/25 13:09 Blood Blood Culture - Final Staphylococcus epidermidis Complete 02/27/25 05:20 Stool Clostridium difficile Toxin Assay - Final Complete 02/26/25 18:40 Urine - [place] Urine Culture - Final Escherichia coli Complete Assessment 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 Complicated UTI. ESRD on hemodialysis. Acute on chronic diastolic heart failure. NSTEMI type 2 likely due to above. Pneumonia Gram-positive versus negative. Acute hypoxic respiratory failure. Diabetes mellitus type 2 HGB A1c 6% on 01/16/2025 , insulin-dependent. Coronary artery disease without stent placement. Cardiomegaly with Severe MR. Severe pulmonary hypertension. Hypertension. Dyslipidemia. Hypokalemia. Diarrhea. Transversely oriented fracture through the C2 vertebral body below the level of the odontoid process with significant left lateral fracture extension into the left C2 pedicle. Protein-calorie malnutrition. Dysphagia. Plan/Recommendation I agree with your ongoing assessment and care of plan. Telemetry reviewed. IV antibiotics as ordered. Morphine for pain management. Additional plan as per the hospital course. A total of 45 minutes was spent reviewing the patient record, examining the patient, making a diagnostic and therapeutic plan, discussing this plan with medical personnel, following up on diagnostic studies and following the patient for clinical stability excluding any and all procedures. At least 50% of this time was spent in direct, [id number] contact. Plan discussed with: Patient LYEL ARROYO MD Mar 09, 2025 14:46
[2025-03-12 04:22] LABS: Alanine Aminotransferase 10 U/L (7-40); Albumin 3.4 g/dL (3.2-4.8); Alkaline Phosphatase 102 U/L (46-116); Anion Gap 9 (5-15); BUN/Creatinine Ratio 10.1 (10.0-20.0); Bilirubin, Total 0.8 mg/dL (0.2-1.0); Blood Urea Nitrogen 18 mg/dL (9-23); Carbon Dioxide 30 mmol/L (20-31); Chloride 99 mmol/L (98-107); Magnesium 1.9 mg/dL (1.6-2.6); Potassium 3.5 mmol/L (3.5-5.1); Sodium 138 mmol/L (136-145); Total Protein 7.0 g/dL (5.7-8.2)
[2025-03-12 04:23] LABS: Glucose 184 mg/dL (74-106)
[2025-03-12 04:24] LABS: Calcium 8.6 mg/dL (8.7-10.4)
[2025-03-12 04:36] LABS: Nucleated Red Blood Cells % 0.1 %
[2025-03-12 04:37] LABS: Hematocrit 21.3 % (36.0-46.0); Mean Corpuscular Hemoglobin 29.3 pg (28.0-32.0); Mean Corpuscular Volume 91.7 fL (80.0-100.0)
[2025-03-12 04:46] LABS: Hemoglobin 6.8 g/dL (12.2-16.2)
--- NOTE | 2025-03-12 07:08 | DVHPN2 ---
Progress Note - Dictate Date Seen: Mar 12, 2025 Has the PT tested + for MRSA If YES, has PT been informed?: Yes Medical Necessity Reason Pt with a Central, PICC or Fol: Yes Subjective no new symptoms vital signs Vital Sign Date Time Temp Pulse Resp B/P (MAP) Pulse Ox O2 Delivery O2 Flow Rate FiO2 03/12/25 06:35 78 16 105/79 03/12/25 06:00 100 Nasal Cannula* 2 28 03/12/25 04:00 98.2 98.2 Total Intake and Output 03/11/25 03/11/25 03/12/25 15:00 23:00 07:00 Intake Total 403 ml 438 ml 387 ml Output Total 20 ml 10 ml Balance 403 ml 418 ml 377 ml medications Current Medications Medications Dose Ordered Sig/Virgen Route Start Time Stop Time Status Last Admin Dose Admin Nitroglycerin 0.4 mg Q5MINP PRN SL 02/26/25 22:00 03/08/25 20:22 0.4 MG Carvedilol 6.25 mg BID PO 02/26/25 22:00 03/06/25 22:13 6.25 MG Aspirin 81 mg DAILY PO 02/27/25 10:00 03/06/25 10:00 81 MG Atorvastatin Calcium 40 mg HS PO 02/26/25 22:00 03/06/25 22:11 40 MG Pantoprazole Sodium 40 mg DAILY@0600 PO 02/27/25 06:00 03/06/25 05:28 40 MG Diagnostic Test (Pha) 1 strip ACHS 02/27/25 17:00 03/12/25 06:43 1 STRIP Insulin Human Regular ACHS SC 02/27/25 17:00 03/12/25 06:32 3 UNITS Dextrose 50 ml UD PRN IV 02/27/25 15:15 Nystatin 5 ml QID MT 02/27/25 18:00 03/07/25 05:28 5 ML Loperamide HCl 4 mg Q4HPRN PRN PO 03/05/25 14:00 03/06/25 18:35 4 MG Amino Acids 0 ml @ 0 mls/hr PER PHARMACY IV 03/08/25 13:45 Albuterol 2.5 mg Q4HPRN PRN NEB 03/08/25 14:15 03/08/25 14:43 2.5 MG Amino Acids/ Electrolytes/ Dextrose 1,000 ml @ 41 mls/hr DAILY@2200 IV 03/08/25 22:00 03/11/25 21:40 41 MLS/HR Vancomycin HCl 0 ml @ 0 mls/hr UD IV 03/09/25 15:30 Piperacillin Sod/ Tazobactam Sod 100 ml @ 25 mls/hr Q12H IV 03/10/25 00:00 03/12/25 01:36 25 MLS/HR Sodium Chloride 10 ml QSHIFT@10,22 IV 03/10/25 22:00 03/11/25 21:40 10 ML Hydromorphone HCl 0.5 mg Q4HPRN PRN IV 03/11/25 08:30 03/12/25 06:35 0.5 MG Iron Sucrose 110 ml @ 110 mls/hr DAILY@1200 IV 03/11/25 17:00 03/15/25 12:59 03/11/25 16:47 110 MLS/HR objective GENERAL: The patient is an elderly female who appears to be chronically ill in no acute distress. Alert and oriented x2. HEENT: Exam is unremarkable except for the cervical collar. Oral mucosa is pale and dry. LUNGS: Clear to auscultation. CARDIOVASCULAR: Shows regular rate. No gallops. No atrial fibrillation. ABDOMEN: Soft, nontender. No organomegaly. No ascites. EXTREMITIES: Showed no clubbing, cyanosis or edema. laboratory and microbiology Laboratory Tests 03/12/25 03:13 Test 03/12/25 03:13 Range/Units Serum Glucose 184 H 74-106 mg/dL Assessment/Plan Assessment/Plan End-stage renal disease on HD Hyponatremia, which is chronic. The patient has been asked to restrict intake of hypotonic fluids and plain water. Anemia of CKD Cervical fracture. Continue with collar and request advice from Orthopedics or Neurosurgery. She is very high risk surgical patient, they are recommending conservative management, she will need to weak the cervical collar for 10 weeks Controlled hypertension. Pneumonia CAD, medical management UTI, cultures showing E. coli Severe Mitral regurgitation DM HTN Pulmonary hypertension Plan: S/p HD yesterday. net UF 2L Next HD on Friday Will continue HD on MWF schedule Pending GI eval Clinimix IV antibiotics PRBC has been ordered , but unable to transfuse due to needing to test for specific antibody . most recent Hb is 6.8 g/dl repeat Venofer 200 mg IV x1 s/p Epogen 10,000 U post HD for now Discussed plan with patient's family who were at bedside Dietary Evaluation Review Recommendations by RD: Dietary education by RD, Protein Supplementation Comments: 1) Initiate 60g CCHO renal cardiac diet 2) Initiate Nephro-Hilario @ 1 tb qd 3) Initiate Gage @ 1 pk qd 4) Initiate Nepro CarbStead qd 5) Refer to outpatient RD/CDCES for weight management 6) Follow-up with cardiology, pulmonology, and nephrology 7) Continue to monitor I&O, labs, and skin integrity Expected Outcomes/Goals: 1) appetite and labs to improve 2) wound to improve 3) gradual wt loss 4) f/u in 3-5 days Plan discussed with: Patient, Other MJ DAMIAN MD Mar 12, 2025 07:08
[2025-03-12] MEDS: POTASSIUM PHOSPHATE 26.4 MEQ in SODIUM CHL 0.9% 100 ML IV ONE (15:00)
--- NOTE | 2025-03-12 17:57 | DVHPN2 ---
Assessment/Plan Assessment/Plan low o2 rec, will try to get swallow eval. if not able to will have to do picc and TPN. cardio plan for intervention. will attempt to get blood. bcx clear. c/w abx. full code after fam discussion. Plan discussed with: Other Date of Service: Mar 12, 2025 Billing Provider: STEF PEREZ MD Common Visit Codes: [id number] CARE 30-74 MIN STEF PEREZ MD Mar 12, 2025 17:57
[2025-03-13] VITALS (30 sets, daily range): BP systolic 106–134; BP diastolic 54–71; PULSE 73–85; RESP 10–30; TEMP 97.1–98.9; O2SAT 95–100
--- NOTE | 2025-03-13 01:27 | DVHPN2 ---
Progress Note - Dictate Date Seen: Mar 10, 2025 Has the PT tested + for MRSA If YES, has PT been informed?: Yes Medical Necessity Reason Pt with a Central, PICC or Fol: Yes Subjective Patient was seen and evaluated in follow up. Patient underwent HD and 1.5L was taken off. Patient's family members are present at bedside. K 3.4,SHEET FOLDER 1.70. Telemetry reviewed. vital signs Vital Sign Date Time Temp Pulse Resp B/P (MAP) Pulse Ox O2 Delivery O2 Flow Rate FiO2 03/10/25 13:58 76 18 121/56 03/10/25 09:15 100 Nasal Cannula* 3 32 03/10/25 09:00 97.9 97.9 Total Intake and Output 03/09/25 03/09/25 03/10/25 15:00 23:00 07:00 Intake Total 1000 ml 0 ml Output Total 10 ml Balance 1000 ml -10 ml medications Current Medications Medications Dose Ordered Sig/Virgen Route Start Time Stop Time Status Last Admin Dose Admin Nitroglycerin 0.4 mg Q5MINP PRN SL 02/26/25 22:00 03/08/25 20:22 0.4 MG Carvedilol 6.25 mg BID PO 02/26/25 22:00 03/06/25 22:13 6.25 MG Aspirin 81 mg DAILY PO 02/27/25 10:00 03/06/25 10:00 81 MG Atorvastatin Calcium 40 mg HS PO 02/26/25 22:00 03/06/25 22:11 40 MG Enoxaparin Sodium 30 mg HS SC 02/27/25 22:00 03/09/25 22:52 30 MG Pantoprazole Sodium 40 mg DAILY@0600 PO 02/27/25 06:00 03/06/25 05:28 40 MG Diagnostic Test (Pha) 1 strip ACHS 02/27/25 17:00 03/10/25 11:25 1 STRIP Insulin Human Regular ACHS SC 02/27/25 17:00 03/10/25 11:35 3 UNITS Dextrose 50 ml UD PRN IV 02/27/25 15:15 Nystatin 5 ml QID MT 02/27/25 18:00 03/07/25 05:28 5 ML Morphine Sulfate 2 mg Q30M PRN IV 03/02/25 10:15 03/09/25 00:29 2 MG Morphine Sulfate 1 mg Q4HP PRN IV 03/02/25 10:15 03/10/25 13:28 1 MG Loperamide HCl 4 mg Q4HPRN PRN PO 03/05/25 14:00 03/06/25 18:35 4 MG Amino Acids 0 ml @ 0 mls/hr PER PHARMACY IV 03/08/25 13:45 Albuterol 2.5 mg Q4HPRN PRN NEB 03/08/25 14:15 03/08/25 14:43 2.5 MG Amino Acids/ Electrolytes/ Dextrose 1,000 ml @ 41 mls/hr DAILY@2200 IV 03/08/25 22:00 03/09/25 22:53 41 MLS/HR Vancomycin HCl 0 ml @ 0 mls/hr UD IV 03/09/25 15:30 Piperacillin Sod/ Tazobactam Sod 100 ml @ 25 mls/hr Q12H IV 03/10/25 00:00 03/10/25 11:32 25 MLS/HR objective GENERAL: Alert and oriented x 3. No acute distress. EYES: PERRL, EOMI. Anicteric. HENT: Moist mucous membranes. LUNGS: Clear to auscultation bilaterally. CARDIOVASCULAR: Regular rate and rhythm. ABDOMEN: Soft, nontender and nondistended. EXTREMITIES: No edema. NEUROLOGIC: No focal neurological deficits. SKIN: Warm, dry. 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 Complicated UTI. ESRD on hemodialysis. Acute on chronic diastolic heart failure. NSTEMI type 2 likely due to above. Pneumonia Gram-positive versus negative. Acute hypoxic respiratory failure. Diabetes mellitus type 2 HGB A1c 6% on 01/16/2025 , insulin-dependent. Coronary artery disease without stent placement. Cardiomegaly with Severe MR. Severe pulmonary hypertension. Hypertension . Dyslipidemia. Hypokalemia. Diarrhea. Transversely oriented fracture through the C2 vertebral body below the level of the odontoid process with significant left lateral fracture extension into the left C2 pedicle. Assessment/Plan Continued all current supportive medical care. IV antibiotics as ordered. Morphine for pain management. Additional plan as per the hospital course. Dietary Evaluation Review Recommendations by RD: Dietary education by RD, Protein Supplementation Comments: 1) Initiate 60g CCHO renal cardiac diet 2) Initiate Nephro-Hilario @ 1 tb qd 3) Initiate Gage @ 1 pk qd 4) Initiate Nepro CarbStead qd 5) Refer to outpatient RD/CD[facility] for weight management 6) Follow-up with cardiology, pulmonology, and nephrology 7) Continue to monitor I&O, labs, and skin integrity Expected Outcomes/Goals: 1) appetite and labs to improve 2) wound to improve 3) gradual wt loss 4) f/u in 3-5 days Plan discussed with: Patient LYLE ARROYO MD Mar 10, 2025 15:05
--- NOTE | 2025-03-13 01:28 | DVHPN2 ---
Progress Note - Dictate Date Seen: Mar 11, 2025 Has the PT tested + for MRSA If YES, has PT been informed?: Yes Medical Necessity Reason Pt with a Central, PICC or Fol: Yes Subjective Patient was seen and evaluated in follow up in the ICU. Patient was upgraded to the ICU for closer monitoring. Patient complains of severe generalized pain. HGB 6.4, HCT 19.3, BUN 34, SURGICAL SERVICES DIRECTOR 2.73, CA 8.4. Patient ordered to receive PRBC transfusion. vital signs Vital Sign Date Time Temp Pulse Resp B/P (MAP) Pulse Ox O2 Delivery O2 Flow Rate FiO2 03/11/25 11:46 13 100 Nasal Cannula* 2 28 03/11/25 11:46 87 03/11/25 11:00 129/51 (77) 03/11/25 08:00 98.2 98.2 Total Intake and Output 03/10/25 03/10/25 03/11/25 15:00 23:00 07:00 Intake Total 678 ml 205 ml 428 ml Output Total 25 ml 50 ml Balance 678 ml 180 ml 378 ml medications Current Medications Medications Dose Ordered Sig/Virgen Route Start Time Stop Time Status Last Admin Dose Admin Nitroglycerin 0.4 mg Q5MINP PRN SL 02/26/25 22:00 03/08/25 20:22 0.4 MG Carvedilol 6.25 mg BID PO 02/26/25 22:00 03/06/25 22:13 6.25 MG Aspirin 81 mg DAILY PO 02/27/25 10:00 03/06/25 10:00 81 MG Atorvastatin Calcium 40 mg HS PO 02/26/25 22:00 03/06/25 22:11 40 MG Pantoprazole Sodium 40 mg DAILY@0600 PO 02/27/25 06:00 03/06/25 05:28 40 MG Diagnostic Test (Pha) 1 strip ACHS 02/27/25 17:00 03/11/25 10:22 1 STRIP Insulin Human Regular ACHS SC 02/27/25 17:00 03/11/25 10:32 2 UNITS Dextrose 50 ml UD PRN IV 02/27/25 15:15 Nystatin 5 ml QID MT 02/27/25 18:00 03/07/25 05:28 5 ML Morphine Sulfate 2 mg Q30M PRN IV 03/02/25 10:15 03/09/25 00:29 2 MG Loperamide HCl 4 mg Q4HPRN PRN PO 03/05/25 14:00 03/06/25 18:35 4 MG Amino Acids 0 ml @ 0 mls/hr PER PHARMACY IV 03/08/25 13:45 Albuterol 2.5 mg Q4HPRN PRN NEB 03/08/25 14:15 03/08/25 14:43 2.5 MG Amino Acids/ Electrolytes/ Dextrose 1,000 ml @ 41 mls/hr DAILY@2200 IV 03/08/25 22:00 03/10/25 22:09 41 MLS/HR Vancomycin HCl 0 ml @ 0 mls/hr UD IV 03/09/25 15:30 Piperacillin Sod/ Tazobactam Sod 100 ml @ 25 mls/hr Q12H IV 03/10/25 00:00 03/11/25 11:44 25 MLS/HR Sodium Chloride 10 ml QSHIFT@10,22 IV 03/10/25 22:00 03/11/25 07:21 10 ML Hydromorphone HCl 0.5 mg Q4HPRN PRN IV 03/11/25 08:30 03/11/25 09:56 0.5 MG objective GENERAL: Alert and oriented x 3. No acute distress. EYES: PERRL, EOMI. Anicteric. HENT: Moist mucous membranes. LUNGS: Clear to auscultation bilaterally. CARDIOVASCULAR: Regular rate and rhythm. ABDOMEN: Soft, nontender and nondistended. EXTREMITIES: No edema. NEUROLOGIC: No focal neurological deficits. SKIN: Warm, dry. 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 Complicated UTI. ESRD on hemodialysis. Acute on chronic diastolic heart failure. NSTEMI type 2 likely due to above. Pneumonia Gram-positive versus negative. Acute hypoxic respiratory failure. Diabetes mellitus type 2 HGB A1c 6% on 01/16/2025 , insulin-dependent. Coronary artery disease without stent placement. Cardiomegaly with Severe MR. Severe pulmonary hypertension. Hypertension . Dyslipidemia. Hypokalemia. Diarrhea. Transversely oriented fracture through the C2 vertebral body below the level of the odontoid process with significant left lateral fracture extension into the left C2 pedicle. Assessment/Plan Continued all current supportive medical care. IV antibiotics as ordered. Dilaudid for pain management. Additional plan as per the hospital course. Critical care time of 45 minutes provided to include time spent evaluation of patient at bedside, when appropriate patient/family education for diagnosis, treatment plan, review of pertinent medical information and discussion of care with specialty providers and PCP. Dietary Evaluation Review Recommendations by RD: Dietary education by RD, Protein Supplementation Comments: 1) Initiate 60g CCHO renal cardiac diet 2) Initiate Nephro-Hilario @ 1 tb qd 3) Initiate Gage @ 1 pk qd 4) Initiate Nepro CarbStead qd 5) Refer to outpatient RD/CD[facility] for weight management 6) Follow-up with cardiology, pulmonology, and nephrology 7) Continue to monitor I&O, labs, and skin integrity Expected Outcomes/Goals: 1) appetite and labs to improve 2) wound to improve 3) gradual wt loss 4) f/u in 3-5 days Plan discussed with: Patient LYLE ARROYO MD Mar 11, 2025 12:45
--- NOTE | 2025-03-13 01:30 | DVHPN2 ---
Progress Note - Dictate Date Seen: Mar 12, 2025 Has the PT tested + for MRSA If YES, has PT been informed?: Yes Medical Necessity Reason Pt with a Central, PICC or Fol: Yes Subjective Patient was seen and evaluated in follow up in the ICU. Patient is on 2 LPM NC. Patient is refusing all cares. WBC 11.6, HGB 6.8, HCT 21.3, CRITICAL CARE TECHNICIAN 1.78,CA 8.6. Pending swallow eval. vital signs Vital Sign Date Time Temp Pulse Resp B/P (MAP) Pulse Ox O2 Delivery O2 Flow Rate FiO2 03/12/25 12:57 72 24 146/36 03/12/25 12:00 100 Nasal Cannula* 2 28 03/12/25 04:00 98.2 98.2 Total Intake and Output 03/11/25 03/11/25 03/12/25 15:00 23:00 07:00 Intake Total 403 ml 438 ml 428 ml Output Total 20 ml 10 ml Balance 403 ml 418 ml 418 ml medications Current Medications Medications Dose Ordered Sig/Virgen Route Start Time Stop Time Status Last Admin Dose Admin Nitroglycerin 0.4 mg Q5MINP PRN SL 02/26/25 22:00 03/08/25 20:22 0.4 MG Carvedilol 6.25 mg BID PO 02/26/25 22:00 03/06/25 22:13 6.25 MG Aspirin 81 mg DAILY PO 02/27/25 10:00 03/06/25 10:00 81 MG Atorvastatin Calcium 40 mg HS PO 02/26/25 22:00 03/06/25 22:11 40 MG Pantoprazole Sodium 40 mg DAILY@0600 PO 02/27/25 06:00 03/06/25 05:28 40 MG Diagnostic Test (Pha) 1 strip ACHS 02/27/25 17:00 03/12/25 11:30 1 STRIP Insulin Human Regular ACHS SC 02/27/25 17:00 03/12/25 11:30 3 UNITS Dextrose 50 ml UD PRN IV 02/27/25 15:15 Nystatin 5 ml QID MT 02/27/25 18:00 03/07/25 05:28 5 ML Loperamide HCl 4 mg Q4HPRN PRN PO 03/05/25 14:00 03/06/25 18:35 4 MG Amino Acids 0 ml @ 0 mls/hr PER PHARMACY IV 03/08/25 13:45 Albuterol 2.5 mg Q4HPRN PRN NEB 03/08/25 14:15 03/08/25 14:43 2.5 MG Amino Acids/ Electrolytes/ Dextrose 1,000 ml @ 41 mls/hr DAILY@2200 IV 03/08/25 22:00 03/11/25 21:40 41 MLS/HR Vancomycin HCl 0 ml @ 0 mls/hr UD IV 03/09/25 15:30 Piperacillin Sod/ Tazobactam Sod 100 ml @ 25 mls/hr Q12H IV 03/10/25 00:00 03/12/25 12:08 25 MLS/HR Sodium Chloride 10 ml QSHIFT@,22 IV 03/10/25 22:00 03/12/25 07:11 10 ML Hydromorphone HCl 0.5 mg Q4HPRN PRN IV 03/11/25 08:30 03/12/25 12:18 0.5 MG Iron Sucrose 110 ml @ 110 mls/hr DAILY@1200 IV 03/11/25 17:00 03/15/25 12:59 03/12/25 11:06 110 MLS/HR objective GENERAL: Alert and oriented x 3. No acute distress. EYES: PERRL, EOMI. Anicteric. HENT: Moist mucous membranes. LUNGS: Clear to auscultation bilaterally. CARDIOVASCULAR: Regular rate and rhythm. ABDOMEN: Soft, nontender and nondistended. EXTREMITIES: No edema. NEUROLOGIC: No focal neurological deficits. SKIN: Warm, dry. 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 Complicated UTI. ESRD on hemodialysis. Acute on chronic diastolic heart failure. NSTEMI type 2 likely due to above. Pneumonia Gram-positive versus negative. Acute hypoxic respiratory failure. Diabetes mellitus type 2 HGB A1c 6% on 01/16/2025 , insulin-dependent. Coronary artery disease without stent placement. Cardiomegaly with Severe MR. Severe pulmonary hypertension. Hypertension . Dyslipidemia. Hypokalemia. Diarrhea. Transversely oriented fracture through the C2 vertebral body below the level of the odontoid process with significant left lateral fracture extension into the left C2 pedicle. Assessment/Plan Continued all current supportive medical care. Aspirin, Lipitor. Coreg. Dilaudid for pain management. IV antibiotics as ordered. GI prophylactics. Additional plan as per the hospital course. Critical care time of 45 minutes provided to include time spent evaluation of patient at bedside, when appropriate patient/family education for diagnosis, treatment plan, review of pertinent medical information and discussion of care with specialty providers and PCP. Dietary Evaluation Review Recommendations by RD: Dietary education by RD, Protein Supplementation Comments: 1) Initiate 60g CCHO renal cardiac diet 2) Initiate Nephro-Hilario @ 1 tb qd 3) Initiate Gage @ 1 pk qd 4) Initiate Nepro CarbStead qd 5) Refer to outpatient RD/[facility] for weight management 6) Follow-up with cardiology, pulmonology, and nephrology 7) Continue to monitor I&O, labs, and skin integrity Expected Outcomes/Goals: 1) appetite and labs to improve 2) wound to improve 3) gradual wt loss 4) f/u in 3-5 days Plan discussed with: Patient LYLE ARROYO MD Mar 12, 2025 13:05
[2025-03-13 02:32] LABS: Hematocrit 26.5 % (36.0-46.0); Hemoglobin 8.8 g/dL (12.2-16.2); Mean Corpuscular Hemoglobin 29.0 pg (28.0-32.0); Mean Corpuscular Volume 87.2 fL (80.0-100.0); Nucleated Red Blood Cells % 0.6 %
[2025-03-13 02:48] LABS: INR 1.34 (0.9-1.15); Partial Thromboplastin Time 48.8 SEC (24.5-34.5); Prothrombin Time 13.8 sec (9.3-11.8)
[2025-03-13 02:50] LABS: Alanine Aminotransferase 10 U/L (7-40); Albumin 3.4 g/dL (3.2-4.8); Alkaline Phosphatase 104 U/L (46-116); Anion Gap 11 (5-15); BUN/Creatinine Ratio 11.5 (10.0-20.0); Carbon Dioxide 29 mmol/L (20-31); Magnesium 1.7 mg/dL (1.6-2.6); Potassium 4.0 mmol/L (3.5-5.1); Sodium 137 mmol/L (136-145); Total Protein 7.0 g/dL (5.7-8.2)
[2025-03-13 02:51] LABS: Bilirubin, Total 0.8 mg/dL (0.2-1.0)
[2025-03-13 02:58] LABS: Blood Urea Nitrogen 33 mg/dL (9-23); Calcium 8.6 mg/dL (8.7-10.4); Chloride 97 mmol/L (98-107); Glucose 142 mg/dL (74-106)
--- NOTE | 2025-03-13 05:53 | DVH ---
EXAM: XY CHEST PORTABLE HISTORY: pre procedure x ray COMPARISON: XY CHEST PORTABLE on DOS: 03/09/25, XY CHEST XRAY 1 VIEW on DOS: 02/27/25, XY CHEST PORTABL E on DOS: 01/15/25, CT scan of the chest dated 02/27/2025 TECHNIQUE: Portable AP view of the chest was performed. FINDINGS: Cardiomegaly, sternal wires, and diffuse interstitial prominence re-identified. There is calcific sc arring in the right upper lobe, stable. Right chest tunneled dialysis catheter is re-identified. Righ t upper extremity PICC line is newly identified with its tip in the right atrium. No pneumothorax. IMPRESSION: 1. Stable cardiomegaly, postoperative changes of the heart, and diffuse interstitial prominence sugge stive of CHF or interstitial pneumonia. 2. New right upper extremity PICC line with its tip in the right atrium.
[2025-03-13] MEDS: PIPERACILLIN-TAZOB 2.25GM 50 ML IV SCH (12:02)
[2025-03-13] MEDS: IODIXANOL 320MG/ML 100ML BTL IV ONE (14:08)
[2025-03-13] MEDS: MIDAZOLAM HCL 2MG/2ML 2ml VIAL (1mg/ml) ONE (14:13)
[2025-03-13] MEDS: ANGIOMAX 250 MG VIAL IV ONE (14:13)
[2025-03-13] MEDS: LIDOCAINE 2%HCL (LOCAL ANESTH.) INJ 20ML MDV ONE (14:13)
[2025-03-13] MEDS: SODIUM CHL 0.9% 50 ML ONE (14:13)
[2025-03-13] MEDS: fentaNYL CITRATE 100 MCG/2 ML VL ONE (14:13)
--- NOTE | 2025-03-13 15:07 | DVHPN2 ---
Progress Note - Dictate Date Seen: Mar 13, 2025 Has the PT tested + for MRSA If YES, has PT been informed?: Yes Medical Necessity Reason Pt with a Central, PICC or Fol: Yes Subjective no new symptoms vital signs Vital Sign Date Time Temp Pulse Resp B/P (MAP) Pulse Ox O2 Delivery O2 Flow Rate FiO2 03/13/25 13:46 17 98 Nasal Cannula* 2 28 03/13/25 13:46 77 03/13/25 13:00 131/69 (89) 03/13/25 12:00 98.6 98.6 Total Intake and Output 03/12/25 03/12/25 03/13/25 15:00 23:00 07:00 Intake Total 513 ml 578 ml 718 ml Output Total 40 ml 10 ml Balance 513 ml 538 ml 708 ml medications Current Medications Medications Dose Ordered Sig/Virgen Route Start Time Stop Time Status Last Admin Dose Admin Nitroglycerin 0.4 mg Q5MINP PRN SL 02/26/25 22:00 03/08/25 20:22 0.4 MG Carvedilol 6.25 mg BID PO 02/26/25 22:00 03/06/25 22:13 6.25 MG Aspirin 81 mg DAILY PO 02/27/25 10:00 03/06/25 10:00 81 MG Atorvastatin Calcium 40 mg HS PO 02/26/25 22:00 03/06/25 22:11 40 MG Pantoprazole Sodium 40 mg DAILY@0600 PO 02/27/25 06:00 03/06/25 05:28 40 MG Diagnostic Test (Pha) 1 strip ACHS 02/27/25 17:00 03/13/25 10:53 1 STRIP Insulin Human Regular ACHS SC 02/27/25 17:00 03/13/25 10:54 3 UNITS Dextrose 50 ml UD PRN IV 02/27/25 15:15 Nystatin 5 ml QID MT 02/27/25 18:00 03/07/25 05:28 5 ML Loperamide HCl 4 mg Q4HPRN PRN PO 03/05/25 14:00 03/06/25 18:35 4 MG Amino Acids 0 ml @ 0 mls/hr PER PHARMACY IV 03/08/25 13:45 Albuterol 2.5 mg Q4HPRN PRN NEB 03/08/25 14:15 03/13/25 07:22 2.5 MG Amino Acids/ Electrolytes/ Dextrose 1,000 ml @ 41 mls/hr DAILY@2200 IV 03/08/25 22:00 03/12/25 21:52 41 MLS/HR Vancomycin HCl 0 ml @ 0 mls/hr UD IV 03/09/25 15:30 Sodium Chloride 10 ml QSHIFT@10,22 IV 03/10/25 22:00 03/13/25 07:17 10 ML Hydromorphone HCl 0.5 mg Q4HPRN PRN IV 03/11/25 08:30 03/13/25 10:09 0.5 MG Iron Sucrose 110 ml @ 110 mls/hr DAILY@1200 IV 03/11/25 17:00 03/15/25 12:59 03/13/25 11:03 110 MLS/HR Piperacillin Sod/ Tazobactam Sod 50 ml @ 12.5 mls/hr Q8H IV 03/13/25 10:00 03/13/25 12:02 12.5 MLS/HR objective GENERAL: The patient is an elderly female who appears to be chronically ill in no acute distress. Alert and oriented x2. HEENT: Exam is unremarkable except for the cervical collar. Oral mucosa is pale and dry. LUNGS: Clear to auscultation. CARDIOVASCULAR: Shows regular rate. No gallops. No atrial fibrillation. ABDOMEN: Soft, nontender. No organomegaly. No ascites. EXTREMITIES: Showed no clubbing, cyanosis or edema. laboratory and microbiology Laboratory Tests 03/13/25 02:00 Test 03/13/25 02:00 Range/Units Serum Glucose 142 H 74-106 mg/dL Assessment/Plan Assessment/Plan End-stage renal disease on HD Hyponatremia, which is chronic. The patient has been asked to restrict intake of hypotonic fluids and plain water. Anemia of CKD Cervical fracture. Continue with collar and request advice from Orthopedics or Neurosurgery. She is very high risk surgical patient, they are recommending conservative management, she will need to weak the cervical collar for 10 weeks Controlled hypertension. Pneumonia CAD, medical management UTI, cultures showing E. coli Severe Mitral regurgitation DM HTN Pulmonary hypertension Plan: S/p HD Friday. net UF 2L Next HD on Friday Will continue HD on MWF schedule cardiac cath today Clinimix IV antibiotics s/p 2 U PRBC this morning monitor H&H , transfuse if Hb < 7 g/dl Dietary Evaluation Review Recommendations by RD: Dietary education by RD, Protein Supplementation Comments: 1) Initiate 60g CCHO renal cardiac diet 2) Initiate Nephro-Hilario @ 1 tb qd 3) Initiate Gage @ 1 pk qd 4) Initiate Nepro CarbStead qd 5) Refer to outpatient RD/[facility] for weight management 6) Follow-up with cardiology, pulmonology, and nephrology 7) Continue to monitor I&O, labs, and skin integrity Expected Outcomes/Goals: 1) appetite and labs to improve 2) wound to improve 3) gradual wt loss 4) f/u in 3-5 days Plan discussed with: Other MJ DAMIAN MD Mar 13, 2025 15:07
[2025-03-13] MEDS: TICAGRELOR 90 MG TAB ONE (16:19)
[2025-03-13] MEDS: EPTIFIBATIDE INJ (2MG/ML) 10ML VIAL IV ONE (16:56)
--- NOTE | 2025-03-13 18:25 | DVH ---
CHEST RADIOGRAPH Indication: ng tube placement Technique: Single frontal view of the chest was obtained Comparison: XY CHEST PORTABLE on DOS: 03/13/25, XY CHEST PORTABLE on DOS: 03/09/25, XY CHEST XRAY 1 EW on DOS: 02/27/25 FINDINGS: Lines and Tubes: Sternal wire sutures in place. Tunnel catheter in place in the right internal jugula r vein. PICC line in the right arm in place unchanged. Enteric tube in the stomach. Lungs: No focal consolidation. Increased pulmonary vascular markings may represent increased fluid ov erload or congestive failure. Pleura: No effusion. No pneumothorax. Cardiomediastinal contours: Unremarkable Bones: No acute osseous abnormality. IMPRESSION: 1. Enteric tube in the stomach. 2. PICC line in place unchanged 3. Tunneled dialysis catheter unchanged. 4. Increased bronchovascular markings throughout both lung william.
--- NOTE | 2025-03-13 19:52 | DVHPN2 ---
Assessment/Plan Assessment/Plan low o2 rec, will try to get swallow eval. if not able to will have to do picc and TPN. cardio plan for intervention. will attempt to get blood. bcx clear. c/w abx. full code after fam discussion. cath today, difuse disease, cardio plan for staged pci? not able to swallow, spoke with GI, no endoscopy, will do ngt interim, plan for surgical peg at some point. poor prognosis Date of Service: Mar 13, 2025 Billing Provider: STEF PEREZ MD Common Visit Codes: [id number] CARE 30-74 MIN STEF PEREZ MD Mar 13, 2025 19:52
--- NOTE | 2025-03-13 19:57 | DVHPN2 ---
Progress Note - Dictate Date Seen: Mar 13, 2025 Has the PT tested + for MRSA If YES, has PT been informed?: Yes Medical Necessity Reason Pt with a Central, PICC or Fol: Yes Subjective Patient was seen and evaluated in follow up in the ICU. Patient is on 2 LPM NC. Patient is receptive to all cares today. HGB 8.8, HCT 26.5, BUN 33, CHANGER FIXER 2.86. Chest x-ray shows stable cardiomegaly, postoperative changes of the heart, and diffuse interstitial prominence suggestive of CHF or interstitial pneumonia. vital signs Vital Sign Date Time Temp Pulse Resp B/P (MAP) Pulse Ox O2 Delivery O2 Flow Rate FiO2 03/13/25 13:46 17 98 Nasal Cannula* 2 28 03/13/25 13:46 77 03/13/25 13:00 131/69 (89) 03/13/25 12:00 98.6 98.6 Total Intake and Output 03/12/25 03/12/25 03/13/25 15:00 23:00 07:00 Intake Total 513 ml 578 ml 718 ml Output Total 40 ml 10 ml Balance 513 ml 538 ml 708 ml medications Current Medications Medications Dose Ordered Sig/Virgen Route Start Time Stop Time Status Last Admin Dose Admin Nitroglycerin 0.4 mg Q5MINP PRN SL 02/26/25 22:00 03/08/25 20:22 0.4 MG Carvedilol 6.25 mg BID PO 02/26/25 22:00 03/06/25 22:13 6.25 MG Aspirin 81 mg DAILY PO 02/27/25 10:00 03/06/25 10:00 81 MG Atorvastatin Calcium 40 mg HS PO 02/26/25 22:00 03/06/25 22:11 40 MG Pantoprazole Sodium 40 mg DAILY@0600 PO 02/27/25 06:00 03/06/25 05:28 40 MG Diagnostic Test (Pha) 1 strip ACHS 02/27/25 17:00 03/13/25 10:53 1 STRIP Insulin Human Regular ACHS SC 02/27/25 17:00 03/13/25 10:54 3 UNITS Dextrose 50 ml UD PRN IV 02/27/25 15:15 Nystatin 5 ml QID MT 02/27/25 18:00 03/07/25 05:28 5 ML Loperamide HCl 4 mg Q4HPRN PRN PO 03/05/25 14:00 03/06/25 18:35 4 MG Amino Acids 0 ml @ 0 mls/hr PER PHARMACY IV 03/08/25 13:45 Albuterol 2.5 mg Q4HPRN PRN NEB 03/08/25 14:15 03/13/25 07:22 2.5 MG Amino Acids/ Electrolytes/ Dextrose 1,000 ml @ 41 mls/hr DAILY@2200 IV 03/08/25 22:00 03/12/25 21:52 41 MLS/HR Vancomycin HCl 0 ml @ 0 mls/hr UD IV 03/09/25 15:30 Sodium Chloride 10 ml QSHIFT@10,22 IV 03/10/25 22:00 03/13/25 07:17 10 ML Hydromorphone HCl 0.5 mg Q4HPRN PRN IV 03/11/25 08:30 03/13/25 10:09 0.5 MG Iron Sucrose 110 ml @ 110 mls/hr DAILY@1200 IV 03/11/25 17:00 03/15/25 12:59 03/13/25 11:03 110 MLS/HR Piperacillin Sod/ Tazobactam Sod 50 ml @ 12.5 mls/hr Q8H IV 03/13/25 10:00 03/13/25 12:02 12.5 MLS/HR objective GENERAL: Alert and oriented x 3. No acute distress. EYES: PERRL, EOMI. Anicteric. HENT: Moist mucous membranes. LUNGS: Clear to auscultation bilaterally. CARDIOVASCULAR: Regular rate and rhythm. ABDOMEN: Soft, nontender and nondistended. EXTREMITIES: No edema. NEUROLOGIC: No focal neurological deficits. SKIN: Warm, dry. 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 Complicated UTI. ESRD on hemodialysis. Acute on chronic diastolic heart failure. NSTEMI type 2 likely due to above. Pneumonia Gram-positive versus negative. Acute hypoxic respiratory failure. Diabetes mellitus type 2 HGB A1c 6% on 01/16/2025 , insulin-dependent. Coronary artery disease without stent placement. Cardiomegaly with Severe MR. Severe pulmonary hypertension. Hypertension . Dyslipidemia. Hypokalemia. Diarrhea. Transversely oriented fracture through the C2 vertebral body below the level of the odontoid process with significant left lateral fracture extension into the left C2 pedicle. Assessment/Plan Continued all current supportive medical care. Dilaudid for pain management. IV antibiotics as ordered. Additional plan as per the hospital course. Critical care time of 45 minutes provided to include time spent evaluation of patient at bedside, when appropriate patient/family education for diagnosis, treatment plan, review of pertinent medical information and discussion of care with specialty providers and PCP. Dietary Evaluation Review Recommendations by RD: Dietary education by RD, Protein Supplementation Comments: 1) Initiate 60g CCHO renal cardiac diet 2) Initiate Nephro-Hilario @ 1 tb qd 3) Initiate Gage @ 1 pk qd 4) Initiate Nepro CarbStead qd 5) Refer to outpatient RD/CDCES for weight management 6) Follow-up with cardiology, pulmonology, and nephrology 7) Continue to monitor I&O, labs, and skin integrity Expected Outcomes/Goals: 1) appetite and labs to improve 2) wound to improve 3) gradual wt loss 4) f/u in 3-5 days Plan discussed with: Patient LYLE ARROYO MD Mar 13, 2025 14:14
--- NOTE | 2025-03-13 20:15 | DVHOP ---
DATE OF SURGERY: 03/13/2025 ROOM NUMBER: 266, bed A. TECHNIQUES PERFORMED: * Emergency case. * Insertion of the 6-Irish arterial line in the right femoral artery. * Left coronary angiography. * Mechanical thrombectomy of the obtuse marginal artery with help of Penumbra. * Balloon angioplasty of the obtuse marginal artery at its distal one-third region with 2.0 x 12 mm length semi-compliant balloon. * Stenting and angioplasty of distal obtuse marginal artery with 2.25 x 15 mm length Deni [place] stent by [employer]. * The balloon angioplasty of bifurcation lesion of obtuse marginal artery with 2.0 x 12 mm length balloon. * Balloon angioplasty of the circumflex artery in the proximal region and also involving the large segment of the whole entire obtuse marginal artery with 2.0 x 30 mm length semi-compliant balloon. * Stenting and angioplasty of obtuse marginal artery with 2.5 x 34 mm length [place] stent by [employer] and made the ultimate stent size up to 3.10 mm in size. * Right iliofemoral artery angiography. * Arteriotomy Angio-Seal of the right femoral artery. * Intravenous administration of the Integrilin bolus. COMPLICATIONS: None. ASSISTANTS: Assisted by Rosanna Davidson Janice, and Afshan. Today, it is an emergency case, on Friday done at approximately 3:30 p.m. INDICATIONS: The patient with acute myocardial infarction. Troponin in range of 2300, 100% occlusion of the left obtuse marginal artery. Critical long segment type C lesion noted in obtuse marginal artery. DESCRIPTION OF PROCEDURE: Risks and benefits has been discussed, brought to the research laboratory specialist. Right groin was shaved, was cleaned with soap and Betadine. A 6-Irish arterial line was placed, XB 3.5 6-Irish guiding catheter worked. With a side hole, we have put MS Whisper wire, which went very smoothly in the obtuse marginal artery. Subsequently, we have now put a 2.0 x 12 mm balloon, which was able to facilitate the wire all the way into the obtuse marginal artery. Through the most of the distal region, balloon angioplasty was done over there and subsequently I tried to put a Penumbra catheter, Penumbra catheter did not cross the bifurcation lesion, so now I put a 2.0 x 12 mm length again a balloon, balloon angioplasty was done at the site of the bifurcation of the obtuse marginal artery, subsequently now again tried to put a Penumbra catheter, but the patient already had a wire in the mcgrath circumflex and also obtuse marginal artery, and because of the 2 wires the Penumbra catheter was unable to be advanced well, so subsequently it has been discontinued. Subsequently, now we have put the 2.25 x 15 mm length Deni [place] stent by [employer] deployed at most to distal region of the left obtuse marginal artery. We had taken up to the 13 atmospheres and 15 atmospheres, and the whole area has been inflated very well and made the size of the stent almost more than 2.5 mm in size. Fully deflated. Subsequently, a similar balloon had been drawn back and was inflated at a bifurcation lesion of obtuse marginal artery to circumflex artery and subsequently now we have put a 2.0 x 30 mm in length long semi-compliant balloon and balloon angioplasty of the whole obtuse marginal artery was done from bifurcation of distal circumflex, and also of the whole obtuse marginal artery. Subsequent balloon had been discontinued. Subsequently, I put a stent 2.5 x 34 mm length [place] stent and deployed from the distal region of the circumflex all the way to the site of the bifurcation of the obtuse marginal artery involving the proximal and mid region of the entire obtuse marginal artery was taken gradually up to 19 atmosphere, 21 atmosphere, and 25 atmosphere and old stent size ultimately was more than 3.2 mm in size. It inflated very well. With balloon deflated, balloon had been discontinued. Angiography was done. The result was satisfactory. The balloon, wire, and catheter all had been discontinued, and subsequently we also did a right iliofemoral artery angiography. Arteriotomy, Angio-Seal of the right femoral artery also have been done smoothly. These were no complications. We had got a problem that the patient was unable to swallow the Brilinta tablet because she also has cervical collar. So now, we have given her the Integrilin bolus 4 mL and subsequently we have taken the patient to the ICU. I am going to put NG tube. I am going to give the powder form of the Brilinta and I also confirmed with our pharmacists and they also agreed. By the way, we do not have the medicine named cangrelor in IV form, it is not available in the hospital and it will take another more than 24 hours to get an approval and then they may get it according to pharmacists. The family has been informed, reviewed the entire video, problems discussed about stent thrombosis if she cannot take the medicine, and the , son, daughters, everyone is here and we have discussed. CONCLUSION: * Preprocedure, the lesion #1, the distal circumflex, 100% block, type C lesion, LAYLA grade 0 flow. * The postprocedure LAYLA grade 3 flow. Refill of stenosis is 0%. Successful procedure. * Lesion #2 is a bifurcation lesion to the obtuse marginal artery all the way to his mid region, type C lesion, LAYLA grade 2 flow and the bifurcation lesion 95%. The mid region is 90%. * The postprocedure LAYLA grade 3 flow and residual stenosis is 0%. * No spasm. No dissection. No thrombosis. Procedure successful. PLAN OF ACTION: The patient needs to take the Brilinta, aspirin, beta-mohamud, cholesterol reducing medicine, and she needs to come back to research laboratory specialist in the next few days and we will fix the left anterior descending artery. Family informed. Waldemar Metzger MD MP/JOHN TID: [id number] RECEIPT: [id number]
[2025-03-13] MEDS: PANTOPRAZOLE 40 MG/10 ML VIAL INJ IV SCH (21:21)
[2025-03-13] MEDS: TICAGRELOR 90 MG TAB PO SCH (21:22)
[2025-03-13] MEDS: METOPROLOL TARTRATE 25 MG TAB NG SCH (21:22)
[2025-03-14] VITALS (40 sets, daily range): BP systolic 114–156; BP diastolic 60–101; PULSE 73–95; RESP 13–31; TEMP 97–98.9; O2SAT 89–100
--- NOTE | 2025-03-14 03:14 | DVHOP ---
DATE OF SURGERY: 03/13/2025 TECHNIQUES PERFORMED: * Emergency case. * Ultrasound of the right femoral artery. * Management of conscious sedation. * Fluoroscopic guided insertion of a 6-Slovak arterial line in the right femoral artery. * [place] selective left and right coronary artery angiography. INDICATIONS: The patient is having acute myocardial infarction. The patient's troponin has gone up to 2359 and acute coronary syndrome. The patient on 03/09/2025, I have interviewed the family. Family advised about a DNR and no aggressive measures, so the cardiac cath was not done at that time. Subsequently, I again met the family and the patient's changed his decision and wanted me to do the procedure, so the patient has been brought to the orthodontic lab technician. DESCRIPTION OF PROCEDURE: Risks and benefits all have been explained. As the patient is on, she is a high risk. She also has some problems with the swallow evaluation. This patient has a history of cervical collar also now. Brought to orthodontic lab technician. The right groin was shaved, was cleaned with soap and Betadine. Ultrasound was done. A 6-Slovak arterial line was placed under fluoroscopy in a standard manner. We have put a JL4 catheter and the left coronary angio done. With the help of PTFO catheter, right coronary angiography was done. Procedure completed. IMPRESSION: * Normal left main. * Left anterior descending artery in its mid region is narrowed, 99%. * The patient's circumflex artery is a very large dominant artery and the circumflex artery gives a very large obtuse marginal branch. At the site of the bifurcation of the obtuse marginal artery, there is underlying 95% plus blockage. The distal region of the obtuse marginal artery is 100% acutely blocked, LAYLA grade 0 flow. The in-between segment of the obtuse marginal artery also have a narrowing in the range of 90%, which is quite a long segment narrowing. * The circumflex artery is moderately narrowing. * The right coronary artery is a non-dominant artery that has mild disease. * The patient also has a history of aortic valve prosthesis. PLAN OF ACTION: As follows: At this time, I advised to do the intervention on 100% occluded obtuse marginal artery and also the long segment critical narrowing of the obtuse marginal artery. Waldemar Metzger MD MP/IOANA/YARED/ORTIZ TID: [id number] RECEIPT: [id number] [facility]
[2025-03-14 03:37] LABS: Hematocrit 27.2 % (36.0-46.0); Hemoglobin 8.9 g/dL (12.2-16.2); Mean Corpuscular Hemoglobin 29.7 pg (28.0-32.0); Mean Corpuscular Volume 90.6 fL (80.0-100.0); Nucleated Red Blood Cells % 0.3 %
[2025-03-14 05:29] LABS: Albumin 3.3 g/dL (3.2-4.8); Alkaline Phosphatase 113 U/L (46-116); Anion Gap 10 (5-15); BUN/Creatinine Ratio 12.9 (10.0-20.0); Carbon Dioxide 25 mmol/L (20-31); Magnesium 1.6 mg/dL (1.6-2.6); Potassium 4.0 mmol/L (3.5-5.1); Total Protein 6.9 g/dL (5.7-8.2)
[2025-03-14 05:30] LABS: Bilirubin, Total 1.0 mg/dL (0.2-1.0)
[2025-03-14 05:35] LABS: Chloride 96 mmol/L (98-107); Glucose 185 mg/dL (74-106); Sodium 131 mmol/L (136-145)
[2025-03-14 05:36] LABS: Alanine Aminotransferase 9 U/L (7-40); Blood Urea Nitrogen 49 mg/dL (9-23); Calcium 8.5 mg/dL (8.7-10.4)
[2025-03-14] MEDS: SODIUM CHL 0.9% 1000 ML BAG XX ONE (15:00)
[2025-03-14] MEDS ORDERED: Nepro With Carb Steady 1 Liter Bottle GT SCH (15:15)
--- NOTE | 2025-03-14 17:16 | DVHPN2 ---
Progress Note - Dictate Date Seen: Mar 14, 2025 Has the PT tested + for MRSA If YES, has PT been informed?: Yes Medical Necessity Reason Pt with a Central, PICC or Fol: Yes Subjective Patient's is at bedside. She is undergoing hemodialysis uneventfully at this time. vital signs Vital Sign Date Time Temp Pulse Resp B/P (MAP) Pulse Ox O2 Delivery O2 Flow Rate FiO2 03/14/25 12:55 79 19 133/75 03/14/25 09:40 96 Nasal Cannula* 3 32 03/14/25 06:00 97.0 97.0 Total Intake and Output 03/13/25 03/13/25 03/14/25 15:00 23:00 07:00 Intake Total 353.0 ml 340.5 ml 408 ml Output Total 10 ml 50 ml Balance 353.0 ml 330.5 ml 358 ml medications Current Medications Medications Dose Ordered Sig/Virgen Route Start Time Stop Time Status Last Admin Dose Admin Nitroglycerin 0.4 mg Q5MINP PRN SL 02/26/25 22:00 03/08/25 20:22 0.4 MG Carvedilol 6.25 mg BID PO 02/26/25 22:00 03/13/25 23:24 6.25 MG Aspirin 81 mg DAILY PO 02/27/25 10:00 03/06/25 10:00 81 MG Atorvastatin Calcium 40 mg HS PO 02/26/25 22:00 03/13/25 21:22 40 MG Diagnostic Test (Pha) 1 strip ACHS 02/27/25 17:00 03/14/25 11:58 1 STRIP Insulin Human Regular ACHS SC 02/27/25 17:00 03/14/25 12:05 3 UNITS Dextrose 50 ml UD PRN IV 02/27/25 15:15 Nystatin 5 ml QID MT 02/27/25 18:00 03/07/25 05:28 5 ML Loperamide HCl 4 mg Q4HPRN PRN PO 03/05/25 14:00 03/06/25 18:35 4 MG Albuterol 2.5 mg Q4HPRN PRN NEB 03/08/25 14:15 03/13/25 23:05 2.5 MG Vancomycin HCl 0 ml @ 0 mls/hr UD IV 03/09/25 15:30 Sodium Chloride 10 ml QSHIFT@10,22 IV 03/10/25 22:00 03/13/25 21:21 10 ML Iron Sucrose 110 ml @ 110 mls/hr DAILY@1200 IV 03/11/25 17:00 03/15/25 12:59 03/13/25 11:03 110 MLS/HR Piperacillin Sod/ Tazobactam Sod 50 ml @ 12.5 mls/hr Q8H IV 03/13/25 10:00 03/14/25 02:03 12.5 MLS/HR Ticagrelor 90 mg BID PO 03/13/25 22:00 03/13/25 21:22 90 MG Metoprolol Tartrate 12.5 mg BID NG 03/13/25 22:00 03/13/25 21:22 12.5 MG Pantoprazole Sodium 40 mg BID IV 03/13/25 22:00 03/13/25 21:21 40 MG Hydromorphone HCl 0.5 mg Q4HPRN PRN IV 03/14/25 15:15 Enteral Nutritional Formula 1,000 ml 30ML/HR GT 03/14/25 15:15 Acetaminophen/ Hydrocodone Bitart 1 tab Q6HPRN PRN PO 03/14/25 18:00 objective HEENT: No evidence of JVD, no oral ulcers. C-collar is in place. Pulmonary: Lungs are clear on auscultation bilaterally Cardiovascular S1-S2, no S3 or S4 Abdomen: Bowel sounds positive, soft no rebound tenderness Skin: No rash Neurological: Alert, oriented, no focal weakness Extremities: Trace edema of the hands Access: Tunneled dialysis line laboratory and microbiology Laboratory Tests 03/14/25 04:46 03/14/25 02:40 Test 03/14/25 04:46 Range/Units Serum Glucose 185 H 74-106 mg/dL Assessment/Plan Assessment: End-stage renal disease on HD Friday. Hyponatremia, which is chronic. The patient has been asked to restrict intake of hypotonic fluids and plain water. Anemia of CKD Cervical fracture. Continue with collar and request advice from Orthopedics or Neurosurgery. She is very high risk surgical patient, they are recommending conservative management, she will need to weak the cervical collar for 10 weeks Controlled hypertension. Pneumonia CAD, medical management UTI, cultures showing E. coli Severe Mitral regurgitation DM HTN Pulmonary hypertension Plan: Will continue HD on MWF schedule Going for angiogram again on Friday Clinimix C-collar in place IV antibiotics Transfuse as needed Hasmukh for goal hemoglobin ideally 10-11 monitor H&H , transfuse if Hb < 7 g/dl Plan of care from Nephrology perspective discussed with the in the patient at bedside. Dietary Evaluation Review Recommendations by RD: Dietary education by RD, Protein Supplementation Comments: 1) Initiate 60g CCHO renal cardiac diet 2) Initiate Nephro-Hilario @ 1 tb qd 3) Initiate Gage @ 1 pk qd 4) Initiate Nepro CarbStead qd 5) Refer to outpatient RD/CDCES for weight management 6) Follow-up with cardiology, pulmonology, and nephrology 7) Continue to monitor I&O, labs, and skin integrity Expected Outcomes/Goals: 1) appetite and labs to improve 2) wound to improve 3) gradual wt loss 4) f/u in 3-5 days Plan discussed with: Patient, Spouse TRISHA BERKOWITZ MD Mar 14, 2025 17:16
[2025-03-14] MEDS: MAGNESIUM SULFATE 1GM/100ML 100 ML IV ONE (18:00)
--- NOTE | 2025-03-14 18:37 | DVHPN2 ---
Assessment/Plan Assessment/Plan low o2 rec, will try to get swallow eval. if not able to will have to do picc and TPN. cardio plan for intervention. will attempt to get blood. bcx clear. c/w abx. full code after fam discussion. cath today, difuse disease, cardio plan for staged pci? not able to swallow, spoke with GI, no endoscopy, will do ngt interim, plan for surgical peg at some point. poor prognosis cannot get surg peg 2/2 dapt. plan for enteral feeding with ngt. Plan discussed with: Other My Orders Orders - STEF PEREZ MD Procedure Category Date Status Time Hydromorphone PHA 03/14/25 In Process Injection (Dilaudid 15:15 Complete Blood Count LAB 03/15/25 Verified 05:00 Tube Feeding DIET 03/14/25 Transmitted Dinner Nutritional PHA 03/14/25 In Process Supplements (Nepro 15:15 Hydrocodone-Acet PHA 03/14/25 In Process 5/325mg Tab ([place] 18:00 Apply Barrier Cream BARBRA 03/14/25 In Process 12:32 Date of Service: Mar 14, 2025 Billing Provider: STEF PEREZ MD Common Visit Codes: [id number] CARE 30-74 MIN STEF PEREZ MD Mar 14, 2025 18:37
[2025-03-14] MEDS: HYDROcodone-ACET 5/325MG TAB PO PRN (18:55)
[2025-03-14] MEDS: EPOETIN ALFA-EPBX 10,000 UNIT/1ML VIAL SC ONE (22:10)
[2025-03-14] MEDS: VANCOMYCIN 500mg/100mL 100 ML IV ONE (22:12)
--- NOTE | 2025-03-14 22:44 | DVHPN2 ---
Progress Note - Dictate Date Seen: Mar 14, 2025 Has the PT tested + for MRSA If YES, has PT been informed?: Yes Medical Necessity Reason Pt with a Central, PICC or Fol: Yes Subjective Patient was seen and evaluated in follow up in the ICU. Patient is on 3 LPM NC. Patient underwent emergency [place] selective left and right coronary artery angiography and was advised to do the intervention on 100% occluded obtuse marginal artery and also the long segment critical narrowing of the obtuse marginal artery. Patietn underwent emergency left coronary angiography, mechanical thrombectomy of the obtuse marginal artery with help of Penumbra, balloon angioplasty of the obtuse marginal artery at its distal one-third region, stenting and angioplasty of distal obtuse marginal artery, balloon angioplasty of bifurcation lesion of obtuse marginal artery, balloon angioplasty of the circumflex artery in the proximal region and also involving the large segment of the whole entire obtuse marginal artery, stenting and angioplasty of obtuse marginal artery, intravenous administration of the Integrilin bolus. Preprocedure, the lesion #1, the distal circumflex, 100% block, type C lesion, LAYLA grade 0 flow. The postprocedure LAYLA grade 3 flow. Refill of stenosis is 0%. Successful procedure. Lesion #2 is a bifurcation lesion to the obtuse marginal artery all the way to his mid region, type C lesion, LAYLA grade 2 flow and the bifurcation lesion 95%. The mid region is 90%. The postprocedure LAYLA grade 3 flow and residual stenosis is 0%. No spasm. No dissection. No thrombosis. Procedure successful. The patient needs to take the Brilinta, aspirin, beta-mohamud, cholesterol reducing medicine, and she needs to come back to labor relations analyst in the next few days and we will fix the left anterior descending artery. Family informed. vital signs Vital Sign Date Time Temp Pulse Resp B/P (MAP) Pulse Ox O2 Delivery O2 Flow Rate FiO2 03/14/25 22:11 85 140/72 03/14/25 19:00 25 96 03/14/25 18:00 Nasal Cannula* 3 32 03/14/25 16:00 97.7 97.7 Total Intake and Output 03/13/25 03/13/25 03/14/25 15:00 23:00 07:00 Intake Total 353.0 ml 340.5 ml 408 ml Output Total 10 ml 50 ml Balance 353.0 ml 330.5 ml 358 ml medications Current Medications Medications Dose Ordered Sig/Virgen Route Start Time Stop Time Status Last Admin Dose Admin Nitroglycerin 0.4 mg Q5MINP PRN SL 02/26/25 22:00 03/08/25 20:22 0.4 MG Carvedilol 6.25 mg BID PO 02/26/25 22:00 03/14/25 22:11 6.25 MG Aspirin 81 mg DAILY PO 02/27/25 10:00 03/14/25 18:54 81 MG Atorvastatin Calcium 40 mg HS PO 02/26/25 22:00 03/14/25 22:10 40 MG Diagnostic Test (Pha) 1 strip ACHS 02/27/25 17:00 03/14/25 17:36 1 STRIP Insulin Human Regular ACHS SC 02/27/25 17:00 03/14/25 12:05 3 UNITS Dextrose 50 ml UD PRN IV 02/27/25 15:15 Nystatin 5 ml QID MT 02/27/25 18:00 03/14/25 22:12 5 ML Loperamide HCl 4 mg Q4HPRN PRN PO 03/05/25 14:00 03/14/25 22:10 4 MG Albuterol 2.5 mg Q4HPRN PRN NEB 03/08/25 14:15 03/13/25 23:05 2.5 MG Vancomycin HCl 0 ml @ 0 mls/hr UD IV 03/09/25 15:30 Sodium Chloride 10 ml QSHIFT@10,22 IV 03/10/25 22:00 03/14/25 22:12 10 ML Iron Sucrose 110 ml @ 110 mls/hr DAILY@1200 IV 03/11/25 17:00 03/15/25 12:59 03/14/25 18:54 110 MLS/HR Piperacillin Sod/ Tazobactam Sod 50 ml @ 12.5 mls/hr Q8H IV 03/13/25 10:00 03/14/25 02:03 12.5 MLS/HR Ticagrelor 90 mg BID PO 03/13/25 22:00 03/14/25 22:11 90 MG Metoprolol Tartrate 12.5 mg BID NG 03/13/25 22:00 03/14/25 22:11 12.5 MG Pantoprazole Sodium 40 mg BID IV 03/13/25 22:00 03/14/25 22:12 40 MG Hydromorphone HCl 0.5 mg Q4HPRN PRN IV 03/14/25 15:15 Enteral Nutritional Formula 1,000 ml 30ML/HR GT 03/14/25 15:15 Acetaminophen/ Hydrocodone Bitart 1 tab Q6HR PO 03/15/25 00:00 objective GENERAL: Alert and oriented x 3. No acute distress. EYES: PERRL, EOMI. Anicteric. HENT: Moist mucous membranes. LUNGS: Clear to auscultation bilaterally. CARDIOVASCULAR: Regular rate and rhythm. ABDOMEN: Soft, nontender and nondistended. EXTREMITIES: No edema. NEUROLOGIC: No focal neurological deficits. SKIN: Warm, dry. 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 Complicated UTI. ESRD on hemodialysis. Acute on chronic diastolic heart failure. NSTEMI type 2 likely due to above. Pneumonia Gram-positive versus negative. Acute hypoxic respiratory failure. Diabetes mellitus type 2 HGB A1c 6% on 01/16/2025 , insulin-dependent. Coronary artery disease without stent placement. Cardiomegaly with Severe MR. Severe pulmonary hypertension. Hypertension . Dyslipidemia. Hypokalemia. Diarrhea. Transversely oriented fracture through the C2 vertebral body below the level of the odontoid process with significant left lateral fracture extension into the left C2 pedicle. Assessment/Plan Continued all current supportive medical care. Dilaudid and [place] for pain management. Aspirin, Lipitor, Metoprolol. IV antibiotics as ordered. Nitro SL. Additional plan as per the hospital course. Critical care time of 45 minutes provided to include time spent evaluation of patient at bedside, when appropriate patient/family education for diagnosis, treatment plan, review of pertinent medical information and discussion of care with specialty providers and PCP. Dietary Evaluation Review Recommendations by RD: Dietary education by RD, Protein Supplementation Comments: 1) Initiate 60g CCHO renal cardiac diet 2) Initiate Nephro-Hilario @ 1 tb qd 3) Initiate Gage @ 1 pk qd 4) Initiate Nepro CarbStead qd 5) Refer to outpatient RD/CDCES for weight management 6) Follow-up with cardiology, pulmonology, and nephrology 7) Continue to monitor I&O, labs, and skin integrity Expected Outcomes/Goals: 1) appetite and labs to improve 2) wound to improve 3) gradual wt loss 4) f/u in 3-5 days Plan discussed with: Patient LYLE ARROYO MD Mar 14, 2025 22:44
[2025-03-14] MEDS: HYDROcodone-ACET 5/325MG TAB PO SCH (23:50)
[2025-03-15] VITALS (47 sets, daily range): BP systolic 99–134; BP diastolic 48–85; PULSE 64–77; RESP 12–28; TEMP 97.9–98.6; O2SAT 92–100
[2025-03-15] MEDS: HYDROmorphone HCL 2 MG/ML VL/or syr IV PRN (03:54)
[2025-03-15 04:13] LABS: Hematocrit 27.2 % (36.0-46.0); Hemoglobin 9.1 g/dL (12.2-16.2); Mean Corpuscular Hemoglobin 29.2 pg (28.0-32.0); Mean Corpuscular Volume 87.4 fL (80.0-100.0); Nucleated Red Blood Cells % 1.2 %
[2025-03-15 04:14] LABS: Alanine Aminotransferase 29 U/L (7-40); Alkaline Phosphatase 113 U/L (46-116); Calcium 8.8 mg/dL (8.7-10.4); Carbon Dioxide 29 mmol/L (20-31)
[2025-03-15 04:15] LABS: Anion Gap 12 (5-15); BUN/Creatinine Ratio 10.2 (10.0-20.0); Bilirubin, Total 1.1 mg/dL (0.2-1.0); Magnesium 2.0 mg/dL (1.6-2.6); Sodium 137 mmol/L (136-145); Total Protein 6.5 g/dL (5.7-8.2)
[2025-03-15 04:24] LABS: Albumin 3.0 g/dL (3.2-4.8); Blood Urea Nitrogen 26 mg/dL (9-23); Chloride 96 mmol/L (98-107); Glucose 145 mg/dL (74-106); Potassium 2.9 mmol/L (3.5-5.1)
[2025-03-15] MEDS: POTASSIUM CHL 20MEQ/100ML 100 ML IV ONE ×2 (06:24→11:46)
--- NOTE | 2025-03-15 11:12 | DVH ---
Indication: weak pedal pulses Technique: Real- time ultrasound images of the left lower extremity with grayscale, color, and spect ral wave Doppler. Comparison: None Findings: Monophasic waveforms within the left POINT OF CARE TECHNICIAN, SFA, posterior tibial, dorsalis pedis arteries. Scattered a therosclerotic calcification disease. Peak systolic velocities are as follows (in cm/s): Left: Common femoral artery: 63 Profunda femoris: 36 Proximal superficial femoral: 63 Mid superficial femoral artery: 101 Distal superficial femoral artery: 33 Popliteal artery: 82 Posterior tibial artery: 116 Dorsalis pedis artery: 50 Impression: Diffuse left lower extremity monophasic waveforms which may indicate aortoiliac/ POINT OF CARE TECHNICIAN disease. Decreased velocity within the distal left SFA consistent with hemodynamically significant stenosis. Pending patient would benefit from CT angiogram of the lower extremities to further characterize.
--- NOTE | 2025-03-15 15:10 | DVHPN2 ---
Progress Note - Dictate Date Seen: Mar 15, 2025 Has the PT tested + for MRSA If YES, has PT been informed?: Yes Medical Necessity Reason Pt with a Central, PICC or Fol: Yes Subjective Patient's is at bedside. vital signs Vital Sign Date Time Temp Pulse Resp B/P (MAP) Pulse Ox O2 Delivery O2 Flow Rate FiO2 03/15/25 14:00 21 98 Nasal Cannula* 1 24 03/15/25 11:47 68 121/58 03/15/25 04:00 97.9 97.9 Total Intake and Output 03/14/25 03/14/25 03/15/25 15:00 23:00 07:00 Intake Total 328 ml 774 ml 255 ml Output Total 0 ml 2525 ml 10 ml Balance 328 ml -1751 ml 245 ml medications Current Medications Medications Dose Ordered Sig/Virgen Route Start Time Stop Time Status Last Admin Dose Admin Nitroglycerin 0.4 mg Q5MINP PRN SL 02/26/25 22:00 03/08/25 20:22 0.4 MG Carvedilol 6.25 mg BID PO 02/26/25 22:00 03/15/25 11:47 6.25 MG Aspirin 81 mg DAILY PO 02/27/25 10:00 03/15/25 11:48 81 MG Atorvastatin Calcium 40 mg HS PO 02/26/25 22:00 03/14/25 22:10 40 MG Diagnostic Test (Pha) 1 strip ACHS 02/27/25 17:00 03/15/25 11:24 1 STRIP Insulin Human Regular ACHS SC 02/27/25 17:00 03/15/25 06:33 2 UNITS Dextrose 50 ml UD PRN IV 02/27/25 15:15 Loperamide HCl 4 mg Q4HPRN PRN PO 03/05/25 14:00 03/14/25 22:10 4 MG Albuterol 2.5 mg Q4HPRN PRN NEB 03/08/25 14:15 03/15/25 09:47 2.5 MG Vancomycin HCl 0 ml @ 0 mls/hr UD IV 03/09/25 15:30 Sodium Chloride 10 ml QSHIFT@10,22 IV 03/10/25 22:00 03/15/25 11:46 10 ML Piperacillin Sod/ Tazobactam Sod 50 ml @ 12.5 mls/hr Q8H IV 03/13/25 10:00 03/15/25 11:46 12.5 MLS/HR Ticagrelor 90 mg BID PO 03/13/25 22:00 03/15/25 11:48 90 MG Pantoprazole Sodium 40 mg BID IV 03/13/25 22:00 03/15/25 11:46 40 MG Hydromorphone HCl 0.5 mg Q4HPRN PRN IV 03/14/25 15:15 03/15/25 03:54 0.5 MG Enteral Nutritional Formula 1,000 ml 30ML/HR GT 03/14/25 15:15 Acetaminophen/ Hydrocodone Bitart 1 tab Q6HR PO 03/15/25 00:00 03/15/25 12:29 1 TAB Nystatin 5 ml QID MT 03/15/25 18:00 objective HEENT: No evidence of JVD, no oral ulcers. C-collar is in place. Pulmonary: Lungs are clear on auscultation bilaterally Cardiovascular S1-S2, no S3 or S4 Abdomen: Bowel sounds positive, soft no rebound tenderness Skin: No rash Neurological: Alert, oriented, no focal weakness Extremities: Trace edema of the hands Access: Tunneled dialysis line laboratory and microbiology Laboratory Tests 03/15/25 03:38 Test 03/15/25 03:38 Range/Units Serum Glucose 145 H 74-106 mg/dL Assessment/Plan Assessment: End-stage renal disease on HD Friday. Hyponatremia, which is chronic. The patient has been asked to restrict intake of hypotonic fluids and plain water. Anemia of CKD Cervical fracture. Continue with collar and request advice from Orthopedics or Neurosurgery. She is very high risk surgical patient, they are recommending conservative management, she will need to weak the cervical collar for 10 weeks Controlled hypertension. Pneumonia CAD, medical management UTI, cultures showing E. coli Severe Mitral regurgitation DM HTN Pulmonary hypertension Hypokalemia Plan: Will continue HD on MWF schedule Going for angiogram again on Friday Replace potassium Okay to remove Cristobal Clinimix C-collar in place IV antibiotics Transfuse as needed Hasmukh for goal hemoglobin ideally 10-11 monitor H&H , transfuse if Hb < 7 g/dl Plan of care from Nephrology perspective discussed with the in the patient at bedside. Dietary Evaluation Review Recommendations by RD: Dietary education by RD, Protein Supplementation Comments: 1) Initiate 60g CCHO renal cardiac diet 2) Initiate Nephro-Hilario @ 1 tb qd 3) Initiate Gage @ 1 pk qd 4) Initiate Nepro CarbStead qd 5) Refer to outpatient RD/CDCES for weight management 6) Follow-up with cardiology, pulmonology, and nephrology 7) Continue to monitor I&O, labs, and skin integrity Expected Outcomes/Goals: 1) appetite and labs to improve 2) wound to improve 3) gradual wt loss 4) f/u in 3-5 days Plan discussed with: Patient TRISHA BERKOWITZ MD Mar 15, 2025 15:10
--- NOTE | 2025-03-15 15:19 | DVHPN2 ---
Assessment/Plan Assessment/Plan low o2 rec, will try to get swallow eval. if not able to will have to do picc and TPN. cardio plan for intervention. will attempt to get blood. bcx clear. c/w abx. full code after fam discussion. cath today, difuse disease, cardio plan for staged pci? not able to swallow, spoke with GI, no endoscopy, will do ngt interim, plan for surgical peg at some point. poor prognosis cannot get surg peg 2/2 dapt. plan for enteral feeding with ngt. bedside attempted swallow eval with patient. able to swallow thin fluid with pain. starting nystatin swish and swallow, will reetempt feed once pain improed Plan discussed with: Patient My Orders Orders - STEF PEREZ MD Procedure Category Date Status Time Hydromorphone PHA 03/14/25 In Process Injection (Dilaudid 15:15 Tube Feeding DIET 03/14/25 Transmitted Dinner Nutritional PHA 03/14/25 In Process Supplements (Nepro 15:15 Apply Barrier Cream BARBRA 03/14/25 In Process 12:32 Hydrocodone-Acet PHA 03/15/25 In Process 5/325mg Tab (Caroleen 00:00 Lt Low Ext Art Duplex US 03/15/25 Resulted 09:34 Nystatin PHA 03/15/25 In Process (Mouth-Throat) 18:00 D/C Cristobal BARBRA 03/15/25 In Process 14:28 Date of Service: Mar 15, 2025 Billing Provider: STEF PEREZ MD Common Visit Codes: [id number] CARE 30-74 MIN STEF PEREZ MD Mar 15, 2025 15:18
[2025-03-15 16:52] LABS: Alanine Aminotransferase 34 U/L (7-40); Anion Gap 14 (5-15); BUN/Creatinine Ratio 10.9 (10.0-20.0); Calcium 8.7 mg/dL (8.7-10.4); Carbon Dioxide 25 mmol/L (20-31); Potassium 3.8 mmol/L (3.5-5.1); Total Protein 6.6 g/dL (5.7-8.2)
[2025-03-15 16:53] LABS: Albumin 3.1 g/dL (3.2-4.8); Alkaline Phosphatase 127 U/L (46-116); Bilirubin, Total 1.0 mg/dL (0.2-1.0); Blood Urea Nitrogen 34 mg/dL (9-23); Chloride 97 mmol/L (98-107); Glucose 160 mg/dL (74-106); Sodium 136 mmol/L (136-145)
[2025-03-15] MEDS: NYSTATIN (MOUTH-THROAT) 500,000 UNITS/5 ML SUSP MT SCH (17:39)
[2025-03-16] VITALS (60 sets, daily range): BP systolic 96–172; BP diastolic 48–78; PULSE 62–75; RESP 14–27; TEMP 97.9–98.1; O2SAT 95–100
--- NOTE | 2025-03-16 02:44 | DVHPN2 ---
Progress Note - Dictate Date Seen: Mar 15, 2025 Has the PT tested + for MRSA If YES, has PT been informed?: Yes Medical Necessity Reason Pt with a Central, PICC or Fol: Yes Subjective Patient was seen and evaluated in follow up in the ICU. Overnight, the patient reported bowel incontinence. Patient is on 1 LPM NC. HGB 9.1, HCT 27.2, K 2.9, CL 96, BUN 26, TOP ICER 2.56, AST 57. Lower extremity duplex diffuse left lower extremity monophasic waveforms which may indicate aortoiliac/ ADOBE DEVELOPER disease. Decreased velocity within the distal left SFA consistent with hemodynamically significant stenosis. vital signs Vital Sign Date Time Temp Pulse Resp B/P (MAP) Pulse Ox O2 Delivery O2 Flow Rate FiO2 03/15/25 14:00 21 98 Nasal Cannula* 1 24 03/15/25 11:47 68 121/58 03/15/25 04:00 97.9 97.9 Total Intake and Output 03/14/25 03/14/25 03/15/25 15:00 23:00 07:00 Intake Total 328 ml 774 ml 255 ml Output Total 0 ml 2525 ml 10 ml Balance 328 ml -1751 ml 245 ml medications Current Medications Medications Dose Ordered Sig/Virgen Route Start Time Stop Time Status Last Admin Dose Admin Nitroglycerin 0.4 mg Q5MINP PRN SL 02/26/25 22:00 03/08/25 20:22 0.4 MG Carvedilol 6.25 mg BID PO 02/26/25 22:00 03/15/25 11:47 6.25 MG Aspirin 81 mg DAILY PO 02/27/25 10:00 03/15/25 11:48 81 MG Atorvastatin Calcium 40 mg HS PO 02/26/25 22:00 03/14/25 22:10 40 MG Diagnostic Test (Pha) 1 strip ACHS 02/27/25 17:00 03/15/25 11:24 1 STRIP Insulin Human Regular ACHS SC 02/27/25 17:00 03/15/25 06:33 2 UNITS Dextrose 50 ml UD PRN IV 02/27/25 15:15 Loperamide HCl 4 mg Q4HPRN PRN PO 03/05/25 14:00 03/14/25 22:10 4 MG Albuterol 2.5 mg Q4HPRN PRN NEB 03/08/25 14:15 03/15/25 09:47 2.5 MG Vancomycin HCl 0 ml @ 0 mls/hr UD IV 03/09/25 15:30 Sodium Chloride 10 ml QSHIFT@10,22 IV 03/10/25 22:00 03/15/25 11:46 10 ML Piperacillin Sod/ Tazobactam Sod 50 ml @ 12.5 mls/hr Q8H IV 03/13/25 10:00 03/15/25 11:46 12.5 MLS/HR Ticagrelor 90 mg BID PO 03/13/25 22:00 03/15/25 11:48 90 MG Pantoprazole Sodium 40 mg BID IV 03/13/25 22:00 03/15/25 11:46 40 MG Hydromorphone HCl 0.5 mg Q4HPRN PRN IV 03/14/25 15:15 03/15/25 03:54 0.5 MG Enteral Nutritional Formula 1,000 ml 30ML/HR GT 03/14/25 15:15 Acetaminophen/ Hydrocodone Bitart 1 tab Q6HR PO 03/15/25 00:00 03/15/25 12:29 1 TAB Nystatin 5 ml QID MT 03/15/25 18:00 objective GENERAL: Alert and oriented x 3. No acute distress. EYES: PERRL, EOMI. Anicteric. HENT: Moist mucous membranes. LUNGS: Clear to auscultation bilaterally. CARDIOVASCULAR: Regular rate and rhythm. ABDOMEN: Soft, nontender and nondistended. EXTREMITIES: No edema. NEUROLOGIC: No focal neurological deficits. SKIN: Warm, dry. 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 Complicated UTI. ESRD on hemodialysis. Acute on chronic diastolic heart failure. NSTEMI type 2 likely due to above. Pneumonia Gram-positive versus negative. Acute hypoxic respiratory failure. Diabetes mellitus type 2 HGB A1c 6% on 01/16/2025 , insulin-dependent. Coronary artery disease without stent placement. Cardiomegaly with Severe MR. Severe pulmonary hypertension. Hypertension . Dyslipidemia. Hypokalemia. Diarrhea. Transversely oriented fracture through the C2 vertebral body below the level of the odontoid process with significant left lateral fracture extension into the left C2 pedicle. Assessment/Plan Continued all current supportive medical care. Aspirin. IV antibiotics as ordered. Dilaudid and [place] for pain management. Additional plan as per the hospital course. Critical care time of 45 minutes provided to include time spent evaluation of patient at bedside, when appropriate patient/family education for diagnosis, treatment plan, review of pertinent medical information and discussion of care with specialty providers and PCP. Dietary Evaluation Review Recommendations by RD: Dietary education by RD, Protein Supplementation Comments: 1) Initiate 60g CCHO renal cardiac diet 2) Initiate Nephro-Hilario @ 1 tb qd 3) Initiate Gage @ 1 pk qd 4) Initiate Nepro CarbStead qd 5) Refer to outpatient RD/CDCES for weight management 6) Follow-up with cardiology, pulmonology, and nephrology 7) Continue to monitor I&O, labs, and skin integrity Expected Outcomes/Goals: 1) appetite and labs to improve 2) wound to improve 3) gradual wt loss 4) f/u in 3-5 days Plan discussed with: Patient LYLE ARROYO MD Mar 15, 2025 14:56
[2025-03-16 03:59] LABS: Hematocrit 27.7 % (36.0-46.0); Hemoglobin 9.2 g/dL (12.2-16.2); Mean Corpuscular Hemoglobin 29.5 pg (28.0-32.0); Mean Corpuscular Volume 88.9 fL (80.0-100.0); Nucleated Red Blood Cells % 0.9 %
[2025-03-16 04:00] LABS: INR 1.35 (0.9-1.15); Partial Thromboplastin Time 45.7 SEC (24.5-34.5); Prothrombin Time 13.9 sec (9.3-11.8)
[2025-03-16 04:14] LABS: Alanine Aminotransferase 29 U/L (7-40); Anion Gap 12 (5-15); BUN/Creatinine Ratio 10.4 (10.0-20.0); Bilirubin, Total 0.8 mg/dL (0.2-1.0); Calcium 8.9 mg/dL (8.7-10.4); Carbon Dioxide 27 mmol/L (20-31); Magnesium 2.1 mg/dL (1.6-2.6); Sodium 136 mmol/L (136-145); Total Protein 6.5 g/dL (5.7-8.2)
[2025-03-16 04:36] LABS: Albumin 3.0 g/dL (3.2-4.8); Alkaline Phosphatase 140 U/L (46-116); Blood Urea Nitrogen 36 mg/dL (9-23); Chloride 97 mmol/L (98-107); Glucose 148 mg/dL (74-106); Potassium 3.3 mmol/L (3.5-5.1)
[2025-03-16] MEDS: POTASSIUM CHL 20MEQ/100ML 100 ML IV ONE (05:09)
--- NOTE | 2025-03-16 05:24 | DVH ---
CHEST RADIOGRAPH Indication: resp distress Technique: Single frontal view of the chest was obtained COMPARISON: XY CHEST PORTABLE on DOS: 03/13/25, XY CHEST PORTABLE on DOS: 03/13/25, XY CHEST PORTABLE on DOS: 03/09/25, CT CHEST WITHOUT CONTRAST on DOS: 02/27/25, XY CHEST XRAY 1 VIEW on DOS: 02/27/25 FINDINGS: Lines and Tubes: Right PICC and right tunneled central venous catheter in satisfactory position. Lungs: Unchanged pulmonary vascular congestion. Pleura: No effusion. No pneumothorax. Cardiomediastinal contours: Cardiomegaly. Bones: Unremarkable. IMPRESSION: Unchanged pulmonary vascular congestion.
[2025-03-16] MEDS: SODIUM CHL 0.9% 1000 ML BAG XX ONE (07:00)
[2025-03-16] MEDS: HEPARIN IN NS 1000Units/500mL 1,500 ML ONE (07:29)
[2025-03-16] MEDS: IODIXANOL 320MG/ML 100ML BTL IV ONE ×2 (07:29→08:36)
[2025-03-16] MEDS: MIDAZOLAM HCL 2MG/2ML 2ml VIAL (1mg/ml) ONE (08:03)
[2025-03-16] MEDS: ANGIOMAX 250 MG VIAL IV ONE (08:03)
[2025-03-16] MEDS: fentaNYL CITRATE 100 MCG/2 ML VL ONE (08:03)
[2025-03-16] MEDS: LIDOCAINE 2%HCL (LOCAL ANESTH.) INJ 20ML MDV ONE (08:04)
[2025-03-16] MEDS: SODIUM CHL 0.9% 50 ML ONE (08:04)
--- NOTE | 2025-03-16 08:44 | DVHPN2 ---
Reviewed: Care Plan, H&P, Labs, Medications, Previous Orders, Radiology Changes from previous H/P or p: No Changes General: Per HPI Eyes: No Pain, No Vision change, No Conjunctivae inflammation, No Eyelid inflammation, No Other, No Redness ENT: No Ear pain, No Ear discharge, No Nose pain, No Nose discharge, No Nose congestion, No Mouth pain, No Mouth swelling, No Throat pain, No Throat swelling, No Other Cardiovascular: No Chest Pain, No Palpitations, No Orthopnea, No Paroxysmal Noc. Dyspnea, No Edema, No Lt Headedness, No Other Respiratory: No Cough, No Dry, No Shortness of breath, No SOB with excertion, No Wheezing, No Hemoptysis, No Pleuritic Pain, No Sputum, No Other Gastrointestinal: No Nausea, No Vomiting, No Abdominal Pain, No Diarrhea, No Constipation, No Melena, No Hematochezia, No Other Genitourinary: No Dysuria, No Frequency, No Incontinence, No Hematuria, No Retention, No Other Musculoskeletal: neck pain Skin: No Rash, No Lesions, No Jaundice, No Bruising, No Other Objective Vitals Vital Signs Date Time Temp Pulse Resp B/P (MAP) Pulse Ox O2 Delivery O2 Flow Rate FiO2 03/16/25 06:45 72 19 121/62 (81) 99 03/16/25 05:56 Nasal Cannula* 1 24 03/16/25 04:00 98.0 98.0 Intake/Output Intake and Output 03/16/25 07:00 Intake Total 1443 ml Output Total 0 ml Balance 1443 ml Intake Oral 0 ml IV Total 460 ml Tube Feeding 983 ml Output Urine Total 0 ml Stool Total 0 ml # Voids 2 # Bowel Movements 1 General Appearance: Alert, Cooperative, No acute distress HEENT: Atraumatic, PERRLA, EOMI, Mucous membr. moist/pink Neck: Supple Lungs: Clear to auscultation, Normal air movement Cardiovascular: Regular rate, Normal S1, Normal S2, No murmurs, Gallops, Rubs Abdomen: Normal bowel sounds, Soft, No tenderness Neuro: Cranial nerves 3-12 NL Psych/Mental Status: Mental status NL Medications Current Medications Medications Dose Ordered Sig/Virgen Route Start Time Stop Time Status Last Admin Dose Admin Nitroglycerin 0.4 mg Q5MINP PRN SL 02/26/25 22:00 03/08/25 20:22 0.4 MG Carvedilol 6.25 mg BID PO 02/26/25 22:00 03/15/25 22:24 6.25 MG Aspirin 81 mg DAILY PO 02/27/25 10:00 03/15/25 11:48 81 MG Atorvastatin Calcium 40 mg HS PO 02/26/25 22:00 03/15/25 22:23 40 MG Diagnostic Test (Pha) 1 strip ACHS 02/27/25 17:00 03/16/25 06:31 1 STRIP Insulin Human Regular ACHS SC 02/27/25 17:00 03/16/25 06:35 3 UNITS Dextrose 50 ml UD PRN IV 02/27/25 15:15 Loperamide HCl 4 mg Q4HPRN PRN PO 03/05/25 14:00 03/14/25 22:10 4 MG Albuterol 2.5 mg Q4HPRN PRN NEB 03/08/25 14:15 03/15/25 09:47 2.5 MG Vancomycin HCl 0 ml @ 0 mls/hr UD IV 03/09/25 15:30 Sodium Chloride 10 ml QSHIFT@10,22 IV 03/10/25 22:00 03/15/25 22:27 10 ML Piperacillin Sod/ Tazobactam Sod 50 ml @ 12.5 mls/hr Q8H IV 03/13/25 10:00 03/16/25 02:23 12.5 MLS/HR Ticagrelor 90 mg BID PO 03/13/25 22:00 03/15/25 22:24 90 MG Pantoprazole Sodium 40 mg BID IV 03/13/25 22:00 03/15/25 22:23 40 MG Hydromorphone HCl 0.5 mg Q4HPRN PRN IV 03/14/25 15:15 03/15/25 22:25 0.5 MG Enteral Nutritional Formula 1,000 ml 30ML/HR GT 03/14/25 15:15 Acetaminophen/ Hydrocodone Bitart 1 tab Q6HR PO 03/15/25 00:00 03/16/25 06:35 1 TAB Nystatin 5 ml QID MT 03/15/25 18:00 03/16/25 06:35 5 ML Laboratory Results Laboratory Tests 03/16/25 03:00 Chemistry Test 03/15/25 15:55 03/16/25 03:00 Albumin 3.1 g/dL (3.2-4.8) L 3.0 g/dL (3.2-4.8) L Calcium Level 8.7 mg/dL (8.7-10.4) 8.9 mg/dL (8.7-10.4) Total Protein 6.6 g/dL (5.7-8.2) 6.5 g/dL (5.7-8.2) Magnesium Level 2.1 mg/dL (1.6-2.6) Coagulation Test 03/16/25 03:00 Prothrombin Time 13.9 sec (9.3-11.8) H Prothrombin Time INR 1.35 (0.9-1.15) H Activated Partial Thromboplast Time 45.7 SEC (24.5-34.5) H LFT Test 03/15/25 15:55 03/16/25 03:00 Alanine Aminotransferase (ALT) 34 U/L (7-40) 29 U/L (7-40) Alkaline Phosphatase 127 U/L (46-116) H 140 U/L (46-116) H Aspartate Amino Transferase (AST) 60 U/L (13-40) H 38 U/L (13-40) Total Bilirubin 1.0 mg/dL (0.2-1.0) 0.8 mg/dL (0.2-1.0) Urinalysis Test 02/26/25 16:53 03/09/25 16:55 Urine Amorphous Crystals Few /hpf (None Seen) Urine Hyaline Casts Few /lpf (0 - 2) Urine Color Light-orange (Yellow) Urine Clarity Ex.turbid (Clear) Urine pH 5.5 (5.0-9.0) Urine Specific [place] 1.019 (1.001-1.035) Urine Protein 2+ (Negative) H Urine Ketones Trace (Negative) Urine Blood 2+ /uL (Negative) H Urine Nitrite Negative (Negative) Urine Bilirubin 1+ (Negative) H Urine Urobilinogen 2 mg/dL (Negative) H Urine Leukocyte Esterase 3+ /uL (Negative) Urine RBC 150 /hpf (0 - 4) Urine WBC Clumps Present /hpf (None Seen) Urine Microscopic WBC 2903 /HPF (0-5) H Urine Squamous Epithelial Cells Mod /hpf (<5) Urine Bacteria None seen /hpf (None Seen) Urine Yeast (Budding) Loaded /hpf (None Seen) Urine Glucose Normal mg/dL (Normal) Microbiology Microbiology Date/Time Source Procedure Growth Status 03/10/25 18:47 Nose MRSA Screen - Final Complete 03/09/25 16:55 Urine - [place] Urine Culture - Final Escherichia coli Presumptive [place] albicans Complete 03/09/25 15:25 Blood Blood Culture - Final NO GROWTH AFTER 5 DAYS OF INCUBATION. 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 protein-calorie malnutrition dysphagia Plan -Continue IV antibiotic with Zosyn 3.375 mg IV Q eight and IV azithromycin 500 mg daily -Will follow up with blood culture, urine culture. Urinalysis showed leukocyte esterase positive, microscopic WBC high, many bacteria. Stool culture pending -coronary artery disease: Medical management with aspirin 81 mg p.o. daily, atorvastatin 40 mg p.o. daily, Coreg 6.25 mg p.o. b.i.d. -ESRD: Nephrology consultation with Rita -given chest x-ray showed pulmonary vascular congestion, trace pleural effusion, cardiomegaly with pulmonary vascular prominence: Lasix 20 mg IV daily -diabetes mellitus type 2: Insulin sliding scale -hypertension: Continue with Coreg 6.25 mg p.o. b.i.d., dyslipidemia with the atorvastatin -hypokalemia: IV 40 mEq potassium given, repeat in a.m.. -The patient complains of mouth pain, will give nystatin swish and swallow. -Puree food. Patient cannot chew. -SSI, moderate scale with regular insulin -Accue check qac and qhs. -Appreciate Spine surgeon input. Patient may need to be transfer to [facility] for Cervical surgeon with neurosurgeon. However, patient still need treatment for her infection first. -LETA patient , daughter, son at bedside in length. 03/02/2025: continue with current care with iv abx. 03/03/2025: request for HLOC for "Transversely oriented fracture through the C2 vertebral body below the level of the odontoid process with significant left lateral fracture extension into the left C2 pedicle". Neurosurgeon is not equipped to do surgery. 03/04/2025: when pt was prepped to be transferred to [facility] last night, I was informed that the DR Foster recommended pt to not have surgery and to be placed in SNF. agreed. consulted case mangement for SNF placement. 03/05/2025: pending SNF placement 03/06/25: discussed with pt and pt's spouse at bedside. Pt's spouse is awaiting for HD and transportation to [facility]. Pt's spouse request to continue care at [facility] 03/07/2025: ok to discharge to SNF 03/09/2025: pt is not eating and awaiting swallow evaluation. Pt's WBC is increasing, consult to ID if needed. pt may need PICC line and TNP while in- patient 03/10/2025: continue with current care in [place]. pt needs a swallow evaluation 03/11/2025: pending evaluation and transfusion. pending evaluation by speech therapy. remains on TNP in the meantime Plan discussed with: Spouse, Other My Orders Orders - VALDEZ BATRES DO Procedure Category Date Status Time Vancomycin Per BARBRA 03/15/25 In Process Pharmacy Protoc 16:03 Date of Service: Mar 11, 2025 Billing Provider: VALDEZ BATRES DO Common Visit Codes: [id number] C[facility] 30-74 MIN VALDEZ BATRES DO Mar 16, 2025 08:44
[2025-03-16] MEDS: NITROGLYCERIN 50MG/250ML 250 ML IV ONE (09:04)
--- NOTE | 2025-03-16 14:03 | DVHPN2 ---
Progress Note - Dictate Date Seen: Mar 16, 2025 Has the PT tested + for MRSA If YES, has PT been informed?: Yes Medical Necessity Reason Pt with a Central, PICC or Fol: Yes Subjective Patient's is at bedside. vital signs Vital Sign Date Time Temp Pulse Resp B/P (MAP) Pulse Ox O2 Delivery O2 Flow Rate FiO2 03/16/25 13:09 69 117/60 03/16/25 10:00 18 96 Nasal Cannula* 1 24 03/16/25 04:00 98.0 98.0 Total Intake and Output 03/15/25 03/15/25 03/16/25 15:00 23:00 07:00 Intake Total 50 ml 579 ml 814 ml Output Total 0 ml 0 ml Balance 50 ml 579 ml 814 ml medications Current Medications Medications Dose Ordered Sig/Virgen Route Start Time Stop Time Status Last Admin Dose Admin Nitroglycerin 0.4 mg Q5MINP PRN SL 02/26/25 22:00 03/08/25 20:22 0.4 MG Carvedilol 6.25 mg BID PO 02/26/25 22:00 03/16/25 13:09 6.25 MG Aspirin 81 mg DAILY PO 02/27/25 10:00 03/16/25 13:08 81 MG Atorvastatin Calcium 40 mg HS PO 02/26/25 22:00 03/15/25 22:23 40 MG Diagnostic Test (Pha) 1 strip ACHS 02/27/25 17:00 03/16/25 11:10 1 STRIP Insulin Human Regular ACHS SC 02/27/25 17:00 03/16/25 06:35 3 UNITS Dextrose 50 ml UD PRN IV 02/27/25 15:15 Loperamide HCl 4 mg Q4HPRN PRN PO 03/05/25 14:00 03/14/25 22:10 4 MG Albuterol 2.5 mg Q4HPRN PRN NEB 03/08/25 14:15 03/15/25 09:47 2.5 MG Vancomycin HCl 0 ml @ 0 mls/hr UD IV 03/09/25 15:30 Sodium Chloride 10 ml QSHIFT@10,22 IV 03/10/25 22:00 03/16/25 10:58 10 ML Piperacillin Sod/ Tazobactam Sod 50 ml @ 12.5 mls/hr Q8H IV 03/13/25 10:00 03/16/25 10:56 12.5 MLS/HR Ticagrelor 90 mg BID PO 03/13/25 22:00 03/16/25 13:10 90 MG Pantoprazole Sodium 40 mg BID IV 03/13/25 22:00 03/16/25 10:56 40 MG Hydromorphone HCl 0.5 mg Q4HPRN PRN IV 03/14/25 15:15 03/15/25 22:25 0.5 MG Enteral Nutritional Formula 1,000 ml 30ML/HR GT 03/14/25 15:15 Acetaminophen/ Hydrocodone Bitart 1 tab Q6HR PO 03/15/25 00:00 03/16/25 13:09 1 TAB Nystatin 5 ml QID MT 03/15/25 18:00 03/16/25 13:07 5 ML objective HEENT: No evidence of JVD, no oral ulcers. C-collar is in place. Pulmonary: Lungs are clear on auscultation bilaterally Cardiovascular S1-S2, no S3 or S4 Abdomen: Bowel sounds positive, soft no rebound tenderness Skin: No rash Neurological: Alert, oriented, no focal weakness Extremities: Trace edema of the hands Access: Tunneled dialysis line laboratory and microbiology Laboratory Tests 03/16/25 03:00 Test 03/16/25 03:00 Range/Units Serum Glucose 148 H 74-106 mg/dL Assessment/Plan Assessment: End-stage renal disease on HD Friday. Hyponatremia, which is chronic. The patient has been asked to restrict intake of hypotonic fluids and plain water. Anemia of CKD Cervical fracture. Neurosurgery. She is very high risk surgical patient, they are recommending conservative management, she will need to weak the cervical collar for 10 weeks Controlled hypertension. Pneumonia CAD, medical management UTI, cultures showing E. coli Severe Mitral regurgitation DM HTN Pulmonary hypertension Hypokalemia Plan: Dialysis today. Patient had an angiogram Clinimix Feeding trial C-collar in place for total of 12 weeks IV antibiotics Transfuse as needed Hasmukh for goal hemoglobin ideally 10-11 monitor H&H , transfuse if Hb < 7 g/dl Plan of care from Nephrology perspective discussed with the in the patient at bedside. Dietary Evaluation Review Recommendations by RD: Dietary education by RD, Protein Supplementation Comments: 1) Initiate 60g CCHO renal cardiac diet 2) Initiate Nephro-Hilario @ 1 tb qd 3) Initiate Gage @ 1 pk qd 4) Initiate Nepro CarbStead qd 5) Refer to outpatient RD/CDCES for weight management 6) Follow-up with cardiology, pulmonology, and nephrology 7) Continue to monitor I&O, labs, and skin integrity Expected Outcomes/Goals: 1) appetite and labs to improve 2) wound to improve 3) gradual wt loss 4) f/u in 3-5 days Plan discussed with: Patient, Spouse TRISHA BERKOWITZ MD Mar 16, 2025 14:03
--- NOTE | 2025-03-16 14:21 | DVHPN2 ---
Assessment/Plan Assessment/Plan low o2 rec, will try to get swallow eval. if not able to will have to do picc and TPN. cardio plan for intervention. will attempt to get blood. bcx clear. c/w abx. full code after fam discussion. cath today, difuse disease, cardio plan for staged pci? not able to swallow, spoke with GI, no endoscopy, will do ngt interim, plan for surgical peg at some point. poor prognosis cannot get surg peg 2/2 dapt. plan for enteral feeding with ngt. bedside attempted swallow eval with patient. able to swallow thin fluid with pain. starting nystatin swish and swallow, will reetempt feed once pain improed c/w feeding attempt. s/p cath today. downgrade tomorrow Plan discussed with: Other My Orders Orders - STEF PEREZ MD Procedure Category Date Status Time Nystatin PHA 03/15/25 In Process (Mouth-Throat) 18:00 D/C Cristobal BARBRA 03/15/25 In Process 14:28 Date of Service: Mar 16, 2025 Billing Provider: STEF PEREZ MD Common Visit Codes: [id number] CARE 30-74 MIN STEF PEREZ MD Mar 16, 2025 14:21
--- NOTE | 2025-03-16 21:22 | DVHPN2 ---
Progress Note - Dictate Date Seen: Mar 16, 2025 Has the PT tested + for MRSA If YES, has PT been informed?: Yes Medical Necessity Reason Pt with a Central, PICC or Fol: Yes Subjective Patient was seen and evaluated in follow up in the ICU. Patient underwent LHC with one stent placed in the LAD. HGB 9.2, HCT 27.7, PT 13.9, INR 1.35, PTT 45.7, K 3.3, CL 97, BUN 36, LIQUOR MERCHANT 3.45. Chest x-ray showed unchanged pulmonary vascular congestion. vital signs Vital Sign Date Time Temp Pulse Resp B/P (MAP) Pulse Ox O2 Delivery O2 Flow Rate FiO2 03/16/25 13:09 69 117/60 03/16/25 10:00 18 96 Nasal Cannula* 1 24 03/16/25 04:00 98.0 98.0 Total Intake and Output 03/15/25 03/15/25 03/16/25 15:00 23:00 07:00 Intake Total 50 ml 579 ml 814 ml Output Total 0 ml 0 ml Balance 50 ml 579 ml 814 ml medications Current Medications Medications Dose Ordered Sig/Virgen Route Start Time Stop Time Status Last Admin Dose Admin Nitroglycerin 0.4 mg Q5MINP PRN SL 02/26/25 22:00 03/08/25 20:22 0.4 MG Carvedilol 6.25 mg BID PO 02/26/25 22:00 03/16/25 13:09 6.25 MG Aspirin 81 mg DAILY PO 02/27/25 10:00 03/16/25 13:08 81 MG Atorvastatin Calcium 40 mg HS PO 02/26/25 22:00 03/15/25 22:23 40 MG Diagnostic Test (Pha) 1 strip ACHS 02/27/25 17:00 03/16/25 11:10 1 STRIP Insulin Human Regular ACHS SC 02/27/25 17:00 03/16/25 06:35 3 UNITS Dextrose 50 ml UD PRN IV 02/27/25 15:15 Loperamide HCl 4 mg Q4HPRN PRN PO 03/05/25 14:00 03/14/25 22:10 4 MG Albuterol 2.5 mg Q4HPRN PRN NEB 03/08/25 14:15 03/15/25 09:47 2.5 MG Vancomycin HCl 0 ml @ 0 mls/hr UD IV 03/09/25 15:30 Sodium Chloride 10 ml QSHIFT@10,22 IV 03/10/25 22:00 03/16/25 10:58 10 ML Piperacillin Sod/ Tazobactam Sod 50 ml @ 12.5 mls/hr Q8H IV 03/13/25 10:00 03/16/25 10:56 12.5 MLS/HR Ticagrelor 90 mg BID PO 03/13/25 22:00 03/16/25 13:10 90 MG Pantoprazole Sodium 40 mg BID IV 03/13/25 22:00 03/16/25 10:56 40 MG Hydromorphone HCl 0.5 mg Q4HPRN PRN IV 03/14/25 15:15 03/15/25 22: 0.5 MG Enteral Nutritional Formula 1,000 ml 30ML/HR GT 03/14/25 15:15 Acetaminophen/ Hydrocodone Bitart 1 tab Q6HR PO 03/15/25 00:00 03/16/25 13:09 1 TAB Nystatin 5 ml QID MT 03/15/25 18:00 03/16/25 13:07 5 ML objective GENERAL: Alert and oriented x 3. No acute distress. EYES: PERRL, EOMI. Anicteric. HENT: Moist mucous membranes. LUNGS: Clear to auscultation bilaterally. CARDIOVASCULAR: Regular rate and rhythm. ABDOMEN: Soft, nontender and nondistended. EXTREMITIES: No edema. NEUROLOGIC: No focal neurological deficits. SKIN: Warm, dry. 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 Complicated UTI. ESRD on hemodialysis. Acute on chronic diastolic heart failure. NSTEMI type 2 likely due to above. Pneumonia Gram-positive versus negative. Acute hypoxic respiratory failure. Diabetes mellitus type 2 HGB A1c 6% on 01/16/2025 , insulin-dependent. Coronary artery disease without stent placement. Cardiomegaly with Severe MR. Severe pulmonary hypertension. Hypertension . Dyslipidemia. Hypokalemia. Diarrhea. Transversely oriented fracture through the C2 vertebral body below the level of the odontoid process with significant left lateral fracture extension into the left C2 pedicle. Assessment/Plan Continued all current supportive medical care. Coreg. Aspirin,Brilinta. GI prophylactics. IV antibiotics as ordered. Dilaudid and [place] for pain management. Additional plan as per the hospital course. Critical care time of 45 minutes provided to include time spent evaluation of patient at bedside, when appropriate patient/family education for diagnosis, treatment plan, review of pertinent medical information and discussion of care with specialty providers and PCP. Dietary Evaluation Review Recommendations by RD: Dietary education by RD, Protein Supplementation Comments: 1) Initiate 60g CCHO renal cardiac diet 2) Initiate Nephro-Hilario @ 1 tb qd 3) Initiate Gage @ 1 pk qd 4) Initiate Nepro CarbStead qd 5) Refer to outpatient RD/CDCES for weight management 6) Follow-up with cardiology, pulmonology, and nephrology 7) Continue to monitor I&O, labs, and skin integrity Expected Outcomes/Goals: 1) appetite and labs to improve 2) wound to improve 3) gradual wt loss 4) f/u in 3-5 days Plan discussed with: Patient LYLE ARROYO MD Mar 16, 2025 14:08
[2025-03-17] VITALS (46 sets, daily range): BP systolic 86–139; BP diastolic 42–77; PULSE 64–95; RESP 9–20; TEMP 98–99.3; O2SAT 90–100
[2025-03-17] MEDS: HEPARIN SODIUM (PORCINE) 5000 UNITS/ML 1ML VIAL ONE (02:49)
[2025-03-17] MEDS: SODIUM CHL 0.9% 1000 ML BAG XX ONE (03:11)
[2025-03-17] MEDS: EPOETIN ALFA-EPBX 10,000 UNIT/1ML VIAL SC ONE (03:11)
[2025-03-17 03:53] LABS: Hematocrit 29.3 % (36.0-46.0); Hemoglobin 9.6 g/dL (12.2-16.2); Mean Corpuscular Hemoglobin 29.5 pg (28.0-32.0); Mean Corpuscular Volume 89.9 fL (80.0-100.0); Nucleated Red Blood Cells % 1.3 %
[2025-03-17 04:19] LABS: Alanine Aminotransferase 22 U/L (7-40); Anion Gap 11 (5-15); BUN/Creatinine Ratio 7.2 (10.0-20.0); Bilirubin, Total 0.8 mg/dL (0.2-1.0); Blood Urea Nitrogen 11 mg/dL (9-23); Carbon Dioxide 28 mmol/L (20-31); Chloride 101 mmol/L (98-107); Magnesium 1.9 mg/dL (1.6-2.6); Potassium 3.5 mmol/L (3.5-5.1); Sodium 140 mmol/L (136-145); Total Protein 6.6 g/dL (5.7-8.2)
[2025-03-17 04:20] LABS: Glucose 116 mg/dL (74-106)
[2025-03-17 04:21] LABS: Albumin 3.2 g/dL (3.2-4.8); Alkaline Phosphatase 135 U/L (46-116); Calcium 8.5 mg/dL (8.7-10.4)
--- NOTE | 2025-03-17 05:24 | DVHOP ---
DATE OF SURGERY: 03/16/2025 TECHNIQUE PERFORMED: * Emergency case. * Insertion of a 6-Khmer arterial line in right femoral artery under fluoroscopic guidance. * Left coronary artery angiography. * Ballon angiography of the left anterior descending artery with 2.5 x 20 mm length semi-compliant balloon. * Balloon angioplasty of diagonal artery at the site of the bifurcation with 2.5 x 12 mm length semi-compliant balloon. * Stenting and angioplasty of the left anterior descending artery with 2.75 x 26 mm length Deni [place] stent of [employer]. * Intravascular ultrasound of the left main and also of the left anterior descending artery stent. * Right iliofemoral artery angiography. * Arteriotomy, Angio-Seal of the right femoral artery. COMPLICATIONS: None. ASSISTANTS: Assisted by Afshan Tilley Rani, Angela, Janice. INDICATIONS: This patient has underlying critical 99% narrowing of the left anterior descending artery at the site of the bifurcation. The diagonal artery also had 80% narrowing at the site of the bifurcation, LAYLA grade 2 flow. DESCRIPTION OF PROCEDURE: Risks and benefits discussed. Counseling done, questions answered, information given. The patient has been brought to the ammunition assembly i laborer. The right groin was thoroughly cleaned with soap and Betadine. Lidocaine was given. IV fentanyl was given. A 6-Khmer arterial line was placed. Subsequently, we put an XB 3.5 6-Khmer guiding catheter with a side hole and subsequently, we have given IV Angiomax. We have also put Whisper MS wire, which went smoothly into diagonal artery. Subsequently, we put the Whisper wire MS in the left anterior descending artery. We also went very smoothly. Subsequently, now we have put a balloon 2.5 x 20 mm and balloon angioplasty of the left anterior descending artery was done. Subsequently, we put the balloon also in the left anterior descending artery 2.5 x 12 mm and the balloon had been discontinued. Subsequently, now we put a 2.75 x 26 mm stent in the left anterior descending artery in the mid region and inflated for a total for 12 atmospheres for a total of 31 seconds, subsequently total of 15 seconds. Balloon had been deflated. Balloon had been discontinued. Angiography was done. Result was satisfactory. Balloon, wire has been discontinued. IV nitro was given and the result was satisfactory. Subsequently, we also did a right iliofemoral artery angiography. Arteriotomy, Angio-Seal of the right femoral artery was done. Procedure went well. CONCLUSION: * Left anterior descending artery at the mid region, was narrowed in the range of 95-99%, LAYLA grade 2 flow and type C lesion, calcified lesion, bifurcation lesion. * Post-procedure it is LAYLA grade 3 flow and residual stenosis is 0%. No spasm. No dissection. No thrombosis. * The lesion #2 is diagonal. Pre-procedure, it was 80% block, bifurcation lesion. * Post-procedure, it is LAYLA grade 3 flow, residual stenosis is 0%. The procedure went well. PLAN OF ACTION: Aspirin, Brilinta, beta-mohamud, cholesterol reducing medicine. Outpatient followup. Waldemar Metzger MD MP/VIBHA/THUY TID: [id number] RECEIPT: [id number] MTD
[2025-03-17] MEDS: LIDOCAINE VISCOUS 2% 15ML UD MT ONE (11:00)
[2025-03-17] MEDS: VANCOMYCIN 500mg/100mL 100 ML IV ONE (11:36)
--- NOTE | 2025-03-17 14:24 | DVHPN2 ---
Assessment/Plan Assessment/Plan ICU note 80 F with ESRD on new HD, c2 fx, IDDM, NSTEMI admitted for sepsis. s/p LHC pain improved, will c/w attempt on oral feeding, if failed will restart tube feeding via NGT. downgrade tele physical exam aox3 dry mucosa, poor hygiene clear breath s1 s2 systolic murmur abdomen soft trace lE edema labs ekg imaging reviewed Assessment and plan Sepsis emphysematous cystitis ESRD on HD CAD s/p RABIA PNA gp vs gn chronic diastolic hf IDDM type 2 MT PH severe MR c2 fx dysphagia vanc and zosyn HD per renal DAPT attempt oral feeding viscous lido nystatin swish swallow Glucerna as tolerated not able to be scoped as pt has c2 fx pain management resume home meds s/p [facility] report not up diet tf gi ppx protonix dvt ppx heparin full code Plan discussed with: Patient, Daughter, Other My Orders Orders - STEF PEREZ MD Procedure Category Date Status Time * Wound Consult CONS 03/16/25 Transmitted Morphine Extended PHA 03/17/25 In Process Release Tab (Oramorph 22:00 Date of Service: Mar 17, 2025 Billing Provider: STEF PEREZ MD Common Visit Codes: [id number] INP/OBS CARE(HIGH) STEF PEREZ MD Mar 17, 2025 14:24
--- NOTE | 2025-03-17 15:07 | DVHPN2 ---
Progress Note - Dictate Date Seen: Mar 17, 2025 Has the PT tested + for MRSA If YES, has PT been informed?: Yes Medical Necessity Reason Pt with a Central, PICC or Fol: Yes Subjective Patient's is at bedside. vital signs Vital Sign Date Time Temp Pulse Resp B/P (MAP) Pulse Ox O2 Delivery O2 Flow Rate FiO2 03/17/25 14:00 16 98 Nasal Cannula* 1 24 03/17/25 14:00 71 03/17/25 12:09 99.1 104/54 (71) 99.1 Total Intake and Output 03/16/25 03/16/25 03/17/25 15:00 23:00 07:00 Intake Total 50 ml 173 ml 397.0 ml Output Total 2 ml Balance 50 ml 171 ml 397.0 ml medications Current Medications Medications Dose Ordered Sig/Virgen Route Start Time Stop Time Status Last Admin Dose Admin Nitroglycerin 0.4 mg Q5MINP PRN SL 02/26/25 22:00 03/08/25 20:22 0.4 MG Carvedilol 6.25 mg BID PO 02/26/25 22:00 03/16/25 21:37 6.25 MG Aspirin 81 mg DAILY PO 02/27/25 10:00 03/17/25 09:29 81 MG Atorvastatin Calcium 40 mg HS PO 02/26/25 22:00 03/16/25 21:37 40 MG Diagnostic Test (Pha) 1 strip ACHS 02/27/25 17:00 03/17/25 11:36 1 STRIP Insulin Human Regular ACHS SC 02/27/25 17:00 03/17/25 06:18 2 UNITS Dextrose 50 ml UD PRN IV 02/27/25 15:15 Albuterol 2.5 mg Q4HPRN PRN NEB 03/08/25 14:15 03/15/25 09:47 2.5 MG Vancomycin HCl 0 ml @ 0 mls/hr UD IV 03/09/25 15:30 Sodium Chloride 10 ml QSHIFT@10, IV 03/10/25 22:00 03/17/25 09:29 10 ML Piperacillin Sod/ Tazobactam Sod 50 ml @ 12.5 mls/hr Q8H IV 03/13/25 10:00 03/17/25 09:30 12.5 MLS/HR Ticagrelor 90 mg BID PO 03/13/25 22:00 03/17/25 09:31 90 MG Pantoprazole Sodium 40 mg BID IV 03/13/25 22:00 03/17/25 09:29 40 MG Hydromorphone HCl 0.5 mg Q4HPRN PRN IV 03/14/25 15:15 03/17/25 08:22 0.5 MG Enteral Nutritional Formula 1,000 ml 30ML/HR GT 03/14/25 15:15 Acetaminophen/ Hydrocodone Bitart 1 tab Q6HR PO 03/15/25 00:00 03/17/25 06:17 1 TAB Nystatin 5 ml QID MT 03/15/25 18:00 03/17/25 11:35 5 ML Heparin Sodium (Porcine) 3,200 units LINDSEY PRN XX 03/17/25 03:00 03/17/25 03:37 3,200 UNITS Morphine Sulfate 15 mg Q12HR PO 03/17/25 22:00 objective HEENT: No evidence of JVD, no oral ulcers. C-collar is in place. Pulmonary: Lungs are clear on auscultation bilaterally Cardiovascular S1-S2, no S3 or S4 Abdomen: Bowel sounds positive, soft no rebound tenderness Skin: No rash Neurological: Alert, oriented, no focal weakness Extremities: Trace edema of the hands Access: Tunneled dialysis line laboratory and microbiology Laboratory Tests 03/17/25 03:21 Test 03/17/25 03:21 Range/Units Serum Glucose 116 H 74-106 mg/dL Assessment/Plan Assessment: End-stage renal disease on HD Friday. Hyponatremia, which is chronic. The patient has been asked to restrict intake of hypotonic fluids and plain water. Anemia of CKD Cervical fracture. Neurosurgery. She is very high risk surgical patient, they are recommending conservative management, she will need to weak the cervical collar for 10 weeks Controlled hypertension. Pneumonia CAD, medical management UTI, cultures showing E. coli Severe Mitral regurgitation DM HTN Pulmonary hypertension Hypokalemia Plan: Patient had dialysis yesterday which finished around 2:00 a.m. today Next dialysis session will be Friday. Clinimix Feeding trial C-collar in place for total of 12 weeks IV antibiotics Transfuse as needed Hasmukh for goal hemoglobin ideally 10-11 monitor H&H , transfuse if Hb < 7 g/dl Plan of care from Nephrology perspective discussed with the in the patient at bedside. Dietary Evaluation Review Recommendations by RD: Dietary education by RD, Protein Supplementation Comments: 1) Initiate 60g CCHO renal cardiac diet 2) Initiate Nephro-Hilario @ 1 tb qd 3) Initiate Gage @ 1 pk qd 4) Initiate Nepro CarbStead qd 5) Refer to outpatient RD/CDCES for weight management 6) Follow-up with cardiology, pulmonology, and nephrology 7) Continue to monitor I&O, labs, and skin integrity Expected Outcomes/Goals: 1) appetite and labs to improve 2) wound to improve 3) gradual wt loss 4) f/u in 3-5 days Plan discussed with: Patient, Spouse TRISHA BERKOWITZ MD Mar 17, 2025 15:07
[2025-03-17] MEDS: Glucerna Carbsteady SHAKE Vanilla 8oz PO SCH (18:00)
[2025-03-17] MEDS: MORPHINE SULF 15mg ER tab PO SCH (22:13)
--- NOTE | 2025-03-17 22:39 | DVHPN2 ---
Progress Note - Dictate Date Seen: Mar 17, 2025 Has the PT tested + for MRSA If YES, has PT been informed?: Yes Medical Necessity Reason Pt with a Central, PICC or Fol: Yes Subjective Patient was seen and evaluated in follow up in the ICU. Patient is on 1 LPM NC. Dressings are C/D/I. HGB 9.6, HCT 29.3, ENGINEERING AGENT 1.52, CA 8.5. vital signs Vital Sign Date Time Temp Pulse Resp B/P (MAP) Pulse Ox O2 Delivery O2 Flow Rate FiO2 03/17/25 09:30 71 89/42 03/17/25 09:18 18 03/17/25 06:46 100 Nasal Cannula 1.0 03/17/25 06:46 24 03/17/25 04:00 98.4 98.4 Total Intake and Output 03/16/25 03/16/25 03/17/25 15:00 23:00 07:00 Intake Total 50 ml 173 ml 397.0 ml Output Total 2 ml Balance 50 ml 171 ml 397.0 ml medications Current Medications Medications Dose Ordered Sig/Virgen Route Start Time Stop Time Status Last Admin Dose Admin Nitroglycerin 0.4 mg Q5MINP PRN SL 02/26/25 22:00 03/08/25 20:22 0.4 MG Carvedilol 6.25 mg BID PO 02/26/25 22:00 03/16/25 21:37 6.25 MG Aspirin 81 mg DAILY PO 02/27/25 10:00 03/17/25 09:29 81 MG Atorvastatin Calcium 40 mg HS PO 02/26/25 22:00 03/16/25 21:37 40 MG Diagnostic Test (Pha) 1 strip ACHS 02/27/25 17:00 03/17/25 11:36 1 STRIP Insulin Human Regular ACHS SC 02/27/25 17:00 03/17/25 06:18 2 UNITS Dextrose 50 ml UD PRN IV 02/27/25 15:15 Albuterol 2.5 mg Q4HPRN PRN NEB 03/08/25 14:15 03/15/25 09:47 2.5 MG Vancomycin HCl 0 ml @ 0 mls/hr UD IV 03/09/25 15:30 Sodium Chloride 10 ml QSHIFT@10, IV 03/10/25 22:00 03/17/25 09:29 10 ML Piperacillin Sod/ Tazobactam Sod 50 ml @ 12.5 mls/hr Q8H IV 03/13/25 10:00 03/17/25 09:30 12.5 MLS/HR Ticagrelor 90 mg BID PO 03/13/25 22:00 03/17/25 09:31 90 MG Pantoprazole Sodium 40 mg BID IV 03/13/25 22:00 03/17/25 09:29 40 MG Hydromorphone HCl 0.5 mg Q4HPRN PRN IV 03/14/25 15:15 03/17/25 08:22 0.5 MG Enteral Nutritional Formula 1,000 ml 30ML/HR GT 03/14/25 15:15 Acetaminophen/ Hydrocodone Bitart 1 tab Q6HR PO 03/15/25 00:00 03/17/25 06:17 1 TAB Nystatin 5 ml QID MT 03/15/25 18:00 03/17/25 11:35 5 ML Heparin Sodium (Porcine) 3,200 units LINDSEY PRN XX 03/17/25 03:00 03/17/25 03:37 3,200 UNITS Morphine Sulfate 15 mg Q12HR PO 03/17/25 22:00 objective GENERAL: Alert and oriented x 3. No acute distress. EYES: PERRL, EOMI. Anicteric. HENT: Moist mucous membranes. LUNGS: Clear to auscultation bilaterally. CARDIOVASCULAR: Regular rate and rhythm. ABDOMEN: Soft, nontender and nondistended. EXTREMITIES: No edema. NEUROLOGIC: No focal neurological deficits. SKIN: Warm, dry. 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 Complicated UTI. ESRD on hemodialysis. Acute on chronic diastolic heart failure. NSTEMI type 2 likely due to above. Pneumonia Gram-positive versus negative. Acute hypoxic respiratory failure. Diabetes mellitus type 2 HGB A1c 6% on 01/16/2025 , insulin-dependent. Coronary artery disease without stent placement. Cardiomegaly with Severe MR. Severe pulmonary hypertension. Hypertension . Dyslipidemia. Hypokalemia. Diarrhea. Transversely oriented fracture through the C2 vertebral body below the level of the odontoid process with significant left lateral fracture extension into the left C2 pedicle. Assessment/Plan Continued all current supportive medical care. Morphine and [place] for pain management Aspirin, Lipitor, Brilinta. Coreg. Nitro SL. GI prophylactics. IV antibiotics as ordered. Additional plan as per the hospital course. Critical care time of 45 minutes provided to include time spent evaluation of patient at bedside, when appropriate patient/family education for diagnosis, treatment plan, review of pertinent medical information and discussion of care with specialty providers and PCP. Dietary Evaluation Review Recommendations by RD: Dietary education by RD, Protein Supplementation Comments: 1) Initiate 60g CCHO renal cardiac diet 2) Initiate Nephro-Hilario @ 1 tb qd 3) Initiate Gage @ 1 pk qd 4) Initiate Nepro CarbStead qd 5) Refer to outpatient RD/CDCES for weight management 6) Follow-up with cardiology, pulmonology, and nephrology 7) Continue to monitor I&O, labs, and skin integrity Expected Outcomes/Goals: 1) appetite and labs to improve 2) wound to improve 3) gradual wt loss 4) f/u in 3-5 days Plan discussed with: Patient LYLE ARROYO MD Mar 17, 2025 12:31
[2025-03-18] VITALS (11 sets, daily range): BP systolic 112–133; BP diastolic 50–108; PULSE 65–85; RESP 14–18; TEMP 96.6–98.6; O2SAT 97–100
[2025-03-18 06:38] LABS: Hematocrit 26.2 % (36.0-46.0); Hemoglobin 8.6 g/dL (12.2-16.2); Mean Corpuscular Hemoglobin 30.0 pg (28.0-32.0); Mean Corpuscular Volume 90.8 fL (80.0-100.0); Nucleated Red Blood Cells % 0.6 %
[2025-03-18 06:55] LABS: Anion Gap 13 (5-15); Carbon Dioxide 27 mmol/L (20-31); Chloride 100 mmol/L (98-107); Potassium 4.1 mmol/L (3.5-5.1); Sodium 140 mmol/L (136-145)
[2025-03-18 07:01] LABS: BUN/Creatinine Ratio 8.7 (10.0-20.0); Glucose 94 mg/dL (74-106)
[2025-03-18 07:02] LABS: Magnesium 1.9 mg/dL (1.6-2.6)
[2025-03-18 07:03] LABS: Blood Urea Nitrogen 28 mg/dL (9-23); Calcium 8.6 mg/dL (8.7-10.4)
--- NOTE | 2025-03-18 12:51 | DVHPN2 ---
Subjective Patient continues to report having difficulty swallowing. Reviewed: Care Plan, H&P, Labs, Medications, Previous Orders, Radiology Changes from previous H/P or p: No Changes General: Per HPI Eyes: No Pain, No Vision change, No Conjunctivae inflammation, No Eyelid inflammation, No Other, No Redness ENT: No Ear pain, No Ear discharge, No Nose pain, No Nose discharge, No Nose congestion, No Mouth pain, No Mouth swelling, No Throat pain, No Throat swelling, No Other Cardiovascular: No Chest Pain, No Palpitations, No Orthopnea, No Paroxysmal Noc. Dyspnea, No Edema, No Lt Headedness, No Other Respiratory: No Cough, No Dry, No Shortness of breath, No SOB with excertion, No Wheezing, No Hemoptysis, No Pleuritic Pain, No Sputum, No Other Gastrointestinal: No Nausea, No Vomiting, No Abdominal Pain, No Diarrhea, No Constipation, No Melena, No Hematochezia, No Other Genitourinary: No Dysuria, No Frequency, No Incontinence, No Hematuria, No Retention, No Other Musculoskeletal: neck pain Skin: No Rash, No Lesions, No Jaundice, No Bruising, No Other Objective Vitals Vital Signs Date Time Temp Pulse Resp B/P (MAP) Pulse Ox O2 Delivery O2 Flow Rate FiO2 03/18/25 11:37 69 127/63 03/18/25 10:40 98 Room Air 03/18/25 10:40 0 21 03/18/25 09:00 98.4 18 98.4 Intake/Output Intake and Output 03/18/25 07:00 Intake Total 210 ml Balance 210 ml Intake Oral 60 ml IV Total 150 ml # Bowel Movements 4 General Appearance: Alert, Oriented X3, Cooperative, No acute distress HEENT: Atraumatic, PERRLA, EOMI, Mucous membr. moist/pink Neck: Supple Lungs: Clear to auscultation, Normal air movement Cardiovascular: Regular rate, Normal S1, Normal S2, No murmurs, Gallops, Rubs Abdomen: Normal bowel sounds, Soft, No tenderness Neuro: Cranial nerves 3-12 NL Skin: Dry, Intact Psych/Mental Status: Mental status NL Medications Current Medications Medications Dose Ordered Sig/Virgen Route Start Time Stop Time Status Last Admin Dose Admin Nitroglycerin 0.4 mg Q5MINP PRN SL 02/26/25 22:00 03/08/25 20:22 0.4 MG Carvedilol 6.25 mg BID PO 02/26/25 22:00 03/18/25 11:37 6.25 MG Aspirin 81 mg DAILY PO 02/27/25 10:00 03/18/25 11:38 81 MG Atorvastatin Calcium 40 mg HS PO 02/26/25 22:00 03/17/25 22:10 40 MG Diagnostic Test (Pha) 1 strip ACHS 02/27/25 17:00 03/18/25 11:58 1 STRIP Insulin Human Regular ACHS SC 02/27/25 17:00 03/17/25 22:46 2 UNITS Dextrose 50 ml UD PRN IV 02/27/25 15:15 Albuterol 2.5 mg Q4HPRN PRN NEB 03/08/25 14:15 03/15/25 09:47 2.5 MG Vancomycin HCl 0 ml @ 0 mls/hr UD IV 03/09/25 15:30 Sodium Chloride 10 ml QSHIFT@10,22 IV 03/10/25 22:00 03/18/25 11:18 10 ML Piperacillin Sod/ Tazobactam Sod 50 ml @ 12.5 mls/hr Q8H IV 03/13/25 10:00 03/18/25 11:18 12.5 MLS/HR Ticagrelor 90 mg BID PO 03/13/25 22:00 03/18/25 11:37 90 MG Pantoprazole Sodium 40 mg BID IV 03/13/25 22:00 03/18/25 11:24 40 MG Hydromorphone HCl 0.5 mg Q4HPRN PRN IV 03/14/25 15:15 03/17/25 08:22 0.5 MG Enteral Nutritional Formula 1,000 ml 30ML/HR GT 03/14/25 15:15 Acetaminophen/ Hydrocodone Bitart 1 tab Q6HR PO 03/15/25 00:00 03/18/25 06:33 1 TAB Nystatin 5 ml QID MT 03/15/25 18:00 03/18/25 06:32 5 ML Heparin Sodium (Porcine) 3,200 units LINDSEY PRN XX 03/17/25 03:00 03/17/25 03:37 3,200 UNITS Morphine Sulfate 15 mg Q12HR PO 03/17/25 22:00 03/18/25 11:47 15 MG Enteral Nutritional Formula 240 ml TIDWM PO 03/17/25 18:00 03/17/25 18:00 240 ML Laboratory Results Laboratory Tests 03/18/25 05:56 Chemistry Test 03/18/25 05:56 Calcium Level 8.6 mg/dL (8.7-10.4) L Magnesium Level 1.9 mg/dL (1.6-2.6) Phosphorus Level 3.9 mg/dL (2.4-5.1) Urinalysis Test 02/26/25 16:53 03/09/25 16:55 Urine Amorphous Crystals Few /hpf (None Seen) Urine Hyaline Casts Few /lpf (0 - 2) Urine Color Light-orange (Yellow) Urine Clarity Ex.turbid (Clear) Urine pH 5.5 (5.0-9.0) Urine Specific [place] 1.019 (1.001-1.035) Urine Protein 2+ (Negative) H Urine Ketones Trace (Negative) Urine Blood 2+ /uL (Negative) H Urine Nitrite Negative (Negative) Urine Bilirubin 1+ (Negative) H Urine Urobilinogen 2 mg/dL (Negative) H Urine Leukocyte Esterase 3+ /uL (Negative) Urine RBC 150 /hpf (0 - 4) Urine WBC Clumps Present /hpf (None Seen) Urine Microscopic WBC 2903 /HPF (0-5) H Urine Squamous Epithelial Cells Mod /hpf (<5) Urine Bacteria None seen /hpf (None Seen) Urine Yeast (Budding) Loaded /hpf (None Seen) Urine Glucose Normal mg/dL (Normal) Microbiology Microbiology Date/Time Source Procedure Growth Status 03/10/25 18:47 Nose MRSA Screen - Final Complete 03/09/25 16:55 Urine - [place] Urine Culture - Final Escherichia coli Presumptive [place] albicans Complete 03/09/25 15:25 Blood Blood Culture - Final NO GROWTH AFTER 5 DAYS OF INCUBATION. Complete 02/27/25 05:20 Stool Clostridium difficile Toxin Assay - Final Complete Labs and/or images reviewed: Labs reviewed by me, Image(s) reviewed by me Assessment/Plan Assessment/Plan Impression: -sepsis -complicated cystitis -coronary artery disease, status post PTCA and stent placement -end-stage renal disease with hemodialysis -C2 fracture -dysphagia, probably secondary to oral [place] -insulin-dependent diabetes mellitus -NSTEMI type 2 -pulmonary hypertension -severe MR Plan: -patient had NG tube removed yesterday. Attempting oral intake. -pureed diet -dual antiplatelet therapy -continue oral nystatin -continue current antibiotic therapy -cardiology consultation: Recommendations reviewed -nephrology consultation: Plans for HD tomorrow -long discussion made with family regarding plan of care. Increase oral intake as tolerated with Glucerna shakes and pureed diet -aspiration precautions -continue cervical collar. No plans for intervention at this time Total time spent with patient discussing and formulating plan of care: 35 minutes. This medical document was created using an electronic medical record system with [email or web address] dictation system. Although this document has been carefully reviewed, there may still be some phonetic and typographical errors. These areas are purely typographical due to imperfections of the software programs, and do not reflect any compromise in the patient's medical care. Plan discussed with: Patient, Other (RN) Date of Service: Mar 18, 2025 Billing Provider: ERROL MALDONADO NP Common Visit Codes: [id number] INP/OBS CARE(HIGH) ERROL MALDONADO NP Mar 18, 2025 12:51
--- NOTE | 2025-03-18 17:47 | DVHPN2 ---
Progress Note - Dictate Date Seen: Mar 18, 2025 Has the PT tested + for MRSA If YES, has PT been informed?: Yes Medical Necessity Reason Pt with a Central, PICC or Fol: Yes Subjective Patient's is at bedside. Denies any acute complaints vital signs Vital Sign Date Time Temp Pulse Resp B/P (MAP) Pulse Ox O2 Delivery O2 Flow Rate FiO2 03/18/25 17:32 97.3 66 14 123/65 (84) 100 97.3 03/18/25 10:40 Room Air 03/18/25 10:40 0 21 Total Intake and Output 03/17/25 03/17/25 03/18/25 15:00 23:00 07:00 Intake Total 150 ml 20 ml 40 ml Balance 150 ml 20 ml 40 ml medications Current Medications Medications Dose Ordered Sig/Virgen Route Start Time Stop Time Status Last Admin Dose Admin Nitroglycerin 0.4 mg Q5MINP PRN SL 02/26/25 22:00 03/08/25 20:22 0.4 MG Carvedilol 6.25 mg BID PO 02/26/25 22:00 03/18/25 11:37 6.25 MG Aspirin 81 mg DAILY PO 02/27/25 10:00 03/18/25 11:38 81 MG Atorvastatin Calcium 40 mg HS PO 02/26/25 22:00 03/17/25 22:10 40 MG Diagnostic Test (Pha) 1 strip ACHS 02/27/25 17:00 03/18/25 11:58 1 STRIP Insulin Human Regular ACHS SC 02/27/25 17:00 03/17/25 22:46 2 UNITS Dextrose 50 ml UD PRN IV 02/27/25 15:15 Albuterol 2.5 mg Q4HPRN PRN NEB 03/08/25 14:15 03/15/25 09:47 2.5 MG Vancomycin HCl 0 ml @ 0 mls/hr UD IV 03/09/25 15:30 Sodium Chloride 10 ml QSHIFT@, IV 03/10/25 22:00 03/18/25 11:18 10 ML Piperacillin Sod/ Tazobactam Sod 50 ml @ 12.5 mls/hr Q8H IV 03/13/25 10:00 03/18/25 11:18 12.5 MLS/HR Ticagrelor 90 mg BID PO 03/13/25 22:00 03/18/25 11:37 90 MG Pantoprazole Sodium 40 mg BID IV 03/13/25 22:00 03/18/25 11:24 40 MG Hydromorphone HCl 0.5 mg Q4HPRN PRN IV 03/14/25 15:15 03/18/25 15:41 0.5 MG Enteral Nutritional Formula 1,000 ml 30ML/HR GT 03/14/25 15:15 Acetaminophen/ Hydrocodone Bitart 1 tab Q6HR PO 03/15/25 00:00 03/18/25 12:58 1 TAB Nystatin 5 ml QID MT 03/15/25 18:00 03/18/25 12:54 5 ML Heparin Sodium (Porcine) 3,200 units LINDSEY PRN XX 03/17/25 03:00 03/17/25 03:37 3,200 UNITS Morphine Sulfate 15 mg Q12HR PO 03/17/25 22:00 03/18/25 11:47 15 MG Enteral Nutritional Formula 240 ml TIDWM PO 03/17/25 18:00 03/18/25 12:30 240 ML objective HEENT: No evidence of JVD, no oral ulcers. C-collar is in place. Pulmonary: Lungs are clear on auscultation bilaterally Cardiovascular S1-S2, no S3 or S4 Abdomen: Bowel sounds positive, soft no rebound tenderness Skin: No rash Neurological: Alert, oriented, no focal weakness Extremities: Trace edema of the hands Access: Tunneled dialysis line laboratory and microbiology Laboratory Tests 03/18/25 05:56 Test 03/18/25 05:56 Range/Units Serum Glucose 94 74-106 mg/dL Assessment/Plan Assessment: End-stage renal disease on HD Friday. Hyponatremia, which is chronic. The patient has been asked to restrict intake of hypotonic fluids and plain water. Anemia of CKD Cervical fracture. Neurosurgery. She is very high risk surgical patient, they are recommending conservative management, she will need to weak the cervical collar for 10 weeks Controlled hypertension. Pneumonia CAD, medical management UTI, cultures showing E. coli Severe Mitral regurgitation DM HTN Pulmonary hypertension Hypokalemia Plan: Dialysis tomorrow and TTS Renal diet C-collar in place for total of 12 weeks IV antibiotics Transfuse as needed Hasmukh for goal hemoglobin ideally 10-11 monitor H&H , transfuse if Hb < 7 g/dl Plan of care from Nephrology perspective discussed with the in the patient at bedside. Dietary Evaluation Review Recommendations by RD: Dietary education by RD, Protein Supplementation Comments: 1) Initiate 60g CCHO renal cardiac diet 2) Initiate Nephro-Hilario @ 1 tb qd 3) Initiate Gage @ 1 pk qd 4) Initiate Nepro CarbStead qd 5) Refer to outpatient RD/[facility] for weight management 6) Follow-up with cardiology, pulmonology, and nephrology 7) Continue to monitor I&O, labs, and skin integrity Expected Outcomes/Goals: 1) appetite and labs to improve 2) wound to improve 3) gradual wt loss 4) f/u in 3-5 days Plan discussed with: Patient, Spouse TRISHA BERKOWITZ MD Mar 18, 2025 17:47
--- NOTE | 2025-03-18 19:31 | DVHPN2 ---
Progress Note - Dictate Date Seen: Mar 18, 2025 Has the PT tested + for MRSA If YES, has PT been informed?: Yes Medical Necessity Reason Pt with a Central, PICC or Fol: Yes Subjective Patient was seen and evaluated in follow up. No overnight events. Patient was downgraded to telemetry. HGB 8.6, HCT 26.2, BUN 28, SCAFFOLD WORKER 3.23, CA 8.6. Telemetry reviewed. vital signs Vital Sign Date Time Temp Pulse Resp B/P (MAP) Pulse Ox O2 Delivery O2 Flow Rate FiO2 03/18/25 11:37 69 127/63 03/18/25 10:40 98 Room Air 03/18/25 10:40 0 21 03/18/25 09:00 98.4 18 98.4 Total Intake and Output 03/17/25 03/17/25 03/18/25 15:00 23:00 07:00 Intake Total 150 ml 20 ml 40 ml Balance 150 ml 20 ml 40 ml medications Current Medications Medications Dose Ordered Sig/Virgen Route Start Time Stop Time Status Last Admin Dose Admin Nitroglycerin 0.4 mg Q5MINP PRN SL 02/26/25 22:00 03/08/25 20:22 0.4 MG Carvedilol 6.25 mg BID PO 02/26/25 22:00 03/18/25 11:37 6.25 MG Aspirin 81 mg DAILY PO 02/27/25 10:00 03/18/25 11:38 81 MG Atorvastatin Calcium 40 mg HS PO 02/26/25 22:00 03/17/25 22:10 40 MG Diagnostic Test (Pha) 1 strip ACHS 02/27/25 17:00 03/18/25 11:58 1 STRIP Insulin Human Regular ACHS SC 02/27/25 17:00 03/17/25 22:46 2 UNITS Dextrose 50 ml UD PRN IV 02/27/25 15:15 Albuterol 2.5 mg Q4HPRN PRN NEB 03/08/25 14:15 03/15/25 09:47 2.5 MG Vancomycin HCl 0 ml @ 0 mls/hr UD IV 03/09/25 15:30 Sodium Chloride 10 ml QSHIFT@10,22 IV 03/10/25 22:00 03/18/25 11:18 10 ML Piperacillin Sod/ Tazobactam Sod 50 ml @ 12.5 mls/hr Q8H IV 03/13/25 10:00 03/18/25 11:18 12.5 MLS/HR Ticagrelor 90 mg BID PO 03/13/25 22:00 03/18/25 11:37 90 MG Pantoprazole Sodium 40 mg BID IV 03/13/25 22:00 03/18/25 11:24 40 MG Hydromorphone HCl 0.5 mg Q4HPRN PRN IV 03/14/25 15:15 03/17/25 08:22 0.5 MG Enteral Nutritional Formula 1,000 ml 30ML/HR GT 03/14/25 15:15 Acetaminophen/ Hydrocodone Bitart 1 tab Q6HR PO 03/15/25 00:00 03/18/25 06:33 1 TAB Nystatin 5 ml QID MT 03/15/25 18:00 03/18/25 06:32 5 ML Heparin Sodium (Porcine) 3,200 units LINDSEY PRN XX 03/17/25 03:00 03/17/25 03:37 3,200 UNITS Morphine Sulfate 15 mg Q12HR PO 03/17/25 22:00 03/18/25 11:47 15 MG Enteral Nutritional Formula 240 ml TIDWM PO 03/17/25 18:00 03/17/25 18:00 240 ML objective GENERAL: Alert and oriented x 3. No acute distress. EYES: PERRL, EOMI. Anicteric. HENT: Moist mucous membranes. LUNGS: Clear to auscultation bilaterally. CARDIOVASCULAR: Regular rate and rhythm. ABDOMEN: Soft, nontender and nondistended. EXTREMITIES: No edema. NEUROLOGIC: No focal neurological deficits. SKIN: Warm, dry. 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 Complicated UTI. ESRD on hemodialysis. Acute on chronic diastolic heart failure. NSTEMI type 2 likely due to above. Pneumonia Gram-positive versus negative. Acute hypoxic respiratory failure. Diabetes mellitus type 2 HGB A1c 6% on 01/16/2025 , insulin-dependent. Coronary artery disease without stent placement. Cardiomegaly with Severe MR. Severe pulmonary hypertension. Hypertension . Dyslipidemia. Hypokalemia. Diarrhea. Transversely oriented fracture through the C2 vertebral body below the level of the odontoid process with significant left lateral fracture extension into the left C2 pedicle. Assessment/Plan Continued all current supportive medical care. Morphine and [place] for pain management Aspirin, Brilinta. Coreg. GI prophylactics. IV antibiotics as ordered. Additional plan as per the hospital course. Dietary Evaluation Review Recommendations by RD: Dietary education by RD, Protein Supplementation Comments: 1) Initiate 60g CCHO renal cardiac diet 2) Initiate Nephro-Hilario @ 1 tb qd 3) Initiate Ggae @ 1 pk qd 4) Initiate Nepro CarbStead qd 5) Refer to outpatient RD/[facility] for weight management 6) Follow-up with cardiology, pulmonology, and nephrology 7) Continue to monitor I&O, labs, and skin integrity Expected Outcomes/Goals: 1) appetite and labs to improve 2) wound to improve 3) gradual wt loss 4) f/u in 3-5 days Plan discussed with: Patient LYLE ARROYO MD Mar 18, 2025 12:29
[2025-03-19] VITALS (9 sets, daily range): BP systolic 102–146; BP diastolic 43–81; PULSE 57–88; RESP 14–18; TEMP 96.5–97.4; O2SAT 97–100
[2025-03-19 06:38] LABS: Hematocrit 27.9 % (36.0-46.0); Hemoglobin 9.1 g/dL (12.2-16.2)
[2025-03-19] MEDS ORDERED: VANCOMYCIN 500mg/100mL 100 ML IV ONE (14:00)
--- NOTE | 2025-03-19 16:07 | DVHPN2 ---
Progress Note - Dictate Date Seen: Mar 19, 2025 Has the PT tested + for MRSA If YES, has PT been informed?: Yes Medical Necessity Reason Pt with a Central, PICC or Fol: Yes Subjective Patient's is at bedside. Denies any acute complaints vital signs Vital Sign Date Time Temp Pulse Resp B/P (MAP) Pulse Ox O2 Delivery O2 Flow Rate FiO2 03/19/25 12:31 97.3 62 14 107/52 (70) 100 97.3 03/19/25 08:30 Nasal Cannula* 3 32 Total Intake and Output 03/18/25 03/18/25 03/19/25 15:00 23:00 07:00 Intake Total 50 ml Balance 50 ml medications Current Medications Medications Dose Ordered Sig/Virgen Route Start Time Stop Time Status Last Admin Dose Admin Nitroglycerin 0.4 mg Q5MINP PRN SL 02/26/25 22:00 03/08/25 20:22 0.4 MG Carvedilol 6.25 mg BID PO 02/26/25 22:00 03/19/25 10:37 6.25 MG Aspirin 81 mg DAILY PO 02/27/25 10:00 03/19/25 10:38 81 MG Atorvastatin Calcium 40 mg HS PO 02/26/25 22:00 03/18/25 22:17 40 MG Diagnostic Test (Pha) 1 strip ACHS 02/27/25 17:00 03/19/25 12:05 1 STRIP Insulin Human Regular ACHS SC 02/27/25 17:00 03/19/25 12:11 2 UNITS Dextrose 50 ml UD PRN IV 02/27/25 15:15 Vancomycin HCl 0 ml @ 0 mls/hr UD IV 03/09/25 15:30 Sodium Chloride 10 ml QSHIFT@10,22 IV 03/10/25 22:00 03/19/25 10:33 10 ML Piperacillin Sod/ Tazobactam Sod 50 ml @ 12.5 mls/hr Q8H IV 03/13/25 10:00 03/19/25 10:32 12.5 MLS/HR Ticagrelor 90 mg BID PO 03/13/25 22:00 03/19/25 10:33 90 MG Pantoprazole Sodium 40 mg BID IV 03/13/25 22:00 03/19/25 10:32 40 MG Hydromorphone HCl 0.5 mg Q4HPRN PRN IV 03/14/25 15:15 03/18/25 15:41 0.5 MG Enteral Nutritional Formula 1,000 ml 30ML/HR GT 03/14/25 15:15 Acetaminophen/ Hydrocodone Bitart 1 tab Q6HR PO 03/15/25 00:00 03/19/25 12:04 1 TAB Nystatin 5 ml QID MT 03/15/25 18:00 03/19/25 12:04 5 ML Heparin Sodium (Porcine) 3,200 units LINDSEY PRN XX 03/17/25 03:00 03/17/25 03:37 3,200 UNITS Morphine Sulfate 15 mg Q12HR PO 03/17/25 22:00 03/19/25 10:36 15 MG Enteral Nutritional Formula 240 ml TIDWM PO 03/17/25 18:00 03/19/25 12:14 240 ML objective HEENT: No evidence of JVD, no oral ulcers. C-collar is in place. Pulmonary: Lungs are clear on auscultation bilaterally Cardiovascular S1-S2, no S3 or S4 Abdomen: Bowel sounds positive, soft no rebound tenderness Skin: No rash Neurological: Alert, oriented, no focal weakness Extremities: Trace edema of the hands Access: Tunneled dialysis line laboratory and microbiology Laboratory Tests 03/19/25 05:54 03/18/25 05:56 Test 03/18/25 05:56 Range/Units Serum Glucose 94 74-106 mg/dL Assessment/Plan Assessment: End-stage renal disease on HD Friday. Hyponatremia, which is chronic. The patient has been asked to restrict intake of hypotonic fluids and plain water. Anemia of CKD Cervical fracture. Neurosurgery. She is very high risk surgical patient, they are recommending conservative management, she will need to weak the cervical collar for 10 weeks Hypertension Improving pneumonia CAD, medical management UTI, cultures showing E. coli Severe Mitral regurgitation DM HTN Pulmonary hypertension Plan: Continue dialysis Tuesdays, and Saturdays. Renal diet C-collar in place for total of 12 weeks IV antibiotics Transfuse as needed Hasmukh for goal hemoglobin ideally 10-11 monitor H&H , transfuse if Hb < 7 g/dl Plan of care from Nephrology perspective discussed with the in the patient at bedside. Dietary Evaluation Review Recommendations by RD: Dietary education by RD, Protein Supplementation Comments: 1) Initiate 60g CCHO renal cardiac diet 2) Initiate Nephro-Hilario @ 1 tb qd 3) Initiate Gage @ 1 pk qd 4) Initiate Nepro CarbStead qd 5) Refer to outpatient RD/[facility] for weight management 6) Follow-up with cardiology, pulmonology, and nephrology 7) Continue to monitor I&O, labs, and skin integrity Expected Outcomes/Goals: 1) appetite and labs to improve 2) wound to improve 3) gradual wt loss 4) f/u in 3-5 days Plan discussed with: Patient, Spouse, Daughter TRISHA BERKOWITZ MD Mar 19, 2025 16:07
--- NOTE | 2025-03-19 16:55 | DVHPN2 ---
Progress Note - Dictate Date Seen: Mar 19, 2025 Has the PT tested + for MRSA If YES, has PT been informed?: Yes Medical Necessity Reason Pt with a Central, PICC or Fol: Yes Subjective Patient was seen and evaluated in follow up. Patient is on 2 LPM NC. Patient is resting in bed. HGB 9.1, HCT 27.9. Telemetry reviewed. vital signs Vital Sign Date Time Temp Pulse Resp B/P (MAP) Pulse Ox O2 Delivery O2 Flow Rate FiO2 03/19/25 11:37 62 107/52 03/19/25 08:34 97.4 18 97 97.4 03/19/25 08:30 Nasal Cannula* 3 32 Total Intake and Output 03/18/25 03/18/25 03/19/25 15:00 23:00 07:00 Intake Total 50 ml Balance 50 ml medications Current Medications Medications Dose Ordered Sig/Virgen Route Start Time Stop Time Status Last Admin Dose Admin Nitroglycerin 0.4 mg Q5MINP PRN SL 02/26/25 22:00 03/08/25 20:22 0.4 MG Carvedilol 6.25 mg BID PO 02/26/25 22:00 03/19/25 10:37 6.25 MG Aspirin 81 mg DAILY PO 02/27/25 10:00 03/19/25 10:38 81 MG Atorvastatin Calcium 40 mg HS PO 02/26/25 22:00 03/18/25 22:17 40 MG Diagnostic Test (Pha) 1 strip ACHS 02/27/25 17:00 03/19/25 06:10 1 STRIP Insulin Human Regular ACHS SC 02/27/25 17:00 03/18/25 22:52 3 UNITS Dextrose 50 ml UD PRN IV 02/27/25 15:15 Vancomycin HCl 0 ml @ 0 mls/hr UD IV 03/09/25 15:30 Sodium Chloride 10 ml QSHIFT@10,22 IV 03/10/25 22:00 03/19/25 10:33 10 ML Piperacillin Sod/ Tazobactam Sod 50 ml @ 12.5 mls/hr Q8H IV 03/13/25 10:00 03/19/25 10:32 12.5 MLS/HR Ticagrelor 90 mg BID PO 03/13/25 22:00 03/19/25 10:33 90 MG Pantoprazole Sodium 40 mg BID IV 03/13/25 22:00 03/19/25 10:32 40 MG Hydromorphone HCl 0.5 mg Q4HPRN PRN IV 03/14/25 15:15 03/18/25 15:41 0.5 MG Enteral Nutritional Formula 1,000 ml 30ML/HR GT 03/14/25 15:15 Acetaminophen/ Hydrocodone Bitart 1 tab Q6HR PO 03/15/25 00:00 03/19/25 05:41 1 TAB Nystatin 5 ml QID MT 03/15/25 18:00 03/19/25 05:40 5 ML Heparin Sodium (Porcine) 3,200 units LINDSEY PRN XX 03/17/25 03:00 03/17/25 03:37 3,200 UNITS Morphine Sulfate 15 mg Q12HR PO 03/17/25 22:00 03/19/25 10:36 15 MG Enteral Nutritional Formula 240 ml TIDWM PO 03/17/25 18:00 03/19/25 10:33 240 ML objective GENERAL: Alert and oriented x 3. No acute distress. EYES: PERRL, EOMI. Anicteric. HENT: Moist mucous membranes. LUNGS: Clear to auscultation bilaterally. CARDIOVASCULAR: Regular rate and rhythm. ABDOMEN: Soft, nontender and nondistended. EXTREMITIES: No edema. NEUROLOGIC: No focal neurological deficits. SKIN: Warm, dry. 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 Complicated UTI. ESRD on hemodialysis. Acute on chronic diastolic heart failure. NSTEMI type 2 likely due to above. Pneumonia Gram-positive versus negative. Acute hypoxic respiratory failure. Diabetes mellitus type 2 HGB A1c 6% on 01/16/2025 , insulin-dependent. Coronary artery disease without stent placement. Cardiomegaly with Severe MR. Severe pulmonary hypertension. Hypertension . Dyslipidemia. Hypokalemia. Diarrhea. Transversely oriented fracture through the C2 vertebral body below the level of the odontoid process with significant left lateral fracture extension into the left C2 pedicle. Assessment/Plan Continued all current supportive medical care. Morphine and [place] for pain management Aspirin, Brilinta. Coreg. GI prophylactics. IV antibiotics as ordered. Additional plan as per the hospital course. Dietary Evaluation Review Recommendations by RD: Dietary education by RD, Protein Supplementation Comments: 1) Initiate 60g CCHO renal cardiac diet 2) Initiate Nephro-Hilario @ 1 tb qd 3) Initiate Gage @ 1 pk qd 4) Initiate Nepro CarbStead qd 5) Refer to outpatient RD/[facility] for weight management 6) Follow-up with cardiology, pulmonology, and nephrology 7) Continue to monitor I&O, labs, and skin integrity Expected Outcomes/Goals: 1) appetite and labs to improve 2) wound to improve 3) gradual wt loss 4) f/u in 3-5 days Plan discussed with: Patient LYLE ARROYO MD Mar 19, 2025 12:12
--- NOTE | 2025-03-19 20:21 | DVHPN2 ---
Subjective rested/neck brace in place/no complaints voiced Reviewed: Care Plan, H&P, Labs, Medications, Previous Orders, Radiology Changes from previous H/P or p: No Changes General: Per HPI Eyes: No Pain, No Vision change, No Conjunctivae inflammation, No Eyelid inflammation, No Other, No Redness ENT: No Ear pain, No Ear discharge, No Nose pain, No Nose discharge, No Nose congestion, No Mouth pain, No Mouth swelling, No Throat pain, No Throat swelling, No Other Cardiovascular: No Chest Pain, No Palpitations, No Orthopnea, No Paroxysmal Noc. Dyspnea, No Edema, No Lt Headedness, No Other Respiratory: No Cough, No Dry, No Shortness of breath, No SOB with excertion, No Wheezing, No Hemoptysis, No Pleuritic Pain, No Sputum, No Other Gastrointestinal: No Nausea, No Vomiting, No Abdominal Pain, No Diarrhea, No Constipation, No Melena, No Hematochezia, No Other Genitourinary: No Dysuria, No Frequency, No Incontinence, No Hematuria, No Retention, No Other Musculoskeletal: neck pain Skin: No Rash, No Lesions, No Jaundice, No Bruising, No Other Objective Vitals Vital Signs Date Time Temp Pulse Resp B/P (MAP) Pulse Ox O2 Delivery O2 Flow Rate FiO2 03/19/25 16:43 97.0 62 14 105/52 (69) 100 97.0 03/19/25 08:30 Nasal Cannula* 3 32 Intake/Output Intake and Output 03/19/25 07:00 Intake Total 50 ml Balance 50 ml IV Total 50 ml General Appearance: Alert, Oriented X3, Cooperative, No acute distress HEENT: Atraumatic, PERRLA, EOMI, Mucous membr. moist/pink Neck: Supple Lungs: Clear to auscultation, Normal air movement Cardiovascular: Regular rate, Normal S1, Normal S2, No murmurs, Gallops, Rubs Abdomen: Normal bowel sounds, Soft, No tenderness Extremities: No edema, No tenderness/swelling Neuro: Normal speech, Strength at 5/5 X4 ext, Normal tone, Sensation intact, C ranial nerves 3-12 NL Skin: Dry, Intact Psych/Mental Status: Mental status NL, Mood NL Medications Current Medications Medications Dose Ordered Sig/Virgen Route Start Time Stop Time Status Last Admin Dose Admin Carvedilol 6.25 mg BID PO 02/26/25 22:00 03/19/25 10:37 6.25 MG Aspirin 81 mg DAILY PO 02/27/25 10:00 03/19/25 10:38 81 MG Atorvastatin Calcium 40 mg HS PO 02/26/25 22:00 03/18/25 22:17 40 MG Vancomycin HCl 0 ml @ 0 mls/hr UD IV 03/09/25 15:30 Sodium Chloride 10 ml QSHIFT@10,22 IV 03/10/25 22:00 03/19/25 10:33 10 ML Piperacillin Sod/ Tazobactam Sod 50 ml @ 12.5 mls/hr Q8H IV 03/13/25 10:00 03/19/25 17:41 12.5 MLS/HR Ticagrelor 90 mg BID PO 03/13/25 22:00 03/19/25 10:33 90 MG Pantoprazole Sodium 40 mg BID IV 03/13/25 22:00 03/19/25 10:32 40 MG Enteral Nutritional Formula 1,000 ml 30ML/HR GT 03/14/25 15:15 Acetaminophen/ Hydrocodone Bitart 1 tab Q6HR PO 03/15/25 00:00 03/19/25 17:42 1 TAB Nystatin 5 ml QID MT 03/15/25 18:00 03/19/25 17:40 5 ML Heparin Sodium (Porcine) 3,200 units LINDSEY PRN XX 03/17/25 03:00 03/17/25 03:37 3,200 UNITS Enteral Nutritional Formula 240 ml TIDWM PO 03/17/25 18:00 03/19/25 17:41 240 ML Laboratory Results Laboratory Tests 03/18/25 05:56 03/19/25 05:54 Urinalysis Test 02/26/25 16:53 03/09/25 16:55 Urine Amorphous Crystals Few /hpf (None Seen) Urine Hyaline Casts Few /lpf (0 - 2) Urine Color Light-orange (Yellow) Urine Clarity Ex.turbid (Clear) Urine pH 5.5 (5.0-9.0) Urine Specific [place] 1.019 (1.001-1.035) Urine Protein 2+ (Negative) H Urine Ketones Trace (Negative) Urine Blood 2+ /uL (Negative) H Urine Nitrite Negative (Negative) Urine Bilirubin 1+ (Negative) H Urine Urobilinogen 2 mg/dL (Negative) H Urine Leukocyte Esterase 3+ /uL (Negative) Urine RBC 150 /hpf (0 - 4) Urine WBC Clumps Present /hpf (None Seen) Urine Microscopic WBC 2903 /HPF (0-5) H Urine Squamous Epithelial Cells Mod /hpf (<5) Urine Bacteria None seen /hpf (None Seen) Urine Yeast (Budding) Loaded /hpf (None Seen) Urine Glucose Normal mg/dL (Normal) Microbiology Microbiology Date/Time Source Procedure Growth Status 03/10/25 18:47 Nose MRSA Screen - Final Complete 03/09/25 16:55 Urine - [place] Urine Culture - Final Escherichia coli Presumptive [place] albicans Complete 03/09/25 15:25 Blood Blood Culture - Final NO GROWTH AFTER 5 DAYS OF INCUBATION. Complete 02/27/25 05:20 Stool Clostridium difficile Toxin Assay - Final Complete Labs and/or images reviewed: Labs reviewed by me, Image(s) reviewed by me Assessment/Plan Assessment/Plan sepsis secondary to uti improved/all cultures 02/2603/09/25 reviwed/meds deescalated c2 fracture- brace in place/conservative tretment per ortho due to recent mi cad s/p stent htn normal hga1c/normal sugars only got up to chair today- add dvt prophylaxis Plan discussed with: Patient, Daughter Date of Service: Mar 19, 2025 Billing Provider: YUSUF GUEVARA MD Common Visit Codes: [id number] INP/OBS CARE(HIGH) YUSUF GUEVARA MD Mar 19, 2025 20:21
[2025-03-19] MEDS ORDERED: ALBUMIN 25% 100 ML IV PRN (21:00)
[2025-03-19] MEDS: SODIUM CHL 0.9% 1000 ML BAG XX ONE (21:05)
[2025-03-20] VITALS (8 sets, daily range): BP systolic 100–126; BP diastolic 31–76; PULSE 63–70; RESP 12–20; TEMP 97.3–100.1; O2SAT 93–100
[2025-03-20] MEDS: EPOETIN ALFA-EPBX 10,000 UNIT/1ML VIAL SC ONE (00:46)
[2025-03-20] MEDS: PANTOPRAZOLE 40 MG TAB PO ONE (00:47)
[2025-03-20 05:08] LABS: Hematocrit 27.6 % (36.0-46.0); Hemoglobin 8.8 g/dL (12.2-16.2); Mean Corpuscular Hemoglobin 29.2 pg (28.0-32.0); Mean Corpuscular Volume 91.6 fL (80.0-100.0); Nucleated Red Blood Cells % 0.1 %
[2025-03-20] MEDS: PANTOPRAZOLE 40 MG TAB PO SCH (06:38)
--- NOTE | 2025-03-20 15:48 | DVHPN2 ---
Progress Note - Dictate Date Seen: Mar 20, 2025 Has the PT tested + for MRSA If YES, has PT been informed?: Yes Medical Necessity Reason Pt with a Central, PICC or Fol: Yes Subjective Patient is sleeping at this time her at bedside endorses patient unable syrup in bed vital signs Vital Sign Date Time Temp Pulse Resp B/P (MAP) Pulse Ox O2 Delivery O2 Flow Rate FiO2 03/20/25 12:34 98.1 68 16 105/54 (71) 93 98.1 03/20/25 08:00 Nasal Cannula* 3 32 Total Intake and Output 03/19/25 03/19/25 03/20/25 15:00 23:00 07:00 Intake Total 50 ml 50 ml Balance 50 ml 50 ml medications Current Medications Medications Dose Ordered Sig/Virgen Route Start Time Stop Time Status Last Admin Dose Admin Carvedilol 6.25 mg BID PO 02/26/25 22:00 03/20/25 00:48 6.25 MG Aspirin 81 mg DAILY PO 02/27/25 10:00 03/20/25 10:47 81 MG Atorvastatin Calcium 40 mg HS PO 02/26/25 22:00 03/20/25 00:46 40 MG Sodium Chloride 10 ml QSHIFT@10,22 IV 03/10/25 22:00 03/20/25 10:12 10 ML Piperacillin Sod/ Tazobactam Sod 50 ml @ 12.5 mls/hr Q8H IV 03/13/25 10:00 03/20/25 10:48 12.5 MLS/HR Ticagrelor 90 mg BID PO 03/13/25 22:00 03/20/25 10:47 90 MG Enteral Nutritional Formula 1,000 ml 30ML/HR GT 03/14/25 15:15 Acetaminophen/ Hydrocodone Bitart 1 tab Q6HR PO 03/15/25 00:00 03/20/25 12:56 1 TAB Heparin Sodium (Porcine) 3,200 units LINDSEY PRN XX 03/17/25 03:00 03/17/25 03:37 3,200 UNITS Enteral Nutritional Formula 240 ml TIDWM PO 03/17/25 18:00 03/20/25 12:00 240 ML Pantoprazole Sodium 40 mg DAILY@0600 PO 03/20/25 06:00 03/20/25 06:38 40 MG objective HEENT: No evidence of JVD, no oral ulcers. C-collar is in place. Pulmonary: Lungs are clear on auscultation bilaterally Cardiovascular S1-S2, no S3 or S4 Abdomen: Bowel sounds positive, soft no rebound tenderness Skin: No rash Neurological: Alert, oriented, no focal weakness Extremities: Trace edema of the hands Access: Tunneled dialysis line laboratory and microbiology Laboratory Tests 03/20/25 04:46 03/18/25 05:56 Test 03/18/25 05:56 Range/Units Serum Glucose 94 74-106 mg/dL Assessment/Plan Assessment: End-stage renal disease on HD Friday. Hyponatremia, which is chronic. The patient has been asked to restrict intake of hypotonic fluids and plain water. Anemia of CKD Cervical fracture. Neurosurgery: She is very high risk surgical patient, they are recommending conservative management, she will need to wear the cervical collar for total of 10 weeks Hypertension Improving pneumonia CAD, medical management UTI, cultures showing E. coli Severe Mitral regurgitation DM HTN Pulmonary hypertension Plan: Continue dialysis Tuesdays, and Saturdays. Renal diet C-collar in place for total of 12 weeks IV antibiotics Transfuse as needed Hasmukh for goal hemoglobin ideally 10-11 monitor H&H , transfuse if Hb < 7 g/dl Awaiting placement Plan of care from Nephrology perspective discussed with the in the patient at bedside. Dietary Evaluation Review Recommendations by RD: Dietary education by RD, Protein Supplementation Comments: 1) Initiate 60g CCHO renal cardiac diet 2) Initiate Nephro-Hilario @ 1 tb qd 3) Initiate Gage @ 1 pk qd 4) Initiate Nepro CarbStead qd 5) Refer to outpatient RD/CDCES for weight management 6) Follow-up with cardiology, pulmonology, and nephrology 7) Continue to monitor I&O, labs, and skin integrity Expected Outcomes/Goals: 1) appetite and labs to improve 2) wound to improve 3) gradual wt loss 4) f/u in 3-5 days Plan discussed with: Patient, Spouse TRISHA BERKOWITZ MD Mar 20, 2025 15:47
--- NOTE | 2025-03-20 17:07 | DVHPN2 ---
Subjective rested/neck brace in place/no complaints voiced/mild rash lt elbow and itching Reviewed: Care Plan, H&P, Labs, Medications, Previous Orders, Radiology Changes from previous H/P or p: No Changes General: Per HPI Eyes: No Pain, No Vision change, No Conjunctivae inflammation, No Eyelid inflammation, No Other, No Redness ENT: No Ear pain, No Ear discharge, No Nose pain, No Nose discharge, No Nose congestion, No Mouth pain, No Mouth swelling, No Throat pain, No Throat swelling, No Other Cardiovascular: No Chest Pain, No Palpitations, No Orthopnea, No Paroxysmal Noc. Dyspnea, No Edema, No Lt Headedness, No Other Respiratory: No Cough, No Dry, No Shortness of breath, No SOB with excertion, No Wheezing, No Hemoptysis, No Pleuritic Pain, No Sputum, No Other Gastrointestinal: No Nausea, No Vomiting, No Abdominal Pain, No Diarrhea, No Constipation, No Melena, No Hematochezia, No Other Genitourinary: No Dysuria, No Frequency, No Incontinence, No Hematuria, No Retention, No Other Musculoskeletal: neck pain Skin: No Rash, No Lesions, No Jaundice, No Bruising, No Other Objective Vitals Vital Signs Date Time Temp Pulse Resp B/P (MAP) Pulse Ox O2 Delivery O2 Flow Rate FiO2 03/20/25 16:48 100.1 70 20 100/70 (80) 98 100.1 03/20/25 08:00 Nasal Cannula* 3 32 Intake/Output Intake and Output 03/20/25 07:00 Intake Total 100 ml Balance 100 ml IV Total 100 ml General Appearance: Alert, Oriented X3, Cooperative, No acute distress HEENT: Atraumatic, PERRLA, EOMI, Mucous membr. moist/pink Neck: Supple Lungs: Clear to auscultation, Normal air movement Cardiovascular: Regular rate, Normal S1, Normal S2, No murmurs, Gallops, Rubs Abdomen: Normal bowel sounds, Soft, No tenderness Extremities: No edema, No tenderness/swelling Neuro: Normal speech, Strength at 5/5 X4 ext, Normal tone, Sensation intact, C ranial nerves 3-12 NL Skin: Dry, Intact Psych/Mental Status: Mental status NL, Mood NL Medications Current Medications Medications Dose Ordered Sig/Virgen Route Start Time Stop Time Status Last Admin Dose Admin Carvedilol 6.25 mg BID PO 02/26/25 22:00 03/20/25 00:48 6.25 MG Aspirin 81 mg DAILY PO 02/27/25 10:00 03/20/25 10:47 81 MG Atorvastatin Calcium 40 mg HS PO 02/26/25 22:00 03/20/25 00:46 40 MG Sodium Chloride 10 ml QSHIFT@10,22 IV 03/10/25 22:00 03/20/25 10:12 10 ML Piperacillin Sod/ Tazobactam Sod 50 ml @ 12.5 mls/hr Q8H IV 03/13/25 10:00 03/20/25 10:48 12.5 MLS/HR Ticagrelor 90 mg BID PO 03/13/25 22:00 03/20/25 10:47 90 MG Enteral Nutritional Formula 1,000 ml 30ML/HR GT 03/14/25 15:15 Acetaminophen/ Hydrocodone Bitart 1 tab Q6HR PO 03/15/25 00:00 03/20/25 12:56 1 TAB Heparin Sodium (Porcine) 3,200 units LINDSEY PRN XX 03/17/25 03:00 03/17/25 03:37 3,200 UNITS Enteral Nutritional Formula 240 ml TIDWM PO 03/17/25 18:00 03/20/25 12:00 240 ML Pantoprazole Sodium 40 mg DAILY@0600 PO 03/20/25 06:00 03/20/25 06:38 40 MG Laboratory Results Laboratory Tests 03/18/25 05:56 03/20/25 04:46 Urinalysis Test 02/26/25 16:53 03/09/25 16:55 Urine Amorphous Crystals Few /hpf (None Seen) Urine Hyaline Casts Few /lpf (0 - 2) Urine Color Light-orange (Yellow) Urine Clarity Ex.turbid (Clear) Urine pH 5.5 (5.0-9.0) Urine Specific [place] 1.019 (1.001-1.035) Urine Protein 2+ (Negative) H Urine Ketones Trace (Negative) Urine Blood 2+ /uL (Negative) H Urine Nitrite Negative (Negative) Urine Bilirubin 1+ (Negative) H Urine Urobilinogen 2 mg/dL (Negative) H Urine Leukocyte Esterase 3+ /uL (Negative) Urine RBC 150 /hpf (0 - 4) Urine WBC Clumps Present /hpf (None Seen) Urine Microscopic WBC 2903 /HPF (0-5) H Urine Squamous Epithelial Cells Mod /hpf (<5) Urine Bacteria None seen /hpf (None Seen) Urine Yeast (Budding) Loaded /hpf (None Seen) Urine Glucose Normal mg/dL (Normal) Microbiology Microbiology Date/Time Source Procedure Growth Status 03/10/25 18:47 Nose MRSA Screen - Final Complete 03/09/25 16:55 Urine - [place] Urine Culture - Final Escherichia coli Presumptive [place] albicans Complete 03/09/25 15:25 Blood Blood Culture - Final NO GROWTH AFTER 5 DAYS OF INCUBATION. Complete 02/27/25 05:20 Stool Clostridium difficile Toxin Assay - Final Complete Assessment/Plan Assessment/Plan sepsis secondary to uti improved/all cultures 02/2603/09/25 reviwed/meds deescalated c2 fracture- brace in place/conservative tretment per ortho due to recent mi cad s/p stent htn dermatitis treat/? from esrd- clinically no signs of shingles monitor daily normal hga1c/normal sugars only got up to chair today- add dvt prophylaxis Plan discussed with: Patient, Daughter My Orders Orders - YUSUF GUEVARA MD Procedure Category Date Status Time Pantoprazole Tablet PHA 03/20/25 In Process (Protonix Tablet) 06:00 Sequential BARBRA 03/19/25 In Process Compression Device 20:23 Hydrocortone 1% PHA 03/20/25 Logged Topical Cream 22:00 Date of Service: Mar 20, 2025 Billing Provider: YUSUF GUEVARA MD Common Visit Codes: [id number] INP/OBS CARE(MOD) YUSUF GUEVARA MD Mar 20, 2025 17:07
--- NOTE | 2025-03-20 20:04 | DVHPN2 ---
Progress Note - Dictate Date Seen: Mar 20, 2025 Has the PT tested + for MRSA If YES, has PT been informed?: Yes Medical Necessity Reason Pt with a Central, PICC or Fol: Yes Subjective Patient was seen and evaluated in follow up. The patient is complaining of all over body itchiness. HGB 8.8, HCT 27.6, [employer] SCI[employer] 2.49. Telemetry reviewed. vital signs Vital Sign Date Time Temp Pulse Resp B/P (MAP) Pulse Ox O2 Delivery O2 Flow Rate FiO2 03/20/25 12:34 98.1 68 16 105/54 (71) 93 98.1 03/20/25 08:00 Nasal Cannula* 3 32 Total Intake and Output 03/19/25 03/19/25 03/20/25 14:59 22:59 06:59 Intake Total 50 ml 50 ml Balance 50 ml 50 ml medications Current Medications Medications Dose Ordered Sig/Virgen Route Start Time Stop Time Status Last Admin Dose Admin Carvedilol 6.25 mg BID PO 02/26/25 22:00 03/20/25 00:48 6.25 MG Aspirin 81 mg DAILY PO 02/27/25 10:00 03/20/25 10:47 81 MG Atorvastatin Calcium 40 mg HS PO 02/26/25 22:00 03/20/25 00:46 40 MG Sodium Chloride 10 ml QSHIFT@10,22 IV 03/10/25 22:00 03/20/25 10:12 10 ML Piperacillin Sod/ Tazobactam Sod 50 ml @ 12.5 mls/hr Q8H IV 03/13/25 10:00 03/20/25 10:48 12.5 MLS/HR Ticagrelor 90 mg BID PO 03/13/25 22:00 03/20/25 10:47 90 MG Enteral Nutritional Formula 1,000 ml 30ML/HR GT 03/14/25 15:15 Acetaminophen/ Hydrocodone Bitart 1 tab Q6HR PO 03/15/25 00:00 03/20/25 12:56 1 TAB Heparin Sodium (Porcine) 3,200 units LINDSEY PRN XX 03/17/25 03:00 03/17/25 03:37 3,200 UNITS Enteral Nutritional Formula 240 ml TIDWM PO 03/17/25 18:00 03/20/25 12:00 240 ML Pantoprazole Sodium 40 mg DAILY@0600 PO 03/20/25 06:00 03/20/25 06:38 40 MG objective GENERAL: Alert and oriented x 3. No acute distress. EYES: PERRL, EOMI. Anicteric. HENT: Moist mucous membranes. LUNGS: Clear to auscultation bilaterally. CARDIOVASCULAR: Regular rate and rhythm. ABDOMEN: Soft, nontender and nondistended. EXTREMITIES: No edema. NEUROLOGIC: No focal neurological deficits. SKIN: Warm, dry. 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 Complicated UTI. ESRD on hemodialysis. Acute on chronic diastolic heart failure. NSTEMI type 2 likely due to above. Pneumonia Gram-positive versus negative. Acute hypoxic respiratory failure. Diabetes mellitus type 2 HGB A1c 6% on 01/16/2025 , insulin-dependent. Coronary artery disease without stent placement. Cardiomegaly with Severe MR. Severe pulmonary hypertension. Hypertension . Dyslipidemia. Hypokalemia. Diarrhea. Transversely oriented fracture through the C2 vertebral body below the level of the odontoid process with significant left lateral fracture extension into the left C2 pedicle. Assessment/Plan Continued all current supportive medical care. Morphine and [place] for pain management Lipitor,Aspirin, Brilinta. GI prophylactics. IV antibiotics as ordered. Additional plan as per the hospital course. Dietary Evaluation Review Recommendations by RD: Dietary education by RD, Protein Supplementation Comments: 1) Initiate 60g CCHO renal cardiac diet 2) Initiate Nephro-Hilario @ 1 tb qd 3) Initiate Gage @ 1 pk qd 4) Initiate Nepro CarbStead qd 5) Refer to outpatient RD/[facility] for weight management 6) Follow-up with cardiology, pulmonology, and nephrology 7) Continue to monitor I&O, labs, and skin integrity Expected Outcomes/Goals: 1) appetite and labs to improve 2) wound to improve 3) gradual wt loss 4) f/u in 3-5 days Plan discussed with: Patient LYLE ARROYO MD Mar 20, 2025 13:46
[2025-03-20] MEDS: HYDROCORTONE 1% TOPICAL CREAM 30 GM TUBE TOP SCH (21:52)
[2025-03-21] VITALS (8 sets, daily range): BP systolic 99–124; BP diastolic 33–55; PULSE 61–65; RESP 16–18; TEMP 97.4–99; O2SAT 91–100
--- NOTE | 2025-03-21 14:37 | DVHPN2 ---
Assessment/Plan Assessment/Plan progress note 80 F with ESRD on new HD, c2 fx, IDDM, NSTEMI admitted for sepsis. s/p LHC pain improved, c/w feeding, attempt snif placement ss consult physical exam aox3 dry mucosa, poor hygiene, improved clear breath s1 s2 systolic murmur abdomen soft trace lE edema labs ekg imaging reviewed Assessment and plan Sepsis emphysematous cystitis ESRD on HD CAD s/p RABIA PNA gp vs gn chronic diastolic hf IDDM type 2 CA PH severe MR c2 fx dysphagia vanc and zosyn HD per renal DAPT attempt oral feeding viscous lido nystatin swish swallow Glucerna as tolerated not able to be scoped as pt has c2 fx pain management resume home meds s/p LHC diet puree gi ppx protonix dvt ppx heparin full code Plan discussed with: Patient, Spouse Date of Service: Mar 21, 2025 Billing Provider: STEF PEREZ MD Common Visit Codes: [id number] INP/OBS CARE(HIGH) STEF PEREZ MD Mar 21, 2025 14:37
--- NOTE | 2025-03-21 17:29 | DVHPN2 ---
Progress Note - Dictate Date Seen: Mar 21, 2025 Has the PT tested + for MRSA If YES, has PT been informed?: Yes Medical Necessity Reason Pt with a Central, PICC or Fol: Yes Subjective No acute issues overnight vital signs Vital Sign Date Time Temp Pulse Resp B/P (MAP) Pulse Ox O2 Delivery O2 Flow Rate FiO2 03/21/25 16:46 99.0 64 18 116/49 (71) 100 99.0 03/20/25 20:00 Nasal Cannula* 2 28 Total Intake and Output 03/20/25 03/20/25 03/21/25 15:00 23:00 07:00 Intake Total 50 ml Balance 50 ml medications Current Medications Medications Dose Ordered Sig/Virgen Route Start Time Stop Time Status Last Admin Dose Admin Carvedilol 6.25 mg BID PO 02/26/25 22:00 03/21/25 10:15 6.25 MG Aspirin 81 mg DAILY PO 02/27/25 10:00 03/21/25 10:13 81 MG Atorvastatin Calcium 40 mg HS PO 02/26/25 22:00 03/20/25 21:52 40 MG Sodium Chloride 10 ml QSHIFT@10,22 IV 03/10/25 22:00 03/21/25 10:13 10 ML Piperacillin Sod/ Tazobactam Sod 50 ml @ 12.5 mls/hr Q8H IV 03/13/25 10:00 03/21/25 10:13 12.5 MLS/HR Ticagrelor 90 mg BID PO 03/13/25 22:00 03/21/25 10:13 90 MG Enteral Nutritional Formula 1,000 ml 30ML/HR GT 03/14/25 15:15 Acetaminophen/ Hydrocodone Bitart 1 tab Q6HR PO 03/15/25 00:00 03/21/25 11:49 1 TAB Heparin Sodium (Porcine) 3,200 units LINDSEY PRN XX 03/17/25 03:00 03/17/25 03:37 3,200 UNITS Enteral Nutritional Formula 240 ml TIDWM PO 03/17/25 18:00 03/21/25 11:48 240 ML Pantoprazole Sodium 40 mg DAILY@0600 PO 03/20/25 06:00 03/21/25 05:09 40 MG Hydrocortisone 1 applic BID TOP 03/20/25 22:00 03/21/25 10:00 1 APPLIC objective HEENT: No evidence of JVD C-collar is in place. Pulmonary: Lungs are clear on auscultation bilaterally Cardiovascular S1-S2, no S3 or S4 Abdomen: Bowel sounds positive, soft no rebound tenderness Skin: No rash Neurological: Alert, oriented, no focal weakness Extremities: Trace edema of the hands Access: Tunneled dialysis line laboratory and microbiology Laboratory Tests 03/20/25 04:46 03/18/25 05:56 Test 03/18/25 05:56 Range/Units Serum Glucose 94 74-106 mg/dL Problem List End-stage renal disease on HD Hyponatremia, which is chronic. Anemia of CKD Cervical fracture. Neurosurgery: She is very high risk surgical patient, they are recommending conservative management, she will need to wear the cervical collar for total of 10 weeks Hypertension Improving pneumonia CAD, medical management UTI, cultures showing E. coli Severe Mitral regurgitation DM HTN Pulmonary hypertension Assessment/Plan Plan: Continue dialysis Tuesdays, and Saturdays. Renal diet C-collar in place for total of 12 weeks IV antibiotics Transfuse as needed Hasmukh for goal hemoglobin ideally 10-11 monitor H&H , transfuse if Hb < 7 g/dl Awaiting placement Dietary Evaluation Review Recommendations by RD: Dietary education by RD, Protein Supplementation Comments: 1) Initiate 60g CCHO renal cardiac diet 2) Initiate Nephro-Hilario @ 1 tb qd 3) Initiate Gage @ 1 pk qd 4) Initiate Nepro CarbStead qd 5) Refer to outpatient RD/[facility] for weight management 6) Follow-up with cardiology, pulmonology, and nephrology 7) Continue to monitor I&O, labs, and skin integrity Expected Outcomes/Goals: 1) appetite and labs to improve 2) wound to improve 3) gradual wt loss 4) f/u in 3-5 days Plan discussed with: SHIMA Mcgarry MD Mar 21, 2025 17:29
--- NOTE | 2025-03-21 22:43 | DVHPN2 ---
Progress Note - Dictate Date Seen: Mar 21, 2025 Has the PT tested + for MRSA If YES, has PT been informed?: Yes Medical Necessity Reason Pt with a Central, PICC or Fol: Yes Subjective Patient was seen and evaluated in follow up. No overnight events. Patient is complaining of posterior back pain. Telemetry reviewed. vital signs Vital Sign Date Time Temp Pulse Resp B/P (MAP) Pulse Ox O2 Delivery O2 Flow Rate FiO2 03/21/25 21:45 61 99/51 03/21/25 21:00 97.4 18 97 97.4 03/21/25 20:00 Nasal Cannula* 2 28 Total Intake and Output 03/20/25 03/20/25 03/21/25 14:59 22:59 06:59 Intake Total 50 ml Balance 50 ml medications Current Medications Medications Dose Ordered Sig/Virgen Route Start Time Stop Time Status Last Admin Dose Admin Carvedilol 6.25 mg BID PO 02/26/25 22:00 03/21/25 10:15 6.25 MG Aspirin 81 mg DAILY PO 02/27/25 10:00 03/21/25 10:13 81 MG Atorvastatin Calcium 40 mg HS PO 02/26/25 22:00 03/21/25 21:46 40 MG Sodium Chloride 10 ml QSHIFT@10,22 IV 03/10/25 22:00 03/21/25 21:44 10 ML Piperacillin Sod/ Tazobactam Sod 50 ml @ 12.5 mls/hr Q8H IV 03/13/25 10:00 03/21/25 17:41 12.5 MLS/HR Ticagrelor 90 mg BID PO 03/13/25 22:00 03/21/25 10:13 90 MG Enteral Nutritional Formula 1,000 ml 30ML/HR GT 03/14/25 15:15 Acetaminophen/ Hydrocodone Bitart 1 tab Q6HR PO 03/15/25 00:00 03/21/25 17:41 1 TAB Heparin Sodium (Porcine) 3,200 units LINDSEY PRN XX 03/17/25 03:00 03/17/25 03:37 3,200 UNITS Enteral Nutritional Formula 240 ml TIDWM PO 03/17/25 18:00 03/21/25 17:41 240 ML Pantoprazole Sodium 40 mg DAILY@0600 PO 03/20/25 06:00 03/21/25 05:09 40 MG Hydrocortisone 1 applic BID TOP 03/20/25 22:00 03/21/25 10:00 1 APPLIC objective GENERAL: Alert and oriented x 3. No acute distress. EYES: PERRL, EOMI. Anicteric. HENT: Moist mucous membranes. LUNGS: Clear to auscultation bilaterally. CARDIOVASCULAR: Regular rate and rhythm. ABDOMEN: Soft, nontender and nondistended. EXTREMITIES: No edema. NEUROLOGIC: No focal neurological deficits. SKIN: Warm, dry. 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 Complicated UTI. ESRD on hemodialysis. Acute on chronic diastolic heart failure. NSTEMI type 2 likely due to above. Pneumonia Gram-positive versus negative. Acute hypoxic respiratory failure. Diabetes mellitus type 2 HGB A1c 6% on 01/16/2025 , insulin-dependent. Coronary artery disease without stent placement. Cardiomegaly with Severe MR. Severe pulmonary hypertension. Hypertension . Dyslipidemia. Hypokalemia. Diarrhea. Transversely oriented fracture through the C2 vertebral body below the level of the odontoid process with significant left lateral fracture extension into the left C2 pedicle. Assessment/Plan Continued all current supportive medical care. Morphine and [place] for pain management Lipitor,Aspirin, Brilinta. GI prophylactics. IV antibiotics as ordered. Additional plan as per the hospital course. Dietary Evaluation Review Recommendations by RD: Dietary education by RD, Protein Supplementation Comments: 1) Initiate 60g CCHO renal cardiac diet 2) Initiate Nephro-Hilario @ 1 tb qd 3) Initiate Gage @ 1 pk qd 4) Initiate Nepro CarbStead qd 5) Refer to outpatient RD/[facility] for weight management 6) Follow-up with cardiology, pulmonology, and nephrology 7) Continue to monitor I&O, labs, and skin integrity Expected Outcomes/Goals: 1) appetite and labs to improve 2) wound to improve 3) gradual wt loss 4) f/u in 3-5 days Plan discussed with: Patient LYLE ARROYO MD Mar 21, 2025 22:43
[2025-03-22 01:01] VITALS: BP 114/58; PULSE 103; RESP 17; TEMP 98.3; O2SAT 96
[2025-03-22 05:00] VITALS: BP 127/63; PULSE 64; RESP 17; TEMP 97.8; O2SAT 100
[2025-03-22 06:21] LABS: Hematocrit 28.2 % (36.0-46.0); Hemoglobin 9.0 g/dL (12.2-16.2); Mean Corpuscular Hemoglobin 29.4 pg (28.0-32.0); Mean Corpuscular Volume 92.1 fL (80.0-100.0)
[2025-03-22 06:36] LABS: Potassium 4.8 mmol/L (3.5-5.1); Sodium 136 mmol/L (136-145)
[2025-03-22 06:37] LABS: Anion Gap 13 (5-15); Carbon Dioxide 26 mmol/L (20-31); Chloride 97 mmol/L (98-107)
[2025-03-22 06:43] LABS: BUN/Creatinine Ratio 7.2 (10.0-20.0)
[2025-03-22 06:47] LABS: Blood Urea Nitrogen 32 mg/dL (9-23); Calcium 8.2 mg/dL (8.7-10.4); Glucose 113 mg/dL (74-106)
[2025-03-22 07:48] LABS: Anisocytosis Slight; Total Cells Counted 100.0 (100)
[2025-03-22 07:49] LABS: Stomatocytes Few
[2025-03-22 08:00] VITALS: PULSE 63
--- NOTE | 2025-03-22 17:21 | DVHPN2 ---
Progress Note - Dictate Date Seen: Mar 22, 2025 Has the PT tested + for MRSA If YES, has PT been informed?: Yes Medical Necessity Reason Pt with a Central, PICC or Fol: Yes Subjective No acute issues overnight HD postponed to tomorrow because of staffing issues vital signs Vital Sign Date Time Temp Pulse Resp B/P (MAP) Pulse Ox O2 Delivery O2 Flow Rate FiO2 03/22/25 09:54 61 120/68 03/22/25 08:00 Nasal Cannula* 2 28 03/22/25 05:00 97.8 17 100 97.8 Total Intake and Output 03/21/25 03/21/25 03/22/25 15:00 23:00 07:00 Intake Total 50 ml 840 ml 100 ml Balance 50 ml 840 ml 100 ml medications Current Medications Medications Dose Ordered Sig/Virgen Route Start Time Stop Time Status Last Admin Dose Admin Carvedilol 6.25 mg BID PO 02/26/25 22:00 03/22/25 08:54 6.25 MG Aspirin 81 mg DAILY PO 02/27/25 10:00 03/22/25 08:54 81 MG Atorvastatin Calcium 40 mg HS PO 02/26/25 22:00 03/21/25 21:46 40 MG Sodium Chloride 10 ml QSHIFT@10,22 IV 03/10/25 22:00 03/22/25 08:52 10 ML Piperacillin Sod/ Tazobactam Sod 50 ml @ 12.5 mls/hr Q8H IV 03/13/25 10:00 03/22/25 08:53 12.5 MLS/HR Ticagrelor 90 mg BID PO 03/13/25 22:00 03/22/25 08:53 90 MG Enteral Nutritional Formula 1,000 ml 30ML/HR GT 03/14/25 15:15 Acetaminophen/ Hydrocodone Bitart 1 tab Q6HR PO 03/15/25 00:00 03/22/25 11:11 1 TAB Heparin Sodium (Porcine) 3,200 units LINDSEY PRN XX 03/17/25 03:00 03/17/25 03:37 3,200 UNITS Enteral Nutritional Formula 240 ml TIDWM PO 03/17/25 18:00 03/22/25 11:11 240 ML Pantoprazole Sodium 40 mg DAILY@0600 PO 03/20/25 06:00 03/22/25 05:34 40 MG Hydrocortisone 1 applic BID TOP 03/20/25 22:00 03/22/25 08:54 1 APPLIC objective HEENT: No evidence of JVD C-collar is in place. Pulmonary: Lungs are clear on auscultation bilaterally Cardiovascular S1-S2, no S3 or S4 Abdomen: Bowel sounds positive, soft no rebound tenderness Skin: No rash Neurological: Alert, oriented, no focal weakness Extremities: Trace edema of the hands Access: Tunneled dialysis line laboratory and microbiology Laboratory Tests 03/22/25 05:44 Test 03/22/25 05:44 Range/Units Serum Glucose 113 H 74-106 mg/dL Problem List End-stage renal disease on HD Hyponatremia, which is chronic. Anemia of CKD Cervical fracture. Neurosurgery: She is very high risk surgical patient, they are recommending conservative management, she will need to wear the cervical collar for total of 10 weeks Hypertension Improving pneumonia CAD, medical management UTI, cultures showing E. coli Severe Mitral regurgitation DM HTN Pulmonary hypertension Assessment/Plan Plan: HD tomorrow Renal diet C-collar in place for total of 12 weeks IV antibiotics Transfuse as needed Hasmukh for goal hemoglobin ideally 10-11 monitor H&H , transfuse if Hb < 7 g/dl Awaiting placement Dietary Evaluation Review Recommendations by RD: Dietary education by RD, Protein Supplementation Comments: 1) Initiate 60g CCHO renal cardiac diet 2) Initiate Nephro-Hilario @ 1 tb qd 3) Initiate Gage @ 1 pk qd 4) Initiate Nepro CarbStead qd 5) Refer to outpatient RD/[facility] for weight management 6) Follow-up with cardiology, pulmonology, and nephrology 7) Continue to monitor I&O, labs, and skin integrity Expected Outcomes/Goals: 1) appetite and labs to improve 2) wound to improve 3) gradual wt loss 4) f/u in 3-5 days Plan discussed with: SHIMA Mcgarry MD Mar 22, 2025 17:21
--- NOTE | 2025-03-22 18:36 | DVHPN2 ---
Assessment/Plan Assessment/Plan progress note 80 F with ESRD on new HD, c2 fx, IDDM, NSTEMI admitted for sepsis. s/p [facility] seen today. tolerating oral feeding. incontinent still, working with PT. plan to dc to [facility] physical exam aox3 dry mucosa, poor hygiene, improved clear breath s1 s2 systolic murmur abdomen soft trace lE edema labs ekg imaging reviewed Assessment and plan Sepsis emphysematous cystitis ESRD on HD CAD s/p RABIA PNA gp vs gn chronic diastolic hf IDDM type 2 [place] PH severe MR c2 fx dysphagia vanc and zosyn HD per renal DAPT attempt oral feeding viscous lido nystatin swish swallow Glucerna as tolerated not able to be scoped as pt has c2 fx pain management resume home meds s/p C diet puree dvt ppx heparin full code Plan discussed with: Patient, Spouse Date of Service: Mar 22, 2025 Billing Provider: STEF PEREZ MD Common Visit Codes: [id number] INP/OBS CARE(HIGH) STEF PEREZ MD Mar 22, 2025 18:36
--- NOTE | 2025-03-22 19:56 | DVHPN2 ---
Progress Note - Dictate Date Seen: Mar 22, 2025 Has the PT tested + for MRSA If YES, has PT been informed?: Yes Medical Necessity Reason Pt with a Central, PICC or Fol: Yes Subjective Patient was seen and evaluated in follow up. Patient complains of 4/10 generalized pain. HGB 9, HCT 28.2, CL 97, BUN 32, REHAB DIRECTOR OCCUPATIONAL THERAPIST 4.42, CA 8.2. Telemetry reviewed. vital signs Vital Sign Date Time Temp Pulse Resp B/P (MAP) Pulse Ox O2 Delivery O2 Flow Rate FiO2 03/22/25 09:54 61 120/68 03/22/25 08:00 Nasal Cannula* 2 28 03/22/25 05:00 97.8 17 100 97.8 Total Intake and Output 03/21/25 03/21/25 03/22/25 15:00 23:00 07:00 Intake Total 50 ml 840 ml 100 ml Balance 50 ml 840 ml 100 ml medications Current Medications Medications Dose Ordered Sig/Virgen Route Start Time Stop Time Status Last Admin Dose Admin Carvedilol 6.25 mg BID PO 02/26/25 22:00 03/22/25 08:54 6.25 MG Aspirin 81 mg DAILY PO 02/27/25 10:00 03/22/25 08:54 81 MG Atorvastatin Calcium 40 mg HS PO 02/26/25 22:00 03/21/25 21:46 40 MG Sodium Chloride 10 ml QSHIFT@10,22 IV 03/10/25 22:00 03/22/25 08:52 10 ML Piperacillin Sod/ Tazobactam Sod 50 ml @ 12.5 mls/hr Q8H IV 03/13/25 10:00 03/22/25 08:53 12.5 MLS/HR Ticagrelor 90 mg BID PO 03/13/25 22:00 03/22/25 08:53 90 MG Enteral Nutritional Formula 1,000 ml 30ML/HR GT 03/14/25 15:15 Acetaminophen/ Hydrocodone Bitart 1 tab Q6HR PO 03/15/25 00:00 03/22/25 11:11 1 TAB Heparin Sodium (Porcine) 3,200 units LINDSEY PRN XX 03/17/25 03:00 03/17/25 03:37 3,200 UNITS Enteral Nutritional Formula 240 ml TIDWM PO 03/17/25 18:00 03/22/25 11:11 240 ML Pantoprazole Sodium 40 mg DAILY@0600 PO 03/20/25 06:00 03/22/25 05:34 40 MG Hydrocortisone 1 applic BID TOP 03/20/25 22:00 03/22/25 08:54 1 APPLIC objective GENERAL: Alert and oriented x 3. No acute distress. EYES: PERRL, EOMI. Anicteric. HENT: Moist mucous membranes. LUNGS: Clear to auscultation bilaterally. CARDIOVASCULAR: Regular rate and rhythm. ABDOMEN: Soft, nontender and nondistended. EXTREMITIES: No edema. NEUROLOGIC: No focal neurological deficits. SKIN: Warm, dry. 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 Complicated UTI. ESRD on hemodialysis. Acute on chronic diastolic heart failure. NSTEMI type 2 likely due to above. Pneumonia Gram-positive versus negative. Acute hypoxic respiratory failure. Diabetes mellitus type 2 HGB A1c 6% on 01/16/2025 , insulin-dependent. Coronary artery disease without stent placement. Cardiomegaly with Severe MR. Severe pulmonary hypertension. Hypertension . Dyslipidemia. Hypokalemia. Diarrhea. Transversely oriented fracture through the C2 vertebral body below the level of the odontoid process with significant left lateral fracture extension into the left C2 pedicle. Assessment/Plan Continued all current supportive medical care. Coreg. Aspirin, Brilinta. GI prophylactics. IV antibiotics as ordered. [place] for pain management. Additional plan as per the hospital course. Dietary Evaluation Review Recommendations by RD: Dietary education by RD, Protein Supplementation Comments: 1) Initiate 60g CCHO renal cardiac diet 2) Initiate Nephro-Hilario @ 1 tb qd 3) Initiate Gage @ 1 pk qd 4) Initiate Nepro CarbStead qd 5) Refer to outpatient RD/[facility] for weight management 6) Follow-up with cardiology, pulmonology, and nephrology 7) Continue to monitor I&O, labs, and skin integrity Expected Outcomes/Goals: 1) appetite and labs to improve 2) wound to improve 3) gradual wt loss 4) f/u in 3-5 days Plan discussed with: Patient LYLE ARROYO MD Mar 22, 2025 14:00
[2025-03-22 20:00] VITALS: PULSE 63; PULSE 64; RESP 16; O2SAT 100
[2025-03-22 21:00] VITALS: BP 117/65; PULSE 63; RESP 16; TEMP 97.7; O2SAT 100
[2025-03-22] MEDS: EPOETIN ALFA-EPBX 10,000 UNIT/1ML VIAL SC ONE (21:00)
[2025-03-22] MEDS: HYDROmorphone HCL 2 MG/ML VL/or syr IV PRN (22:25)
[2025-03-23] VITALS (8 sets, daily range): BP systolic 110–130; BP diastolic 40–75; PULSE 56–69; RESP 16–19; TEMP 97.3–98; O2SAT 100
[2025-03-23 06:38] LABS: Hematocrit 28.7 % (36.0-46.0); Hemoglobin 9.2 g/dL (12.2-16.2); Mean Corpuscular Hemoglobin 29.5 pg (28.0-32.0); Mean Corpuscular Volume 91.6 fL (80.0-100.0)
[2025-03-23 06:54] LABS: Alanine Aminotransferase 13 U/L (7-40); Alkaline Phosphatase 100 U/L (46-116); Anion Gap 12 (5-15); BUN/Creatinine Ratio 7.6 (10.0-20.0); Carbon Dioxide 25 mmol/L (20-31); Magnesium 2.0 mg/dL (1.6-2.6); Potassium 5.0 mmol/L (3.5-5.1); Total Protein 6.4 g/dL (5.7-8.2)
[2025-03-23 06:55] LABS: Bilirubin, Total 0.5 mg/dL (0.2-1.0)
[2025-03-23 06:58] LABS: Albumin 3.0 g/dL (3.2-4.8); Blood Urea Nitrogen 36 mg/dL (9-23); Calcium 8.0 mg/dL (8.7-10.4); Chloride 97 mmol/L (98-107); Sodium 134 mmol/L (136-145)
[2025-03-23 07:14] LABS: Glucose 110 mg/dL (74-106)
[2025-03-23 08:22] LABS: Anisocytosis Slight; Total Cells Counted 100.0 (100)
[2025-03-23] MEDS: SODIUM CHL 0.9% 1000 ML BAG XX ONE ×2 (10:30→13:47)
--- NOTE | 2025-03-23 11:57 | DVHPN2 ---
Progress Note - Dictate Date Seen: Mar 23, 2025 Has the PT tested + for MRSA If YES, has PT been informed?: Yes Medical Necessity Reason Pt with a Central, PICC or Fol: Yes Subjective No acute issues overnight undergoing HD vital signs Vital Sign Date Time Temp Pulse Resp B/P (MAP) Pulse Ox O2 Delivery O2 Flow Rate FiO2 03/23/25 09:08 98.0 60 18 122/66 (84) 100 98.0 03/23/25 08:00 Nasal Cannula* 2 28 Total Intake and Output 03/22/25 03/22/25 03/23/25 15:00 23:00 07:00 Intake Total 50 ml 50 ml Balance 50 ml 50 ml medications Current Medications Medications Dose Ordered Sig/Virgen Route Start Time Stop Time Status Last Admin Dose Admin Carvedilol 6.25 mg BID PO 02/26/25 22:00 03/22/25 22:24 6.25 MG Aspirin 81 mg DAILY PO 02/27/25 10:00 03/22/25 08:54 81 MG Atorvastatin Calcium 40 mg HS PO 02/26/25 22:00 03/22/25 22:24 40 MG Sodium Chloride 10 ml QSHIFT@10,22 IV 03/10/25 22:00 03/23/25 11:13 10 ML Piperacillin Sod/ Tazobactam Sod 50 ml @ 12.5 mls/hr Q8H IV 03/13/25 10:00 03/23/25 11:13 12.5 MLS/HR Ticagrelor 90 mg BID PO 03/13/25 22:00 03/22/25 22:24 90 MG Enteral Nutritional Formula 1,000 ml 30ML/HR GT 03/14/25 15:15 Acetaminophen/ Hydrocodone Bitart 1 tab Q6HR PO 03/15/25 00:00 03/23/25 11:45 1 TAB Heparin Sodium (Porcine) 3,200 units LINDSEY PRN XX 03/17/25 03:00 03/17/25 03:37 3,200 UNITS Enteral Nutritional Formula 240 ml TIDWM PO 03/17/25 18:00 03/22/25 18:03 240 ML Pantoprazole Sodium 40 mg DAILY@0600 PO 03/20/25 06:00 03/23/25 05:23 40 MG Hydrocortisone 1 applic BID TOP 03/20/25 22:00 03/22/25 22:00 1 APPLIC Hydromorphone HCl 0.25 mg Q6HP PRN IV 03/22/25 19:30 03/23/25 08:54 0.25 MG objective HEENT: No evidence of JVD C-collar is in place. Pulmonary: Lungs are clear on auscultation bilaterally Cardiovascular S1-S2, no S3 or S4 Abdomen: Bowel sounds positive, soft no rebound tenderness Skin: No rash Neurological: Alert, oriented, no focal weakness Extremities: Trace edema of the hands Access: Tunneled dialysis line laboratory and microbiology Laboratory Tests 03/23/25 06:03 Test 03/23/25 06:03 Range/Units Serum Glucose 110 H 74-106 mg/dL Problem List End-stage renal disease on HD Hyponatremia, which is chronic. Anemia of CKD Cervical fracture. Neurosurgery: She is very high risk surgical patient, they are recommending conservative management, she will need to wear the cervical collar for total of 10 weeks Hypertension Improving pneumonia CAD UTI, cultures showing E. coli Severe Mitral regurgitation DM Pulmonary hypertension Assessment/Plan Plan: HD today Renal diet C-collar in place for total of 12 weeks IV antibiotics Transfuse as needed Hasmukh for goal hemoglobin ideally 10-11 monitor H&H , transfuse if Hb < 7 g/dl Awaiting placement d/w at bedside Dietary Evaluation Review Recommendations by RD: Dietary education by RD, Protein Supplementation Comments: 1) Initiate 60g CCHO renal cardiac diet 2) Initiate Nephro-Hilario @ 1 tb qd 3) Initiate Gage @ 1 pk qd 4) Initiate Nepro CarbStead qd 5) Refer to outpatient RD/[facility] for weight management 6) Follow-up with cardiology, pulmonology, and nephrology 7) Continue to monitor I&O, labs, and skin integrity Expected Outcomes/Goals: 1) appetite and labs to improve 2) wound to improve 3) gradual wt loss 4) f/u in 3-5 days Plan discussed with: Patient, Spouse SHIMA BUENO MD Mar 23, 2025 11:57
[2025-03-23] MEDS: EPOETIN ALFA-EPBX 4,000 UNIT/ML VIAL IV ONE (13:30)
--- NOTE | 2025-03-23 15:06 | DVHDS2 ---
Discharge Summary Date of Admission Feb 26, 2025 at 21:51 Date of Discharge: Mar 04, 2025 Labs/Diagnostic Data: Laboratory Results Test 03/23/25 06:03 03/22/25 05:44 03/20/25 04:46 03/19/25 17:30 White Blood Count 5.3 10^3/uL (4.4-10.8) Red Blood Count 3.13 10^6/uL (4.0-5.20) Hemoglobin 9.2 g/dL (12.2-16.2) Hematocrit 28.7 % (36.0-46.0) Mean Corpuscular Volume 91.6 fL (80.0-100.0) Mean Corpuscular Hemoglobin 29.5 pg (28.0-32.0) Mean Corpuscular Hemoglobin Concent 32.2 g/dL (32.0-36.0) Red Cell Distribution Width 22.2 % (11.8-14.3) Platelet Count 276 10^3/uL (140-450) Mean Platelet Volume 8.3 fL (6.9-10.8) Neutrophils (%) (Auto) % (37.0-80.0) Lymphocytes (%) (Auto) % (10.0-50.0) Monocytes (%) (Auto) % (0.0-12.0) Eosinophils (%) (Auto) % (0.0-7.0) Basophils (%) (Auto) % (0.0-2.0) Neutrophils # (Auto) 10 ^3/uL (1.6-8.6) Lymphocytes # (Auto) 10 ^3/uL (0.4-5.4) Monocytes # (Auto) 10 ^3/uL (0-1.3) Differential Total Cells Counted 100.0 (100) Neutrophils % (Manual) 68 (37.0-80.0) Band Neutrophils % (Manual) 0 Lymphocytes % (Manual) 8 (10.0-50.0) Monocytes % (Manual) 7 (0-12) Eosinophils % (Manual) 17 (0-7) Basophils % (Manual) 0 (0.0-2.0) Metamyelocytes % (manual) 0 Myelocytes % (Manual) 0 Promyelocytes % (Manual) 0 Blast Cells % (Manual) 0 Reactive Lymphocytes 0 Platelet Estimate Adequate Anisocytosis (manual) Slight Nneka Cells Few Schistocytes Few Sodium Level 134 mmol/L (136-145) Potassium Level 5.0 mmol/L (3.5-5.1) Chloride Level 97 mmol/L (98-107) Carbon Dioxide Level 25 mmol/L (20-31) Anion Gap 12 (5-15) Blood Urea Nitrogen 36 mg/dL (9-23) Creatinine 4.72 mg/dL (0.550-1.02) Glomerular Filtration Rate Calc 9 mL/min (>90) BUN/Creatinine Ratio 7.6 (10.0-20.0) Serum Glucose 110 mg/dL (74-106) Calcium Level 8.0 mg/dL (8.7-10.4) Phosphorus Level 6.7 mg/dL (2.4-5.1) Magnesium Level 2.0 mg/dL (1.6-2.6) Total Bilirubin 0.5 mg/dL (0.2-1.0) Aspartate Amino Transferase (AST) 18 U/L (13-40) Alanine Aminotransferase (ALT) 13 U/L (7-40) Alkaline Phosphatase 100 U/L (46-116) Total Protein 6.4 g/dL (5.7-8.2) Albumin 3.0 g/dL (3.2-4.8) Stomatocytes Few Eosinophils # (Auto) 0.7 10 ^3/uL (0-0.8) Basophils # (Auto) 0.1 10 ^3/uL (0-0.2) Nucleated Red Blood Cells 0.1 % Random Vancomycin Level 15.4 ug/mL (5-10) POC Glucose 109 mg/dl (70-106) Test 03/16/25 03:00 03/11/25 03:26 03/09/25 19:17 03/09/25 16:55 Prothrombin Time 13.9 sec (9.3-11.8) Prothrombin Time INR 1.35 (0.9-1.15) Activated Partial Thromboplast Time 45.7 SEC (24.5-34.5) Triglycerides Level 78 mg/dL (< 150) Lactic Acid Level 1.3 mmol/L (0.4-2.0) Urine Color Light-orange (Yellow) Urine Clarity Ex.turbid (Clear) Urine pH 5.5 (5.0-9.0) Urine Specific Ewen 1.019 (1.001-1.035) Urine Protein 2+ (Negative) Urine Ketones Trace (Negative) Urine Blood 2+ /uL (Negative) Urine Nitrite Negative (Negative) Urine Bilirubin 1+ (Negative) Urine Urobilinogen 2 mg/dL (Negative) Urine Leukocyte Esterase 3+ /uL (Negative) Urine RBC 150 /hpf (0 - 4) Urine WBC Clumps Present /hpf (None Seen) Urine Microscopic WBC 2903 /HPF (0-5) Urine Squamous Epithelial Cells Mod /hpf (<5) Urine Bacteria None seen /hpf (None Seen) Urine Yeast (Budding) Loaded /hpf (None Seen) Urine Glucose Normal mg/dL (Normal) Test 03/09/25 10:20 03/09/25 02:30 02/28/25 08:20 02/26/25 17:04 Blood Gas Specimen Type Arterial Blood Gas Sample Site Right radial Blood Gas Patient Temperature 37.0 Arterial Blood Date Drawn [id number] Arterial Blood pH 7.434 (7.350-7.450) Arterial Blood Partial Pressure CO2 43.9 mmHg (32.0-45.0) Arterial Blood Partial Pressure O2 79.9 mmHg (83.0-108.0) Arterial Blood HCO3 28.7 mmol/L (21.0-28.0) Arterial Blood Oxygen Saturation 95.1 % (94.0-98.0) Arterial Blood Base Excess 4.1 mmol/L (-2.0-3.0) Arterial Blood Oxyhemoglobin 93.6 % (94.0-98.0) Arterial Blood Carboxyhemoglobin 1.4 % (0.5-1.5) Arterial Blood Methemoglobin 0.2 % (0.0-1.5) Davey Test Yes Blood Gas Total Hemoglobin 7.80 g/dL (12.0-16.0) Blood Gas Liter Flow 3.00 Blood Gas Modality Nasal cannula FiO2 % 32.0 Estimated GFR () 24 mL/min Estimated GFR (Non- 20 mL/min Troponin I High Sensitivity 2359 ng/L (</=34) Hepatitis B Surface Antigen Negative (Negative) B-Type Natriuretic Peptide 4364.11 pg/mL (0-100) Lipase 28 U/L (12-53) Test 02/26/25 16:53 Urine Amorphous Crystals Few /hpf (None Seen) Urine Hyaline Casts Few /lpf (0 - 2) Other Laboratory Tests 03/23/25 06:03 Brief Hx & Hospital Course: 80 F with ESRD on new HD, c2 fx, IDDM, NSTEMI admitted for sepsis. s/p [facility] Condition at Discharge: Fair Final Diagnosis/Problems List Sepsis emphysematous cystitis ESRD on HD CAD s/p RABIA PNA gp vs gn chronic diastolic hf IDDM type 2 PR PH severe MR c2 fx dysphagia Discharge Disposition: [facility] Facility Discharge Instruct/Medications Diet: Cardiac 2g Na,low cholest Activity: See Comment Scheduled Aspirin (Aspirin), 81 MG PO DAILY Atorvastatin Calcium (Atorvastatin Calcium), 40 MG PO HS Carvedilol (Carvedilol), 6.25 MG PO BID Clopidogrel Bisulfate (Plavix), 75 MG PO DAILY Furosemide (Lasix), 1 TAB PO DAILY Spironolactone (Spironolactone), 25 MG PO DAILY Discharge Statement: "Patient was advised to return to the ER or call 911 if any headaches, dizziness, shortness of breath, chest pain, abdominal pain, bleeding, fevers, or worsening of medical condition. Patient was counseled about treatment plan, medications, possible side effects, patientverbalized understanding. All questions were answered to the best of my ability. This discharge took greater then 30 minutes in planning, reviewing documentation, counseling the patient, and discussing with other team members." ASSESSMENT ASSESSMENT Assessment c2 fx ESRD on HD CAD s/p RABIA Date of Service: Mar 23, 2025 Billing Provider: STEF PEREZ MD Common Visit Codes: [id number] INP/OBS CARE(HIGH) STEF PEREZ MD Mar 23, 2025 15:06
--- NOTE | 2025-03-23 23:18 | DVHPN2 ---
Progress Note - Dictate Date Seen: Mar 23, 2025 Has the PT tested + for MRSA If YES, has PT been informed?: Yes Medical Necessity Reason Pt with a Central, PICC or Fol: Yes Subjective Patient was seen and evaluated in follow up. Patient complains of mild generalized pain. CM is working on SNF placement. HGB 9.2, HCT 28.7, NA 134, CL 97, BUN 36, TABBER 4.72, CA 8. Telemetry reviewed. vital signs Vital Sign Date Time Temp Pulse Resp B/P (MAP) Pulse Ox O2 Delivery O2 Flow Rate FiO2 03/23/25 09:08 98.0 60 18 122/66 (84) 100 98.0 03/23/25 08:00 Nasal Cannula* 2 28 Total Intake and Output 03/22/25 03/22/25 03/23/25 15:00 23:00 07:00 Intake Total 50 ml 50 ml Balance 50 ml 50 ml medications Current Medications Medications Dose Ordered Sig/Virgen Route Start Time Stop Time Status Last Admin Dose Admin Carvedilol 6.25 mg BID PO 02/26/25 22:00 03/22/25 22:24 6.25 MG Aspirin 81 mg DAILY PO 02/27/25 10:00 03/22/25 08:54 81 MG Atorvastatin Calcium 40 mg HS PO 02/26/25 22:00 03/22/25 22:24 40 MG Sodium Chloride 10 ml QSHIFT@10,22 IV 03/10/25 22:00 03/23/25 11:13 10 ML Piperacillin Sod/ Tazobactam Sod 50 ml @ 12.5 mls/hr Q8H IV 03/13/25 10:00 03/23/25 11:13 12.5 MLS/HR Ticagrelor 90 mg BID PO 03/13/25 22:00 03/22/25 22:24 90 MG Enteral Nutritional Formula 1,000 ml 30ML/HR GT 03/14/25 15:15 Acetaminophen/ Hydrocodone Bitart 1 tab Q6HR PO 03/15/25 00:00 03/23/25 11:45 1 TAB Heparin Sodium (Porcine) 3,200 units LINDSEY PRN XX 03/17/25 03:00 03/17/25 03:37 3,200 UNITS Enteral Nutritional Formula 240 ml TIDWM PO 03/17/25 18:00 03/22/25 18:03 240 ML Pantoprazole Sodium 40 mg DAILY@0600 PO 03/20/25 06:00 03/23/25 05:23 40 MG Hydrocortisone 1 applic BID TOP 03/20/25 22:00 03/22/25 22:00 1 APPLIC Hydromorphone HCl 0.25 mg Q6HP PRN IV 03/22/25 19:30 03/23/25 08:54 0.25 MG objective GENERAL: Alert and oriented x 3. No acute distress. EYES: PERRL, EOMI. Anicteric. HENT: Moist mucous membranes. LUNGS: Clear to auscultation bilaterally. CARDIOVASCULAR: Regular rate and rhythm. ABDOMEN: Soft, nontender and nondistended. EXTREMITIES: No edema. NEUROLOGIC: No focal neurological deficits. SKIN: Warm, dry. 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 Complicated UTI. ESRD on hemodialysis. Acute on chronic diastolic heart failure. NSTEMI type 2 likely due to above. Pneumonia Gram-positive versus negative. Acute hypoxic respiratory failure. Diabetes mellitus type 2 HGB A1c 6% on 01/16/2025 , insulin-dependent. Coronary artery disease without stent placement. Cardiomegaly with Severe MR. Severe pulmonary hypertension. Hypertension . Dyslipidemia. Hypokalemia. Diarrhea. Transversely oriented fracture through the C2 vertebral body below the level of the odontoid process with significant left lateral fracture extension into the left C2 pedicle. Assessment/Plan Continued all current supportive medical care. GI prophylactics. IV antibiotics as ordered. Dilaudid and Vichy for pain management. Additional plan as per the hospital course. Dietary Evaluation Review Recommendations by RD: Dietary education by RD, Protein Supplementation Comments: 1) Initiate 60g CCHO renal cardiac diet 2) Initiate Nephro-Hilario @ 1 tb qd 3) Initiate Gage @ 1 pk qd 4) Initiate Nepro CarbStead qd 5) Refer to outpatient RD/CDCES for weight management 6) Follow-up with cardiology, pulmonology, and nephrology 7) Continue to monitor I&O, labs, and skin integrity Expected Outcomes/Goals: 1) appetite and labs to improve 2) wound to improve 3) gradual wt loss 4) f/u in 3-5 days Plan discussed with: Patient ARROYO,MUKESHCHANDRA M MD Mar 23, 2025 12:28
[2025-03-24 01:00] VITALS: BP 105/44; PULSE 64; RESP 18; TEMP 99.1; O2SAT 96
[2025-03-24 05:00] VITALS: BP 125/54; PULSE 60; RESP 18; TEMP 98.8; O2SAT 95
[2025-03-24 08:00] VITALS: PULSE 64
[2025-03-24 08:49] VITALS: BP 129/51; PULSE 65; RESP 19; O2SAT 99
[2025-03-24 10:30] VITALS: BP 128/60; PULSE 65; TEMP 37.1
--- NOTE | 2025-03-24 12:25 | DVH ---
CLINICAL HISTORY: spine and uncontrolled bm TECHNIQUE: CT of the abdomen and pelvis was performed without intravenous contrast. This exam was per formed according to our departmental dose optimization program. Up-to-date CT equipment and radiation dose reduction techniques are utilized as appropriate. 14.59 CTDI: 14.59 DLP: 688.22 WID: COMPARISON: CT CT AB PEL WO CON-NO ORAL OR IV on DOS: 02/26/25 FINDINGS: Lower Thorax: Prior median sternotomy wires visualized. Mitral annular calcifications partially imag ed. Hypodensity of the blood pool relative to the myocardium indicative of anemia. There is cardiome debbi and small bilateral pleural effusions. There are linear and curvilinear pleural calcifications on the right. Unchanged mild bilateral pleural thickening. Interlobular septal thickening in the lung bases. Liver and Biliary system: Normal-sized liver. Nodular contour of the liver. No definite hepatic lesio n. Gallbladder contains cholelithiasis and is normal caliber. There is no biliary ductal dilatation. Spleen: Unremarkable. Adrenal Glands and Kidneys: Normal adrenal glands. Retained patchy contrast opacification of the bila teral kidneys. Bilateral kidneys are small. There is no hydronephrosis or nephrolithiasis. Pancreas and Retroperitoneum: Mildly atrophic pancreas. No retroperitoneal lymphadenopathy. Aorta and Major Vessels: Aortoiliac vessels are normal in caliber with moderate to marked calcified a therosclerotic plaque. Bowel, Mesentery and Peritoneal space: Normal caliber small and large bowel. There is no free air or fluid collection. Trace ascites. Pelvis: There is a pessary in the upper vagina. There is contrast in the urinary bladder which is mod erately distended. There is no pelvic lymphadenopathy. Abdominal wall and Osseous Structures: There is body wall edema. Multilevel lower thoracic and lumbar spondylosis. Grade 1 anterolisthesis at L4-L5. No destructive osseous lesion. Bony demineralization. IMPRESSION: 1. Cardiomegaly, interstitial pulmonary edema, small bilateral pleural effusions, mild ascites, and b subha wall edema which could reflect mild CHF and/or volume overload. 2. Mild nodular contour of the liver which could be fibrosis or cirrhosis. Correlate with liver enzy mes and clinical history. 3. Cholelithiasis. 4. Retained patchy contrast opacification of the bilateral kidneys suggesting renal dysfunction.
[2025-03-24 12:56] VITALS: BP 129/63; PULSE 65; RESP 17; TEMP 97.7; O2SAT 91
--- NOTE | 2025-03-24 13:00 | DVH ---
CLINICAL HISTORY: Follow-up cervical spine fracture. TECHNIQUE: CT exam of the cervical spine was performed without intravenous contrast. This exam was pe rformed according to our departmental dose optimization program. Up-to-date CT equipment and radiatio n dose reduction techniques are utilized as appropriate. 18.79 CTDI: 18.79 DLP: 1.78 WID: COMPARISON: CT CERVICAL WITHOUT CONTRAST on DOS: 02/27/25 FINDINGS: Persistent comminuted and mildly displaced fracture of the C2 vertebral body extending into the left lateral mass without substantial change since prior. No new acute fracture. There is normal cervical alignment. The vertebral body heights are maintained. Multilevel cervical spondylosis with multilevel mild degenerative disc space disease. Multilevel face t and uncovertebral hypertrophy resulting in multilevel bony neural foraminal stenosis up to severe o n the left at C4-C5 and C6-C7 and severe bilaterally at C5-C6. Multilevel disc osteophyte complexes r esulting in multilevel spinal stenosis up to moderate at C5-C6. Comminuted fracture fragments result in moderate spinal canal narrowing at the level of C2 . The paraspinous soft tissues are unremarkabl e. Interlobular septal thickening in the lung apices. There are bilateral mastoid air cell effusions. Calcified plaque in the bilateral carotid bifurcation s. There is a right IJ central venous catheter partially imaged. IMPRESSION: 1. Persistent comminuted mildly displaced fracture of the C2 vertebral body extending into the left l ateral mass. No significant change since prior. 2. Multilevel degenerative neural foraminal stenosis up to severe on the left at C4-C5 and C6-C7 and severe bilaterally at C5-C6. 3. Multilevel degenerative spinal stenosis up to moderate at C5-C6. 4. Comminuted fracture fragments result in moderate spinal canal narrowing at the level C2. 5. Interstitial pulmonary edema.
--- NOTE | 2025-03-24 15:38 | DVHPN2 ---
Assessment/Plan Assessment/Plan progress note 80 F with ESRD on new HD, c2 fx, IDDM, NSTEMI admitted for sepsis. s/p LHC seen today.ctap and ct neck repeated, no sig changes. dc to snf. physical exam aox3 dry mucosa, poor hygiene, improved clear breath s1 s2 systolic murmur abdomen soft trace lE edema labs ekg imaging reviewed Assessment and plan Sepsis emphysematous cystitis ESRD on HD CAD s/p RABIA PNA gp vs gn chronic diastolic hf IDDM type 2 IN PH severe MR c2 fx dysphagia vanc and zosyn HD per renal DAPT attempt oral feeding viscous lido nystatin swish swallow Glucerna as tolerated not able to be scoped as pt has c2 fx pain management resume home meds s/p [facility] diet puree dvt ppx heparin full code Plan discussed with: Patient, Spouse My Orders Orders - STEF PEREZ MD Procedure Category Date Status Time * Industrial Paramedic CONS 03/24/25 Transmitted Consult 09:[address] 03/24/25 Resulted Contrast 09:33 Ct Ab Pel Wo Con-No CT 03/24/25 Resulted Oral Or Iv 09:33 Date of Service: Mar 24, 2025 Billing Provider: STEF PEREZ MD Common Visit Codes: 23967-ROC/OBS DISCH DAY >30min STEF PEREZ MD Mar 24, 2025 15:38
--- NOTE | 2025-03-24 18:38 | DVHPN2 ---
Progress Note - Dictate Date Seen: Mar 24, 2025 Has the PT tested + for MRSA If YES, has PT been informed?: Yes Medical Necessity Reason Pt with a Central, PICC or Fol: Yes Subjective Patient was seen and evaluated in follow up. Patient complains of generalized discomfort. T C-spine shows persistent comminuted mildly displaced fracture of the C2 vertebral body extending into the left lateral mass, multilevel degenerative neural foraminal stenosis up to severe on the left at C4-C5 and C6- C7 and severe bilaterally at C5-C6, multilevel degenerative spinal stenosis up to moderate at C5-C6, comminuted fracture fragments result in moderate spinal canal narrowing at the level C2 and interstitial pulmonary edema. Patient pending SNF placement. Telemetry reviewed. vital signs Vital Sign Date Time Temp Pulse Resp B/P (MAP) Pulse Ox O2 Delivery O2 Flow Rate FiO2 03/24/25 12:56 97.7 65 17 129/63 (85) 91 97.7 03/23/25 20:00 Nasal Cannula* 2 28 Total Intake and Output 03/23/25 03/23/25 03/24/25 15:00 23:00 07:00 Intake Total 100 ml Balance 100 ml medications Current Medications Medications Dose Ordered Sig/Virgen Route Start Time Stop Time Status Last Admin Dose Admin Carvedilol 6.25 mg BID PO 02/26/25 22:00 03/24/25 12:11 6.25 MG Aspirin 81 mg DAILY PO 02/27/25 10:00 03/24/25 12:11 81 MG Atorvastatin Calcium 40 mg HS PO 02/26/25 22:00 03/23/25 22:00 40 MG Sodium Chloride 10 ml QSHIFT@ IV 03/10/25 22:00 03/24/25 08:11 10 ML Ticagrelor 90 mg BID PO 03/13/25 22:00 03/24/25 12:11 90 MG Enteral Nutritional Formula 1,000 ml 30ML/HR GT 03/14/25 15:15 Heparin Sodium (Porcine) 3,200 units LINDSEY PRN XX 03/17/25 03:00 03/17/25 03:37 3,200 UNITS Enteral Nutritional Formula 240 ml TIDWM PO 03/17/25 18:00 03/24/25 12:11 240 ML Pantoprazole Sodium 40 mg DAILY@0600 PO 03/20/25 06:00 03/24/25 06:24 40 MG Hydrocortisone 1 applic BID TOP 03/20/25 22:00 03/23/25 22:00 1 APPLIC Hydromorphone HCl 0.25 mg Q6HP PRN IV 03/22/25 19:30 03/24/25 08:11 0.25 MG objective GENERAL: Alert and oriented x 3. No acute distress. EYES: PERRL, EOMI. Anicteric. HENT: Moist mucous membranes. LUNGS: Clear to auscultation bilaterally. CARDIOVASCULAR: Regular rate and rhythm. ABDOMEN: Soft, nontender and nondistended. EXTREMITIES: No edema. NEUROLOGIC: No focal neurological deficits. SKIN: Warm, dry. 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 Complicated UTI. ESRD on hemodialysis. Acute on chronic diastolic heart failure. NSTEMI type 2 likely due to above. Pneumonia Gram-positive versus negative. Acute hypoxic respiratory failure. Diabetes mellitus type 2 HGB A1c 6% on 01/16/2025 , insulin-dependent. Coronary artery disease without stent placement. Cardiomegaly with Severe MR. Severe pulmonary hypertension. Hypertension . Dyslipidemia. Hypokalemia. Diarrhea. Transversely oriented fracture through the C2 vertebral body below the level of the odontoid process with significant left lateral fracture extension into the left C2 pedicle. Assessment/Plan Continued all current supportive medical care. Coreg. Aspirin, Brilinta. GI prophylactics. IV antibiotics as ordered. Dilaudid for pain management. Additional plan as per the hospital course. Dietary Evaluation Review Recommendations by RD: Dietary education by RD, Protein Supplementation Comments: 1) Initiate 60g CCHO renal cardiac diet 2) Initiate Nephro-Hilario @ 1 tb qd 3) Initiate Ggae @ 1 pk qd 4) Initiate Nepro CarbStead qd 5) Refer to outpatient RD/CDCES for weight management 6) Follow-up with cardiology, pulmonology, and nephrology 7) Continue to monitor I&O, labs, and skin integrity Expected Outcomes/Goals: 1) appetite and labs to improve 2) wound to improve 3) gradual wt loss 4) f/u in 3-5 days Plan discussed with: Patient LYLE ARROYO MD Mar 24, 2025 13:04
== END 2025-03-24 16:43 | DRG 853 ==
LOC: EDBD 15:48 → ER 15:48 → EDUNIT# 15:48 → OVERFLOW 21:51 → TELE-CENTR 23:39 → ICU CENTRL 03-10 17:27 → TELE-EAST 03-17 14:22
PROVIDERS: ADMIT Student in an Organized Health Care Education/Training Program; ATTEND Student in an Organized Health Care Education/Training Program
PROC: 5A1D70Z Performance of Urinary Filtration, Intermittent, Less than 6 Hours Per Day (ICD-10-PCS; 2025-02-28)
PROC: 05HD33Z Insertion of Infusion Device into Right Cephalic Vein, Percutaneous Approach (ICD-10-PCS; 2025-02-28)
PROC: B54MZZA Ultrasonography of Right Upper Extremity Veins, Guidance (ICD-10-PCS; 2025-02-28)
PROC: 5A1D70Z Performance of Urinary Filtration, Intermittent, Less than 6 Hours Per Day (ICD-10-PCS; 2025-03-02)
PROC: 5A1D70Z Performance of Urinary Filtration, Intermittent, Less than 6 Hours Per Day (ICD-10-PCS; 2025-03-04)
PROC: 5A1D70Z Performance of Urinary Filtration, Intermittent, Less than 6 Hours Per Day (ICD-10-PCS; 2025-03-07)
PROC: 5A1D70Z Performance of Urinary Filtration, Intermittent, Less than 6 Hours Per Day (ICD-10-PCS; 2025-03-09)
PROC: 02HV33Z Insertion of Infusion Device into Superior Vena Cava, Percutaneous Approach (ICD-10-PCS; 2025-03-10)
PROC: B548ZZA Ultrasonography of Superior Vena Cava, Guidance (ICD-10-PCS; 2025-03-10)
PROC: 5A1D70Z Performance of Urinary Filtration, Intermittent, Less than 6 Hours Per Day (ICD-10-PCS; 2025-03-11)
PROC: 30233N1 Transfusion of Nonautologous Red Blood Cells into Peripheral Vein, Percutaneous Approach (ICD-10-PCS; 2025-03-12)
PROC: 0270356 Dilation of Coronary Artery, One Artery, Bifurcation, with Two Drug-eluting Intraluminal Devices, Percutaneous Approach (ICD-10-PCS; principal; 2025-03-13)
PROC: B41FYZZ Fluoroscopy of Right Lower Extremity Arteries using Other Contrast (ICD-10-PCS; 2025-03-13)
PROC: 3E073PZ Introduction of Platelet Inhibitor into Coronary Artery, Percutaneous Approach (ICD-10-PCS; 2025-03-13)
PROC: B211YZZ Fluoroscopy of Multiple Coronary Arteries using Other Contrast (ICD-10-PCS; 2025-03-13)
PROC: 5A1D70Z Performance of Urinary Filtration, Intermittent, Less than 6 Hours Per Day (ICD-10-PCS; 2025-03-14)
PROC: 027034Z Dilation of Coronary Artery, One Artery with Drug-eluting Intraluminal Device, Percutaneous Approach (ICD-10-PCS; 2025-03-16)
PROC: 04HY32Z Insertion of Monitoring Device into Lower Artery, Percutaneous Approach (ICD-10-PCS; 2025-03-16)
PROC: B41FYZZ Fluoroscopy of Right Lower Extremity Arteries using Other Contrast (ICD-10-PCS; 2025-03-16)
PROC: B211YZZ Fluoroscopy of Multiple Coronary Arteries using Other Contrast (ICD-10-PCS; 2025-03-16)
PROC: 5A1D70Z Performance of Urinary Filtration, Intermittent, Less than 6 Hours Per Day (ICD-10-PCS; 2025-03-16)
PROC: 5A1D70Z Performance of Urinary Filtration, Intermittent, Less than 6 Hours Per Day (ICD-10-PCS; 2025-03-19)
PROC: 5A1D70Z Performance of Urinary Filtration, Intermittent, Less than 6 Hours Per Day (ICD-10-PCS; 2025-03-23)
DX: A41.51 Sepsis due to Escherichia coli [E. coli] (principal); I21.A1 Myocardial infarction type 2; I50.33 Acute on chronic diastolic (congestive) heart failure; J96.01 Acute respiratory failure with hypoxia; N18.6 End stage renal disease; J15.69 Pneumonia due to other Gram-negative bacteria; J15.9 Unspecified bacterial pneumonia; I13.2 Hypertensive heart and chronic kidney disease with heart failure and with stage 5 chronic kidney disease, or end stage renal disease; E46 Unspecified protein-calorie malnutrition; E87.1 Hypo-osmolality and hyponatremia; E87.6 Hypokalemia; Z66 Do not resuscitate; I27.20 Pulmonary hypertension, unspecified; N30.80 Other cystitis without hematuria; E78.5 Hyperlipidemia, unspecified; D50.9 Iron deficiency anemia, unspecified; E66.01 Morbid (severe) obesity due to excess calories; I25.10 Atherosclerotic heart disease of native coronary artery without angina pectoris; I34.0 Nonrheumatic mitral (valve) insufficiency; D63.1 Anemia in chronic kidney disease; E11.22 Type 2 diabetes mellitus with diabetic chronic kidney disease; R13.10 Dysphagia, unspecified; Z79.82 Long term (current) use of aspirin; Z99.2 Dependence on renal dialysis; Z79.899 Other long term (current) drug therapy; Z79.4 Long term (current) use of insulin; Z95.2 Presence of prosthetic heart valve; Z68.30 Body mass index [BMI] 30.0-30.9, adult
CPT/HCPCS: 36415; 36569; 36600; 70450; 71045; 71250; 72125; 74018; 74176; 75710; 76857; 76937; 80048; 80053; 80069; 80202; 81001; 82565; 82805; 82962; 83605; 83690; 83735; 83880; 84100; 84478; 84484; 85007; 85014; 85018; 85025; 85027; 85610; 85730; 86850; 86860; 86870; 86880; 86900; 86901; 86905; 86906; 86922; 86970; 87040; 87045; 87077; 87081; 87086; 87088; 87186; 87340; 87427; 87493; 90935; 92941; 92978; 93005; 93454; 93926; 94640; 96374; 96375; 97110; 97163; 97530; 99152; G0378; J1642; J1756; J1815; J2250; J2405; J2470; J2543; J3480; Q9967